=== PATIENT | female | born 1960 | race Caucasian/White ===

== ENCOUNTER 2016-04-21 18:21 | Inpatient (IN) | payer MEDICARE, MEDICAID ==
[~2016-04-21] VITALS: Ht 132.1 cm; Wt 98.1 kg
[2016-04-21 19:38] LABS: MEAN CORPUSCULAR HEMOGLOBIN 31.9 pg (27.0-33.0); MEAN CORPUSCULAR VOLUME 93.9 fl (80.0-96.0); PLATELET COUNT, AUTOMATED 144 k/mm3 (150-450); RED CELL DISTRIBUTION WIDTH 14.3 % (11.5-14.5); WHITE BLOOD COUNT 4.2 K/mm3 (4.0-10.0)
[2016-04-21 19:40] LABS: ALBUMIN 2.7 GM/DL (3.2-5.2); ALBUMIN/GLOBULIN RATIO 0.64 (1.00-1.93); BILIRUBIN,DIRECT 0.1 MG/DL (0.0-0.2); BILIRUBIN,TOTAL 0.4 MG/DL (0.2-1.0); CALCIUM LEVEL 9.3 MG/DL (8.5-10.1); CREATININE FOR GFR 1.27 MG/DL (0.55-1.02); GLOMERULAR FILTRATION RATE 46.7 (>51); POTASSIUM SERUM 3.3 MEQ/L (3.5-5.1); TOTAL PROTEIN 6.9 GM/DL (6.4-8.2)
[2016-04-21 20:09] LABS: BANDS 69 % (< 11)
--- NOTE | 2016-04-21 20:32 | REP ---
Clinical: Fever . Comparison: None . Findings: The mediastinum and cardiac silhouette are stable and within normal limits for portable technique. The lung celaya are clear without acute consolidation, effusion, or pneumothorax. Skeletal structures demonstrate dextroconvex scoliosis. Impression: No acute cardiopulmonary process or focal consolidation. Scoliosis. Signed by Hilton Denis MD 04/21/2016 08:23 P
[2016-04-21] MEDS ORDERED: CLINDAMYCIN 600 MG/50 ML PREMIX BAG As Ordered ONE (20:33)
[2016-04-21] MEDS ORDERED: ISOVUE-370 76% 100ML VIAL (Q9967) As Ordered ONE (20:41)
[2016-04-21 21:01] LABS: THYROXINE (T4) 5.5 UG/DL (4.5-12.0)
[2016-04-21] MEDS ORDERED: CIPROFLOXACIN/D5W 400 MG/200 ML BAG (J0744) As Ordered ONE (21:36)
--- NOTE | 2016-04-21 23:00 | REPUSA ---
CLINICAL HISTORY: Abdominal pain. TECHNIQUE: Multiple axial CT images were obtained through the abdomen after intravenous contrast mat erial. COMPARISON: Correlation is made with noncontrast CT abdomen and pelvis dated 04/20/2016. COMMENTS: Since the prior study there is development of intrahepatic portal venous air. This is often seen in the setting of ischemic bowel. Mild intrahepatic biliary duct dilatation is evident. There is mild extrahepatic biliary ductal dilatation. The spleen is unremarkable. The gallbladder is within normal limits. The pancreas is of normal cont our and attenuation characteristics. There is no evidence of adrenal mass. Both kidneys demonstrate prompt and equal nephrograms. The ki dneys are normal in size, shape and configuration. There is no evidence of renal mass. There is no hydroureter or hydronephrosis. There is no evidence of abdominal ascites or lymphadenopathy. There is no evidence of appendicitis. The stomach is markedly distended. There is severe wall thick ening involving loops of jejunum and ileum which are markedly dilated measuring up to 5.2 cm. The tr ansition point is not seen with certainty. The findings are suspicious for ischemic enteritis with p robable ileus and/or partial small bowel obstruction. Scattered emphysematous bullae and scattered emphysematous blebs are present. There is no evidence o f pleural or parenchymal mass. There are no pleural effusions. IMPRESSION: Evidence of portal venous air. Dilated markedly thick walled loops of small bowel. Findings are mayra picious for ischemic enteritis. Small bowel ileus or partial small bowel obstruction also suspected. Marked interval exacerbation since the prior study. Discussed with Dr. Alcantar. Thank you for your kind referral of this patient. We appreciate the opportunity to participate in thi s patient's care.
[2016-04-22] MEDS ORDERED: VITMTA PO (00:26)
[2016-04-22] MEDS ORDERED: LORA10TA2 PO (00:26)
[2016-04-22] MEDS ORDERED: TYLE500T78 PO (00:26)
[2016-04-22] MEDS ORDERED: SIMV20TA2 PO (00:26)
[2016-04-22] MEDS ORDERED: SERO200T PO (00:26)
[2016-04-22] MEDS ORDERED: FLON1SPR (00:26)
[2016-04-22] MEDS ORDERED: ESTR62CR PV (00:26)
[2016-04-22] MEDS ORDERED: SYNT88TA2 PO (00:26)
[2016-04-22] MEDS ORDERED: VITA400C2 PO (00:26)
[2016-04-22] MEDS ORDERED: VITA500T88 PO (00:26)
[2016-04-22] MEDS ORDERED: ZOFR20TA PO (00:26)
[2016-04-22] MEDS ORDERED: MIDO5TA PO (00:26)
[2016-04-22] MEDS ORDERED: CALCTAB43 PO (00:26)
[2016-04-22] MEDS ORDERED: SERO400T PO (00:31)
[2016-04-22] MEDS ORDERED: ACETAMINOPHEN 500 MG TAB PO PRN (02:00)
[2016-04-22] MEDS ORDERED: ONDANSETRON 4 MG TAB (S0181) PO PRN (02:00)
--- NOTE | 2016-04-22 02:09 | HPEPDOC ---
General Date of Admission 04/22/2016 Chief Complaint The patient is a 55-year-old female admitted with a reason for visit of General Illness. Source: Old records, [facility] Caregiver/Aid, Caregiver History of Present Illness This is 55-year-old female with history of mental retardation from [facility], dyslipidemia, hypothyroid vomiting for about 3-4 episodes since this morning. As per the caregiver, the vomit was nonbloody, bilious, and greenish color, associated with abdominal pain. No diarrhea or fever with chills. Patient did have abdominal pain yesterday and was seen by PCP and had a CAT scan outside which is performed here again in the ED. Patient DOES not provide any history but abdominal pain is resolved and distension is improved after NG tube placement. About 1L of billious material has been suctioned. She has been seen by surgery, Dr. Jo. There is no acute indication for surgery. CAT scan reveals portal venous air, dilated thick-walled loops of small bowel suspicion for ischemic enteritis along small bowel obstruction. without Certain transition point. Lactic acid is normal. Home Medications Scheduled (Flonase Allergy Relief) 50 Mcg/Act Spr 50 MCG NA BID (Reported) Ascorbic Acid (Vitamin C) 500 Mg Tab 500 MG PO DAILY (Reported) Calcium/Vitamin D (Calcium 600+D 600-400 mg-Unit) 1 Tab Tab 1 TAB PO BID ( Reported) Conjugated Estrogens (Premarin) 1 Dose/30 Gm Cr 0.625 MG PV 2XW (Reported) Sunday and Levothyroxine Sodium (Synthroid) 88 Mcg Tab 88 MCG PO DAILY (Reported) Loratadine (Loratadine) 10 Mg Tab 10 MG PO DAILY (Reported) Midodrine HCl (Midodrine HCl) 5 Mg Tab 5 MG PO TID (Reported) Multivitamins *[facility] STOCKED* (Thera M Plus *[facility] STOCKED*) 1 Tab Tab 1 TAB PO DAILY (Reported) Quetiapine Fumerate (Seroquel) 200 Mg Tab 200 MG PO DAILY (Reported) Quetiapine Fumerate (Seroquel) 400 Mg Tab 400 MG PO QHS (Reported) Simvastatin (Simvastatin) 20 Mg Tab 20 MG PO DAILY (Reported) Vitamin E (Vitamin E) 400 Unit Cap 400 UNIT PO Q2D (Reported) Scheduled PRN Acetaminophen (Tylenol Extra Strength) 500 Mg Tab 500 MG PO Q4H PRN PRN PAIN / FEVER (Reported) Ondansetron HCl (Zofran) 4 Mg Tab 4 MG PO Q6H PRN PRN NAUSEA (Reported) Allergies Coded Allergies: Penicillins (Unverified Allergy, Unknown, RASH, 07/24/12) Penicillins Cross Reactors (Unverified Allergy, Unknown, RASH, 07/24/12) Past Medical History Medical History history of mental retardation from [facility], dyslipidemia, hypothyroid Family History Significant Family History: No pertinent family hx Social History * Smoker: non-smoker Alcohol: denies Drugs: denies Recent Travel/Sick Contacts: Denies: Recent sick contacts, Recent travel Psychosocial History: No pertinent psych hx Physical Examination Eye Exam: Negative: Conjunctiva & lids normal, EOMI, Other Eye Symptoms, PERRLA , Ptosis, Sclera icteric ENT Exam: Negative: Atraumatic, Ext Auditory Canal Nml, Mucous membr. moist/ pink, Nares Patent, Other ENT, Pharyngeal Edema, Pharynx Normal, Pinna Normal, Tongue Midline, Tympanic Membranes Normal Neck Exam: Negative: +2 carotid pulse wo bruit, JVD, Lymphadenopathy, Other, Supple, thyromegaly Chest Exam: Negative: Clear to auscultation, Diminished, Normal air movement, Other, Rales, Rhonchi, Wheezing Heart Exam: Negative: Bradycardic, Gallops, Irregular Rhythm, Murmurs, Normal S1, Normal S2, Other, Rate Normal, Regular Rhythm, Rubs, Tachycardic Telemetry: Negative: AV Block, Asystole, Atrial fibrillation, Bradycardia, No significant arrhythmia, Other Telemetry:, PACs, PVCs, Pause, SV Tach, Sinus, Tachycardia Abdomen Exam: Positive: BS Hyperactive, Other (distension present and upon deep palpation pt has pain. not localized to any specific area. ), Tenderness Extremity Exam: Negative: Clubbing, Cyanosis, Edema, Normal pulses, Other, Swelling, Tenderness Vital Signs BP 110/63 P 102 R 16 T 99.2 Laboratory Data Labs 24H Laboratory Tests 2 04/21/16 18:44: Aspartate Amino Transf (AST/SGOT) 18, Alanine Aminotransferase (ALT/SGPT) 19, Alkaline Phosphatase 66, Total Bilirubin 0.4, Direct Bilirubin 0.1, Albumin 2.7# L, Albumin/Globulin Ratio 0.64L, Amylase Level 11L, Anion Gap 11, Atypical Lymphocytes 1, Band Neutrophils 69H, White Blood Count 4.2, Red Blood Count 3.99L, Hemoglobin 12.7, Hematocrit 37.4, Mean Corpuscular Volume 93.9, Mean Corpuscular Hemoglobin 31.9, Mean Corpuscular Hemoglobin Concent 34.0, Red Cell Distribution Width 14.3, Platelet Count 144L, Neutrophils (%) (Auto) , Lymphocytes (%) (Auto) , Monocytes (%) (Auto) , Eosinophils (%) (Auto) , Basophils (%) (Auto) , Neutrophils # (Auto) , Lymphocytes # (Auto) , Monocytes # (Auto) , Eosinophils # (Auto) , Basophils # (Auto) , Calcium Level 9.3, Free Thyroxine Index 2.1, Glomerular Filtration Rate 46.7L, Lactic Acid Level 1.4, Large Unclassified Cells # , Large Unclassified Cells % , Lipase 38L, Lymphocytes (Manual) 5L, Metamyelocytes 7H, Monocytes (Manual) 9H, Myelocytes 3H , Neutrophils 6L, Platelet Estimate NORMAL, Thyroid Stimulating Hormone (TSH) 3.260, Thyroxine (T4) 5.5, Total Protein 6.9, Triiodothyronine (T3) Uptake 39 04/21/16 19:41: Urine Amorphous Sediment , Urine Appearance HAZY, Urine Color YELLOW, Urine pH 5.0, Urine Specific Strandquist 1.027, Urine Protein 1+H, Urine Glucose (UA) NEGATIVE, Urine Ketones 1+H, Urine Urobilinogen 0.2, Urine Bilirubin NEGATIVE, Urine Leukocyte Esterase NEGATIVE, Urine Bacteria (Auto) NEGATIVE, Urine Blood NEGATIVE, Urine Calcium Carbonate Cryst(Auto) , Urine Calcium Oxalate Cryst ( Auto) , Urine Calcium Phosphate Tiff (Auto) , Urine Cellular Casts , Urine Cystine Crystals , Urine Granular Casts (Auto) , Urine Hyaline Casts (Auto) 1, Urine Leucine Crystals , Urine Mucus (Auto) , Urine Nitrite NEGATIVE, Urine Oval Fat Bodies (Auto) , Urine RBC (Auto) 1, Urine Renal Epithelial Cells , Urine Sperm (Auto) , Urine Squamous Epithelial Cells 0, Urine Transitional Epithelial Cells , Urine Trichomonas (Auto) , Urine Triple Phosphate Cryst (Auto ) , Urine Tyrosine Crystals , Urine Uric Acid Crystals (Auto) , Urine WBC (Auto ) 2, Urine Waxy Casts (Auto) , Urine Yeast-Like Cells (Auto) CBC/BMP Laboratory Tests 04/21/16 18:44 Red Blood Count 3.99 L, Mean Corpuscular Volume 93.9, Mean Corpuscular Hemoglobin 31.9, Mean Corpuscular Hemoglobin Concent 34.0, Red Cell Distribution Width 14.3, Neutrophils (%) (Auto) , Lymphocytes (%) (Auto) , Monocytes (%) (Auto) , Eosinophils (%) (Auto) , Basophils (%) (Auto) , Neutrophils # (Auto) , Lymphocytes # (Auto) , Monocytes # (Auto) , Eosinophils # (Auto) , Basophils # (Auto) Microbiology Microbiology 04/21/16 Blood Culture, Received Pending 04/21/16 Blood Culture, Received Pending 04/21/16 Influenza Virus Type A Antigen - Final, Complete 04/21/16 Influenza Virus Type B Antigen - Final, Complete 04/21/16 Urine Culture, Received Pending Plan / VTE VTE Prophylaxis Ordered?: Yes Plan Plan 55-year-old female with history of mental retardation from [facility], dyslipidemia, hypothyroid vomiting for about 3-4 episodes since this morning. Partial SBO: - NG tube under suction. Improvement after placement. - surgery will follow tomm. They have written note and suggest not acute surgical candidate. - unlikely ischemic colitis given normal lactic acid, will check H and H tomm and lactic acid tomm. - will obtain flat upright ABd xray and will obtain one in AM for comparison - NPO and NS at 125cc/hr HYpothyroid: - c/w levothyroxine. check TSH tomm HLD: - c/w statin. DVT: heparin subq. IVF: Initiate Diet: Make NPO Activity: DONAL Herrera MD Apr 22, 2016 02:09
[2016-04-22] MEDS ORDERED: NS 1,000 ML IV SCH (02:15)
[2016-04-22 03:15] VITALS: BP 115/70
--- NOTE | 2016-04-22 03:17 | EDDOCDS ---
Nurse's Notes [facility] Name: Theresa Leone Age: 55 yrs Sex: Female : 1960 Arrival Date: 04/21/2016 Time: 18:21 Bed 5 Private MD: Naya Gamez G. Diagnosis: Volume depletion;Noninfective gastroenteritis and colitis, unspecified Presentation: 04/21 18:23 Presenting complaint: EMS states: continues to complain of abdominal pain. Fever today kr3 of 103 and has vomited. has refused to get out of bed. has not voided at all today. Suicide/Homicide risk assessment- the patient denies having any suicidal and/or homicidal ideations and does not present with any other emotional, behavioral or mental health complaints. 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 Transition of care: patient was not received from another setting of care. 18:23 Method Of Arrival: Ambulance kr3 18:51 Adult Sepsis Screening: The patient does not have new or worsening altered mentation. kr3 Patient's respiratory rate is less than 22. Systolic blood pressure is greater than 100. Patient has a qSOFA score of 0- Negative Sepsis Screen. 18:51 Acuity: OSMAN Level 3 kr3 Triage Assessment: 18:30 General: Appears in no apparent distress, Behavior is appropriate for age. Pain: Unable kr3 to use pain scale. Does not appear to understand pain scale. HIV screening NA for this visit Offered previously. The patient is triaged at the bedside. See Assessment in Nurses Notes section of ED record. Neurological: Level of Consciousness is awake, lethargic. GI: other dry vomit around mouth. Derm: Skin is dry, Skin is normal, Skin temperature is warm. 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 Calcarb 600 With Vitamin D Oral twice a day 2. Flonase 50 mcg/actuation Nasal spsn 1 spray 2 times per day 3. levothyroxine 88 mcg Oral cap 1 cap once daily 4. Loratadine Oral once daily 5. Multivitamin Oral daily 6. Premarin Vagl twice a week 7. proamatine 5mg three times a day 8. Seroquel 200 mg Oral tab 2 times per day 9. simvastatin 20 mg Oral tab 1 tab once daily 10. Vitamin C 500 mg Oral tab daily 11. vitamin E 400 unit Oral tab every other day 12. Zofran (as hydrochloride) 4 mg Oral tab as needed (Last dose: 04/21/2016) 13. Tylenol Unknown Oral as needed (Last dose: 04/21/2016) - PMHx: Allergies, Seasonal; Hypercholesterolemia; Thyroid problem; - Social history: Smoking status: Patient states was never smoker of tobacco. No barriers to communication noted, The patient speaks fluent Togolese. - Family history: Not pertinent. - : The pt / caregiver states he / she is not on anticoagulants. Home medication list is obtained from the facility MAR. - Exposure Risk Screening:: None identified. Screenin:33 Screening information is obtained from residence staff. Fall risk: At risk due to gait kr3 disturbance. Assistance ADL's: Requires assistance with meal preparation, this assistance is provided by residence staff, bathing, assistance is provided by residence staff, dressing, assistance is provided by residence staff, toileting, assistance is provided by residence staff, ambulation, assistance is provided by residence staff, housework, assistance is provided by residence staff, medication administration, assistance is provided by residence staff. Abuse/DV Screen: The patient / caregiver reports he/she is: pt cannot be assessed for living situation at this time. Nutritional screening: On heart healthy. Advance Directives: Currently, there is no health care proxy. There is no active DNR order. There is no Power of Centerless Grinder Tender. home support is adequate. Assessment: 18:47 GI: Abdomen is non- distended Bowel sounds present X 4 quads. Abd is soft X 4 quads Abd kr3 is tender to palpation X 4 quads. 20:00 Reassessment: Patient states symptoms have not improved. General: Appears ill, jp6 uncomfortable, Behavior is appropriate for age, cooperative. Pain: Location: abdomen Pain currently is 5 out of 10 on a pain scale. Noted to be grimacing. Neurological: No deficits noted. EENT: No deficits noted. Cardiovascular: No deficits noted. Heart tones S1 S2. Respiratory: No deficits noted. Airway is patent Respiratory effort is even, unlabored, Respiratory pattern is regular, symmetrical, Breath sounds are clear bilaterally. GI: Abdomen is distended, obese, Last BM was April 20, 2016. Bowel sounds present X 4 quads. Abd is soft Abd is tender to palpation. : No deficits noted. Derm: Skin is pale, Skin temperature is warm. Musculoskeletal: No deficits noted. 21:00 Reassessment: Patient states symptoms have not improved. General: Appears ill, jp6 uncomfortable. Pain: Noted to be grimacing. Cardiovascular: No deficits noted. Respiratory: Airway is patent Respiratory effort is even, unlabored, Respiratory pattern is regular, symmetrical. GI: Abdomen is distended, Bowel sounds present X 4 quads. Derm: Skin is pale. 22:00 Reassessment: Patient states symptoms have not improved. General: Appears ill, jp6 uncomfortable, Behavior is appropriate for age, cooperative. Pain: Noted to be grimacing. Neurological: No deficits noted. EENT: No deficits noted. Cardiovascular: No deficits noted. Respiratory: Airway is patent Respiratory effort is even, unlabored, Respiratory pattern is regular, symmetrical. GI: Abdomen is distended. 23:00 Reassessment: Patient states symptoms have not improved. jp6 23:50 Reassessment: Patient states symptoms have improved. NGT inserted w/ immediate 800ml jp6 out-abdomen less distended.Pt stated was feeling a little better.. 04/22 01:00 Reassessment: Patient states symptoms have improved. General: Appears comfortable, ill, jp6 Behavior is appropriate for age, cooperative. Pain: Alleviated by ng placement. Cardiovascular: No deficits noted. Respiratory: Airway is patent Respiratory effort is even, unlabored, Respiratory pattern is regular, symmetrical. 02:20 Reassessment: Patient states symptoms have improved. General: Appears comfortable, jp6 Behavior is appropriate for age, cooperative. Neurological: No deficits noted. EENT: No deficits noted. Cardiovascular: No deficits noted. Respiratory: No deficits noted. Airway is patent Respiratory effort is even, unlabored, Respiratory pattern is regular, symmetrical. GI: Abdomen is non- distended NGT. Derm: Skin is pale, Skin temperature is warm. Vital Signs: 04/21 18:26 BP 110 / 63 (auto/); jp6 18:28 Pulse 100 MON; Pulse Ox 91% ; jp6 18:29 BP 110 / 63; Pulse 102; Resp 16; Temp 99.2(O); Pulse Ox 100% on R/A; Weight 50.35 kg kr3 (R); Height 4 ft. 4 in. (132.08 cm) (R); 21:48 BP 116 / 76 (auto/); jp6 21:50 Pulse 90 MON; Pulse Ox 93% ; jp6 22:00 BP 116 / 76; Pulse 94; Resp 17; Temp 98(T); Pulse Ox 93% ; jp6 22:00 Temp 100.6(R); jp6 22:49 BP 98 / 56 (auto/); jp6 22:50 Pulse 88 MON; Pulse Ox 87% ; jp6 23:00 Pulse 88 MON; Pulse Ox 92% ; jp6 23:49 BP 104 / 65 (auto/); jp6 23:50 Pulse 92 MON; Pulse Ox 92% ; jp6 23:52 BP 103 / 67 (auto/); jp6 23:52 Pulse 92 MON; Pulse Ox 93% ; jp6 23:52 Temp 99.2(TE); jp6 04/22 00:49 BP 109 / 61 (auto/); jp6 00:50 Pulse 90 MON; Pulse Ox 96% ; jp6 01:49 BP 102 / 61 (auto/); jp6 02:14 Pulse 90 MON; Pulse Ox 95% ; jp6 02:31 Temp 98.9(TE); jp6 04/21 18:29 Body Mass Index 28.86 (50.35 kg, 132.08 cm) kr3 Vitals: 04/21 18:29 Log In Time N/A - ambulance arrival. kr3 ED Course: 18:22 Patient visited by Radha Mcneil, Apartment Leasing Specialist. lbd 18:22 Patient moved to Waiting lbd 18:23 Naya Gamez is Private Physician. lbd 18:23 Deepa De Oliveira,RN is Primary Nurse. lbd 18:23 Patient moved to 5 lbd 18:47 Inserted saline lock: 20 gauge in left hand and blood collected. The patient tolerated kr3 the procedure well. 18:51 Triage Initiated kr3 18:56 Antonio Alcantar DO is Attending Physician. cs11 18:56 Patient visited by Antonio Alcantar DO. cs11 19:02 Primary Nurse role handed off by Deepa De Oliveira,SHABNAM kr3 19:05 Mora Harris,SHABNAM is Primary Nurse. jp6 19:43 Urinalysis: catheterize Sent. jp6 19:43 Urine Culture Sent. jp6 19:48 -Influenza A&B Rapid Antigen - Nose Sent. jp6 19:55 [facility] [place] was scanned into [employer] and attached to record. gjb 20:19 Patient visited by Mora Harris RN. jp6 20:58 Chest, 1 View Returned. EDMS 21:57 Patient visited by Mora Harris RN. jp6 22:00 The patient / caregiver is instructed regarding the plan of care and ED course. jp6 22:00 No procedures done that require assistance. Urine collected. straight cath specimen. jp6 Straight cath inserted 16 Fr. 26 Fr. returned clear yellow urine. 23:12 Patient visited by Mora Harris RN. jp6 23:34 CT ABD & PELVIS: IV Contrast Only Returned. EDMS 04/22 00:08 NGT inserted 18 Fr. via right nare. Placement verified. Returned gastric contents. jp6 Returned bile. to intermittent suction. Returned gastric contents. Patient tolerated well. 00:13 Patient visited by Mora Harris RN. jp6 01:14 Sean Ureña MD is Hospitalizing Provider. cs11 Administered Medications: 04/21 19:42 Drug: NS 0.9% 1000 ml [sodium chloride 0.9 % intravenous solution] Route: IV; Rate: jp6 bolus; Site: left wrist; 20:46 Drug: Clindamycin 600 mg [clindamycin 600 mg/50 mL in 5 % dextrose intravenous jp6 piggyback] Route: IVPB; Infused Over: 30 mins; Site: left wrist; 22:16 Drug: Ciprofloxacin 400 mg [ciprofloxacin 400 mg/200 mL in 5 % dextrose intravenous jp6 piggyback] Route: IVPB; Rate: 200 mL/hr; Infused Over: 60 mins; Site: left wrist; 23:59 Drug: NS 0.9% 1000 ml [sodium chloride 0.9 % intravenous solution] Route: IV; Rate: jp6 bolus; Site: left wrist; Intake: 04/22 00:08 IV: 1250.00ml; Total: 1250.00ml. jp6 Output: 00:08 Urine: 600.00ml; Total: 600.00ml. jp6 00:24 Gastric: 1100.00ml (NGT); Total: 1700.00ml. jp6 Order Results: Lab Order: Lactic Acid (Jaime tube on ice); SPEC'M 04/21/16 18:44 Test: LACTIC ACID LEVEL, LACTATE; Value: 1.4; Range: 0.4-2.0; Units: MMOL/L; Status: F Lab Order: CBC with Diff; SPEC'M 04/21/16 18:44 Test: WHITE BLOOD COUNT; Value: 4.2; Range: 4.0-10.0; Units: K/mm3; Status: F Test: RED BLOOD COUNT; Value: 3.99; Range: 4.00-5.40; Abnormal: Below low normal; Units: M/mm3; Status: F Test: HEMOGLOBIN; Value: 12.7; Range: 12.0-16.0; Units: g/dl; Status: F Test: HEMATOCRIT; Value: 37.4; Range: 36.0-47.0; Units: %; Status: F Test: MEAN CORPUSCULAR VOLUME; Value: 93.9; Range: 80.0-96.0; Units: fl; Status: F Test: MEAN CORPUSCULAR HEMOGLOBIN; Value: 31.9; Range: 27.0-33.0; Units: pg; Status: F Test: MEAN CORPUSCULAR HGB CONC; Value: 34.0; Range: 32.0-36.5; Units: g/dl; Status: F Test: RED CELL DISTRIBUTION WIDTH; Value: 14.3; Range: 11.5-14.5; Units: %; Status: F Test: PLATELET COUNT, AUTOMATED; Value: 144; Range: 150-450; Abnormal: Below low normal; Units: k/mm3; Status: F Test: NEUTROPHILS; Value: 6; Range: 35-75; Abnormal: Below low normal; Units: %; Status: F Test: BANDS; Value: 69; Range: < 11; Abnormal: Above high normal; Units: %; Status: F Test: LYMPHOCYTES; Value: 5; Range: 16-52; Abnormal: Below low normal; Units: %; Status: F Test: MONOCYTES; Value: 9; Range: 0-8; Abnormal: Above high normal; Units: %; Status: F Test: METAMYELOCYTES; Value: 7; Range: 0-0; Abnormal: Above high normal; Units: %; Status: F Test: MYELOCYTES; Value: 3; Range: 0-0; Abnormal: Above high normal; Units: %; Status: F Test: ATYPICAL LYMPH; Value: 1; Range: 0-5; Units: %; Status: F Lab Order: MED Profile; [facility]04/21/16 18:44 Test: GLUCOSE, FASTING; Value: 113; Range: 70-105; Abnormal: Above high normal; Units: MG/DL; Status: F Test: BLOOD UREA NITROGEN; Value: 40; Range: 7-18; Abnormal: Above high normal; Units: MG/DL; Status: F Test: CREATININE FOR GFR; Value: 1.27; Range: 0.55-1.02; Abnormal: Above high normal; Units: MG/DL; Status: F Test: GLOMERULAR FILTRATION RATE; Value: 46.7; Range: >51; Abnormal: Below low normal; Status: F Test: SODIUM LEVEL; Value: 139; Range: 136-145; Units: MEQ/L; Status: F Test: POTASSIUM SERUM; Value: 3.3; Range: 3.5-5.1; Abnormal: Below low normal; Units: MEQ/L; Status: F Test: CHLORIDE LEVEL; Value: 101; Range: 98-107; Units: MEQ/L; Status: F Test: CARBON DIOXIDE LEVEL; Value: 27; Range: 21-32; Units: MEQ/L; Status: F Test: ANION GAP; Value: 11; Range: 8-16; Units: MEQ/L; Status: F Test: CALCIUM LEVEL; Value: 9.3; Range: 8.5-10.1; Units: MG/DL; Status: F Test Note: ; Units are mL/min/1.73 m2 Chronic Kidney Disease Staging per NKF: Stage I & II GFR >=60 Normal to Mildly Decreased Stage III GFR 30-59 Moderately Decreased Stage IV GFR 15-29 Severely Decreased Stage V GFR <15 Very Little GFR Left ESRD GFR <15 on 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64; Range: 1.00-1.93; Abnormal: Below low normal; Status: F Lab Order: Amylase; [facility] 04/21/16 18:44 Test: AMYLASE; Value: 11; Range: 25-115; Abnormal: Below low normal; Units: U/L; Status: F Lab Order: Lipase; [facility] 04/21/16 18:44 Test: LIPASE; Value: 38; Range: 73-393; Abnormal: Below low normal; Units: U/L; Status: F Lab Order: Urinalysis: catheterize; [facility] 04/21/16 19:41 Test: APPEARANCE, URINE; Value: HAZY; Range: CLEAR; Status: F Test: COLOR, URINE; Value: YELLOW; Range: YELLOW; Status: F Test: PH,URINE; Value: 5.0; Range: 5.0-9.0; Units: UNITS; Status: F Test: SPECIFIC GRAVITY URINE AUTO; Value: 1.027; Range: 1.002-1.035; Status: F Test: PROTEIN, URINE AUTO; Value: 1+; Range: NEGATIVE; Abnormal: Above high normal; Units: mg/dL; Status: F Test: GLUCOSE, URINE (UA) AUTO; Value: NEGATIVE; Range: NEGATIVE; Units: mg/dL; Status: F Test: KETONE, URINE AUTO; Value: 1+; Range: NEGATIVE; Abnormal: Above high normal; Units: mg/dL; Status: F Test: UROBILINOGEN, URINE AUTO; Value: 0.2; Range: 0.0-2.0; Units: mg/dL; Status: F Test: BILIRUBIN, URINE AUTO; Value: NEGATIVE; Range: NEGATIVE; Status: F Test: NITRITE, URINE AUTO; Value: NEGATIVE; Range: NEGATIVE; Status: F Test: LEUKOCYTE ESTERASE, URINE AUTO; Value: NEGATIVE; Range: NEGATIVE; Status: F Test: BLOOD, URINE BLOOD; Value: NEGATIVE; Range: NEGATIVE; Status: F Test: WBC, URINE AUTO; Value: 2; Range: 0-3; Units: /HPF; Status: F Test: RBC, URINE AUTO; Value: 1; Range: 0-3; Units: /HPF; Status: F Test: BACTERIA, URINE AUTO; Value: NEGATIVE; Range: NEGATIVE; Status: F Test: SQUAMOUS EPITHELIAL CELL UR AU; Value: 0; Range: 0-6; Units: /HPF; Status: F Test: HYALINE CAST, URINE AUTO; Value: 1; Range: 0-1; Units: /LPF; Status: F Lab Order: -Influenza A&B Rapid Antigen - Nose; SPEC'M 04/21/16 19:46 Test: INFLUENZA A RAPID SCR by ICA; Value: INFLUENZA A RESULTS NEGATIVE; Status: F Test: INFLUENZA A RAPID SCR by ICA; Value: Comments:; Status: F Test: INFLUENZA B RAPID SCR by ICA; Value: INFLUENZA B RESULTS NEGATIVE; Status: F Test Note: ; The Influenza test is a direct rapid immunoassay for the qualitative detection of Influenza viral antigen. Cell culture (Viral Culture) testing should be considered to confirm NEGATIVE results and to assist in detecting other viruses that can provide similar clinical symptoms. Please contact the lab within 24 hours ([phone]) if confirmatory testing is desired. Lab Order: PLATELET ESTIMATE; SPEC'M 04/21/16 18:44 Test: PLATELET ESTIMATE; Value: NORMAL; Range: NORMAL; Status: F Lab Order: THYROID PROFILE; SPEC'M 04/21/16 18:44 Test: T UPTAKE; Value: 39; Range: 30-39; Units: %; Status: F Test: THYROXINE (T4); Value: 5.5; Range: 4.5-12.0; Units: UG/DL; Status: F Test: FREE THYROXINE INDEX; Value: 2.1; Range: 1.3-4.8; Units: %; Status: F Test: THYROID STIMULATING HORMONE; Value: 3.260; Range: 0.358-3.740; Units: uIU/ML; Status: F Radiology Order: Chest, 1 View Test: Chest, 1 View REASON FOR EXAMINATION: fever; Clinical: Fever .; ; Comparison: None .; ; Findings:; The mediastinum and cardiac silhouette are stable and within normal limits for; portable technique. The lung celaya are clear without acute consolidation,; effusion, or pneumothorax. Skeletal structures demonstrate dextroconvex; scoliosis.; ; Impression:; No acute cardiopulmonary process or focal consolidation.; Scoliosis.; ; ; Signed by; Hilton Denis MD 04/21/2016 08:23 P; Radiology Order: CT ABD & PELVIS: IV Contrast Only Test: CT ABD & PELVIS: IV Contrast Only REASON FOR EXAMINATION: Abdomen Pain; ; CLINICAL HISTORY: Abdominal pain.; ; TECHNIQUE: Multiple axial CT images were obtained through the abdomen after intravenous contrast mat; erial.; ; COMPARISON: Correlation is made with noncontrast CT abdomen and pelvis dated 04/20/2016.; ; COMMENTS:; Since the prior study there is development of intrahepatic portal venous air. This is often seen in; the setting of ischemic bowel. Mild intrahepatic biliary duct dilatation is evident. There is mild; extrahepatic biliary ductal dilatation.; The spleen is unremarkable. The gallbladder is within normal limits. The pancreas is of normal cont; our and attenuation characteristics.; ; There is no evidence of adrenal mass. Both kidneys demonstrate prompt and equal nephrograms. The ki; dneys are normal in size, shape and configuration. There is no evidence of renal mass. There is no; hydroureter or hydronephrosis. There is no evidence of abdominal ascites or lymphadenopathy.; ; There is no evidence of appendicitis. The stomach is markedly distended. There is severe wall thick; ening involving loops of jejunum and ileum which are markedly dilated measuring up to 5.2 cm. The tr; ansition point is not seen with certainty. The findings are suspicious for ischemic enteritis with p; robable ileus and/or partial small bowel obstruction.; ; Scattered emphysematous bullae and scattered emphysematous blebs are present. There is no evidence o; f pleural or parenchymal mass. There are no pleural effusions.; ; IMPRESSION:; Evidence of portal venous air. Dilated markedly thick walled loops of small bowel. Findings are mayra; picious for ischemic enteritis. Small bowel ileus or partial small bowel obstruction also suspected.; Marked interval exacerbation since the prior study.; Discussed with Dr. Alcantar.; ; ; Thank you for your kind referral of this patient. We appreciate the opportunity to participate in thi; s patient's care.; ; ; Outcome: 01:15 Decision to Hospitalize by Provider. cs11 02:56 Discharge Assessment: Patient awake, alert and oriented x 3. No cognitive and/or jp6 functional deficits noted. Patient verbalized understanding of disposition instructions. patient administered narcotics - no. The following High Risk Discharge criteria are identified: None. Admitted to PCU accompanied by nurse, accompanied by tech, via stretcher, on monitor, with chart. Condition: improved. CT Study completed. Admission hand-off: Report called to pcu. Property :Personal belongings accompany Pt. 03:17 Patient left the ED. jp6 Signatures: Dispatcher [employer] EDMS Radha Mcneil, Apartment Leasing Specialist Unit lbd Deepa De Oliveira,RN RN kr3 Antonio Alcantar DO DO cs11 Agata Escamilla Jessica,RN RN jp6 GERARD
--- NOTE | 2016-04-22 03:17 | EDDOCDS ---
Physician Documentation [facility] Name: Theresa Leone Age: 55 yrs Sex: Female : 1960 Arrival Date: 04/21/2016 Time: 18:21 Bed 5 Private MD: Naya Gamez G. Disposition: 04/22/16 01:15 Hospitalization ordered by Sean Ureña for Inpatient Admission. Preliminary diagnosis are Volume depletion, Noninfective gastroenteritis and colitis, unspecified. - Bed requested for PCU. - Status is Inpatient Admission. jp6 - Condition is Stable. - Problem is new. - Symptoms have improved. Historical: - Allergies: Amoxicillin; PENICILLINS; - Home Meds: 1. Calcarb 600 With Vitamin D Oral twice a day 2. Flonase 50 mcg/actuation Nasal spsn 1 spray 2 times per day 3. levothyroxine 88 mcg Oral cap 1 cap once daily 4. Loratadine Oral once daily 5. Multivitamin Oral daily 6. Premarin Vagl twice a week 7. proamatine 5mg three times a day 8. Seroquel 200 mg Oral tab 2 times per day 9. simvastatin 20 mg Oral tab 1 tab once daily 10. Vitamin C 500 mg Oral tab daily 11. vitamin E 400 unit Oral tab every other day 12. Zofran (as hydrochloride) 4 mg Oral tab as needed (Last dose: 04/21/2016) 13. Tylenol Unknown Oral as needed (Last dose: 04/21/2016) - PMHx: Allergies, Seasonal; Hypercholesterolemia; Thyroid problem; - Social history: Smoking status: Patient states was never smoker of tobacco. No barriers to communication noted, The patient speaks fluent [place]inean. - Family history: Not pertinent. - : The pt / caregiver states he / she is not on anticoagulants. Home medication list is obtained from the facility JUN. - Exposure Risk Screening:: None identified. 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 4 in. (132.08 cm) (R); 21:48 BP 116 / 76 (auto/); jp6 21:50 Pulse 90 MON; Pulse Ox 93% ; jp6 22:00 BP 116 / 76; Pulse 94; Resp 17; Temp 98(T); Pulse Ox 93% ; jp6 22:00 Temp 100.6(R); jp6 22:49 BP 98 / 56 (auto/); jp6 22:50 Pulse 88 MON; Pulse Ox 87% ; jp6 23:00 Pulse 88 MON; Pulse Ox 92% ; jp6 23:49 BP 104 / 65 (auto/); jp6 23:50 Pulse 92 MON; Pulse Ox 92% ; jp6 23:52 BP 103 / 67 (auto/); jp6 23:52 Pulse 92 MON; Pulse Ox 93% ; jp6 23:52 Temp 99.2(TE); jp6 04/22 00:49 BP 109 / 61 (auto/); jp6 00:50 Pulse 90 MON; Pulse Ox 96% ; jp6 01:49 BP 102 / 61 (auto/); jp6 02:14 Pulse 90 MON; Pulse Ox 95% ; jp6 02:31 Temp 98.9(TE); jp6 04/21 18:29 Body Mass Index 28.86 (50.35 kg, 132.08 cm) kr3 MDM: 04/21 19:15 -Blood Culture (Adults Only), peripheral from different site, or from device/port/PICC cs11 etc. if present ordered. 19:15 NS 0.9% 1000 ml IV at bolus once ordered. cs11 19:16 Lactic Acid (Jaime tube on ice) Ordered. EDMS 19:16 CBC with Diff Ordered. EDMS 19:16 MED Profile Ordered. EDMS 19:16 Liver Profile Ordered. EDMS 19:16 Amylase Ordered. EDMS 19:16 Lipase Ordered. EDMS 19:16 Urinalysis: catheterize Ordered. EDMS 19:16 -Blood Culture Ordered. EDMS 19:16 Urine Culture Ordered. EDMS 19:16 Chest, 1 View Ordered. EDMS 19:36 -Blood Culture (Adults Only), peripheral from different site, or from device/port/PICC tmm1 etc. if present complete. 19:38 BLOOD CULTURES Ordered. EDMS 19:40 DIFFERENTIAL NO CHARGE Ordered. EDMS 19:40 PLATELET ESTIMATE Ordered. EDMS 19:40 -Influenza A&B Rapid Antigen - Nose Ordered. EDMS 19:51 Financial registration complete. gjb 19:55 FORMERLY [facility], [facility]1983 Payment Agreement was scanned into [employer] and attached to record. gjb 20:17 CBC with Diff Reviewed. cs11 20:17 MED Profile Reviewed. cs11 20:17 Liver Profile Reviewed. cs11 20:17 Amylase Reviewed. cs11 20:17 Lipase Reviewed. cs11 20:17 Urinalysis: catheterize Reviewed. cs11 20:17 Lactic Acid (Jaime tube on ice) Reviewed. cs11 20:17 -Influenza A&B Rapid Antigen - Nose Reviewed. cs11 20:17 PLATELET ESTIMATE Reviewed. cs11 20:25 Clindamycin 600 mg IVPB once over 30 mins; dilute in 50mL of NS or D5W ordered. cs11 20:25 Ciprofloxacin 400 mg IVPB at 200 mL/hr once over 60 mins ordered. cs11 20:26 CT ABD & PELVIS: IV Contrast Only Ordered. EDMS 20:42 THYROID PROFILE Ordered. EDMS 22:36 NG/OG Tube 18Fr to L.I.S. with hourly monitoring for placement ordered. cs11 22:37 MED Profile Reviewed. cs11 22:37 Liver Profile Reviewed. cs11 22:37 Amylase Reviewed. cs11 22:37 Lipase Reviewed. cs11 22:37 THYROID PROFILE Reviewed. cs11 22:37 Chest, 1 View Reviewed. cs11 23:55 NS 0.9% 1000 ml IV at bolus once ordered. cs11 23:56 BED REQUEST+ADM ordered. EDMS 04/22 01:11 CT ABD & PELVIS: IV Contrast Only Reviewed. cs11 01:47 Abdomen,Flat\E\Upright,PA CHEST Ordered. EDMS 01:55 Abdomen,Flat Plate KUB Ordered. EDMS 01:56 Admission / Observation Status ordered. EDMS 01:56 NPO DIET ordered. EDMS 01:57 COMPLETE COMPHRENSIVE METABOLI Ordered. EDMS 01:57 CBC WITH DIFFERENTIAL Ordered. EDMS 01:57 LACTIC ACID LEVEL, LACTATE Ordered. EDMS Administered Medications: 04/21 19:42 Drug: NS 0.9% 1000 ml [sodium chloride 0.9 % intravenous solution] Route: IV; Rate: jp6 bolus; Site: left wrist; 20:46 Drug: Clindamycin 600 mg [clindamycin 600 mg/50 mL in 5 % dextrose intravenous jp6 piggyback] Route: IVPB; Infused Over: 30 mins; Site: left wrist; 22:16 Drug: Ciprofloxacin 400 mg [ciprofloxacin 400 mg/200 mL in 5 % dextrose intravenous jp6 piggyback] Route: IVPB; Rate: 200 mL/hr; Infused Over: 60 mins; Site: left wrist; 23:59 Drug: NS 0.9% 1000 ml [sodium chloride 0.9 % intravenous solution] Route: IV; Rate: jp6 bolus; Site: left wrist; Signatures: Dispatcher [employer] EDMS Cortney Scales, RN RN Deepa Siddiqui,RN RN kr3 Antonio Alcantar DO DO cs11 [place], [place], HEALTH INSURANCE SPECIALIST HEALTH INSURANCE SPECIALIST tmm1 Agata Escamilla Jessica,RN RN jp6 The chart was reviewed and I authenticate all verbal orders and agree with the evaluation and treatment provided.Corrections: (The following items were deleted from the chart) 20:43 20:37 THYROID PROFILE+LAB ordered. EDMS EDMS Attachments: 19:55 FORMERLY [facility], [facility] Payment Agreement sandoval MTDD
[2016-04-22] MEDS: metroNIDAZOLE 500 MG in APPROPRIATE DILUENT 1 EA IV SCH ×3 (04:55→19:40)
[2016-04-22 05:34] LABS: MEAN CORPUSCULAR HEMOGLOBIN 32.7 pg (27.0-33.0); MEAN CORPUSCULAR HGB CONC 33.8 g/dl (32.0-36.5); MEAN CORPUSCULAR VOLUME 96.7 fl (80.0-96.0); PLATELET COUNT, AUTOMATED 137 k/mm3 (150-450); RED CELL DISTRIBUTION WIDTH 13.5 % (11.5-14.5); WHITE BLOOD COUNT 3.8 K/mm3 (4.0-10.0)
[2016-04-22 05:48] LABS: ALBUMIN 2.2 GM/DL (3.2-5.2); ALBUMIN/GLOBULIN RATIO 0.59 (1.00-1.93); ALKALINE PHOSPHATASE 55 U/L (45-117); ALT/SGPT 16 U/L (12-78); ANION GAP 12 MEQ/L (8-16); AST/SGOT 12 U/L (15-37); BILIRUBIN,TOTAL 0.4 MG/DL (0.2-1.0); BLOOD UREA NITROGEN 23 MG/DL (7-18); CALCIUM LEVEL 8.1 MG/DL (8.5-10.1); CARBON DIOXIDE LEVEL 24 MEQ/L (21-32); CHLORIDE LEVEL 105 MEQ/L (98-107); CREATININE FOR GFR 0.71 MG/DL (0.55-1.02); GLOMERULAR FILTRATION RATE > 60.0 (>51); GLUCOSE, FASTING 119 MG/DL (70-105); POTASSIUM SERUM 3.4 MEQ/L (3.5-5.1); SODIUM LEVEL 141 MEQ/L (136-145); TOTAL PROTEIN 5.9 GM/DL (6.4-8.2)
[2016-04-22 06:12] LABS: BANDS 10 % (< 11)
[2016-04-22 06:14] LABS: TOXIC VACUOLATION 1+
[2016-04-22] MEDS: LEVOTHYROXINE 0.088 MG TAB (88 MCG) PO SCH (06:32)
[2016-04-22] MEDS: HEPARIN SOD (PORCINE) 5000 UNITS/ML VIAL SC SCH ×3 (06:33→21:51)
[2016-04-22 07:15] VITALS: BP 103/61
[2016-04-22] MEDS: MULTIVITAMINS/MINERALS THERAP 1 TAB PO SCH (08:13)
[2016-04-22] MEDS: QUEtiapine FUMARATE 200 MG TAB PO SCH ×2 (08:13→21:52)
[2016-04-22] MEDS: FLUTICASONE PROP 0.05% NASAL SPRAY 16 GM (FLONASE) SCH ×2 (08:13→21:51)
[2016-04-22] MEDS: MIDODRINE 5 MG TAB PO SCH ×3 (08:13→16:43)
--- NOTE | 2016-04-22 08:32 | REP ---
Clinical: Small bowel obstruction. Technique: Supine view of the abdomen and pelvis. Comparison: 04/22/2016 at 02:27 a.m. Findings: Distended small bowel is consistent with small bowel obstruction. Air and fecal material noted within relatively normal appearing:. A nasogastric tube extends towards the right upper quadrant. Contrast within the bladder consistent with recent CT. Surgical courtney over the midabdomen consistent with prior surgery. Skeletal structures appear intact. Impression: Findings to suggest small bowel obstruction. Signed by Hilton Denis MD 04/22/2016 08:23 A
[2016-04-22] MEDS ORDERED: LORATADINE 10 MG TAB PO SCH (09:00)
[2016-04-22] MEDS ORDERED: CALCIUM/VITAMIN D 500 MG TAB PO SCH (09:00)
[2016-04-22] MEDS ORDERED: SIMVASTATIN 20 MG TAB PO SCH (09:00)
--- NOTE | 2016-04-22 09:14 | REP ---
Clinical: Abdominal distension. Possible small bowel obstruction. Technique: Supine view of the chest abdomen and pelvis with cross-table view of the abdomen. Findings: Distended loops of small bowel with normal aerated large bowel suggest the possibility of small bowel obstruction. Nasogastric tube below the diaphragm. Contrast within the bladder consistent with prior CT. Frontal view of the chest demonstrates chronic changes with superimposed scattered atelectasis suggested. Skeletal structures demonstrate scoliosis. Impression: Small bowel distension consistent with small bowel obstruction. Lung celaya demonstrate chronic changes and superimposed scattered atelectasis cannot be excluded. Signed by Hilton Denis MD 04/22/2016 09:05 A
[2016-04-22] MEDS: CIPROFLOXACIN 400 MG in APPROPRIATE DILUENT 1 EA IV SCH ×2 (09:35→21:53)
[2016-04-22] MEDS: KCL 40MEQ in NS 1000ML 1,000 ML IV SCH ×2 (10:51→19:40)
[2016-04-22 16:00] VITALS: BP 107/67
[2016-04-22 20:00] VITALS: BP 119/71
[2016-04-23] MEDS: metroNIDAZOLE 500 MG in APPROPRIATE DILUENT 1 EA IV SCH ×3 (03:55→19:55)
[2016-04-23] MEDS: KCL 40MEQ in NS 1000ML 1,000 ML IV SCH ×2 (03:55→13:21)
[2016-04-23 04:00] VITALS: BP 92/53
[2016-04-23 06:24] LABS: T UPTAKE 39 % (30-39)
[2016-04-23] MEDS: LEVOTHYROXINE 0.088 MG TAB (88 MCG) PO SCH (06:32)
[2016-04-23] MEDS: HEPARIN SOD (PORCINE) 5000 UNITS/ML VIAL SC SCH ×3 (06:32→22:10)
[2016-04-23 07:15] VITALS: BP 100/62
[2016-04-23 07:22] LABS: BLOOD UREA NITROGEN 14 MG/DL (7-18); CALCIUM LEVEL 7.1 MG/DL (8.5-10.1); CHLORIDE LEVEL 113 MEQ/L (98-107); GLOMERULAR FILTRATION RATE > 60.0 (>51); GLUCOSE, FASTING 111 MG/DL (70-105); POTASSIUM SERUM 4.4 MEQ/L (3.5-5.1); SODIUM LEVEL 145 MEQ/L (136-145)
[2016-04-23 08:04] LABS: ANION GAP 7 MEQ/L (8-16); CARBON DIOXIDE LEVEL 25 MEQ/L (21-32)
[2016-04-23] MEDS: MIDODRINE 5 MG TAB PO SCH ×3 (08:57→16:54)
[2016-04-23] MEDS: MULTIVITAMINS/MINERALS THERAP 1 TAB PO SCH (08:58)
[2016-04-23] MEDS: QUEtiapine FUMARATE 200 MG TAB PO SCH ×2 (08:58→22:10)
[2016-04-23] MEDS: CIPROFLOXACIN 400 MG in APPROPRIATE DILUENT 1 EA IV SCH ×2 (09:00→22:10)
[2016-04-23] MEDS ORDERED: VITAMIN E 400 INTERNATIONAL UNITS CAP PO SCH (09:00)
[2016-04-23] MEDS: FLUTICASONE PROP 0.05% NASAL SPRAY 16 GM (FLONASE) SCH ×2 (09:00→22:52)
--- NOTE | 2016-04-23 10:23 | REP ---
Clinical: Follow up small bowel obstruction. Technique: Supine views of the chest abdomen and pelvis along with cross-table lateral view of the abdomen. Comparison: 04/22/2016. Findings: Frontal view of the chest demonstrates scattered infiltrates suggesting multifocal pneumonia. Bowel gas pattern is essentially nonspecific with air filled large bowel overlying the abdomen and pelvis. No organomegaly. Ventral hernia repair. Impression: 1. Chest suggests multifocal infiltrates. 2. Air filled large bowel similar to prior examination. No obvious small bowel obstruction pattern appreciated by radiographic evaluation. Signed by Hilton Denis MD 04/23/2016 10:15 A
--- NOTE | 2016-04-23 12:41 | REP ---
Clinical: Left-sided weakness . Findings: Age-related changes are appreciated. The ventricles and sulci are symmetric. Jaime-white differentiation is maintained. There is no evidence for acute intracranial hemorrhage, mass/mass effect, pathology or infarction. No extra-axial fluid collection. Calvarium is intact. Paranasal sinuses and mastoid air cells are clear. Impression: Age related changes. No acute intracranial hemorrhage, infarction, or mass/mass effect. Signed by Hilton Denis MD 04/23/2016 12:32 P
--- NOTE | 2016-04-23 13:50 | IPNPDOC ---
Assessment/Plan Date Seen The patient was seen on 04/23/16. Problems Problems: (1) Enteritis Status: Acute Problem Text: infective vs ischemic will continue with ciprofloxacin and flagyl. (2) SBO (small bowel obstruction) Status: Acute Problem Text: partial will continue npo , pateint pulled out NG tube last night , no vomiting , refusing to put back in had 1 bowel movement last night surgery dr Padilla (3) Chronic hypotension Status: Chronic Problem Text: on midodrine. (4) Mental retardation Status: Chronic Problem Text: leaved is JRC , Brother is the guardian, no advance directives in place. continue seroquel (5) Down syndrome Status: Chronic (6) Dyslipidemia Status: Chronic Problem Text: continue statin (7) Hypothyroid Status: Chronic Problem Text: continue synthroid Plan / VTE VTE Prophylaxis Ordered?: Yes Plan IVF: Initiate Diet: Make NPO Activity: Bedrest Subjective Review of Systems CC/HPI The patient is a 55-year-old female admitted with a reason for visit of Dyslipidemia, Hypothyroid, Small Bowel Obstruction. Events since last encounter patient denies any abdominal pain today , had a bowel movement last night , no documented fever, initially in the morning very sleepy then more awake sitting up in chair , noted increased tremor of left hand with some possible tongue deviation so ordered CT head which was negative for any acute events, showed age related atrophy. Objective Physical Examination General Exam: Positive: Alert, Cooperative Eye Exam: Positive: Conjunctiva & lids normal, PERRLA ENT Exam: Positive: Atraumatic, Mucous membr. moist/pink Neck Exam: Negative: +2 carotid pulse wo bruit, JVD, Lymphadenopathy, Other, Supple, thyromegaly Chest Exam: Positive: Clear to auscultation Heart Exam: Positive: Normal S1, Normal S2, Rate Normal Telemetry: Positive: No significant arrhythmia Abdomen Exam: Positive: BS Hyperactive, Other (distension present and upon deep palpation pt has pain. not localized to any specific area. ), Tenderness Extremity Exam: Positive: Normal pulses, Negative: Clubbing, Cyanosis, Edema Vital Signs/I&O Vital Signs Date Time Temp Pulse Resp B/P Pulse Ox O2 Delivery O2 Flow Rate FiO2 04/23/16 07:15 96.2 77 18 100/62 94 Room Air I&O- Last 24 Hours up to 6 AM 04/23/16 05:59 Intake Total 1985 ml Output Total 1100 ml Balance 885 ml Laboratory Data Labs 24H Laboratory Tests 2 04/23/16 05:29: Anion Gap 7L, Blood Urea Nitrogen 14, Creatinine 0.60, Sodium Level 145, Potassium Level 4.4#, Chloride Level 113H, Carbon Dioxide Level 25, Calcium Level 7.1L, Free Thyroxine Index 2.0, Glomerular Filtration Rate > 60.0, Thyroid Stimulating Hormone (TSH) 5.670H, Thyroxine (T4) 5.0, Triiodothyronine ( T3) Uptake 39 CBC/BMP Laboratory Tests 04/23/16 05:29 Calcium Level 7.1 L Microbiology Microbiology 04/21/16 Blood Culture - Preliminary, Resulted No growth after 24 hours . All specim... 04/21/16 Blood Culture - Preliminary, Resulted No growth after 24 hours . All specim... 04/21/16 Influenza Virus Type A Antigen - Final, Complete 04/21/16 Influenza Virus Type B Antigen - Final, Complete 04/21/16 Urine Culture - Final, Complete DERIAN ARZOLA MD Apr 23, 2016 13:50
[2016-04-23 16:00] VITALS: BP 124/71
[2016-04-23 20:14] VITALS: BP 118/67
[2016-04-23 22:00] VITALS: BP 100/67
[2016-04-24] MEDS: metroNIDAZOLE 500 MG in APPROPRIATE DILUENT 1 EA IV SCH ×3 (04:12→20:28)
--- NOTE | 2016-04-24 04:17 | EDDOCDS ---
Physician Documentation [facility] Name: Theresa Leone Age: 55 yrs Sex: Female : 1960 Arrival Date: 04/21/2016 Time: 18:21 Bed 5 Private MD: Naya Gamez G. Disposition: 04/22/16 01:15 Hospitalization ordered by Sean Ureña for Inpatient Admission. Preliminary diagnosis are Volume depletion, Noninfective gastroenteritis and colitis, unspecified. - Bed requested for PCU. - Status is Inpatient Admission. jp6 - Condition is Stable. - Problem is new. - Symptoms have improved. Historical: - Allergies: Amoxicillin; PENICILLINS; - Home Meds: 1. Calcarb 600 With Vitamin D Oral twice a day 2. Flonase 50 mcg/actuation Nasal spsn 1 spray 2 times per day 3. levothyroxine 88 mcg Oral cap 1 cap once daily 4. Loratadine Oral once daily 5. Multivitamin Oral daily 6. Premarin Vagl twice a week 7. proamatine 5mg three times a day 8. Seroquel 200 mg Oral tab 2 times per day 9. simvastatin 20 mg Oral tab 1 tab once daily 10. Vitamin C 500 mg Oral tab daily 11. vitamin E 400 unit Oral tab every other day 12. Zofran (as hydrochloride) 4 mg Oral tab as needed (Last dose: 04/21/2016) 13. Tylenol Unknown Oral as needed (Last dose: 04/21/2016) - PMHx: Allergies, Seasonal; Hypercholesterolemia; Thyroid problem; - Social history: Smoking status: Patient states was never smoker of tobacco. No barriers to communication noted, The patient speaks fluent [place]alese. - Family history: Not pertinent. - : The pt / caregiver states he / she is not on anticoagulants. Home medication list is obtained from the facility JUN. - Exposure Risk Screening:: None identified. 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 4 in. (132.08 cm) (R); 21:48 BP 116 / 76 (auto/); jp6 21:50 Pulse 90 MON; Pulse Ox 93% ; jp6 22:00 BP 116 / 76; Pulse 94; Resp 17; Temp 98(T); Pulse Ox 93% ; jp6 22:00 Temp 100.6(R); jp6 22:49 BP 98 / 56 (auto/); jp6 22:50 Pulse 88 MON; Pulse Ox 87% ; jp6 23:00 Pulse 88 MON; Pulse Ox 92% ; jp6 23:49 BP 104 / 65 (auto/); jp6 23:50 Pulse 92 MON; Pulse Ox 92% ; jp6 23:52 BP 103 / 67 (auto/); jp6 23:52 Pulse 92 MON; Pulse Ox 93% ; jp6 23:52 Temp 99.2(TE); jp6 04/22 00:49 BP 109 / 61 (auto/); jp6 00:50 Pulse 90 MON; Pulse Ox 96% ; jp6 01:49 BP 102 / 61 (auto/); jp6 02:14 Pulse 90 MON; Pulse Ox 95% ; jp6 02:31 Temp 98.9(TE); jp6 04/21 18:29 Body Mass Index 28.86 (50.35 kg, 132.08 cm) kr3 MDM: 04/21 19:15 -Blood Culture (Adults Only), peripheral from different site, or from device/port/PICC cs11 etc. if present ordered. 19:15 NS 0.9% 1000 ml IV at bolus once ordered. cs11 19:16 Lactic Acid (Jaime tube on ice) Ordered. EDMS 19:16 CBC with Diff Ordered. EDMS 19:16 MED Profile Ordered. EDMS 19:16 Liver Profile Ordered. EDMS 19:16 Amylase Ordered. EDMS 19:16 Lipase Ordered. EDMS 19:16 Urinalysis: catheterize Ordered. EDMS 19:16 -Blood Culture Ordered. EDMS 19:16 Urine Culture Ordered. EDMS 19:16 Chest, 1 View Ordered. EDMS 19:36 -Blood Culture (Adults Only), peripheral from different site, or from device/port/PICC tmm1 etc. if present complete. 19:38 BLOOD CULTURES Ordered. EDMS 19:40 DIFFERENTIAL NO CHARGE Ordered. EDMS 19:40 PLATELET ESTIMATE Ordered. EDMS 19:40 -Influenza A&B Rapid Antigen - Nose Ordered. EDMS 19:51 Financial registration complete. gjb 19:55 FORMERLY [facility] Payment Agreement was scanned into [employer] and attached to record. gjb 20:17 CBC with Diff Reviewed. cs11 20:17 MED Profile Reviewed. cs11 20:17 Liver Profile Reviewed. cs11 20:17 Amylase Reviewed. cs11 20:17 Lipase Reviewed. cs11 20:17 Urinalysis: catheterize Reviewed. cs11 20:17 Lactic Acid (Jaime tube on ice) Reviewed. cs11 20:17 -Influenza A&B Rapid Antigen - Nose Reviewed. cs11 20:17 PLATELET ESTIMATE Reviewed. cs11 20:25 Clindamycin 600 mg IVPB once over 30 mins; dilute in 50mL of NS or D5W ordered. cs11 20:25 Ciprofloxacin 400 mg IVPB at 200 mL/hr once over 60 mins ordered. cs11 20:26 CT ABD & PELVIS: IV Contrast Only Ordered. EDMS 20:42 THYROID PROFILE Ordered. EDMS 22:36 NG/OG Tube 18Fr to L.I.S. with hourly monitoring for placement ordered. cs11 22:37 MED Profile Reviewed. cs11 22:37 Liver Profile Reviewed. cs11 22:37 Amylase Reviewed. cs11 22:37 Lipase Reviewed. cs11 22:37 THYROID PROFILE Reviewed. cs11 22:37 Chest, 1 View Reviewed. cs11 23:55 NS 0.9% 1000 ml IV at bolus once ordered. cs11 23:56 BED REQUEST+ADM ordered. EDMS 04/22 01:11 CT ABD & PELVIS: IV Contrast Only Reviewed. cs11 01:47 Abdomen,Flat\E\Upright,PA CHEST Ordered. EDMS 01:55 Abdomen,Flat Plate KUB Ordered. EDMS 01:56 Admission / Observation Status ordered. EDMS 01:56 NPO DIET ordered. EDMS 01:57 COMPLETE COMPHRENSIVE METABOLI Ordered. EDMS 01:57 CBC WITH DIFFERENTIAL Ordered. EDMS 01:57 LACTIC ACID LEVEL, LACTATE Ordered. EDMS 11:40 T-Sheet-- Draft Copy was scanned into [employer] and attached to record. gb 11:41 Radiology Report was scanned into [employer] and attached to record. gb Administered Medications: 04/21 19:42 Drug: NS 0.9% 1000 ml [sodium chloride 0.9 % intravenous solution] Route: IV; Rate: jp6 bolus; Site: left wrist; 20:46 Drug: Clindamycin 600 mg [clindamycin 600 mg/50 mL in 5 % dextrose intravenous jp6 piggyback] Route: IVPB; Infused Over: 30 mins; Site: left wrist; 22:16 Drug: Ciprofloxacin 400 mg [ciprofloxacin 400 mg/200 mL in 5 % dextrose intravenous jp6 piggyback] Route: IVPB; Rate: 200 mL/hr; Infused Over: 60 mins; Site: left wrist; 23:59 Drug: NS 0.9% 1000 ml [sodium chloride 0.9 % intravenous solution] Route: IV; Rate: jp6 bolus; Site: left wrist; Signatures: Dispatcher [employer] EDMS Cortney Scales, RN RN Cynthia Rendon, Deepa Solo RN RN [email or web address] Antonio Alcantar, DO DO cs11 [place], [place], NATIONAL SALES CONSULTANT NATIONAL SALES CONSULTANT tmm1 Agata Escamilla Jessica,RN RN jp6 The chart was reviewed and I authenticate all verbal orders and agree with the evaluation and treatment provided.Corrections: (The following items were deleted from the chart) 20:43 20:37 THYROID PROFILE+LAB ordered. EDMS EDMS Attachments: 19:55 [facility]LY [facility] Payment Agreement gjb 04/22 11:40 T-Sheet-- Draft Copy gb Chart Complete MTDD
--- NOTE | 2016-04-24 04:17 | EDDOCDS ---
Physician Documentation [facility] Name: Theresa Leone Age: 55 yrs Sex: Female : 1960 Arrival Date: 04/21/2016 Time: 18:21 Bed 5 Private MD: Naya Gamez G. Disposition: 04/22/16 01:15 Hospitalization ordered by Sean Ureña for Inpatient Admission. Preliminary diagnosis are Volume depletion, Noninfective gastroenteritis and colitis, unspecified. - Bed requested for PCU. - Status is Inpatient Admission. jp6 - Condition is Stable. - Problem is new. - Symptoms have improved. Historical: - Allergies: Amoxicillin; PENICILLINS; - Home Meds: 1. Calcarb 600 With Vitamin D Oral twice a day 2. Flonase 50 mcg/actuation Nasal spsn 1 spray 2 times per day 3. levothyroxine 88 mcg Oral cap 1 cap once daily 4. Loratadine Oral once daily 5. Multivitamin Oral daily 6. Premarin Vagl twice a week 7. proamatine 5mg three times a day 8. Seroquel 200 mg Oral tab 2 times per day 9. simvastatin 20 mg Oral tab 1 tab once daily 10. Vitamin C 500 mg Oral tab daily 11. vitamin E 400 unit Oral tab every other day 12. Zofran (as hydrochloride) 4 mg Oral tab as needed (Last dose: 04/21/2016) 13. Tylenol Unknown Oral as needed (Last dose: 04/21/2016) - PMHx: Allergies, Seasonal; Hypercholesterolemia; Thyroid problem; - Social history: Smoking status: Patient states was never smoker of tobacco. No barriers to communication noted, The patient speaks fluent German. - Family history: Not pertinent. - : The pt / caregiver states he / she is not on anticoagulants. Home medication list is obtained from the facility JUN. - Exposure Risk Screening:: None identified. 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 4 in. (132.08 cm) (R); 21:48 BP 116 / 76 (auto/); jp6 21:50 Pulse 90 MON; Pulse Ox 93% ; jp6 22:00 BP 116 / 76; Pulse 94; Resp 17; Temp 98(T); Pulse Ox 93% ; jp6 22:00 Temp 100.6(R); jp6 22:49 BP 98 / 56 (auto/); jp6 22:50 Pulse 88 MON; Pulse Ox 87% ; jp6 23:00 Pulse 88 MON; Pulse Ox 92% ; jp6 23:49 BP 104 / 65 (auto/); jp6 23:50 Pulse 92 MON; Pulse Ox 92% ; jp6 23:52 BP 103 / 67 (auto/); jp6 23:52 Pulse 92 MON; Pulse Ox 93% ; jp6 23:52 Temp 99.2(TE); jp6 04/22 00:49 BP 109 / 61 (auto/); jp6 00:50 Pulse 90 MON; Pulse Ox 96% ; jp6 01:49 BP 102 / 61 (auto/); jp6 02:14 Pulse 90 MON; Pulse Ox 95% ; jp6 02:31 Temp 98.9(TE); jp6 04/21 18:29 Body Mass Index 28.86 (50.35 kg, 132.08 cm) kr3 MDM: 04/21 19:15 -Blood Culture (Adults Only), peripheral from different site, or from device/port/PICC cs11 etc. if present ordered. 19:15 NS 0.9% 1000 ml IV at bolus once ordered. cs11 19:16 Lactic Acid (Jaime tube on ice) Ordered. EDMS 19:16 CBC with Diff Ordered. EDMS 19:16 MED Profile Ordered. EDMS 19:16 Liver Profile Ordered. EDMS 19:16 Amylase Ordered. EDMS 19:16 Lipase Ordered. EDMS 19:16 Urinalysis: catheterize Ordered. EDMS 19:16 -Blood Culture Ordered. EDMS 19:16 Urine Culture Ordered. EDMS 19:16 Chest, 1 View Ordered. EDMS 19:36 -Blood Culture (Adults Only), peripheral from different site, or from device/port/PICC tmm1 etc. if present complete. 19:38 BLOOD CULTURES Ordered. EDMS 19:40 DIFFERENTIAL NO CHARGE Ordered. EDMS 19:40 PLATELET ESTIMATE Ordered. EDMS 19:40 -Influenza A&B Rapid Antigen - Nose Ordered. EDMS 19:51 Financial registration complete. gjb 19:55 [facility] Payment Agreement was scanned into [employer] and attached to record. gjb 20:17 CBC with Diff Reviewed. cs11 20:17 MED Profile Reviewed. cs11 20:17 Liver Profile Reviewed. cs11 20:17 Amylase Reviewed. cs11 20:17 Lipase Reviewed. cs11 20:17 Urinalysis: catheterize Reviewed. cs11 20:17 Lactic Acid (Jaime tube on ice) Reviewed. cs11 20:17 -Influenza A&B Rapid Antigen - Nose Reviewed. cs11 20:17 PLATELET ESTIMATE Reviewed. cs11 20:25 Clindamycin 600 mg IVPB once over 30 mins; dilute in 50mL of NS or D5W ordered. cs11 20:25 Ciprofloxacin 400 mg IVPB at 200 mL/hr once over 60 mins ordered. cs11 20:26 CT ABD & PELVIS: IV Contrast Only Ordered. EDMS 20:42 THYROID PROFILE Ordered. EDMS 22:36 NG/OG Tube 18Fr to L.I.S. with hourly monitoring for placement ordered. cs11 22:37 MED Profile Reviewed. cs11 22:37 Liver Profile Reviewed. cs11 22:37 Amylase Reviewed. cs11 22:37 Lipase Reviewed. cs11 22:37 THYROID PROFILE Reviewed. cs11 22:37 Chest, 1 View Reviewed. cs11 23:55 NS 0.9% 1000 ml IV at bolus once ordered. cs11 23:56 BED REQUEST+ADM ordered. EDMS 04/22 01:11 CT ABD & PELVIS: IV Contrast Only Reviewed. cs11 01:47 Abdomen,Flat\E\Upright,PA CHEST Ordered. EDMS 01:55 Abdomen,Flat Plate KUB Ordered. EDMS 01:56 Admission / Observation Status ordered. EDMS 01:56 NPO DIET ordered. EDMS 01:57 COMPLETE COMPHRENSIVE METABOLI Ordered. EDMS 01:57 CBC WITH DIFFERENTIAL Ordered. EDMS 01:57 LACTIC ACID LEVEL, LACTATE Ordered. EDMS 11:40 T-Sheet-- Draft Copy was scanned into [employer] and attached to record. gb 11:41 Radiology Report was scanned into [employer] and attached to record. gb Administered Medications: 04/21 19:42 Drug: NS 0.9% 1000 ml [sodium chloride 0.9 % intravenous solution] Route: IV; Rate: jp6 bolus; Site: left wrist; 20:46 Drug: Clindamycin 600 mg [clindamycin 600 mg/50 mL in 5 % dextrose intravenous jp6 piggyback] Route: IVPB; Infused Over: 30 mins; Site: left wrist; 22:16 Drug: Ciprofloxacin 400 mg [ciprofloxacin 400 mg/200 mL in 5 % dextrose intravenous jp6 piggyback] Route: IVPB; Rate: 200 mL/hr; Infused Over: 60 mins; Site: left wrist; 23:59 Drug: NS 0.9% 1000 ml [sodium chloride 0.9 % intravenous solution] Route: IV; Rate: jp6 bolus; Site: left wrist; Signatures: Dispatcher [employer] EDMS Cortney Scales, RN RN Cynthia Rendon, Deepa Solo RN RN [email or web address] Antonio Alcantar, DO DO cs11 McLear, Bethany, [employer] [email or web address] Agata Escamilla Jessica,RN RN jp6 The chart was reviewed and I authenticate all verbal orders and agree with the evaluation and treatment provided.Corrections: (The following items were deleted from the chart) 20:43 20:37 THYROID PROFILE+LAB ordered. EDMS EDMS Attachments: 19:55 [facility] Payment Agreement gjb 04/22 11:40 T-Sheet-- Draft Copy gb Chart Complete MTDD
--- NOTE | 2016-04-24 04:17 | EDDOCDS ---
Nurse's Notes [facility] Name: Theresa Leone Age: 55 yrs Sex: Female : 1960 Arrival Date: 04/21/2016 Time: 18:21 Bed 5 Private MD: Naya Gamez G. Diagnosis: Volume depletion;Noninfective gastroenteritis and colitis, unspecified Presentation: 04/21 18:23 Presenting complaint: EMS states: continues to complain of abdominal pain. Fever today kr3 of 103 and has vomited. has refused to get out of bed. has not voided at all today. Suicide/Homicide risk assessment- the patient denies having any suicidal and/or homicidal ideations and does not present with any other emotional, behavioral or mental health complaints. 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 Transition of care: patient was not received from another setting of care. 18:23 Method Of Arrival: Ambulance kr3 18:51 Adult Sepsis Screening: The patient does not have new or worsening altered mentation. kr3 Patient's respiratory rate is less than 22. Systolic blood pressure is greater than 100. Patient has a qSOFA score of 0- Negative Sepsis Screen. 18:51 Acuity: OSMAN Level 3 kr3 Triage Assessment: 18:30 General: Appears in no apparent distress, Behavior is appropriate for age. Pain: Unable kr3 to use pain scale. Does not appear to understand pain scale. HIV screening NA for this visit Offered previously. The patient is triaged at the bedside. See Assessment in Nurses Notes section of ED record. Neurological: Level of Consciousness is awake, lethargic. GI: other dry vomit around mouth. Derm: Skin is dry, Skin is normal, Skin temperature is warm. CORN POPPER: 18:29 LMP N/A - Post-menopause kr3 Historical: - Allergies: Amoxicillin; PENICILLINS; - Home Meds: 1. Calcarb 600 With Vitamin D Oral twice a day 2. Flonase 50 mcg/actuation Nasal spsn 1 spray 2 times per day 3. levothyroxine 88 mcg Oral cap 1 cap once daily 4. Loratadine Oral once daily 5. Multivitamin Oral daily 6. Premarin Vagl twice a week 7. proamatine 5mg three times a day 8. Seroquel 200 mg Oral tab 2 times per day 9. simvastatin 20 mg Oral tab 1 tab once daily 10. Vitamin C 500 mg Oral tab daily 11. vitamin E 400 unit Oral tab every other day 12. Zofran (as hydrochloride) 4 mg Oral tab as needed (Last dose: 04/21/2016) 13. Tylenol Unknown Oral as needed (Last dose: 04/21/2016) - PMHx: Allergies, Seasonal; Hypercholesterolemia; Thyroid problem; - Social history: Smoking status: Patient states was never smoker of tobacco. No barriers to communication noted, The patient speaks fluent Chilean. - Family history: Not pertinent. - : The pt / caregiver states he / she is not on anticoagulants. Home medication list is obtained from the facility MAR. - Exposure Risk Screening:: None identified. Screenin:33 Screening information is obtained from residence staff. Fall risk: At risk due to gait kr3 disturbance. Assistance ADL's: Requires assistance with meal preparation, this assistance is provided by residence staff, bathing, assistance is provided by residence staff, dressing, assistance is provided by residence staff, toileting, assistance is provided by residence staff, ambulation, assistance is provided by residence staff, housework, assistance is provided by residence staff, medication administration, assistance is provided by residence staff. Abuse/DV Screen: The patient / caregiver reports he/she is: pt cannot be assessed for living situation at this time. Nutritional screening: On heart healthy. Advance Directives: Currently, there is no health care proxy. There is no active DNR order. There is no Power of Senior Linux Administrator. home support is adequate. Assessment: 18:47 GI: Abdomen is non- distended Bowel sounds present X 4 quads. Abd is soft X 4 quads Abd kr3 is tender to palpation X 4 quads. 20:00 Reassessment: Patient states symptoms have not improved. General: Appears ill, jp6 uncomfortable, Behavior is appropriate for age, cooperative. Pain: Location: abdomen Pain currently is 5 out of 10 on a pain scale. Noted to be grimacing. Neurological: No deficits noted. EENT: No deficits noted. Cardiovascular: No deficits noted. Heart tones S1 S2. Respiratory: No deficits noted. Airway is patent Respiratory effort is even, unlabored, Respiratory pattern is regular, symmetrical, Breath sounds are clear bilaterally. GI: Abdomen is distended, obese, Last BM was April 20, 2016. Bowel sounds present X 4 quads. Abd is soft Abd is tender to palpation. : No deficits noted. Derm: Skin is pale, Skin temperature is warm. Musculoskeletal: No deficits noted. 21:00 Reassessment: Patient states symptoms have not improved. General: Appears ill, jp6 uncomfortable. Pain: Noted to be grimacing. Cardiovascular: No deficits noted. Respiratory: Airway is patent Respiratory effort is even, unlabored, Respiratory pattern is regular, symmetrical. GI: Abdomen is distended, Bowel sounds present X 4 quads. Derm: Skin is pale. 22:00 Reassessment: Patient states symptoms have not improved. General: Appears ill, jp6 uncomfortable, Behavior is appropriate for age, cooperative. Pain: Noted to be grimacing. Neurological: No deficits noted. EENT: No deficits noted. Cardiovascular: No deficits noted. Respiratory: Airway is patent Respiratory effort is even, unlabored, Respiratory pattern is regular, symmetrical. GI: Abdomen is distended. 23:00 Reassessment: Patient states symptoms have not improved. jp6 23:50 Reassessment: Patient states symptoms have improved. NGT inserted w/ immediate 800ml jp6 out-abdomen less distended.Pt stated was feeling a little better.. 04/22 01:00 Reassessment: Patient states symptoms have improved. General: Appears comfortable, ill, jp6 Behavior is appropriate for age, cooperative. Pain: Alleviated by ng placement. Cardiovascular: No deficits noted. Respiratory: Airway is patent Respiratory effort is even, unlabored, Respiratory pattern is regular, symmetrical. 02:20 Reassessment: Patient states symptoms have improved. General: Appears comfortable, jp6 Behavior is appropriate for age, cooperative. Neurological: No deficits noted. EENT: No deficits noted. Cardiovascular: No deficits noted. Respiratory: No deficits noted. Airway is patent Respiratory effort is even, unlabored, Respiratory pattern is regular, symmetrical. GI: Abdomen is non- distended NGT. Derm: Skin is pale, Skin temperature is warm. Vital Signs: 04/21 18:26 BP 110 / 63 (auto/); jp6 18:28 Pulse 100 MON; Pulse Ox 91% ; jp6 18:29 BP 110 / 63; Pulse 102; Resp 16; Temp 99.2(O); Pulse Ox 100% on R/A; Weight 50.35 kg kr3 (R); Height 4 ft. 4 in. (132.08 cm) (R); 21:48 BP 116 / 76 (auto/); jp6 21:50 Pulse 90 MON; Pulse Ox 93% ; jp6 22:00 BP 116 / 76; Pulse 94; Resp 17; Temp 98(T); Pulse Ox 93% ; jp6 22:00 Temp 100.6(R); jp6 22:49 BP 98 / 56 (auto/); jp6 22:50 Pulse 88 MON; Pulse Ox 87% ; jp6 23:00 Pulse 88 MON; Pulse Ox 92% ; jp6 23:49 BP 104 / 65 (auto/); jp6 23:50 Pulse 92 MON; Pulse Ox 92% ; jp6 23:52 BP 103 / 67 (auto/); jp6 23:52 Pulse 92 MON; Pulse Ox 93% ; jp6 23:52 Temp 99.2(TE); jp6 04/22 00:49 BP 109 / 61 (auto/); jp6 00:50 Pulse 90 MON; Pulse Ox 96% ; jp6 01:49 BP 102 / 61 (auto/); jp6 02:14 Pulse 90 MON; Pulse Ox 95% ; jp6 02:31 Temp 98.9(TE); jp6 04/21 18:29 Body Mass Index 28.86 (50.35 kg, 132.08 cm) kr3 Vitals: 04/21 18:29 Log In Time N/A - ambulance arrival. kr3 ED Course: 18:22 Patient visited by Radha Mcneil, Hole Digger. lbd 18:22 Patient moved to Waiting lbd 18:23 Naya Gamez is Private Physician. lbd 18:23 Deepa De Oliveira,RN is Primary Nurse. lbd 18:23 Patient moved to 5 lbd 18:47 Inserted saline lock: 20 gauge in left hand and blood collected. The patient tolerated kr3 the procedure well. 18:51 Triage Initiated kr3 18:56 Antonio Alcantar DO is Attending Physician. cs11 18:56 Patient visited by Antonio Alcantar DO. cs11 19:02 Primary Nurse role handed off by Deepa De Oliveira,SHABNAM kr3 19:05 Mora Harris,SHABNAM is Primary Nurse. jp6 19:43 Urinalysis: catheterize Sent. jp6 19:43 Urine Culture Sent. jp6 19:48 -Influenza A&B Rapid Antigen - Nose Sent. jp6 19:55 [facility] [place] Payment Agreement was scanned into [employer] and attached to record. gjb 20:19 Patient visited by Mora Harris RN. jp6 20:58 Chest, 1 View Returned. EDMS 21:57 Patient visited by Mora Harris RN. jp6 22:00 The patient / caregiver is instructed regarding the plan of care and ED course. jp6 22:00 No procedures done that require assistance. Urine collected. straight cath specimen. jp6 Straight cath inserted 16 Fr. 26 Fr. returned clear yellow urine. 23:12 Patient visited by Mora Harris RN. jp6 23:34 CT ABD & PELVIS: IV Contrast Only Returned. EDMS 04/22 00:08 NGT inserted 18 Fr. via right nare. Placement verified. Returned gastric contents. jp6 Returned bile. to intermittent suction. Returned gastric contents. Patient tolerated well. 00:13 Patient visited by Mora Harris RN. jp6 01:14 Sean Ureña MD is Hospitalizing Provider. cs11 11:40 T-Sheet-- Draft Copy was scanned into Thinkgl[employer] and attached to record. gb 11:41 Radiology Report was scanned into [employer] and attached to record. gb Administered Medications: 04/21 19:42 Drug: NS 0.9% 1000 ml [sodium chloride 0.9 % intravenous solution] Route: IV; Rate: jp6 bolus; Site: left wrist; 20:46 Drug: Clindamycin 600 mg [clindamycin 600 mg/50 mL in 5 % dextrose intravenous jp6 piggyback] Route: IVPB; Infused Over: 30 mins; Site: left wrist; 22:16 Drug: Ciprofloxacin 400 mg [ciprofloxacin 400 mg/200 mL in 5 % dextrose intravenous jp6 piggyback] Route: IVPB; Rate: 200 mL/hr; Infused Over: 60 mins; Site: left wrist; 23:59 Drug: NS 0.9% 1000 ml [sodium chloride 0.9 % intravenous solution] Route: IV; Rate: jp6 bolus; Site: left wrist; Intake: 04/22 00:08 IV: 1250.00ml; Total: 1250.00ml. jp6 Output: 00:08 Urine: 600.00ml; Total: 600.00ml. jp6 00:24 Gastric: 1100.00ml (NGT); Total: 1700.00ml. jp6 Order Results: Lab Order: Lactic Acid (Jaime tube on ice); SPEC'M 04/21/16 18:44 Test: LACTIC ACID LEVEL, LACTATE; Value: 1.4; Range: 0.4-2.0; Units: MMOL/L; Status: F Lab Order: CBC with Diff; SPEC'M 04/21/16 18:44 Test: WHITE BLOOD COUNT; Value: 4.2; Range: 4.0-10.0; Units: K/mm3; Status: F Test: RED BLOOD COUNT; Value: 3.99; Range: 4.00-5.40; Abnormal: Below low normal; Units: M/mm3; Status: F Test: HEMOGLOBIN; Value: 12.7; Range: 12.0-16.0; Units: g/dl; Status: F Test: HEMATOCRIT; Value: 37.4; Range: 36.0-47.0; Units: %; Status: F Test: MEAN CORPUSCULAR VOLUME; Value: 93.9; Range: 80.0-96.0; Units: fl; Status: F Test: MEAN CORPUSCULAR HEMOGLOBIN; Value: 31.9; Range: 27.0-33.0; Units: pg; Status: F Test: MEAN CORPUSCULAR HGB CONC; Value: 34.0; Range: 32.0-36.5; Units: g/dl; Status: F Test: RED CELL DISTRIBUTION WIDTH; Value: 14.3; Range: 11.5-14.5; Units: %; Status: F Test: PLATELET COUNT, AUTOMATED; Value: 144; Range: 150-450; Abnormal: Below low normal; Units: k/mm3; Status: F Test: NEUTROPHILS; Value: 6; Range: 35-75; Abnormal: Below low normal; Units: %; Status: F Test: BANDS; Value: 69; Range: < 11; Abnormal: Above high normal; Units: %; Status: F Test: LYMPHOCYTES; Value: 5; Range: 16-52; Abnormal: Below low normal; Units: %; Status: F Test: MONOCYTES; Value: 9; Range: 0-8; Abnormal: Above high normal; Units: %; Status: F Test: METAMYELOCYTES; Value: 7; Range: 0-0; Abnormal: Above high normal; Units: %; Status: F Test: MYELOCYTES; Value: 3; Range: 0-0; Abnormal: Above high normal; Units: %; Status: F Test: ATYPICAL LYMPH; Value: 1; Range: 0-5; Units: %; Status: F Lab Order: MED Profile; [facility] 04/21/16 18:44 Test: GLUCOSE, FASTING; Value: 113; Range: 70-105; Abnormal: Above high normal; Units: MG/DL; Status: F Test: BLOOD UREA NITROGEN; Value: 40; Range: 7-18; Abnormal: Above high normal; Units: MG/DL; Status: F Test: CREATININE FOR GFR; Value: 1.27; Range: 0.55-1.02; Abnormal: Above high normal; Units: MG/DL; Status: F Test: GLOMERULAR FILTRATION RATE; Value: 46.7; Range: >51; Abnormal: Below low normal; Status: F Test: SODIUM LEVEL; Value: 139; Range: 136-145; Units: MEQ/L; Status: F Test: POTASSIUM SERUM; Value: 3.3; Range: 3.5-5.1; Abnormal: Below low normal; Units: MEQ/L; Status: F Test: CHLORIDE LEVEL; Value: 101; Range: 98-107; Units: MEQ/L; Status: F Test: CARBON DIOXIDE LEVEL; Value: 27; Range: 21-32; Units: MEQ/L; Status: F Test: ANION GAP; Value: 11; Range: 8-16; Units: MEQ/L; Status: F Test: CALCIUM LEVEL; Value: 9.3; Range: 8.5-10.1; Units: MG/DL; Status: F Test Note: ; Units are mL/min/1.73 m2 Chronic Kidney Disease Staging per NKF: Stage I & II GFR >=60 Normal to Mildly Decreased Stage III GFR 30-59 Moderately Decreased Stage IV GFR 15-29 Severely Decreased Stage V GFR <15 Very Little GFR Left ESRD GFR <15 on CERTIFIED OPHTHALMIC SURGICAL ASSISTANT Lab Order: Liver Profile; [facility] 04/21/16 18:44 Test: AST/SGOT; Value: 18; Range: 15-37; Units: U/L; Status: F Test: ALT/SGPT; Value: 19; Range: 12-78; Units: U/L; Status: F Test: ALKALINE PHOSPHATASE; Value: 66; Range: 45-117; Units: U/L; Status: F Test: BILIRUBIN,TOTAL; Value: 0.4; Range: 0.2-1.0; Units: MG/DL; Status: F Test: BILIRUBIN,DIRECT; Value: 0.1; Range: 0.0-0.2; Units: MG/DL; Status: F Test: TOTAL PROTEIN; Value: 6.9; Range: 6.4-8.2; Units: GM/DL; Status: F Test: ALBUMIN; Value: 2.7; Range: 3.2-5.2; Units: GM/DL; Status: F Test: ALBUMIN/GLOBULIN RATIO; Value: 0.64; Range: 1.00-1.93; Abnormal: Below low normal; Status: F Lab Order: Amylase; [facility] 04/21/16 18:44 Test: AMYLASE; Value: 11; Range: 25-115; Abnormal: Below low normal; Units: U/L; Status: F Lab Order: Lipase; [facility] 04/21/16 18:44 Test: LIPASE; Value: 38; Range: 73-393; Abnormal: Below low normal; Units: U/L; Status: F Lab Order: Urinalysis: catheterize; [facility] 04/21/16 19:41 Test: APPEARANCE, URINE; Value: HAZY; Range: CLEAR; Status: F Test: COLOR, URINE; Value: YELLOW; Range: YELLOW; Status: F Test: PH,URINE; Value: 5.0; Range: 5.0-9.0; Units: UNITS; Status: F Test: SPECIFIC GRAVITY URINE AUTO; Value: 1.027; Range: 1.002-1.035; Status: F Test: PROTEIN, URINE AUTO; Value: 1+; Range: NEGATIVE; Abnormal: Above high normal; Units: mg/dL; Status: F Test: GLUCOSE, URINE (UA) AUTO; Value: NEGATIVE; Range: NEGATIVE; Units: mg/dL; Status: F Test: KETONE, URINE AUTO; Value: 1+; Range: NEGATIVE; Abnormal: Above high normal; Units: mg/dL; Status: F Test: UROBILINOGEN, URINE AUTO; Value: 0.2; Range: 0.0-2.0; Units: mg/dL; Status: F Test: BILIRUBIN, URINE AUTO; Value: NEGATIVE; Range: NEGATIVE; Status: F Test: NITRITE, URINE AUTO; Value: NEGATIVE; Range: NEGATIVE; Status: F Test: LEUKOCYTE ESTERASE, URINE AUTO; Value: NEGATIVE; Range: NEGATIVE; Status: F Test: BLOOD, URINE BLOOD; Value: NEGATIVE; Range: NEGATIVE; Status: F Test: WBC, URINE AUTO; Value: 2; Range: 0-3; Units: /HPF; Status: F Test: RBC, URINE AUTO; Value: 1; Range: 0-3; Units: /HPF; Status: F Test: BACTERIA, URINE AUTO; Value: NEGATIVE; Range: NEGATIVE; Status: F Test: SQUAMOUS EPITHELIAL CELL UR AU; Value: 0; Range: 0-6; Units: /HPF; Status: F Test: HYALINE CAST, URINE AUTO; Value: 1; Range: 0-1; Units: /LPF; Status: F Lab Order: -Influenza A&B Rapid Antigen - Nose; [facility] 04/21/16 19:46 Test: INFLUENZA A RAPID SCR by ICA; Value: INFLUENZA A RESULTS NEGATIVE; Status: F Test: INFLUENZA A RAPID SCR by ICA; Value: Comments:; Status: F Test: INFLUENZA B RAPID SCR by ICA; Value: INFLUENZA B RESULTS NEGATIVE; Status: F Test Note: ; The Influenza test is a direct rapid immunoassay for the qualitative detection of Influenza viral antigen. Cell culture (Viral Culture) testing should be considered to confirm NEGATIVE results and to assist in detecting other viruses that can provide similar clinical symptoms. Please contact the lab within 24 hours ([phone]) if confirmatory testing is desired. Lab Order: PLATELET ESTIMATE; [facility] 04/21/16 18:44 Test: PLATELET ESTIMATE; Value: NORMAL; Range: NORMAL; Status: F Lab Order: THYROID PROFILE; [facility] 04/21/16 18:44 Test: T UPTAKE; Value: 39; Range: 30-39; Units: %; Status: F Test: THYROXINE (T4); Value: 5.5; Range: 4.5-12.0; Units: UG/DL; Status: F Test: FREE THYROXINE INDEX; Value: 2.1; Range: 1.3-4.8; Units: %; Status: F Test: THYROID STIMULATING HORMONE; Value: 3.260; Range: 0.358-3.740; Units: uIU/ML; Status: F Radiology Order: Chest, 1 View Test: Chest, 1 View REASON FOR EXAMINATION: fever; Clinical: Fever .; ; Comparison: None .; ; Findings:; The mediastinum and cardiac silhouette are stable and within normal limits for; portable technique. The lung celaya are clear without acute consolidation,; effusion, or pneumothorax. Skeletal structures demonstrate dextroconvex; scoliosis.; ; Impression:; No acute cardiopulmonary process or focal consolidation.; Scoliosis.; ; ; Signed by; Hilton Denis MD 04/21/2016 08:23 P; Radiology Order: CT ABD & PELVIS: IV Contrast Only Test: CT ABD & PELVIS: IV Contrast Only REASON FOR EXAMINATION: Abdomen Pain; ; CLINICAL HISTORY: Abdominal pain.; ; TECHNIQUE: Multiple axial CT images were obtained through the abdomen after intravenous contrast mat; erial.; ; COMPARISON: Correlation is made with noncontrast CT abdomen and pelvis dated 04/20/2016.; ; COMMENTS:; Since the prior study there is development of intrahepatic portal venous air. This is often seen in; the setting of ischemic bowel. Mild intrahepatic biliary duct dilatation is evident. There is mild; extrahepatic biliary ductal dilatation.; The spleen is unremarkable. The gallbladder is within normal limits. The pancreas is of normal cont; our and attenuation characteristics.; ; There is no evidence of adrenal mass. Both kidneys demonstrate prompt and equal nephrograms. The ki; dneys are normal in size, shape and configuration. There is no evidence of renal mass. There is no; hydroureter or hydronephrosis. There is no evidence of abdominal ascites or lymphadenopathy.; ; There is no evidence of appendicitis. The stomach is markedly distended. There is severe wall thick; ening involving loops of jejunum and ileum which are markedly dilated measuring up to 5.2 cm. The tr; ansition point is not seen with certainty. The findings are suspicious for ischemic enteritis with p; robable ileus and/or partial small bowel obstruction.; ; Scattered emphysematous bullae and scattered emphysematous blebs are present. There is no evidence o; f pleural or parenchymal mass. There are no pleural effusions.; ; IMPRESSION:; Evidence of portal venous air. Dilated markedly thick walled loops of small bowel. Findings are mayra; picious for ischemic enteritis. Small bowel ileus or partial small bowel obstruction also suspected.; Marked interval exacerbation since the prior study.; Discussed with Dr. Alcantar.; ; ; Thank you for your kind referral of this patient. We appreciate the opportunity to participate in thi; s patient's care.; ; ; Outcome: 01:15 Decision to Hospitalize by Provider. cs11 02:56 Discharge Assessment: Patient awake, alert and oriented x 3. No cognitive and/or jp6 functional deficits noted. Patient verbalized understanding of disposition instructions. patient administered narcotics - no. The following High Risk Discharge criteria are identified: None. Admitted to PCU accompanied by nurse, accompanied by tech, via stretcher, on monitor, with chart. Condition: improved. CT Study completed. Admission hand-off: Report called to pcu. Property :Personal belongings accompany Pt. 03:17 Patient left the ED. jp6 Signatures: Dispatcher [employer] EDMS Radha Mcneil, Hole Digger Unit lbd Cynthia Steward, Warren Reg Deepa Manzo,RN RN kr3 Antonio Alcantar, DO cs11 Agata Escamilla Jessica,RN RN jp6 Chart Complete MTDD
[2016-04-24] MEDS: HEPARIN SOD (PORCINE) 5000 UNITS/ML VIAL SC SCH ×3 (05:54→22:22)
[2016-04-24] MEDS: LEVOTHYROXINE 0.088 MG TAB (88 MCG) PO SCH (05:54)
[2016-04-24 06:00] VITALS: BP 105/62
[2016-04-24 06:04] LABS: MEAN CORPUSCULAR HEMOGLOBIN 31.8 pg (27.0-33.0); MEAN CORPUSCULAR HGB CONC 33.1 g/dl (32.0-36.5); MEAN CORPUSCULAR VOLUME 96.1 fl (80.0-96.0); PLATELET COUNT, AUTOMATED 149 k/mm3 (150-450); WHITE BLOOD COUNT 4.3 K/mm3 (4.0-10.0)
[2016-04-24 06:20] LABS: ANION GAP 7 MEQ/L (8-16); BLOOD UREA NITROGEN 6 MG/DL (7-18); CALCIUM LEVEL 7.3 MG/DL (8.5-10.1); CARBON DIOXIDE LEVEL 26 MEQ/L (21-32); CHLORIDE LEVEL 106 MEQ/L (98-107); CREATININE FOR GFR 0.47 MG/DL (0.55-1.02); GLOMERULAR FILTRATION RATE > 60.0 (>51); GLUCOSE, FASTING 100 MG/DL (70-105); POTASSIUM SERUM 3.7 MEQ/L (3.5-5.1); SODIUM LEVEL 139 MEQ/L (136-145)
[2016-04-24 06:36] LABS: BANDS 3 % (< 11); EOSINOPHILS 1 % (0-5); NUCLEATED RED BLOOD CELL 1 % (0-0)
--- NOTE | 2016-04-24 08:24 | CR ---
DATE OF CONSULTATION: 04/22/2016 Reason for consultation is abdominal pain and distension with CT scan abnormalities. HISTORY OF THE PRESENT ILLNESS: Patient is a 55-year-old woman who lives in a [facility] facility due to developmental disability apparently associated with Down syndrome. She was noted to be feeling ill on , 04/20/2016. She had apparently had an episode of vomiting overnight. Apparently earlier in the week, she had, had some diarrhea noted but this seems to have resolved. She complained of some abdominal discomfort. She was seen in the emergency department on 04/20/2016. At which time, she had some laboratory studies as well as a CT scan of the abdomen and pelvis. Her laboratory studies showed that she had some immature forms on her differential. She has a history of a low white blood cell count and apparently this is normally around 2. On 04/20/2016, it was 5 and she was noted to have 23% bands with 52% neutrophils. CT scan showed a distended stomach full of fluid and food, and she also had a pattern that the radiologist felt was consistent with an ileus. There was no free fluid noted and no free air. She was felt to be stable for discharge and was sent home. The patient had a poor oral intake over the ensuing night. She had some vomiting on the morning of 04/21/2016. The aide indicates that she had not voided during the morning and afternoon of 04/21/2016. The patient was brought back to the emergency department for further evaluation. She had repeat laboratory studies and a repeat CT scan. The CT scan was interpreted by the teleradiologist as showing a small amount of portal venous air with what he described as some thickened loops of small bowel. The stomach was quite distended but there was no definite point of obstruction seen. There was no free fluid and no free air. Her white blood cell count was improved from 04/20/2016 at 4.2, though again her differential was abnormal with 69% bands and 6% neutrophils, and some more immature forms. An nasogastric (NG) tube was placed and she drained approximately 1500 mL. I was asked to evaluate the patient regarding the possibility of a surgical problem. Allergies are reported to AMOXICILLIN and PENICILLINS more generally. Home medications are listed and include calcium carbonate with vitamin D, Flonase, levothyroxine, loratadine, multivitamin, Premarin vaginally, ProAmatine , Seroquel, simvastatin, vitamin C, vitamin E, Zofran, and Tylenol. Medical history is significant for some hypercholesterolemia, some allergies and hypothyroidism. Past surgical history is significant for a ventral hernia repair, presumably with mesh, a tubal ligation many years ago, and she has a scar that suggest previous left inguinal hernia repair. SOCIAL HISTORY: She is a nonsmoker. Apparently, normally she is conversant, though generally in short phrases. Her family who accompanied her indicate that she normally eats well. Family history is not helpful. Review of systems reveals that she has not currently complained of any chest pains or had shortness of breath or wheezing. She has not complained of dysuria or hematuria. She has had no melena or hematochezia. She has not had a history of deep venous thrombosis (DVT) or pulmonary embolus. Her most recent vital signs show blood pressure of 116/76, with pulse 94, respirations of 17 and her temperature is 98. Her weight is recorded as 50 kg with a height of 52 inches. Patient appears somewhat pale. Her oral mucosa appears dry and she appears to be breathing through her mouth. She has a nasogastric tube in place, which is draining some light and yellow-brown fluid. The family report that one canister was filled completely when the tube was inserted and she has about 150 mL in the current canister. Skin is warm and dry. She is responsive to voice and light touch. She will open her eyes and make eye contact. She does nod and try to vocalize short answers appropriately. Neck is supple without mass or bruit. Heart exam shows a regular rhythm. The lungs are clear bilaterally. The abdomen is somewhat rounded and protuberant. She has a scar in the supraumbilical area, which is perhaps 6-7 cm in length. There is a low midline scar. which is about 5-6 cm, and there is a scar obliquely in the left lower quadrant, which is about 8 cm. She has bowel sounds present. There is no definite tympany to percussion. The abdomen is soft to gentle palpation without apparent focal tenderness. No masses appreciated. No hernia is evident. Extremities show no peripheral edema and she has intact radial pulses. Her laboratory studies today show a white count of 4.2 with a hemoglobin of 13, hematocrit of 37 and a platelet count 144. Her differential count is abnormal with 6 neutrophils, 69 bands, 5 lymphocytes, 9 monocytes, 7 metamyelocytes, and 3 myelocytes. A chemistry profile showed a sodium of 139, potassium 3.3, chloride 101, CO2 of 27, BUN of 40, creatinine of 1.27, which is improved from 1.63 on 04/20/2016, and a glucose of 113. Her total protein is 6.9 with an albumin of 2.7. Amylase and lipase were normal. Liver function tests are normal. Lactic acid was only 1.4. Her urinalysis shows pH of 5.0, specific gravity 1.027, 1+ protein, 1+ ketones, negative leukocyte esterase and negative nitrite with only 2 white cells and 1 red cells per high per high-power field. Her CT scan today showed a dilated stomach full of fluid and some food debris. There is a very small amount of air that appears to be within the portal system of the liver in the left lobe. The spleen and gallbladder were unremarkable. There was some proximal small bowel dilation, but there is fluid and air scattered throughout the entire small bowel with stool and air through the colon as well. There is no definite point of obstruction identified. She has some surgical clips in the abdominal wall above the umbilicus. Her kidneys function and appear normal. IMPRESSION: 1. History of vomiting with gastric distension and abdominal discomfort. 2. Small amount of portal venous air of unclear etiology. 3. No strong evidence for intestinal obstruction. RECOMMENDATIONS: The patient I believe is sick enough to warrant hospitalization, but I believe her underlying abdominal process is a medical issue more likely to represent a transient infectious process and management by the medicine service would be most appropriate. She appears quite comfortable now that her stomach has been decompressed. It is difficult to interpret her complete blood count (CBC) given her baseline abnormal white blood cell count. She may well require antibiotics, but I will defer this issue to the medical physicians. I discussed with Dr. Alcantar that I thought evaluation by the hospitalist will be appropriate with admission at their discretion. GERARD
[2016-04-24] MEDS: MIDODRINE 5 MG TAB PO SCH ×3 (08:33→15:33)
[2016-04-24] MEDS: MULTIVITAMINS/MINERALS THERAP 1 TAB PO SCH (08:33)
[2016-04-24] MEDS: QUEtiapine FUMARATE 200 MG TAB PO SCH ×2 (08:33→20:28)
[2016-04-24] MEDS: KCL 40MEQ in NS 1000ML 1,000 ML IV SCH (08:34)
[2016-04-24] MEDS ORDERED: ESTROGENS VAGINAL CREAM 30GM PV SCH (09:00)
--- NOTE | 2016-04-24 11:07 | REP ---
Clinical: Small bowel obstruction for follow-up Comparison: 04/23/2016. Findings: Frontal view of the chest demonstrates scattered opacities primarily noted in the right upper lobe and bilateral lower lobes suggesting element of atelectasis/consolidation and correlation is required. Scoliosis noted. Supine and upright views of the abdomen and pelvis demonstrate a ileus-type pattern without definite findings to suggest small bowel obstruction. Midline courtney consistent with prior ventral hernia repair. No free air to suggest perforation. No organomegaly. No abnormal calcifications. Impression: 1. Multifocal infiltrates suggesting element of atelectasis and/or pneumonia. II. Ileus-type pattern without definite small bowel obstruction. No obvious perforation. Signed by Hilton Denis MD 04/24/2016 10:58 A
[2016-04-24] MEDS: CIPROFLOXACIN 400 MG in APPROPRIATE DILUENT 1 EA IV SCH ×2 (11:40→22:22)
[2016-04-24 11:43] VITALS: BP 90/50
[2016-04-24] MEDS: FLUTICASONE PROP 0.05% NASAL SPRAY 16 GM (FLONASE) SCH ×2 (13:31→20:28)
[2016-04-24 14:00] VITALS: BP 92/58
[2016-04-24 16:00] VITALS: BP 102/60
[2016-04-24] MEDS: ESTROGENS VAGINAL CREAM 30GM PV SCH (20:28)
[2016-04-24 22:00] VITALS: BP 110/71
[2016-04-25] MEDS: metroNIDAZOLE 500 MG in APPROPRIATE DILUENT 1 EA IV SCH ×3 (03:54→20:37)
[2016-04-25] MEDS: LEVOTHYROXINE 0.088 MG TAB (88 MCG) PO SCH (05:41)
[2016-04-25] MEDS: HEPARIN SOD (PORCINE) 5000 UNITS/ML VIAL SC SCH ×3 (05:41→23:00)
[2016-04-25] MEDS: KCL 40MEQ in NS 1000ML 1,000 ML IV SCH ×2 (05:42→20:57)
[2016-04-25 06:00] VITALS: BP 97/61
[2016-04-25 06:19] LABS: MEAN CORPUSCULAR HEMOGLOBIN 31.8 pg (27.0-33.0); MEAN CORPUSCULAR HGB CONC 32.9 g/dl (32.0-36.5); MEAN CORPUSCULAR VOLUME 96.7 fl (80.0-96.0); PLATELET COUNT, AUTOMATED 163 k/mm3 (150-450); RED CELL DISTRIBUTION WIDTH 14.1 % (11.5-14.5); WHITE BLOOD COUNT 4.7 K/mm3 (4.0-10.0)
[2016-04-25 06:36] LABS: ANION GAP 7 MEQ/L (8-16); BLOOD UREA NITROGEN 5 MG/DL (7-18); CALCIUM LEVEL 7.1 MG/DL (8.5-10.1); CARBON DIOXIDE LEVEL 26 MEQ/L (21-32); CHLORIDE LEVEL 108 MEQ/L (98-107); CREATININE FOR GFR 0.51 MG/DL (0.55-1.02); GLOMERULAR FILTRATION RATE > 60.0 (>51); GLUCOSE, FASTING 120 MG/DL (70-105); POTASSIUM SERUM 3.7 MEQ/L (3.5-5.1); SODIUM LEVEL 141 MEQ/L (136-145)
[2016-04-25 07:19] LABS: ANISOCYTOSIS 1+; BANDS 3 % (< 11); BASOPHILS 1 % (0-4); NUCLEATED RED BLOOD CELL 1 % (0-0)
[2016-04-25 07:20] LABS: TOXIC GRANULATION 1+
[2016-04-25] MEDS: MIDODRINE 5 MG TAB PO SCH ×3 (07:58→15:55)
[2016-04-25 09:00] VITALS: BP 98/56
[2016-04-25] MEDS: MULTIVITAMINS/MINERALS THERAP 1 TAB PO SCH (10:24)
[2016-04-25] MEDS: QUEtiapine FUMARATE 200 MG TAB PO SCH ×2 (10:24→20:37)
[2016-04-25] MEDS: ONDANSETRON 4MG/2ML VIAL (J2405) IV PRN (10:24)
[2016-04-25] MEDS: FLUTICASONE PROP 0.05% NASAL SPRAY 16 GM (FLONASE) SCH ×2 (10:24→20:38)
[2016-04-25] MEDS: CIPROFLOXACIN 400 MG in APPROPRIATE DILUENT 1 EA IV SCH ×2 (10:25→23:00)
[2016-04-25 12:16] VITALS: BP 100/54
--- NOTE | 2016-04-25 12:42 | IPNPDOC ---
Assessment/Plan Date Seen The patient was seen on 04/25/16. Problems Problems: (1) SBO (small bowel obstruction) Status: Acute Response to Treatment: Improving Problem Text: partial SBO tolerated liquid diet surgery dr Padilla (2) Enteritis Status: Acute (3) Chronic hypotension Status: Chronic Problem Text: on midodrine. (4) Mental retardation Status: Chronic Problem Text: leaved is JRC , Brother is the guardian, no advance directives in place. continue seroquel (5) Down syndrome Status: Chronic (6) Dyslipidemia Status: Chronic Problem Text: continue statin (7) Hypothyroid Status: Chronic Problem Text: continue synthroid Plan / VTE VTE Prophylaxis Ordered?: Yes Plan IVF: Initiate Diet: Make NPO Activity: Bedrest Subjective Review of Systems CC/HPI The patient is a 55-year-old female admitted with a reason for visit of Dyslipidemia, Hypothyroid, Small Bowel Obstruction. Events since last encounter pt seen and examined, feels better, tolerating diet, will be advanced, positive BM Objective Physical Examination General Exam: Positive: Alert, Cooperative Eye Exam: Positive: Conjunctiva & lids normal, PERRLA ENT Exam: Positive: Atraumatic, Mucous membr. moist/pink Neck Exam: Negative: +2 carotid pulse wo bruit, JVD, Lymphadenopathy, Other, Supple, thyromegaly Chest Exam: Positive: Clear to auscultation Heart Exam: Positive: Normal S1, Normal S2, Rate Normal Telemetry: Positive: No significant arrhythmia Abdomen Exam: Positive: BS Hyperactive, Other (distension present and upon deep palpation pt has pain. not localized to any specific area. ), Tenderness Extremity Exam: Positive: Normal pulses, Negative: Clubbing, Cyanosis, Edema Vital Signs/I&O Vital Signs Date Time Temp Pulse Resp B/P Pulse Ox O2 Delivery O2 Flow Rate FiO2 04/25/16 12:16 100/54 04/25/16 09:00 97.0 84 14 95 Room Air I&O- Last 24 Hours up to 6 AM 04/25/16 06:00 Intake Total 3240 ml Output Total 1750 ml Balance 1490 ml Laboratory Data Labs 24H Laboratory Tests 2 04/25/16 05:41: Anion Gap 7L, Blood Urea Nitrogen 5L, Creatinine 0.51L, Sodium Level 141, Potassium Level 3.7, Chloride Level 108H, Carbon Dioxide Level 26, Calcium Level 7.1L, Glomerular Filtration Rate > 60.0 04/25/16 05:42: Anisocytosis 1+, Band Neutrophils 3, White Blood Count 4.7, Red Blood Count 3.34L, Hemoglobin 10.6L, Hematocrit 32.3L, Mean Corpuscular Volume 96.7H, Mean Corpuscular Hemoglobin 31.8, Mean Corpuscular Hemoglobin Concent 32.9, Red Cell Distribution Width 14.1, Platelet Count 163, Neutrophils (%) (Auto) , Lymphocytes (%) (Auto) , Monocytes (%) (Auto) , Eosinophils (%) (Auto) , Basophils (%) (Auto) , Neutrophils # (Auto) , Lymphocytes # (Auto) , Monocytes # (Auto) , Eosinophils # (Auto) , Basophils # (Auto) , Basophils (Manual) 1, Large Unclassified Cells # , Large Unclassified Cells % , Lymphocytes (Manual) 18, Monocytes (Manual) 6, Myelocytes 1H, Neutrophils 71, Nucleated Red Blood Cells 1H, Platelet Estimate NORMAL, Toxic Granulation 1+ CBC/BMP Laboratory Tests 04/25/16 05:41 Calcium Level 7.1 L 04/25/16 05:42 Red Blood Count 3.34 L, Mean Corpuscular Volume 96.7 H, Mean Corpuscular Hemoglobin 31.8, Mean Corpuscular Hemoglobin Concent 32.9, Red Cell Distribution Width 14.1, Neutrophils (%) (Auto) , Lymphocytes (%) (Auto) , Monocytes (%) (Auto) , Eosinophils (%) (Auto) , Basophils (%) (Auto) , Neutrophils # (Auto) , Lymphocytes # (Auto) , Monocytes # (Auto) , Eosinophils # (Auto) , Basophils # (Auto) Microbiology Microbiology 04/21/16 Blood Culture - Preliminary, Resulted No Growth after 72 hours. All specime... 04/21/16 Blood Culture - Preliminary, Resulted No Growth after 72 hours. All specime... 04/21/16 Influenza Virus Type A Antigen - Final, Complete 04/21/16 Influenza Virus Type B Antigen - Final, Complete 04/21/16 Urine Culture - Final, Complete LINDA BANKS DO Apr 25, 2016 12:42
[2016-04-25 14:00] VITALS: BP 109/59
[2016-04-25 15:30] VITALS: BP 98/54
[2016-04-25 22:00] VITALS: BP 94/54
[2016-04-26 00:44] VITALS: BP 100/62
[2016-04-26] MEDS: metroNIDAZOLE 500 MG in APPROPRIATE DILUENT 1 EA IV SCH ×2 (04:05→12:39)
[2016-04-26] MEDS: LEVOTHYROXINE 0.088 MG TAB (88 MCG) PO SCH (05:46)
[2016-04-26] MEDS: HEPARIN SOD (PORCINE) 5000 UNITS/ML VIAL SC SCH ×3 (05:47→21:21)
[2016-04-26 06:00] VITALS: BP 96/53
[2016-04-26 06:24] LABS: BASO # 0.1 K/mm3 (0.0-0.2); BASO % 1.1 % (0.0-1.0); EOS # 0.1 K/mm3 (0.0-0.50); EOS % 1.7 % (0.0-3.0); LARGE UNSTAINED CELL # 0.1 K/mm3 (0.0-0.4); LARGE UNSTAINED CELL % 2.1 % (0.0-4.0); LYMPH # 0.9 K/mm3 (1.5-4.5); LYMPH % 14.4 % (24.0-44.0); MEAN CORPUSCULAR HEMOGLOBIN 32.1 pg (27.0-33.0); MEAN CORPUSCULAR HGB CONC 32.5 g/dl (32.0-36.5); MEAN CORPUSCULAR VOLUME 98.9 fl (80.0-96.0); MONO # 0.3 K/mm3 (0.0-0.8); MONO % 5.2 % (0.0-5.0); NEUTROPHILS # 4.4 K/mm3 (1.8-7.7); NEUTROPHILS % 75.5 % (36.0-66.0); PLATELET COUNT, AUTOMATED 168 k/mm3 (150-450); RED CELL DISTRIBUTION WIDTH 15.2 % (11.5-14.5); WHITE BLOOD COUNT 5.8 K/mm3 (4.0-10.0)
[2016-04-26 06:42] LABS: ANION GAP 7 MEQ/L (8-16); BLOOD UREA NITROGEN 4 MG/DL (7-18); CALCIUM LEVEL 7.1 MG/DL (8.5-10.1); CARBON DIOXIDE LEVEL 27 MEQ/L (21-32); CHLORIDE LEVEL 108 MEQ/L (98-107); CREATININE FOR GFR 0.55 MG/DL (0.55-1.02); GLOMERULAR FILTRATION RATE > 60.0 (>51); GLUCOSE, FASTING 103 MG/DL (70-105); POTASSIUM SERUM 3.7 MEQ/L (3.5-5.1); SODIUM LEVEL 142 MEQ/L (136-145)
[2016-04-26] MEDS: MULTIVITAMINS/MINERALS THERAP 1 TAB PO SCH (09:07)
[2016-04-26] MEDS: MIDODRINE 5 MG TAB PO SCH ×3 (09:07→17:10)
[2016-04-26] MEDS: QUEtiapine FUMARATE 200 MG TAB PO SCH ×2 (09:07→21:21)
[2016-04-26] MEDS: FLUTICASONE PROP 0.05% NASAL SPRAY 16 GM (FLONASE) SCH ×2 (09:08→21:22)
[2016-04-26] MEDS: CIPROFLOXACIN 400 MG in APPROPRIATE DILUENT 1 EA IV SCH (09:08)
[2016-04-26] MEDS: KCL 40MEQ in NS 1000ML 1,000 ML IV SCH (11:23)
[2016-04-26 14:00] VITALS: BP 92/57
[2016-04-26] MEDS: CIPROFLOXACIN 500 MG TAB PO SCH (17:10)
[2016-04-26] MEDS: metroNIDAZOLE (FLAGYL) 500 MG TAB PO SCH (21:22)
[2016-04-26 22:00] VITALS: BP 93/51
--- NOTE | 2016-04-26 23:03 | IPNPDOC ---
Assessment/Plan Date Seen The patient was seen on 04/26/16. Problems Problems: (1) SBO (small bowel obstruction) Status: Acute Response to Treatment: Improving Problem Text: partial SBO tolerated liquid diet surgery dr Padilla (2) Enteritis Status: Acute (3) Chronic hypotension Status: Chronic Problem Text: on midodrine. (4) Mental retardation Status: Chronic Problem Text: leaved is JRC , Brother is the guardian, no advance directives in place. continue seroquel (5) Down syndrome Status: Chronic (6) Dyslipidemia Status: Chronic Problem Text: continue statin (7) Hypothyroid Status: Chronic Problem Text: continue synthroid Plan / VTE VTE Prophylaxis Ordered?: Yes Plan IVF: Initiate Diet: Make NPO Activity: Bedrest Subjective Review of Systems CC/HPI The patient is a 55-year-old female admitted with a reason for visit of Dyslipidemia, Hypothyroid, Small Bowel Obstruction. Objective Physical Examination General Exam: Positive: Alert, Cooperative Eye Exam: Positive: Conjunctiva & lids normal, PERRLA ENT Exam: Positive: Atraumatic, Mucous membr. moist/pink Neck Exam: Negative: +2 carotid pulse wo bruit, JVD, Lymphadenopathy, Other, Supple, thyromegaly Chest Exam: Positive: Clear to auscultation Heart Exam: Positive: Normal S1, Normal S2, Rate Normal Telemetry: Positive: No significant arrhythmia Abdomen Exam: Positive: BS Hyperactive, Other (distension present and upon deep palpation pt has pain. not localized to any specific area. ), Tenderness Extremity Exam: Positive: Normal pulses, Negative: Clubbing, Cyanosis, Edema Vital Signs/I&O Vital Signs Date Time Temp Pulse Resp B/P Pulse Ox O2 Delivery O2 Flow Rate FiO2 04/26/16 22:00 98.6 72 18 93/51 96 Room Air I&O- Last 24 Hours up to 6 AM 04/26/16 06:00 Intake Total 2870 ml Output Total 3300 ml Balance -430 ml Laboratory Data Labs 24H Laboratory Tests 2 04/26/16 05:56: Anion Gap 7L, White Blood Count 5.8, Red Blood Count 3.22L, Hemoglobin 10.4L, Hematocrit 31.9L, Mean Corpuscular Volume 98.9H, Mean Corpuscular Hemoglobin 32.1, Mean Corpuscular Hemoglobin Concent 32.5, Red Cell Distribution Width 15.2H, Platelet Count 168, Neutrophils (%) (Auto) 75.5H, Lymphocytes (%) (Auto) 14.4L, Monocytes (%) (Auto) 5.2H, Eosinophils (%) (Auto) 1.7, Basophils (%) ( Auto) 1.1H, Neutrophils # (Auto) 4.4, Lymphocytes # (Auto) 0.9L, Monocytes # ( Auto) 0.3, Eosinophils # (Auto) 0.1, Basophils # (Auto) 0.1, Blood Urea Nitrogen 4L, Creatinine 0.55, Sodium Level 142, Potassium Level 3.7, Chloride Level 108H, Carbon Dioxide Level 27, Calcium Level 7.1L, Glomerular Filtration Rate > 60.0, Large Unclassified Cells # 0.1, Large Unclassified Cells % 2.1 CBC/BMP Laboratory Tests 04/26/16 05:56 Calcium Level 7.1 L, Red Blood Count 3.22 L, Mean Corpuscular Volume 98.9 H, Mean Corpuscular Hemoglobin 32.1, Mean Corpuscular Hemoglobin Concent 32.5, Red Cell Distribution Width 15.2 H, Neutrophils (%) (Auto) 75.5 H, Lymphocytes (%) ( Auto) 14.4 L, Monocytes (%) (Auto) 5.2 H, Eosinophils (%) (Auto) 1.7, Basophils (%) (Auto) 1.1 H, Neutrophils # (Auto) 4.4, Lymphocytes # (Auto) 0.9 L, Monocytes # (Auto) 0.3, Eosinophils # (Auto) 0.1, Basophils # (Auto) 0.1 Microbiology Microbiology 04/21/16 Blood Culture - Final, Complete NO GROWTH AFTER 5 DAYS 04/21/16 Blood Culture - Final, Complete NO GROWTH AFTER 5 DAYS 04/21/16 Influenza Virus Type A Antigen - Final, Complete 04/21/16 Influenza Virus Type B Antigen - Final, Complete 04/21/16 Urine Culture - Final, Complete LINDA BANKS DO Apr 26, 2016 23:03
[2016-04-27 06:00] VITALS: BP 96/59
[2016-04-27] MEDS: metroNIDAZOLE (FLAGYL) 500 MG TAB PO SCH ×3 (06:19→21:00)
[2016-04-27] MEDS: HEPARIN SOD (PORCINE) 5000 UNITS/ML VIAL SC SCH ×3 (06:19→21:00)
[2016-04-27] MEDS: CIPROFLOXACIN 500 MG TAB PO SCH ×2 (06:19→17:09)
[2016-04-27] MEDS: LEVOTHYROXINE 0.088 MG TAB (88 MCG) PO SCH (06:19)
[2016-04-27 07:22] LABS: ANION GAP 8 MEQ/L (8-16); BLOOD UREA NITROGEN 5 MG/DL (7-18); CALCIUM LEVEL 7.4 MG/DL (8.5-10.1); CARBON DIOXIDE LEVEL 26 MEQ/L (21-32); CHLORIDE LEVEL 109 MEQ/L (98-107); CREATININE FOR GFR 0.67 MG/DL (0.55-1.02); GLOMERULAR FILTRATION RATE > 60.0 (>51); GLUCOSE, FASTING 100 MG/DL (70-105); POTASSIUM SERUM 3.4 MEQ/L (3.5-5.1); SODIUM LEVEL 143 MEQ/L (136-145)
[2016-04-27 07:24] LABS: BASO % 0.5 % (0.0-1.0); EOS # 0.1 K/mm3 (0.0-0.50); EOS % 1.6 % (0.0-3.0); LARGE UNSTAINED CELL # 0.1 K/mm3 (0.0-0.4); LARGE UNSTAINED CELL % 2.5 % (0.0-4.0); LYMPH # 0.9 K/mm3 (1.5-4.5); LYMPH % 17.4 % (24.0-44.0); MEAN CORPUSCULAR HEMOGLOBIN 31.2 pg (27.0-33.0); MEAN CORPUSCULAR HGB CONC 32.1 g/dl (32.0-36.5); MEAN CORPUSCULAR VOLUME 97.1 fl (80.0-96.0); MONO # 0.3 K/mm3 (0.0-0.8); MONO % 4.9 % (0.0-5.0); NEUTROPHILS % 73.2 % (36.0-66.0); PLATELET COUNT, AUTOMATED 205 k/mm3 (150-450); RED CELL DISTRIBUTION WIDTH 14.5 % (11.5-14.5); WHITE BLOOD COUNT 5.4 K/mm3 (4.0-10.0)
[2016-04-27] MEDS: MIDODRINE 5 MG TAB PO SCH ×3 (08:56→17:09)
[2016-04-27] MEDS: FLUTICASONE PROP 0.05% NASAL SPRAY 16 GM (FLONASE) SCH ×2 (08:57→21:01)
[2016-04-27] MEDS: MULTIVITAMINS/MINERALS THERAP 1 TAB PO SCH (08:57)
[2016-04-27] MEDS: QUEtiapine FUMARATE 200 MG TAB PO SCH ×2 (08:57→21:01)
[2016-04-27] MEDS: ONDANSETRON 4MG/2ML VIAL (J2405) IV PRN (09:01)
[2016-04-27] MEDS: DOCUSATE SODIUM 100 MG CAP PO SCH ×2 (12:19→21:00)
[2016-04-27] MEDS: MOM 30ML SUSPENSION UDC PO PRN (12:19)
[2016-04-27] MEDS: SENNA 8.6 MG TAB (SENOKOT) PO SCH ×2 (12:19→21:00)
[2016-04-27 14:00] VITALS: BP 90/53
--- NOTE | 2016-04-27 14:18 | IPNPDOC ---
Assessment/Plan Date Seen The patient was seen on 04/27/16. Problems Problems: (1) SBO (small bowel obstruction) Status: Acute Response to Treatment: Improving Problem Text: partial SBO tolerated liquid diet surgery dr Padilla (2) Enteritis Status: Acute (3) Chronic hypotension Status: Chronic Problem Text: on midodrine. (4) Mental retardation Status: Chronic Problem Text: leaved is JRC , Brother is the guardian, no advance directives in place. continue seroquel (5) Down syndrome Status: Chronic (6) Dyslipidemia Status: Chronic Problem Text: continue statin (7) Hypothyroid Status: Chronic Problem Text: continue synthroid Plan / VTE VTE Prophylaxis Ordered?: Yes Plan IVF: Initiate Diet: Make NPO Activity: Bedrest Subjective Review of Systems CC/HPI The patient is a 55-year-old female admitted with a reason for visit of Dyslipidemia, Hypothyroid, Small Bowel Obstruction. Objective Physical Examination General Exam: Positive: Alert, Cooperative Eye Exam: Positive: Conjunctiva & lids normal, PERRLA ENT Exam: Positive: Atraumatic, Mucous membr. moist/pink Neck Exam: Negative: +2 carotid pulse wo bruit, JVD, Lymphadenopathy, Other, Supple, thyromegaly Chest Exam: Positive: Clear to auscultation Heart Exam: Positive: Normal S1, Normal S2, Rate Normal Telemetry: Positive: No significant arrhythmia Abdomen Exam: Positive: BS Hyperactive, Other (distension present and upon deep palpation pt has pain. not localized to any specific area. ), Tenderness Extremity Exam: Positive: Normal pulses, Negative: Clubbing, Cyanosis, Edema Vital Signs/I&O Vital Signs Date Time Temp Pulse Resp B/P Pulse Ox O2 Delivery O2 Flow Rate FiO2 04/27/16 06:00 98.4 86 17 96/59 95 Room Air I&O- Last 24 Hours up to 6 AM 04/27/16 05:59 Intake Total 3350 ml Output Total 3075 ml Balance 275 ml Laboratory Data Labs 24H Laboratory Tests 2 04/27/16 06:52: Anion Gap 8, White Blood Count 5.4, Red Blood Count 3.47L, Hemoglobin 10.8L, Hematocrit 33.7L, Mean Corpuscular Volume 97.1H, Mean Corpuscular Hemoglobin 31.2, Mean Corpuscular Hemoglobin Concent 32.1, Red Cell Distribution Width 14.5 , Platelet Count 205, Neutrophils (%) (Auto) 73.2H, Lymphocytes (%) (Auto) 17.4L , Monocytes (%) (Auto) 4.9, Eosinophils (%) (Auto) 1.6, Basophils (%) (Auto) 0.5 , Neutrophils # (Auto) 4.0, Lymphocytes # (Auto) 0.9L, Monocytes # (Auto) 0.3, Eosinophils # (Auto) 0.1, Basophils # (Auto) 0.0, Blood Urea Nitrogen 5L, Creatinine 0.67, Sodium Level 143, Potassium Level 3.4L, Chloride Level 109H, Carbon Dioxide Level 26, Calcium Level 7.4L, Glomerular Filtration Rate > 60.0, Large Unclassified Cells # 0.1, Large Unclassified Cells % 2.5 CBC/BMP Laboratory Tests 04/27/16 06:52 Calcium Level 7.4 L, Red Blood Count 3.47 L, Mean Corpuscular Volume 97.1 H, Mean Corpuscular Hemoglobin 31.2, Mean Corpuscular Hemoglobin Concent 32.1, Red Cell Distribution Width 14.5, Neutrophils (%) (Auto) 73.2 H, Lymphocytes (%) ( Auto) 17.4 L, Monocytes (%) (Auto) 4.9, Eosinophils (%) (Auto) 1.6, Basophils (% ) (Auto) 0.5, Neutrophils # (Auto) 4.0, Lymphocytes # (Auto) 0.9 L, Monocytes # (Auto) 0.3, Eosinophils # (Auto) 0.1, Basophils # (Auto) 0.0 Microbiology Microbiology 04/21/16 Blood Culture - Final, Complete NO GROWTH AFTER 5 DAYS 04/21/16 Blood Culture - Final, Complete NO GROWTH AFTER 5 DAYS 04/21/16 Influenza Virus Type A Antigen - Final, Complete 04/21/16 Influenza Virus Type B Antigen - Final, Complete 04/21/16 Urine Culture - Final, Complete LINDA BANKS DO Apr 27, 2016 14:18
[2016-04-27 20:00] VITALS: BP 98/52
[2016-04-27] MEDS: ESTROGENS VAGINAL CREAM 30GM PV SCH (21:00)
[2016-04-27 22:00] VITALS: BP 95/61
[2016-04-28 05:59] LABS: DIFF SLIDE NUMBER 12; MEAN CORPUSCULAR HEMOGLOBIN 32.2 pg (27.0-33.0); MEAN CORPUSCULAR HGB CONC 33.6 g/dl (32.0-36.5); MEAN CORPUSCULAR VOLUME 96.1 fl (80.0-96.0); PLATELET COUNT, AUTOMATED 215 k/mm3 (150-450); RED CELL DISTRIBUTION WIDTH 14.7 % (11.5-14.5); WHITE BLOOD COUNT 5.1 K/mm3 (4.0-10.0)
[2016-04-28 06:00] VITALS: BP 99/58
[2016-04-28] MEDS: LEVOTHYROXINE 0.088 MG TAB (88 MCG) PO SCH (06:08)
[2016-04-28] MEDS: HEPARIN SOD (PORCINE) 5000 UNITS/ML VIAL SC SCH ×3 (06:09→21:30)
[2016-04-28] MEDS: metroNIDAZOLE (FLAGYL) 500 MG TAB PO SCH ×3 (06:09→21:30)
[2016-04-28] MEDS: CIPROFLOXACIN 500 MG TAB PO SCH ×2 (06:09→17:09)
[2016-04-28 06:10] LABS: ANION GAP 6 MEQ/L (8-16); BLOOD UREA NITROGEN 8 MG/DL (7-18); CALCIUM LEVEL 7.5 MG/DL (8.5-10.1); CARBON DIOXIDE LEVEL 29 MEQ/L (21-32); CHLORIDE LEVEL 108 MEQ/L (98-107); CREATININE FOR GFR 0.75 MG/DL (0.55-1.02); GLOMERULAR FILTRATION RATE > 60.0 (>51); GLUCOSE, FASTING 84 MG/DL (70-105); POTASSIUM SERUM 3.6 MEQ/L (3.5-5.1); SODIUM LEVEL 143 MEQ/L (136-145)
[2016-04-28 06:12] LABS: EOSINOPHILS 1 % (0-5)
[2016-04-28] MEDS: MIDODRINE 5 MG TAB PO SCH ×3 (08:00→17:09)
[2016-04-28] MEDS: MULTIVITAMINS/MINERALS THERAP 1 TAB PO SCH (08:16)
[2016-04-28] MEDS: SENNA 8.6 MG TAB (SENOKOT) PO SCH ×2 (08:16→21:30)
[2016-04-28] MEDS: QUEtiapine FUMARATE 200 MG TAB PO SCH ×2 (08:16→21:30)
[2016-04-28] MEDS: DOCUSATE SODIUM 100 MG CAP PO SCH ×2 (08:16→21:30)
[2016-04-28] MEDS: MOM 30ML SUSPENSION UDC PO PRN (08:16)
[2016-04-28] MEDS: FLUTICASONE PROP 0.05% NASAL SPRAY 16 GM (FLONASE) SCH ×2 (08:18→21:30)
[2016-04-28 14:00] VITALS: BP 131/63
--- NOTE | 2016-04-28 14:24 | IPNPDOC ---
Assessment/Plan Date Seen The patient was seen on 04/28/16. Problems Problems: (1) SBO (small bowel obstruction) Status: Resolved Response to Treatment: Improving Problem Text: partial SBO tolerated diet (2) Enteritis Status: Resolved (3) Chronic hypotension Status: Chronic Problem Text: on midodrine. (4) Mental retardation Status: Chronic Problem Text: leaved is JRC , Brother is the guardian, no advance directives in place. continue seroquel (5) Down syndrome Status: Chronic (6) Dyslipidemia Status: Chronic Problem Text: continue statin (7) Hypothyroid Status: Chronic Problem Text: continue synthroid Plan / VTE VTE Prophylaxis Ordered?: Yes Plan IVF: Initiate Diet: Make NPO Activity: Bedrest Subjective Review of Systems CC/HPI The patient is a 55-year-old female admitted with a reason for visit of Dyslipidemia, Hypothyroid, Small Bowel Obstruction. Events since last encounter pt seen and examined doing well, tolerating diet, no vomiting, still constipated Objective Physical Examination General Exam: Positive: Alert, Cooperative Eye Exam: Positive: Conjunctiva & lids normal, PERRLA ENT Exam: Positive: Atraumatic, Mucous membr. moist/pink Neck Exam: Negative: +2 carotid pulse wo bruit, JVD, Lymphadenopathy, Other, Supple, thyromegaly Chest Exam: Positive: Clear to auscultation Heart Exam: Positive: Normal S1, Normal S2, Rate Normal Telemetry: Positive: No significant arrhythmia Abdomen Exam: Positive: BS Hyperactive, Other (distension present and upon deep palpation pt has pain. not localized to any specific area. ), Tenderness Extremity Exam: Positive: Normal pulses, Negative: Clubbing, Cyanosis, Edema Vital Signs/I&O Vital Signs Date Time Temp Pulse Resp B/P Pulse Ox O2 Delivery O2 Flow Rate FiO2 04/28/16 06:00 98.2 83 18 99/58 95 Room Air I&O- Last 24 Hours up to 6 AM 04/28/16 05:59 Intake Total 1320 ml Output Total 2325 ml Balance -1005 ml Laboratory Data Labs 24H Laboratory Tests 2 04/28/16 05:40: Anion Gap 6L, Blood Urea Nitrogen 8#, Creatinine 0.75, Sodium Level 143, Potassium Level 3.6, Chloride Level 108H, Carbon Dioxide Level 29, Calcium Level 7.5L, Eosinophils (Manual) 1, Glomerular Filtration Rate > 60.0, Lymphocytes (Manual) 24, Monocytes (Manual) 1, Neutrophils 74, Platelet Estimate NORMAL, Red Blood Cell Morphology NORMAL CBC/BMP Laboratory Tests 04/28/16 05:40 Calcium Level 7.5 L, Red Blood Count 3.29 L, Mean Corpuscular Volume 96.1 H, Mean Corpuscular Hemoglobin 32.2, Mean Corpuscular Hemoglobin Concent 33.6, Red Cell Distribution Width 14.7 H Microbiology Microbiology 04/21/16 Blood Culture - Final, Complete NO GROWTH AFTER 5 DAYS 04/21/16 Blood Culture - Final, Complete NO GROWTH AFTER 5 DAYS 04/21/16 Influenza Virus Type A Antigen - Final, Complete 04/21/16 Influenza Virus Type B Antigen - Final, Complete 04/21/16 Urine Culture - Final, Complete LINDA BANKS DO Apr 28, 2016 14:24
[2016-04-28 22:00] VITALS: BP 100/57
[2016-04-29] MEDS: LEVOTHYROXINE 0.088 MG TAB (88 MCG) PO SCH (05:52)
[2016-04-29] MEDS: HEPARIN SOD (PORCINE) 5000 UNITS/ML VIAL SC SCH (05:52)
[2016-04-29] MEDS: metroNIDAZOLE (FLAGYL) 500 MG TAB PO SCH (05:52)
[2016-04-29] MEDS: CIPROFLOXACIN 500 MG TAB PO SCH (05:52)
[2016-04-29 06:00] VITALS: BP 105/58
[2016-04-29 06:32] LABS: BASO % 0.7 % (0.0-1.0); EOS # 0.1 K/mm3 (0.0-0.50); LARGE UNSTAINED CELL # 0.1 K/mm3 (0.0-0.4); LARGE UNSTAINED CELL % 2.8 % (0.0-4.0); LYMPH # 1.1 K/mm3 (1.5-4.5); LYMPH % 22.8 % (24.0-44.0); MEAN CORPUSCULAR HEMOGLOBIN 31.3 pg (27.0-33.0); MEAN CORPUSCULAR HGB CONC 32.3 g/dl (32.0-36.5); MEAN CORPUSCULAR VOLUME 97.1 fl (80.0-96.0); MONO # 0.2 K/mm3 (0.0-0.8); MONO % 4.4 % (0.0-5.0); NEUTROPHILS # 3.2 K/mm3 (1.8-7.7); NEUTROPHILS % 67.3 % (36.0-66.0); PLATELET COUNT, AUTOMATED 245 k/mm3 (150-450); RED CELL DISTRIBUTION WIDTH 15.2 % (11.5-14.5); WHITE BLOOD COUNT 4.7 K/mm3 (4.0-10.0)
[2016-04-29 07:04] LABS: ANION GAP 9 MEQ/L (8-16); BLOOD UREA NITROGEN 8 MG/DL (7-18); CALCIUM LEVEL 7.8 MG/DL (8.5-10.1); CARBON DIOXIDE LEVEL 27 MEQ/L (21-32); CHLORIDE LEVEL 107 MEQ/L (98-107); CREATININE FOR GFR 0.66 MG/DL (0.55-1.02); GLOMERULAR FILTRATION RATE > 60.0 (>51); GLUCOSE, FASTING 92 MG/DL (70-105); POTASSIUM SERUM 3.9 MEQ/L (3.5-5.1); SODIUM LEVEL 143 MEQ/L (136-145)
[2016-04-29] MEDS: DOCUSATE SODIUM 100 MG CAP PO SCH (08:15)
[2016-04-29] MEDS: FLUTICASONE PROP 0.05% NASAL SPRAY 16 GM (FLONASE) SCH (08:15)
[2016-04-29] MEDS: MOM 30ML SUSPENSION UDC PO PRN (08:15)
[2016-04-29] MEDS: MULTIVITAMINS/MINERALS THERAP 1 TAB PO SCH (08:16)
[2016-04-29] MEDS: QUEtiapine FUMARATE 200 MG TAB PO SCH (08:16)
[2016-04-29] MEDS: MIDODRINE 5 MG TAB PO SCH ×2 (08:16→12:14)
[2016-04-29] MEDS: SENNA 8.6 MG TAB (SENOKOT) PO SCH (08:16)
--- NOTE | 2016-05-22 08:33 | DSES ---
DATE OF ADMISSION: 04/22/2016 DATE OF DISCHARGE: 04/29/2016 REASON FOR ADMISSION: Generalized illness. FINAL DIAGNOSES: 1. Small bowel obstruction, which resolved. 2. Enteritis. 3. Chronic hypotension. 4. Downs syndrome. 5. Dyslipidemia. 6. Hypothyroidism. HISTORY OF PRESENT ILLNESS: The patient is a 55-year-old female from [facility] who presented to the emergency room complaining of generalized fatigue and had vomiting three to four times since the morning. She was brought in by her caregiver who stated the vomiting was nonbloody, bilious and green in color. She was also complaining of some abdominal pain. No diarrhea, fevers or chills. CAT scan was done in the emergency room abd showed a to dilated thick walled loops of small bowel suspicious for ischemic enteritis or small bowel obstruction. Lactic acid was normal. The patient was admitted under the hospitalist service. HOSPITAL COURSE: The patient was made nothing by mouth (n.p.o.). Dr. Padilla from surgery was consulted. The patient was kept n.p.o. for a couple of days until she started to tolerate a clear liquid diet. The patient was then advanced as tolerated. She was in the hospital for a total of 1 week until her symptoms resolved. Repeat imagings were done which showed the partial small bowel obstruction resolving. Physical therapy was consulted while the patient was in the hospital for a home safety evaluation prior to discharge. Last abdominal x-ray was done on 04/24/2016 which showed ileus type pattern without definitive small bowel obstruction and no obvious perforation. It showed multifocal infiltrates suggestive of atelectasis and/or pneumonia. The patient has completed a course of Cipro while in the hospital as well as 3 days of Flagyl. Once the patient's symptoms had resolved, she was discharged home. DISCHARGE INSTRUCTIONS: Followup with primary care provider in 1 week. Diet as tolerated. Activities as tolerated. Discharge medications include Tylenol 500 mg by mouth every 4 hours as needed for pain or fevers, vitamin C 500 mg by mouth daily, vitamin D and calcium 1 tablet by mouth twice a day, Flonase 50 mcg twice a day twice a day, levothyroxine 88 mcg by mouth daily, loratadine 10 mg by mouth daily, midodrine 5 mg by mouth three times a day, multivitamin 1 tablet by mouth daily, Zofran 4 mg by mouth every 6 hours as needed for nausea, Seroquel 200 mg by mouth daily and 400 mg at night, simvastatin 20 mg by mouth daily, and vitamin E 400 every 2 days. DISCHARGE CONDITION: Stable.
== END 2016-04-29 12:39 | disposition home or self-care (01) | DRG 392 ==
LOC: M ED 18:21 → M ED INP 04-22 01:48 → M PCU 04-22 03:15 → M MSPAV 04-23 20:55
PROVIDERS: ADMIT Internal Medicine; ATTEND Internal Medicine
DX: K52.9 Noninfective gastroenteritis and colitis, unspecified (principal); K56.60 Unspecified intestinal obstruction; F89 Unspecified disorder of psychological development; Q90.9 Down syndrome, unspecified; Z79.899 Other long term (current) drug therapy; Z88.0 Allergy status to penicillin; E03.9 Hypothyroidism, unspecified; E78.5 Hyperlipidemia, unspecified

== ENCOUNTER → 2016-05-31 | Outpatient (CLI) | payer MEDICARE, MEDICAID ==
[~2016-05-31] MED LIST: CALCTAB43 PO; ESTR62CR PV; FLON1SPR; LORA10TA2 PO; MIDO5TA PO; SERO200T PO; SERO400T PO; SIMV20TA2 PO; SYNT88TA2 PO; TYLE500T78 PO; VITA400C2 PO; VITA500T88 PO; VITMTA PO; ZOFR20TA PO
--- NOTE | 2016-05-31 14:35 | REPMRS ---
Patient History The patient states she had a clinical breast exam in Patient is postmenopausal. No known family history of cancer. Taking unspecified hormones. Digital Woman Screen Mammo: May 31, 2016 - Exam #: [id number] Bilateral CC and MLO view(s) were taken. Technologist: Maryam Tirado, Technologist Prior study comparison: May 31, 2015, digital woman screen mammo performed at [facility]. May 29, 2014, digital woman screen mammo performed at [facility]. May 26, 2013, digital woman screen mammo performed at [facility]. FINDINGS: There are scattered fibroglandular densities. There has been no change in the appearance of the mammogram from the prior studies. There is a mild amount of scattered fibroglandular density which is fairly symmetric. There is no interval development of dominant mass, architectural distortion, or clustered microcalcification suggestive of malignancy. ASSESSMENT: BI-RADS/ACR category 1 mammogram. Negative. Recommendation Routine screening mammogram in 1 year (for women over age 40). This mammogram was interpreted with the aid of an FDA-approved computer-aided dectection system. Electronically Signed By: Kain Hoang MD 05/31/16 [id number]
== END ==
LOC: M WHC 13:14
PROVIDERS: ATTEND Nurse Practitioner Family
DX: Z01.419 Encounter for gynecological examination (general) (routine) without abnormal findings (principal); Z12.31 Encounter for screening mammogram for malignant neoplasm of breast; Z78.0 Asymptomatic menopausal state; Z79.899 Other long term (current) drug therapy; Z12.12 Encounter for screening for malignant neoplasm of rectum
CPT/HCPCS: 82270; G0101; G0202

== ENCOUNTER → 2016-10-02 | Outpatient (CLI) | payer MEDICARE, MEDICAID ==
[2016-10-02 08:41] LABS: MEAN CORPUSCULAR HEMOGLOBIN 33.3 pg (27.0-33.0); MEAN CORPUSCULAR HGB CONC 33.6 g/dl (32.0-36.5); MEAN CORPUSCULAR VOLUME 99.1 fl (80.0-96.0); RED CELL DISTRIBUTION WIDTH 13.7 % (11.5-14.5); WHITE BLOOD COUNT 2.2 K/mm3 (4.0-10.0)
[2016-10-02 09:16] LABS: ALBUMIN 3.1 GM/DL (3.2-5.2); ALBUMIN/GLOBULIN RATIO 0.89 (1.00-1.93); ALKALINE PHOSPHATASE 71 U/L (45-117); ALT/SGPT 20 U/L (12-78); ANION GAP 7 MEQ/L (8-16); AST/SGOT 23 U/L (15-37); BILIRUBIN,TOTAL 0.3 MG/DL (0.2-1.0); BLOOD UREA NITROGEN 16 MG/DL (7-18); CALCIUM LEVEL 8.4 MG/DL (8.5-10.1); CARBON DIOXIDE LEVEL 27 MEQ/L (21-32); CHLORIDE LEVEL 108 MEQ/L (98-107); CHOLESTEROL LEVEL 153 MG/DL (<200); CREATININE FOR GFR 0.87 MG/DL (0.55-1.02); FREE T4 0.81 NG/DL (0.76-1.46); GLOMERULAR FILTRATION RATE > 60.0 (>51); GLUCOSE, FASTING 88 MG/DL (70-105); SODIUM LEVEL 142 MEQ/L (136-145); TOTAL PROTEIN 6.6 GM/DL (6.4-8.2); TRIGLYCERIDES LEVEL 66 MG/DL (<150)
== END ==
LOC: M LAB 08:08
PROVIDERS: ATTEND Nurse Practitioner Family
DX: I10 Essential (primary) hypertension (principal)

== ENCOUNTER → 2016-10-18 | Outpatient (CLI) | payer MEDICARE, MEDICAID | LOC: M LAB 07:13 | PROVIDERS: ATTEND Psychiatry & Neurology Psychiatry | DX: Z79.899 Other long term (current) drug therapy (principal) ==

== ENCOUNTER → 2016-11-28 | Outpatient (CLI) | payer MEDICARE, MEDICAID ==
[~2016-11-28] MED LIST changes: -CALCTAB43 PO; +CALCTAB74 PO; -VITA400C2 PO; +VITA400C7 PO
[2016-11-28 21:13] LABS: FREE T4 0.8 NG/DL (0.76-1.46)
== END ==
LOC: M WUC 14:32
PROVIDERS: ATTEND Nurse Practitioner Family
DX: E03.9 Hypothyroidism, unspecified (principal)

== ENCOUNTER → 2016-12-22 | Outpatient (CLI) | payer MEDICARE, MEDICAID ==
[2016-12-22 09:22] LABS: MEAN CORPUSCULAR HEMOGLOBIN 33.5 pg (27.0-33.0); MEAN CORPUSCULAR HGB CONC 34.2 g/dl (32.0-36.5); RED CELL DISTRIBUTION WIDTH 13.1 % (11.5-14.5); WHITE BLOOD COUNT 1.7 K/mm3 (4.0-10.0)
[2016-12-22 09:40] LABS: ALBUMIN 3.3 GM/DL (3.2-5.2); ALBUMIN/GLOBULIN RATIO 0.89 (1.00-1.93); ALKALINE PHOSPHATASE 67 U/L (45-117); ALT/SGPT 19 U/L (12-78); ANION GAP 5 MEQ/L (8-16); AST/SGOT 27 U/L (15-37); BILIRUBIN,TOTAL 0.2 MG/DL (0.2-1.0); BLOOD UREA NITROGEN 16 MG/DL (7-18); CALCIUM LEVEL 8.5 MG/DL (8.5-10.1); CARBON DIOXIDE LEVEL 31 MEQ/L (21-32); CHLORIDE LEVEL 106 MEQ/L (98-107); CREATININE FOR GFR 0.97 MG/DL (0.55-1.02); GLOMERULAR FILTRATION RATE > 60.0 (>51); GLUCOSE, FASTING 66 MG/DL (70-105); POTASSIUM SERUM 4.1 MEQ/L (3.5-5.1); SODIUM LEVEL 142 MEQ/L (136-145)
--- NOTE | 2016-12-22 14:36 | REP ---
Chest two views HISTORY: Preop Comparison: 04/24/2016 The lungs are clear. The heart is normal in size. The pulmonary vasculature is normal in appearance. The bony structure is intact. There is scoliosis of the upper thoracic spine convex to the left and mid and lower thoracic spine convex to the right. IMPRESSION: No acute disease. Signed by Javier Palmer MD 12/22/2016 09:07 A
== END ==
LOC: M WUC 08:12
PROVIDERS: ATTEND Nurse Practitioner Family
DX: Z01.818 Encounter for other preprocedural examination (principal)

== ENCOUNTER → 2017-01-04 | Outpatient (CLI) | payer MEDICARE, MEDICAID ==
[2017-01-04 13:58] LABS: MEAN CORPUSCULAR HEMOGLOBIN 33.8 pg (27.0-33.0); MEAN CORPUSCULAR HGB CONC 34.1 g/dl (32.0-36.5); MEAN CORPUSCULAR VOLUME 98.9 fl (80.0-96.0); WHITE BLOOD COUNT 3.2 K/mm3 (4.0-10.0)
== END ==
LOC: M WUC 11:53
PROVIDERS: ATTEND Nurse Practitioner Family
DX: D72.819 Decreased white blood cell count, unspecified (principal)

== ENCOUNTER → 2017-02-16 | Outpatient (CLI) | payer MEDICARE, MEDICAID ==
--- NOTE | 2017-02-16 16:41 | REP ---
Left knee four views: There are no comparisons. There is tricompartment osteoarthritis. Mineralization is normal. There is no joint effusion. There are no calcifications. No fracture or dislocation. Impression: Tricompartment osteoarthritis. Signed by Tello Lehman MD 02/16/2017 04:33 P
== END ==
LOC: M WUC 14:47
PROVIDERS: ATTEND Nurse Practitioner Adult Health
DX: S83.92XD Sprain of unspecified site of left knee, subsequent encounter (principal); W18.30XA Fall on same level, unspecified, initial encounter; Y92.009 Unspecified place in unspecified non-institutional (private) residence as the place of occurrence of the external cause

== ENCOUNTER → 2017-02-20 | Outpatient (RCR) | payer MEDICARE, MEDICAID | END | disposition home or self-care (01) | LOC: M PT 08:47 | PROVIDERS: ATTEND Nurse Practitioner Adult Health | DX: Z51.89 Encounter for other specified aftercare (principal); M25.562 Pain in left knee | CPT/HCPCS: 97161; G8978; G8979 ==

== ENCOUNTER 2017-03-20 07:45 | Outpatient (RCR) | payer MEDICARE, MEDICAID | END 2017-03-22 | LOC: M PT 07:45 | PROVIDERS: ATTEND Nurse Practitioner Adult Health | DX: S83.92XD Sprain of unspecified site of left knee, subsequent encounter (principal); X58.XXXD Exposure to other specified factors, subsequent encounter; Y92.9 Unspecified place or not applicable | CPT/HCPCS: 97110; G8979; G8980 ==

== ENCOUNTER → 2017-06-01 | Outpatient (CLI) | payer MEDICARE, MEDICAID | LOC: M WHC 10:17 | DX: Z01.419 Encounter for gynecological examination (general) (routine) without abnormal findings (principal); Z12.31 Encounter for screening mammogram for malignant neoplasm of breast (principal); Z78.0 Asymptomatic menopausal state; Z92.29 Personal history of other drug therapy; Z12.12 Encounter for screening for malignant neoplasm of rectum | CPT/HCPCS: 77067 ==

== ENCOUNTER → 2017-11-04 | Outpatient (CLI) | payer MEDICARE, MEDICAID ==
[2017-11-04 09:38] LABS: HEMATOCRIT 39.5 % (36.0-47.0); HEMOGLOBIN 13.2 g/dl (12.0-15.5); MEAN CORPUSCULAR HEMOGLOBIN 32.6 pg (27.0-33.0); MEAN CORPUSCULAR HGB CONC 33.4 g/dl (32.0-36.5); MEAN CORPUSCULAR VOLUME 97.5 fl (80.0-96.0); PLATELET COUNT, AUTOMATED 210 10^3/uL (150-450); RED BLOOD COUNT 4.05 10^6/uL (4.00-5.40); RED CELL DISTRIBUTION WIDTH 14.1 % (11.5-14.5); WHITE BLOOD COUNT 2.2 10^3/uL (4.0-10.0)
[2017-11-04 10:14] LABS: ALBUMIN 3.3 GM/DL (3.2-5.2); ALBUMIN/GLOBULIN RATIO 0.92 (1.00-1.93); ALKALINE PHOSPHATASE 73 U/L (45-117); ALT/SGPT 15 U/L (12-78); ANION GAP 7 MEQ/L (8-16); AST/SGOT 23 U/L (7-37); BILIRUBIN,TOTAL 0.2 MG/DL (0.2-1.0); BLOOD UREA NITROGEN 20 MG/DL (7-18); CALCIUM LEVEL 8.3 MG/DL (8.5-10.1); CARBON DIOXIDE LEVEL 27 MEQ/L (21-32); CHLORIDE LEVEL 109 MEQ/L (98-107); CHOLESTEROL LEVEL 152 MG/DL (<200); CPK CREATINE PHOSPHOKINASE 93 U/L (26-192); CREATININE FOR GFR 0.93 MG/DL (0.55-1.30); FREE T4 0.81 NG/DL (0.76-1.46); GLOMERULAR FILTRATION RATE > 60.0 (>51); GLUCOSE, FASTING 90 MG/DL (70-100); HDL CHOLESTEROL 51 MG/DL (>40); LDL CHOLESTEROL 88.6 MG/DL (<100); NON-HDL-C 101 MG/DL; POTASSIUM SERUM 4.4 MEQ/L (3.5-5.1); SODIUM LEVEL 143 MEQ/L (136-145); TOTAL PROTEIN 6.9 GM/DL (6.4-8.2); TRIGLYCERIDES LEVEL 62 MG/DL (<150)
== END ==
LOC: M LAB 08:59
DX: E03.9 Hypothyroidism, unspecified (principal); E78.00 Pure hypercholesterolemia, unspecified
CPT/HCPCS: 82550

== ENCOUNTER 2018-02-11 12:39 | Emergency (ER) | payer MEDICARE, MEDICAID ==
[2018-02-11] MEDS: NS 1,000 ML IV (13:15)
[2018-02-11 13:25] LABS: BASO % 1.2 % (0.0-1.0); EOS % 0.4 % (0.0-3.0); HEMATOCRIT 42.2 % (36.0-47.0); HEMOGLOBIN 14.1 g/dl (12.0-15.5); IMMATURE GRANULOCYTE % 0.4 % (0-3.0); LYMPH # 0.8 10^3/uL (1.5-4.5); LYMPH % 32.4 % (24.0-44.0); MEAN CORPUSCULAR HEMOGLOBIN 32.9 pg (27.0-33.0); MEAN CORPUSCULAR HGB CONC 33.4 g/dl (32.0-36.5); MEAN CORPUSCULAR VOLUME 98.6 fl (80.0-96.0); MONO # 0.4 10^3/uL (0.0-0.8); MONO % 15.2 % (0.0-5.0); NEUTROPHILS # 1.3 10^3/uL (1.8-7.7); NEUTROPHILS % 50.4 % (36.0-66.0); PLATELET COUNT, AUTOMATED 205 10^3/uL (150-450); RED BLOOD COUNT 4.28 10^6/uL (4.00-5.40); RED CELL DISTRIBUTION WIDTH 14.1 % (11.5-14.5); WHITE BLOOD COUNT 2.6 10^3/uL (4.0-10.0)
[2018-02-11 13:55] LABS: AMYLASE 36 U/L (25-115); CPK CREATINE PHOSPHOKINASE 118 U/L (26-192); LIPASE 74 U/L (73-393); MB/CK RELATIVE INDEX 2.97 (< OR =4); TROPONIN I < 0.02 NG/ML (< 0.10)
[2018-02-11 14:36] LABS: INFLUENZA A AMPLIFICATION NEGATIVE (NEGATIVE); INFLUENZA B AMPLIFICATION NEGATIVE (NEGATIVE)
[2018-02-11 15:45] LABS: ALBUMIN 3.4 GM/DL (3.2-5.2); ALBUMIN/GLOBULIN RATIO 0.83 (1.00-1.93); ALKALINE PHOSPHATASE 81 U/L (45-117); ALT/SGPT 18 U/L (12-78); ANION GAP 5 MEQ/L (8-16); AST/SGOT 28 U/L (7-37); BILIRUBIN,DIRECT < 0.1 MG/DL (0.0-0.2); BILIRUBIN,TOTAL 0.3 MG/DL (0.2-1.0); BLOOD UREA NITROGEN 16 MG/DL (7-18); CALCIUM LEVEL 8.9 MG/DL (8.5-10.1); CARBON DIOXIDE LEVEL 30 MEQ/L (21-32); CHLORIDE LEVEL 107 MEQ/L (98-107); CREATININE FOR GFR 0.82 MG/DL (0.55-1.30); GLOMERULAR FILTRATION RATE > 60.0 (>51); GLUCOSE, FASTING 94 MG/DL (70-100); POTASSIUM SERUM 4.2 MEQ/L (3.5-5.1); SODIUM LEVEL 142 MEQ/L (136-145); TOTAL PROTEIN 7.5 GM/DL (6.4-8.2)
[2018-02-11 15:46] LABS: LACTIC ACID SEPSIS PROTOCOL 1.4 MMOL/L (0.4-2.0)
[2018-02-11 15:52] LABS: FREE T4 0.86 NG/DL (0.76-1.46)
[2018-02-11 16:13] LABS: KETONE, URINE AUTO RFX NEGATIVE (NEGATIVE); LEUKOCYTE ESTERASE UR AUTO RFX NEGATIVE (NEGATIVE); NITRITE, URINE AUTO RFX NEGATIVE (NEGATIVE); RBC, URINE AUTO RFX 0 /HPF (0-3); SPECIFIC GRAVITY UR AUTO RFX 1.005 (1.002-1.035); SQUAM EPITHELIAL CELL UR AURFX 1 /HPF (0-6); WBC, URINE AUTO RFX 1 /HPF (0-3)
[2018-02-11] MEDS ORDERED: ISOVUE-370 76% 100ML VIAL (Q9967) As Ordered (16:47)
== END 2018-02-11 18:42 | disposition home or self-care (01) ==
LOC: M ED 12:39
DX: N32.0 Bladder-neck obstruction (principal); N13.30 Unspecified hydronephrosis; K59.00 Constipation, unspecified; Q90.9 Down syndrome, unspecified; F79 Unspecified intellectual disabilities; F03.90 Unspecified dementia, unspecified severity, without behavioral disturbance, psychotic disturbance, mood disturbance, and anxiety; E78.00 Pure hypercholesterolemia, unspecified; E03.9 Hypothyroidism, unspecified; Z87.19 Personal history of other diseases of the digestive system; Z88.0 Allergy status to penicillin; Z79.899 Other long term (current) drug therapy; Z79.890 Hormone replacement therapy
CPT/HCPCS: Q9967

== ENCOUNTER → 2018-02-25 | Outpatient (CLI) | payer MEDICARE, MEDICAID | LOC: M RAD 10:13 | DX: N13.30 Unspecified hydronephrosis (principal); R39.198 Other difficulties with micturition | CPT/HCPCS: 76775 ==

== ENCOUNTER → 2018-03-22 | Outpatient (CLI) | payer MEDICARE, MEDICAID ==
[~2018-03-22] MED LIST changes: -CALCTAB74 PO; -ESTR62CR PV; -FLON1SPR; +ISOVUE-370 76% 100ML VIAL (Q9967) As Ordered; -LORA10TA2 PO; -MIDO5TA PO; -SERO200T PO; -SERO400T PO; -SIMV20TA2 PO; -SYNT88TA2 PO; -TYLE500T78 PO; -VITA400C7 PO; -VITA500T88 PO; -VITMTA PO; -ZOFR20TA PO
== END ==
LOC: M RAD 09:40
DX: N32.89 Other specified disorders of bladder (principal); K59.09 Other constipation; K63.89 Other specified diseases of intestine; N13.30 Unspecified hydronephrosis
CPT/HCPCS: Q9967

== ENCOUNTER → 2018-06-07 | Outpatient (CLI) | payer MEDICARE, MEDICAID ==
[~2018-06-07] MED LIST changes: +CALCTAB74 PO; +ESTR62CR PV; +FLON1SPR; -ISOVUE-370 76% 100ML VIAL (Q9967) As Ordered; +LORA-243 PO; +MIDO5TA PO; +SERO200T PO; +SERO400T PO; +SIMV20TA2 PO; +SYNT88TA2 PO; +TYLE500T78 PO; +VITA400C7 PO; +VITA500T88 PO; +VITMTA PO; +ZOFR4TAB16 PO
[2018-06-07 13:42] LABS: HEMATOCRIT 43.1 % (36.0-47.0); HEMOGLOBIN 14.1 g/dl (12.0-15.5); MEAN CORPUSCULAR HEMOGLOBIN 32.1 pg (27.0-33.0); MEAN CORPUSCULAR HGB CONC 32.7 g/dl (32.0-36.5); MEAN CORPUSCULAR VOLUME 98.2 fl (80.0-96.0); PLATELET COUNT, AUTOMATED 266 10^3/uL (150-450); RED BLOOD COUNT 4.39 10^6/uL (4.00-5.40); WHITE BLOOD COUNT 3.5 10^3/uL (4.0-10.0)
[2018-06-07 14:00] LABS: ALBUMIN 3.5 GM/DL (3.2-5.2); ALT/SGPT 13 U/L (12-78); BILIRUBIN,TOTAL 0.3 MG/DL (0.2-1.0); BLOOD UREA NITROGEN 12 MG/DL (7-18); CALCIUM LEVEL 8.6 MG/DL (8.5-10.1); CARBON DIOXIDE LEVEL 30 MEQ/L (21-32); CHLORIDE LEVEL 104 MEQ/L (98-107); CPK CREATINE PHOSPHOKINASE 117 U/L (26-192); CREATININE FOR GFR 0.86 MG/DL (0.55-1.30); FREE T4 0.88 NG/DL (0.76-1.46); GLOMERULAR FILTRATION RATE > 60.0 (>51); GLUCOSE, FASTING 89 MG/DL (70-100); POTASSIUM SERUM 4.2 MEQ/L (3.5-5.1); SODIUM LEVEL 141 MEQ/L (136-145); TOTAL PROTEIN 7.5 GM/DL (6.4-8.2)
== END ==
LOC: M WUC 08:43
PROVIDERS: ATTEND Nurse Practitioner Family
DX: E78.00 Pure hypercholesterolemia, unspecified (principal); E03.9 Hypothyroidism, unspecified

== ENCOUNTER → 2018-06-28 | Outpatient (CLI) | payer MEDICARE, MEDICAID ==
--- NOTE | 2018-06-28 10:26 | REP ---
ABDOMEN SERIES: Four views. HISTORY: Constipation. COMPARISON STUDY: April 22, 2018. FINDINGS: Upright chest radiograph demonstrates a moderate dextroconvex thoracic scoliosis which appears unchanged. No infiltrate or free subdiaphragmatic air is seen. Heart is borderline. Supine and erect views of the abdomen show multiple surgical clips in the central abdomen consistent with ventral hernia repair. There is a large quantity of formed stool throughout the proximal colon. Hazy opacity is seen in the pelvis consistent with a distended urinary bladder . This is unchanged from the previous radiograph. The urinary bladder was seen to be somewhat distended at the time of the CT study from March 22, 2018 as well. No urinary tract or other abdominal calculi are seen. No significant air fluid level is noted. There are degenerative changes in the lower lumbar spine. IMPRESSION: Large amount of formed stool in the proximal colon consistent with constipation. Urine distended bladder fills the pelvis. Status post ventral hernia repair. Scoliosis. Electronically Signed by Herbert Hoang MD 06/28/2018 10:40 A
== END ==
LOC: M WUC 09:57
PROVIDERS: ATTEND Nurse Practitioner Family
DX: K59.00 Constipation, unspecified (principal); M41.9 Scoliosis, unspecified; N32.89 Other specified disorders of bladder

== ENCOUNTER → 2018-07-19 | Outpatient (CLI) | payer MEDICARE, MEDICAID ==
--- NOTE | 2018-07-19 09:47 | REP ---
ABDOMINAL SERIES: Four views. HISTORY: Constipation. COMPARISON STUDY: June 28, 2018. FINDINGS: Upright chest radiograph shows a dextroconvex moderate rotoscoliosis. The lungs are well inflated and clear. There is no evidence of infiltrate or free subdiaphragmatic air. Cardiomediastinal silhouette is unchanged. Supine and erect views of the abdomen show a large amount of formed stool throughout the colon proximal to the level of the distal descending colon. There is soft tissue fullness in the pelvis consistent with urine filled bladder. There does not appear to be rectal stool. There are surgical clips in the central abdomen consistent with a ventral hernia repair. Bowel gas pattern is quite similar to the June 28, 2018 study. IMPRESSION: There is a large amount of colonic stool extending to the level of the distal descending colon. Urine distended bladder fills the pelvis as before. Findings consistent with constipation. Electronically Signed by Herbert Hoang MD 07/19/2018 02:30 P
== END ==
LOC: M WUC 09:05
PROVIDERS: ATTEND Nurse Practitioner Family
DX: K59.00 Constipation, unspecified (principal); N32.89 Other specified disorders of bladder

== ENCOUNTER 2018-09-27 08:31 | Day surgery (SDC) | payer MEDICARE, MEDICAID ==
[~2018-09-27] VITALS: Ht 132.1 cm; Wt 63.9 kg
[~2018-09-27 08:31] MED LIST changes: +ACET-683 PO; +CALC600T66 PO; +COLA100C5 PO; +DULC10SU2 PR; +LEVO100T5 PO; +LIDOCAINE 2% INJ 100 MG/5 ML SDV (FOR ANES.) As Ordered ONE; +LINZ290C PO; +MIRA3350 PO; +NS 1,000 ML IV ONE; +PROPOFOL 200 MG/20 ML VIAL As Ordered ONE; +SERO1TAB PO; +VITA-157 PO; +VITS42.53 EX; +[UNRECOGNIZED DRUG - OTHER] NARES
[2018-09-27] MEDS ORDERED: ONDANSETRON 4MG/2ML VIAL (J2405) As Ordered ONE (09:35)
--- NOTE | 2018-09-27 10:06 | ROOR ---
Patient Name: Theresa Leone Procedure Date: 09/27/2018 9:26 AM Date of : 1960 Age: 58 Room: [facility] Gender: Female Note Status: Finalized Procedure: Colonoscopy Indications: Generalized abdominal pain, Constipation Providers: Gaurav TEJADA MD Referring MD: Jackson Zepeda MD Requesting Provider: Medicines: Monitored Anesthesia Care Complications: No immediate complications. Procedure: Pre-Anesthesia Assessment: - The heart rate, respiratory rate, oxygen saturations, blood pressure, adequacy of pulmonary ventilation, and response to care were monitored throughout the procedure. The Colonoscope was introduced through the anus and advanced to 10 cm into the ileum. The colonoscopy was performed without difficulty. The patient tolerated the procedure well. The quality of the bowel preparation was good. Findings: The perianal and digital rectal examinations were normal. The colon (entire examined portion) was moderately redundant. Advancing the scope required straightening and shortening the scope to obtain bowel loop reduction. A localized area of mildly erythematous mucosa was found in the distal rectum. The exam was otherwise without abnormality on direct and retroflexion views. Impression: - Redundant colon. - Erythematous mucosa in the distal rectum. - The colon and terminal ileum are otherwise normal on direct and retroflexion views. - No specimens collected. Recommendation: - Resume regular diet. - Hold Miralax, Linzess and Colace for 2 days. Resume these on 09/29/18. - Resume all other meds today. - Return to referring physician. - Telephone endoscopist for pathology results in 2 weeks. Gaurav Tejada MD Gaurav TEJADA MD 09/27/2018 10:06:11 AM Electronically signed by Gaurav TEJADA MD Number of Addenda: 0 Note Initiated On: 09/27/2018 9:26 AM Estimated Blood Loss: Estimated blood loss: none.
[2018-09-27 10:41] VITALS: BP 130/77
== END 2018-09-27 10:40 | disposition home or self-care (01) ==
LOC: M OPP 08:31
PROVIDERS: ATTEND Internal Medicine Gastroenterology
DX: K59.00 Constipation, unspecified (principal); K62.89 Other specified diseases of anus and rectum; R10.84 Generalized abdominal pain; Z88.0 Allergy status to penicillin; Z79.899 Other long term (current) drug therapy
CPT/HCPCS: 45378; 88305; J2405

== ENCOUNTER → 2018-11-19 | Outpatient (CLI) | payer MEDICARE, MEDICAID ==
[~2018-11-19] MED LIST changes: -LIDOCAINE 2% INJ 100 MG/5 ML SDV (FOR ANES.) As Ordered ONE; -NS 1,000 ML IV ONE; -PROPOFOL 200 MG/20 ML VIAL As Ordered ONE
[2018-11-19 08:30] LABS: FREE T4 0.88 NG/DL (0.76-1.46); THYROID STIMULATING HORMONE 2.87 uIU/ML (0.358-3.740)
== END ==
LOC: M LAB 07:18
PROVIDERS: ATTEND Nurse Practitioner Family
DX: E03.9 Hypothyroidism, unspecified (principal)

== ENCOUNTER → 2018-11-26 | Outpatient (CLI) | payer MEDICARE, MEDICAID ==
[~2018-11-26] MED LIST changes: -SIMV20TA2 PO; +SIMV20TA22 PO
--- NOTE | 2018-11-26 10:56 | REPMRS ---
Patient History The patient states she has not had a clinical breast exam in over a year. Patient is postmenopausal. 3D TOMOSYNTHESIS WAS PERFORMED. The [facility] lifetime risk for breast cancer is 7.9%. Digital Woman Screen Mammo: November 26, 2018 - Exam #: [id number] Bilateral CC and MLO view(s) were taken. Technologist: Maryann Sequeira, Technologist Prior study comparison: June 01, 2017, digital woman screen mammo performed at [facility]. May 31, 2016, digital woman screen mammo performed at [facility]. FINDINGS: There are scattered fibroglandular densities. There has been no change in the appearance of the mammogram from the prior studies. There is a mild amount of residual fibroglandular tissue which is fairly symmetric. There is no interval development of dominant mass, architectural distortion, or clustered microcalcification suggestive of malignancy. Assessment: BI-RADS/ACR category 1 mammogram. Negative Mammogram. Recommendation Routine screening mammogram in 1 year (for women over age 40). This mammogram was interpreted with the aid of an FDA-approved computer-aided dectection system. Electronically Signed By: Tello Jaime MD 11/26/18 [id number]
== END ==
LOC: M WHC 09:17
PROVIDERS: ATTEND Nurse Practitioner Family
DX: Z12.31 Encounter for screening mammogram for malignant neoplasm of breast (principal); Z78.0 Asymptomatic menopausal state

== ENCOUNTER → 2019-01-23 | Outpatient (CLI) | payer MEDICARE, MEDICAID ==
[~2019-01-23] MED LIST changes: +SIMV20TA2 PO; -SIMV20TA22 PO
[2019-01-23 08:08] LABS: HEMATOCRIT 40.7 % (36.0-47.0); HEMOGLOBIN 13.8 g/dl (12.0-15.5); MEAN CORPUSCULAR HEMOGLOBIN 33.3 pg (27.0-33.0); MEAN CORPUSCULAR HGB CONC 33.9 g/dl (32.0-36.5); MEAN CORPUSCULAR VOLUME 98.1 fl (80.0-96.0); PLATELET COUNT, AUTOMATED 192 10^3/uL (150-450); RED BLOOD COUNT 4.15 10^6/uL (4.00-5.40)
[2019-01-23 08:38] LABS: ALBUMIN 3.3 GM/DL (3.2-5.2); ALT/SGPT 15 U/L (12-78); BILIRUBIN,TOTAL 0.3 MG/DL (0.2-1.0); BLOOD UREA NITROGEN 15 MG/DL (7-18); CALCIUM LEVEL 8.6 MG/DL (8.5-10.1); CARBON DIOXIDE LEVEL 29 MEQ/L (21-32); CHLORIDE LEVEL 108 MEQ/L (98-107); CHOLESTEROL LEVEL 166 MG/DL (<200); CHOLESTEROL RISK RATIO 2.593 (<5); CPK CREATINE PHOSPHOKINASE 135 U/L (26-192); CREATININE FOR GFR 0.84 MG/DL (0.55-1.30); FREE T4 0.86 NG/DL (0.76-1.46); GLOMERULAR FILTRATION RATE > 60.0 (>51); GLUCOSE, FASTING 92 MG/DL (70-100); HDL CHOLESTEROL 64 MG/DL (>40); LDL CHOLESTEROL 90 MG/DL (<100); NON-HDL-C 102 MG/DL; POTASSIUM SERUM 4.1 MEQ/L (3.5-5.1); SODIUM LEVEL 142 MEQ/L (136-145); TRIGLYCERIDES LEVEL 60 MG/DL (<150)
[2019-01-23 09:01] LABS: TOTAL 25(OH) VITAMIN D 33.9 NG/ML (30.0-100.0)
== END ==
LOC: M LAB 07:17
PROVIDERS: ATTEND Nurse Practitioner Family
DX: I10 Essential (primary) hypertension (principal); E78.5 Hyperlipidemia, unspecified; E03.9 Hypothyroidism, unspecified; E55.9 Vitamin D deficiency, unspecified

== ENCOUNTER → 2019-03-18 | Outpatient (CLI) | payer MEDICARE, MEDICAID ==
--- NOTE | 2019-03-18 14:09 | REP ---
Clinical: Complex seizures/epilepsy. Comparison: 04/23/2016 Findings: Mild symmetric atrophic changes are appreciated. The ventricles and sulci are symmetric. Jaime-white differentiation is maintained. There is no evidence for acute intracranial hemorrhage, mass/mass effect, pathology or infarction. No extra-axial fluid collection. Calvarium is intact. Paranasal sinuses and mastoid air cells are clear. Impression: Atrophy. No acute intracranial hemorrhage, infarction, or mass/mass effect. Electronically Signed by Hilton Denis MD 03/18/2019 02:00 P
== END ==
LOC: M RAD 13:23
PROVIDERS: ATTEND Psychiatry & Neurology Neurology
DX: G40.209 Localization-related (focal) (partial) symptomatic epilepsy and epileptic syndromes with complex partial seizures, not intractable, without status epilepticus (principal)

== ENCOUNTER → 2019-04-22 | Outpatient (CLI) | payer MEDICARE, MEDICAID ==
[~2019-04-22] MED LIST changes: -SIMV20TA2 PO; +SIMV20TA22 PO
[2019-04-22 08:18] LABS: MEAN CORPUSCULAR HEMOGLOBIN 31.4 pg (27.0-33.0); MEAN CORPUSCULAR HGB CONC 31.8 g/dl (32.0-36.5); MEAN CORPUSCULAR VOLUME 98.7 fl (80.0-96.0); PLATELET COUNT, AUTOMATED 271 10^3/uL (150-450); RED BLOOD COUNT 4.46 10^6/uL (4.00-5.40); WHITE BLOOD COUNT 3.2 10^3/uL (4.0-10.0)
[2019-04-22 08:49] LABS: ALBUMIN 3.3 GM/DL (3.2-5.2); ALT/SGPT 18 U/L (12-78); BILIRUBIN,TOTAL 0.3 MG/DL (0.2-1.0); BLOOD UREA NITROGEN 14 MG/DL (7-18); CARBON DIOXIDE LEVEL 29 MEQ/L (21-32); CHLORIDE LEVEL 106 MEQ/L (98-107); CHOLESTEROL LEVEL 179 MG/DL (<200); CHOLESTEROL RISK RATIO 3.086 (<5); CPK CREATINE PHOSPHOKINASE 117 U/L (26-192); CREATININE FOR GFR 0.83 MG/DL (0.55-1.30); FREE T4 0.87 NG/DL (0.76-1.46); GLOMERULAR FILTRATION RATE > 60.0 (>51); GLUCOSE, FASTING 85 MG/DL (70-100); HDL CHOLESTEROL 58 MG/DL (>40); LDL CHOLESTEROL 106 MG/DL (<100); NON-HDL-C 121 MG/DL; POTASSIUM SERUM 4.3 MEQ/L (3.5-5.1); SODIUM LEVEL 141 MEQ/L (136-145); TOTAL PROTEIN 7.6 GM/DL (6.4-8.2); TRIGLYCERIDES LEVEL 75 MG/DL (<150)
== END ==
LOC: M LAB 07:36
PROVIDERS: ATTEND Nurse Practitioner Family
DX: I10 Essential (primary) hypertension (principal); E78.5 Hyperlipidemia, unspecified

== ENCOUNTER → 2019-06-10 | Outpatient (CLI) | payer MEDICARE, MEDICAID ==
[2019-06-10 08:23] LABS: FREE T4 0.99 NG/DL (0.76-1.46); THYROID STIMULATING HORMONE 2.98 uIU/ML (0.358-3.740)
== END ==
LOC: M LAB 07:25
PROVIDERS: ATTEND Nurse Practitioner Family
DX: E03.9 Hypothyroidism, unspecified (principal)

== ENCOUNTER → 2019-07-28 | Outpatient (CLI) | payer MEDICARE, MEDICAID ==
[~2019-07-28] MED LIST changes: +GASTROGRAFIN SOLUTION 30ML (Q9963) As Ordered ONE; +ISOVUE-370 76% 100ML VIAL (Q9967) As Ordered ONE
--- NOTE | 2019-07-28 12:25 | REP ---
REASON: Abdominal pain. COMPARISON: Latest prior 03/22/2018. There are chronic lung base changes status quo. The liver, gallbladder, spleen, pancreas, adrenal glands, and kidneys are unchanged. The abdominal aorta and paraaortic regions are unchanged. There is no free fluid or free air. There is a moderate to large amount of content seen throughout the distal transverse colon and the descending colon. The appearance of this is not significantly changed from the prior exam. There is no evidence of intestinal obstruction. Postoperative change is again seen along the anterior abdominal wall status quo. CT PELVIS: Once again, there is distention of the urinary bladder status quo. There is no free fluid or free air. There is a moderate amount of content seen throughout the sigmoid colon. There is no evidence of a pelvic mass or adenopathy. Bone window technique throughout the examination shows no significant changes. IMPRESSION: No significant changes from the prior exam. No evidence of acute disease. Findings as described above. Electronically Signed by Clayton Ny DO 07/28/2019 02:49 P
== END ==
LOC: M RAD 08:56
PROVIDERS: ATTEND Internal Medicine Gastroenterology
DX: K56.690 Other partial intestinal obstruction (principal); R10.84 Generalized abdominal pain; Q43.8 Other specified congenital malformations of intestine
CPT/HCPCS: 74177; Q9963; Q9967

== ENCOUNTER 2019-08-07 13:45 | Emergency (ER) | payer MEDICARE, MEDICAID ==
[~2019-08-07] VITALS: Ht 132.1 cm; Wt 61.4 kg
[2019-08-07 13:45] VITALS: BP 158/88
[~2019-08-07 13:45] MED LIST changes: -GASTROGRAFIN SOLUTION 30ML (Q9963) As Ordered ONE; -ISOVUE-370 76% 100ML VIAL (Q9967) As Ordered ONE
[2019-08-07] MEDS ORDERED: VITA400C53 PO (15:05)
[2019-08-07] MEDS ORDERED: PURE500C5 PO (15:05)
[2019-08-07] MEDS ORDERED: SERO50TA PO (15:05)
[2019-08-07] MEDS ORDERED: SERO200T PO (15:05)
[2019-08-07] MEDS ORDERED: LEVO112T2 PO (15:05)
[2019-08-07] MEDS ORDERED: erythromycin TOP (15:05)
[2019-08-07] MEDS ORDERED: KEPP1TAB PO (15:11)
[2019-08-07] MEDS ORDERED: DEBR6.5S4 AU (15:11)
[2019-08-07] MEDS ORDERED: FLEEENE12 PR (15:11)
[2019-08-07] MEDS ORDERED: LACT10SO29 PO (15:11)
== END 2019-08-07 15:07 | disposition home or self-care (01) ==
LOC: M ED 13:45
DX: K62.3 Rectal prolapse (principal); R19.7 Diarrhea, unspecified; F63.81 Intermittent explosive disorder; F70 Mild intellectual disabilities; I95.9 Hypotension, unspecified; Z88.0 Allergy status to penicillin; Z88.6 Allergy status to analgesic agent; Z79.899 Other long term (current) drug therapy

== ENCOUNTER → 2019-08-09 | Outpatient (REF) | payer MEDICARE, MEDICAID ==
[~2019-08-09] MED LIST changes: +DEBR6.5S4 AU; +FLEEENE12 PR; +KEPP1TAB PO; +LACT10SO29 PO; +LEVO112T2 PO; +PURE500C5 PO; +SERO50TA PO; +VITA400C53 PO; +erythromycin TOP
== END ==
LOC: M LAB REF 10:29
PROVIDERS: ATTEND Emergency Medicine
DX: R19.7 Diarrhea, unspecified (principal)

== ENCOUNTER → 2019-12-16 | Outpatient (CLI) | payer MEDICARE, MEDICAID ==
[~2019-12-16] MED LIST changes: -LACT10SO29 PO; +LACT20EL PO
[2019-12-16 13:50] LABS: ALBUMIN 3.6 GM/DL (3.2-5.2); ALT/SGPT 18 U/L (12-78); BILIRUBIN,TOTAL 0.3 MG/DL (0.2-1.0); BLOOD UREA NITROGEN 12 MG/DL (7-18); CALCIUM LEVEL 9.1 MG/DL (8.5-10.1); CARBON DIOXIDE LEVEL 27 MEQ/L (21-32); CHLORIDE LEVEL 107 MEQ/L (98-107); CHOLESTEROL LEVEL 191 MG/DL (<200); CHOLESTEROL RISK RATIO 3.237 (<5); CREATININE FOR GFR 0.94 MG/DL (0.55-1.30); GLOMERULAR FILTRATION RATE > 60.0 (>51); GLUCOSE, FASTING 106 MG/DL (70-100); HDL CHOLESTEROL 59 MG/DL (>40); LDL CHOLESTEROL 121 MG/DL (<100); NON-HDL-C 132 MG/DL; POTASSIUM SERUM 4.4 MEQ/L (3.5-5.1); SODIUM LEVEL 141 MEQ/L (136-145); TOTAL PROTEIN 7.6 GM/DL (6.4-8.2); TRIGLYCERIDES LEVEL 53 MG/DL (<150)
== END ==
LOC: M PLALAB 09:39
PROVIDERS: ATTEND Family Medicine
DX: E78.2 Mixed hyperlipidemia (principal); E03.9 Hypothyroidism, unspecified
CPT/HCPCS: 36415; 80053; 80061; 84443; G0463

== ENCOUNTER → 2020-01-29 | Outpatient (CLI) | payer MEDICARE, MEDICAID | LOC: M WHC 10:35 | PROVIDERS: ATTEND Nurse Practitioner Family | DX: Z12.31 Encounter for screening mammogram for malignant neoplasm of breast (principal) ==

== ENCOUNTER 2020-04-22 13:05 | Inpatient (IN) | payer MEDICARE, MEDICAID ==
[~2020-04-22] VITALS: Ht 132.1 cm; Wt 61.4 kg
[~2020-04-22 13:05] MED LIST changes: -VITS42.53 EX; +VITS42.53 TOP
--- NOTE | 2020-04-22 14:20 | REP ---
INDICATION: Altered Mental Status COMPARISON: 03/18/2019 TECHNIQUE: Axial noncontrast images from the skull base to the thoracic inlet with coronal reformations. This CT examination was performed using the following dose reduction techniques: Automated exposure control, adjustment of mA and/or kv according to the patient's size, and use of iterative reconstruction technique. FINDINGS: Atrophy and microvascular ischemic changes are appreciated. The ventricles and sulci are symmetric. Jaime-white differentiation is maintained. There is no evidence for acute intracranial hemorrhage, mass/mass effect, pathology or infarction. No extra-axial fluid collection. Calvarium is intact. Paranasal sinuses and mastoid air cells are clear. IMPRESSION: Atrophy and microvascular ischemic changes. No acute intracranial hemorrhage, infarction, or mass/mass effect. <Electronically signed by Hilton Denis > 04/22/20 [id number]
--- NOTE | 2020-04-22 14:22 | REP ---
INDICATION: Altered Mental Status COMPARISON: 07/19/2018 TECHNIQUE: Portable AP view of the chest FINDINGS: The mediastinum and cardiac silhouette are stable and within normal limits for portable technique. The lung celaya demonstrate chronic interstitial changes and superimposed lower lobe airspace disease cannot be excluded. No effusion. No pneumothorax. Skeletal structures demonstrate chronic scoliosis. IMPRESSION: Chronic stable changes. Superimposed lower lobe airspace disease cannot be excluded. <Electronically signed by Hilton Denis > 04/22/20 1721
[2020-04-22 14:38] LABS: BASO % 1.2 % (0.0-1.0); EOS % 1.2 % (0.0-3.0); HEMATOCRIT 39.6 % (36.0-47.0); HEMOGLOBIN 12.4 g/dl (12.0-15.5); LYMPH # 0.6 10^3/uL (1.5-5.0); LYMPH % 16.9 % (24.0-44.0); MEAN CORPUSCULAR HEMOGLOBIN 31.1 pg (27.0-33.0); MEAN CORPUSCULAR HGB CONC 31.3 g/dl (32.0-36.5); MEAN CORPUSCULAR VOLUME 99.2 fl (80.0-96.0); MONO # 0.5 10^3/uL (0.0-0.8); MONO % 13.6 % (0.0-5.0); NEUTROPHILS # 2.2 10^3/uL (1.5-8.5); NEUTROPHILS % 66.8 % (36.0-66.0); PLATELET COUNT, AUTOMATED 265 10^3/uL (150-450); RED BLOOD COUNT 3.99 10^6/uL (4.00-5.40); WHITE BLOOD COUNT 3.3 10^3/uL (4.0-10.0)
[2020-04-22 15:19] LABS: ACETAMINOPHEN LEVEL < 2.0 UG/ML (10.0-30.0); ALBUMIN 3.2 GM/DL (3.2-5.2); ALT/SGPT 14 U/L (12-78); BILIRUBIN,DIRECT < 0.1 MG/DL (0.0-0.2); BILIRUBIN,TOTAL 0.2 MG/DL (0.2-1.0); BLOOD UREA NITROGEN 12 MG/DL (7-18); CARBON DIOXIDE LEVEL 27 MEQ/L (21-32); CHLORIDE LEVEL 105 MEQ/L (98-107); CK-MB VALUE MASS 7.6 NG/ML (<3.6); CPK CREATINE PHOSPHOKINASE 374 U/L (26-192); CREATININE FOR GFR 0.81 MG/DL (0.55-1.30); GLOMERULAR FILTRATION RATE > 60.0 (>51); GLUCOSE, FASTING 99 MG/DL (70-100); MB/CK RELATIVE INDEX 2.03 (< OR =4); POTASSIUM SERUM 4.5 MEQ/L (3.5-5.1); SALICYLATE LEVEL < 1.7 MG/DL (5.0-30.0); SODIUM LEVEL 137 MEQ/L (136-145); TOTAL PROTEIN 7.5 GM/DL (6.4-8.2); TROPONIN I < 0.02 NG/ML (< 0.10)
[2020-04-22] MEDS ORDERED: ERYTOIN8 TOP (17:30)
[2020-04-22] MEDS ORDERED: CITA10TA5 PO (17:30)
[2020-04-22] MEDS ORDERED: CALC600T18 PO (17:30)
[2020-04-22] MEDS ORDERED: ACET1TAB55 PO (17:30)
[2020-04-22 17:46] LABS: RSV AMPLIFICATION NEGATIVE (NEGATIVE)
--- NOTE | 2020-04-22 18:54 | HPEPDOC ---
General Date of Admission 04/22/20 Date of Service: Apr 22, 2020 Chief Complaint The patient is a 59-year-old female admitted with a reason for visit of General Weakness. Source: RN/, [facility] Caregiver/Aid History of Present Illness 59 year old female a [facility] resident with Downs syndrome, severe intellectual disability, Alzheimer's dementia, anxiety , depression, intermittent explosive behavior, HLD, Obesity, Chronic del toro, hypothyroid, was brought in by [facility] staff as this morning between 8 am to Noon it was noted that she was falling asleep sitting at the table leaning to her left, having garbled speech which is abnormal for her. As per staff once she is up from sleep in the morning she is active and always on the move. As per staff it is possible that she had not got a good sleep last night as she slept in a position that is not usual for her and she was just tired. Staff called her PMD and was advised to come to ED. By the time she was brought to the ED at 2 pm her symptoms had resolved. She was alert and awake and normally interactive. She speech was usual. Patient follows commands and answers simple questions though the answers are not dependable. All history is taken from [facility] staff. Her CT head was negative for any acute events. She is being admitted for TIA. Unfortunately her COVID -19 test came back positive Home Medications Scheduled Ascorbic Acid (Vitamin C) 500 Mg Capsule.er, 500 MG PO DAILY, (Reported) Calcium Carbonate/Vitamin D3 (Calcium 600-Vit D3 400 Tablet) 1 Each Tablet, 1 TAB PO BID, (Reported) Carbamide Peroxide (Debrox) 15 Ml Drops, 4 AU ASDIRECTED, (Reported) FRI/SAT/SUN OF EACH MONTH Citalopram Hydrobromide (Citalopram HBr) 10 Mg Tablet, 10 MG PO DAILY, (Reported) Erythromycin Base (Erythromycin) 3.5 Gm Oint...g., 1 APLCT TOP QAM, (Reported) APPLY TO FACE Lactulose (Lactulose) 10 Gm/15 Ml Solution, 30 ML PO BID for constipation, (Reported) Levetiracetam (Keppra) 500 Mg Tablet, 500 MG PO BID, (Reported) Levothyroxine Sodium (Levothyroxine Sodium) 112 Mcg Tablet, 112 MCG PO QHS, (Reported) Linaclotide (Linzess) 290 Mcg Capsule, 290 MCG PO DAILY, (Reported) 30 min before meal Loratadine (Loratadine) 10 Mg Tab, 10 MG PO QHS, (Reported) Midodrine HCl (Midodrine HCl) 5 Mg Tab, 5 MG PO TID, (Reported) Multivitamins (Thera M Plus Tablet) 1 Tab Tab, 1 TAB PO DAILY, (Reported) Polyethylene Glycol 3350 (Miralax) 119 Gm Powder, 17 GRAM PO BID, (Reported) dissolve in water Quetiapine Fumarate (Seroquel) 200 Mg Tab, 400 MG PO QHS, (Reported) WITH 50MG FOR TOTAL DOSE 450MG QHS Quetiapine Fumarate (Seroquel) 200 Mg Tablet, 200 MG PO QAM, (Reported) Quetiapine Fumarate (Seroquel) 50 Mg Tablet, 50 MG PO QHS, (Reported) WITH 400MG FOR TOTAL DOSE 450MG Simvastatin (Simvastatin) 20 Mg Tab, 20 MG PO QHS, (Reported) Vits A and D/White Pet/Lanolin (A and D Ointment) 42.5 Gm Oint...g., 1 APLCT TOP BID, (Reported) APPLY TO FEET Scheduled PRN Acetaminophen (Acetaminophen) 325 Mg Tablet, 650 MG PO Q4H PRN for PAIN, (Reported) Allergies Coded Allergies: Penicillins (Verified Allergy, Unknown, RASH, 09/27/18) amoxicillin (Verified Allergy, Unknown, rash, 09/23/18) Past Medical History Medical History DOWN'S SYNDROME with Severe intellectual disability. 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 DEPRESSION ANXIETY HYPOTHYROIDISM SEASONAL ALLERGIES OSTEOPOROSIS INTERMITTENT EXPLOSIVE DISORDER OBESITY HYPERCHOLESTEROLEMIA CHRONIC HYPOTENSION MRSA RIGHT INDEX FINGER 01/24/2006 HYDRONEPHROSIS, RIGHT URINARY OUTFLOW OBSTRUCTION = CHRONIC DEL TORO CATHETER MELANOCYTIC NAEVI OF DIFFERENT PARTS Surgical History LAPAROSCOPY/HERNIA REPAIR 1963 HERNIA [id number] BOWEL OBSTRUCTION SURGERY in 2016 Family History FAMILY HISTORY IS UNKNOWN. As per [facility] staff has 1 brother Social History * Smoker: Denies Alcohol: Denies Drugs: denies A-FIB/CHADSVASC A-FIB History Current/History of A-Fib/PAF?: No Review of Systems Constitutional: Denies: Chills, Fever, Night Sweats Eyes: Denies: Pain, Vision change ENT: Denies: Head Aches, Ear Pain, Dysphagia Skin: Denies: Rash, Lesions, Breakdown Pulmonary: Denies: Dyspnea, Cough Cardiovascular: Denies: Chest Pain, Palpitations, Orthopnea, Paroxysmal Noc. Dyspnea, Lt Headedness Gastrointestinal: Denies: Nausea, Vomiting, Abdominal Pain, Diarrhea Musculoskeletal: Denies: Neck Pain, Back Pain, Joint Pain, Muscle Pain, Spasms Neurological: Reports: Weakness, Change in speech, Confusion Physical Examination General Exam: Positive: Alert, Cooperative, No Acute Distress Eye Exam: Positive: PERRLA, Conjunctiva & lids normal, EOMI; Negative: Sclera icteric ENT Exam: Positive: Atraumatic, Mucous membr. moist/pink, Pharynx Normal Neck Exam: Positive: Supple; Negative: JVD, thyromegaly Chest Exam: Positive: Clear to auscultation, Normal air movement Heart Exam: Positive: Rate Normal, Regular Rhythm, Normal S1, Normal S2 Abdomen Exam: Positive: Normal bowel sounds, Soft; Negative: Tenderness, Hepatospenomegaly Extremity Exam: Negative: Clubbing, Cyanosis, Edema Skin Exam: Positive: Nl turgor and temperature; Negative: Breakdown, Lesion Vital Signs Vital Signs Date Time Temp Pulse Resp B/P (MAP) Pulse Ox O2 Delivery O2 Flow Rate FiO2 04/22/20 16:00 59 18 106/69 (81) 95 Room Air 04/22/20 13:06 97.5 Laboratory Data Labs 24H Laboratory Tests 2 04/22/20 13:50: Anion Gap 5L, Glomerular Filtration Rate > 60.0, Lactic Acid Level 0.8, Calcium Level 9.0, Total Bilirubin 0.2, Direct Bilirubin < 0.1, Aspartate Amino Transf (AST/SGOT) 33, Alanine Aminotransferase (ALT/SGPT) 14, Alkaline Phosphatase 84, Ammonia < 10, Total Creatine Kinase 374H, Creatine Kinase MB 7.6H, Creatine Kinase MB Relative Index 2.03, Troponin I < 0.02, Total Protein 7.5, Albumin 3.2, Albumin/Globulin Ratio 0.7L, Salicylates Level < 1.7L, Acetaminophen Level < 2.0L 04/22/20 14:05: Immature Granulocyte % (Auto) 0.3, Neutrophils (%) (Auto) 66.8H, Lymphocytes (%) (Auto) 16.9L, Monocytes (%) (Auto) 13.6H, Eosinophils (%) (Auto) 1.2, Basophils (%) (Auto) 1.2H, Neutrophils # (Auto) 2.2, Lymphocytes # (Auto) 0.6L, Monocytes # (Auto) 0.5, Eosinophils # (Auto) 0.0, Basophils # (Auto) 0.0, Nucleated Red Blood Cells % (auto) 0.0 CBC/BMP Laboratory Tests 04/22/20 13:50 04/22/20 14:05 Assessment/Plan 59 year old female a [facility] resident with Downs syndrome, severe intellectual disability, Alzheimer's dementia, anxiety , depression, intermittent explosive behavior, HLD, Obesity, Chronic del toro, hypothyroid, was brought in by [facility] staff as this morning between 8 am to Noon it was noted that she was falling asleep sitting at the table leaning to her left, having garbled speech which is abnormal for her. She was also leaning to her left when she was trying to walk. By the time she was brought to the ED at 2 pm her symptoms had resolved. All history is taken from [facility] staff. Her CT head was negative for any acute events. She is admitted for TIA. Unfortunately her COVID -19 test came back positive TIA CT head negative. Telemetry in ED NSR will admit under Med Surg Telemetry. MRI and MRA and carotid doppler. Echo. ASA and statin. COVID-19 Positive Asymptomatic, no hypoxia will continue ASA 81 Will order baseline COVID labs. DOWN'S SYNDROME with Severe intellectual disability. 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 Seroquel, celexa, keppra DEPRESSION and ANXIETY Seroquel, celexa CHRONIC HYPOTENSION continue midodrine HYPOTHYROIDISM Synthroid SEASONAL ALLERGIES Loratadine HLD statin CHRONIC CONSTIPATION continue miralax, lactulose Plan / VTE VTE Prophylaxis Ordered?: Yes DERIAN ARZOLA MD Apr 22, 2020 17:14
[2020-04-22] MEDS ORDERED: ASPIRIN 325 MG TAB PO ONE (19:00)
[2020-04-22 19:23] LABS: C REACTIVE PROTEIN QUANTITATIV 5.19 MG/DL (0.00-0.30); FERRITIN 145 NG/ML (8-252); LDH LACTATE DEHYDROGENASE 232 U/L (84-246); TRIGLYCERIDES LEVEL 73 MG/DL (<150)
[2020-04-22 19:31] LABS: PARTIAL THROMBOPLASTIN TIME 30.2 SECONDS (24.2-38.5); PROTHROMBIN TIME 13.4 SECONDS (12.5-14.3)
[2020-04-22 19:34] LABS: D-DIMER QUANT 1226.62 ng/ml (<500)
[2020-04-22] MEDS ORDERED: QUEtiapine FUMARATE 50 MG TAB PO SCH (21:00)
[2020-04-22] MEDS ORDERED: SIMVASTATIN 20 MG TAB PO SCH (21:00)
[2020-04-22] MEDS ORDERED: LEVOTHYROXINE 112MCG TABLET (0.112MG) PO SCH (21:00)
[2020-04-22] MEDS ORDERED: QUEtiapine FUMARATE 200 MG TAB PO SCH (21:00)
[2020-04-22] MEDS ORDERED: LORATADINE 10 MG TAB PO SCH (21:00)
[2020-04-22 21:45] VITALS: BP 125/56
--- NOTE | 2020-04-22 21:47 | REPVR ---
PROCEDURE INFORMATION: Exam: US Duplex Bilateral Extracranial Arteries Exam date and time: 04/22/2020 9:01 PM Age: 59 years old Clinical indication: Condition or disease; Other: Tia/cva; Additional info: Tia/stroke TECHNIQUE: Imaging protocol: Real-time Duplex ultrasound scan of the bilateral carotid and vertebral arteries combining lang scale, color Doppler and spectral waveform analysis. Bilateral exam. COMPARISON: No relevant prior studies available. FINDINGS: Right ICA/CCA ratio: Right side: The right ICA/ CCA ratio is 0.7 with a peak velocity of 78.5 cm/s. The right vertebral artery is antegrade. Left ICA/CCA ratio: Left side: The left ICA/ CCA ratio is 1.1 with peak velocity of the left internal carotid artery of 111 cm/s. The left vertebral artery is antegrade. IMPRESSION: No significant stenosis right or left internal carotid artery. REFERENCES: SRU CRITERIA. The degree of internal carotid artery stenosis is based on criteria defined by the Society of Radiologists in Ultrasound (SRU). Normal is no stenosis. Mild is less than 50% stenosis. Moderate is 50-69% stenosis. Severe is greater than 69% stenosis to near occlusion. Near occlusion is a markedly narrowed lumen. Total occlusion is no detectable patent lumen. Electronically signed by: Hal Houser On 04/22/2020 21:47:14 PM
[2020-04-23] MEDS: MIRALAX *UNIT DOSE* 17GM PACKET PO SCH ×2 (00:16→09:01)
[2020-04-23] MEDS: LACTULOSE 20 GM/30 ML SYRUP UD PO SCH ×2 (00:16→08:59)
[2020-04-23] MEDS: CALCIUM/VITAMIN D 500 MG TAB PO SCH ×2 (00:17→09:00)
[2020-04-23] MEDS: levETIRAcetam 250MG TABLET (KEPPRA) PO SCH ×2 (00:17→08:59)
[2020-04-23] MEDS: MIDODRINE 5 MG TAB PO SCH ×2 (06:38→12:34)
[2020-04-23 08:07] LABS: HEMATOCRIT 37.4 % (36.0-47.0); HEMOGLOBIN 11.7 g/dl (12.0-15.5); MEAN CORPUSCULAR HEMOGLOBIN 31.5 pg (27.0-33.0); MEAN CORPUSCULAR HGB CONC 31.3 g/dl (32.0-36.5); MEAN CORPUSCULAR VOLUME 100.5 fl (80.0-96.0); PLATELET COUNT, AUTOMATED 242 10^3/uL (150-450); RED BLOOD COUNT 3.72 10^6/uL (4.00-5.40); WHITE BLOOD COUNT 2.5 10^3/uL (4.0-10.0)
[2020-04-23 08:38] LABS: ALBUMIN 2.8 GM/DL (3.2-5.2); ALT/SGPT 13 U/L (12-78); BILIRUBIN,TOTAL 0.2 MG/DL (0.2-1.0); BLOOD UREA NITROGEN 12 MG/DL (7-18); C REACTIVE PROTEIN QUANTITATIV 4.48 MG/DL (0.00-0.30); CALCIUM LEVEL 8.5 MG/DL (8.5-10.1); CARBON DIOXIDE LEVEL 30 MEQ/L (21-32); CHLORIDE LEVEL 107 MEQ/L (98-107); CREATININE FOR GFR 0.82 MG/DL (0.55-1.30); FERRITIN 132 NG/ML (8-252); GLOMERULAR FILTRATION RATE > 60.0 (>51); GLUCOSE, FASTING 87 MG/DL (70-100); LDH LACTATE DEHYDROGENASE 177 U/L (84-246); POTASSIUM SERUM 4.2 MEQ/L (3.5-5.1); SODIUM LEVEL 141 MEQ/L (136-145); TOTAL PROTEIN 6.7 GM/DL (6.4-8.2)
[2020-04-23 08:51] LABS: D-DIMER QUANT 811.64 ng/ml (<500)
[2020-04-23] MEDS ORDERED: ASPIRIN 81 MG ENTERIC TAB PO SCH (09:00)
[2020-04-23] MEDS ORDERED: QUEtiapine FUMARATE 200 MG TAB PO SCH (09:00)
[2020-04-23] MEDS ORDERED: MULTIVITAMINS/MINERALS THERAP 1 TAB PO SCH (09:00)
[2020-04-23] MEDS ORDERED: ERYTHROMYCIN OPHTH OINT TOP SCH (09:00)
[2020-04-23] MEDS ORDERED: CitaloPRAM (CeleXA) 10 MG TABLET PO SCH (09:00)
[2020-04-23] MEDS ORDERED: ENOXAPARIN 40MG/0.4ML SYRINGE (J1650 PER 10MG) SC SCH (09:00)
[2020-04-23 12:00] VITALS: BP 103/57
--- NOTE | 2020-04-23 12:28 | DS.PDOC ---
Discharge Summary General Date of Admission Apr 22, 2020 at 18:09 Date of Discharge 04/23/2020 Discharge Summary Chief Complaint The patient is a 59-year-old female admitted with a reason for visit of General Weakness. Final diagnosis 1. Generalized weakness likely secondary to code 19, infection History of Present Illness and Hospital course 59 year old female a [facility] resident with Downs syndrome, severe intellectual disability, Alzheimer's dementia, anxiety , depression, intermittent explosive behavior, HLD, Obesity, Chronic del toro, hypothyroid, was brought in by [facility] staff as this morning between 8 am to Noon it was noted that she was falling asleep sitting at the table leaning to her left, having garbled speech while being sleepy. I had a detailed discussion with the [facility] caregiver today and appendectomy with the clinical presentation. The patient was just waiting to words to one side. She was very sleepy. There were no extremity weakness noted any facial droop or any apparent dysarthria noted. Apparently the patient was not feeling well and was having generalized weakness which has completely resolved today. She had a CT scan of the head which came out to be negative and had a carotid Dopplers which also came out to be negative. She has intellectual disability and this morning is exactly at her baseline as per the caregiver who is at the bedside. In my opinion, given the history as well as the physical examination, it does not appear to be neurological event. MRI, MRA was ordered, which has been canceled and the patient was put on telemetry, which showed no tachybradycardia episodes, but the patient has not been keeping it because of the intellectual disability. She does not follow commands. For that reason also. MRI/MRA is very hard to be done without giving her any sedatives as she does not remain at one place. In my opinion. MRI/MRA is also not indicated at this time because the primary event is not neurological and it was only generalized weakness. Because of this, 19 infection. She has been saturating well. Her x-ray has been stable. Apparently she has very mild Covid infection and does not need any antibiotics or any further inpatient care. She'll be discharged back to [facility] today. The caregiver has been advised to maintain good oral intake for her and encouraged her to eat and drink appropriately. PHYSICAL EXAMINATION: General: The patient is awake, sitting up in the bed in no apparent distress. She smiling and started dancing once. I told her that she can go home. Head and Neck Exam: Extraocular muscles intact. Pupils equally round and reactive to light. Mucous membranes are moist. Neck is supple. There is no jugular venous distention (JVD). Cardiovascular: S1 and S2, regular rate. Trace edema of the bilateral lower extremities. Respiratory: Clear auscultation bilaterally in all the lung bases Abdomen: Soft. Positive bowel sounds. Nontender. No organomegaly. Genitourinary: Deferred Musculoskeletal: Clubbing of the fingernails, no cyanosis was noted. 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 Power is 5/5 in all extremities and moving all the extremities and walking around in the room.. Mediictations. As per discharge reconciliation medication list. No admissions to the medications has been done in case the patient has any fevers. Because of c ode 19. Motrin/Tylenol can be given Activity as tolerated Diet. 2 g sodium diet Follow-up appointments. PCP in 1 week. Condition on discharge. Patient is medically optimized for discharge Discharge disposition: Assisted living Total time spent on this discharge including coordination of care, review of chart documentation and actual patient contact is around 35 minutes Vital Signs/I&Os Vital Signs Date Time Temp Pulse Resp B/P (MAP) Pulse Ox O2 Delivery O2 Flow Rate FiO2 04/22/20 22:55 98.1 04/22/20 22:00 62 91 04/22/20 21:45 20 125/56 (79) Room Air I&O- Last 24 Hours up to 6 AM 04/23/20 06:00 Intake Total 0 ml Output Total 0 ml Balance 0 ml Laboratory Data Labs 24H Laboratory Tests 2 04/22/20 13:50: Anion Gap 5L, Glomerular Filtration Rate > 60.0, Lactic Acid Level 0.8, Calcium Level 9.0, Ferritin 145, Total Bilirubin 0.2, Direct Bilirubin < 0.1, Aspartate Amino Transf (AST/SGOT) 33, Alanine Aminotransferase (ALT/SGPT) 14, Alkaline Phosphatase 84, Ammonia < 10, Lactate Dehydrogenase 232, Total Creatine Kinase 374H, Creatine Kinase MB 7.6H, Creatine Kinase MB Relative Index 2.03, Troponin I < 0.02, C-Reactive Protein, Quantitative 5.19H, Total Protein 7.5, Albumin 3.2, Albumin/Globulin Ratio 0.7L, Triglycerides Level 73, Salicylates Level < 1.7L, Acetaminophen Level < 2.0L 04/22/20 14:05: Immature Granulocyte % (Auto) 0.3, Neutrophils (%) (Auto) 66.8H, Lymphocytes (%) (Auto) 16.9L, Monocytes (%) (Auto) 13.6H, Eosinophils (%) (Auto) 1.2, Basophils (%) (Auto) 1.2H, Neutrophils # (Auto) 2.2, Lymphocytes # (Auto) 0.6L, Monocytes # (Auto) 0.5, Eosinophils # (Auto) 0.0, Basophils # (Auto) 0.0, Nucleated Red Blood Cells % (auto) 0.0, Prothrombin Time 13.4, Prothromb Time International Ratio 1.00, Activated Partial Thromboplast Time 30.2, Fibrinogen 475H, D-Dimer, Quantitative 1226.62H 04/22/20 17:02: Coronavirus (COVID-19)(PCR) POSITIVEA, Influenza Type A (RT-PCR) NEGATIVE, Influenza Type B (RT-PCR) NEGATIVE, Respiratory Syncytial Virus (PCR) NEGATIVE 04/22/20 17:14: Urine Color YELLOW, Urine Appearance CLEAR, Urine pH 7.0, Urine Specific [place] 1.004, Urine Protein NEGATIVE, Urine Glucose (UA) NEGATIVE, Urine Ketones NEGATIVE, Urine Blood NEGATIVE, Urine Nitrite NEGATIVE, Urine Bilirubin NEGATIVE, Urine Urobilinogen 0.2, Urine Leukocyte Esterase NEGATIVE, Urine WBC (Auto) 0, Urine RBC (Auto) 0, Urine Hyaline Casts (Auto) 0, Urine Bacteria (Auto) NEGATIVE, Urine Squamous Epithelial Cells 0, Urine Sperm (Auto) 04/23/20 07:48: Nucleated Red Blood Cells % (auto) 0.0, Fibrinogen 361, D-Dimer, Quantitative 811.64H, Anion Gap 4L, Glomerular Filtration Rate > 60.0, Calcium Level 8.5, Ferritin 132, Total Bilirubin 0.2, Aspartate Amino Transf (AST/SGOT) 25, Alanine Aminotransferase (ALT/SGPT) 13, Alkaline Phosphatase 76, Lactate Dehydrogenase 177, C-Reactive Protein, Quantitative 4.48H, Total Protein 6.7, Albumin 2.8L, Albumin/Globulin Ratio 0.7L CBC/BMP Laboratory Tests 04/22/20 13:50 04/22/20 14:05 04/23/20 07:48 Discharge Medications Scheduled Ascorbic Acid (Vitamin C) 500 Mg Capsule.er, 500 MG PO DAILY, (Reported) Calcium Carbonate/Vitamin D3 (Calcium 600-Vit D3 400 Tablet) 1 Each Tablet, 1 TAB PO BID, (Reported) Carbamide Peroxide (Debrox) 15 Ml Drops, 4 AU ASDIRECTED, (Reported) FRI/SAT/SUN OF EACH MONTH Citalopram Hydrobromide (Citalopram HBr) 10 Mg Tablet, 10 MG PO DAILY, (Reported) Erythromycin Base (Erythromycin) 3.5 Gm Oint...g., 1 APLCT TOP QAM, (Reported) APPLY TO FACE Lactulose (Lactulose) 10 Gm/15 Ml Solution, 30 ML PO BID for constipation, (Reported) Levetiracetam (Keppra) 500 Mg Tablet, 500 MG PO BID, (Reported) Levothyroxine Sodium (Levothyroxine Sodium) 112 Mcg Tablet, 112 MCG PO QHS, (Reported) Linaclotide (Linzess) 290 Mcg Capsule, 290 MCG PO DAILY, (Reported) 30 min before meal Loratadine (Loratadine) 10 Mg Tab, 10 MG PO QHS, (Reported) Midodrine HCl (Midodrine HCl) 5 Mg Tab, 5 MG PO TID, (Reported) Multivitamins (Thera M Plus Tablet) 1 Tab Tab, 1 TAB PO DAILY, (Reported) Polyethylene Glycol 3350 (Miralax) 119 Gm Powder, 17 GRAM PO BID, (Reported) dissolve in water Quetiapine Fumarate (Seroquel) 200 Mg Tab, 400 MG PO QHS, (Reported) WITH 50MG FOR TOTAL DOSE 450MG QHS Quetiapine Fumarate (Seroquel) 200 Mg Tablet, 200 MG PO QAM, (Reported) Quetiapine Fumarate (Seroquel) 50 Mg Tablet, 50 MG PO QHS, (Reported) WITH 400MG FOR TOTAL DOSE 450MG Simvastatin (Simvastatin) 20 Mg Tab, 20 MG PO QHS, (Reported) Vits A and D/White Pet/Lanolin (A and D Ointment) 42.5 Gm Oint...g., 1 APLCT TOP BID, (Reported) APPLY TO FEET Scheduled PRN Acetaminophen (Acetaminophen) 325 Mg Tablet, 650 MG PO Q4H PRN for PAIN, (Reported) Allergies Coded Allergies: Penicillins (Verified Allergy, Unknown, RASH, 09/27/18) amoxicillin (Verified Allergy, Unknown, rash, 09/23/18) PRADIP HADDAD MD Apr 23, 2020 12:28
== END 2020-04-23 14:53 | disposition home or self-care (01) | DRG 178 ==
LOC: M ED 13:05 → M ED INP 18:09 → M 4MAIN 22:46
PROVIDERS: ADMIT Internal Medicine Nephrology; ATTEND Internal Medicine
DX: U07.1 COVID-19 (principal); F72 Severe intellectual disabilities; Q90.9 Down syndrome, unspecified; F02.80 Dementia in other diseases classified elsewhere, unspecified severity, without behavioral disturbance, psychotic disturbance, mood disturbance, and anxiety; G30.9 Alzheimer's disease, unspecified; F41.9 Anxiety disorder, unspecified; F32.9 Major depressive disorder, single episode, unspecified; F63.81 Intermittent explosive disorder; Z79.899 Other long term (current) drug therapy; Z88.0 Allergy status to penicillin; M81.0 Age-related osteoporosis without current pathological fracture; E66.9 Obesity, unspecified; K59.00 Constipation, unspecified

== ENCOUNTER 2020-04-26 03:56 | Inpatient (IN) | payer MEDICARE, MEDICAID ==
[~2020-04-26] VITALS: Ht 132.1 cm; Wt 68.6 kg
[~2020-04-26 03:56] MED LIST changes: +ACET1TAB55 PO; +CALC600T18 PO; +CITA10TA5 PO; +ERYTOIN8 TOP
[2020-04-26] MEDS ORDERED: dexameTHASONE 20MG/5ML VIAL (J1100 PER 1MG) IV ONE (04:15)
[2020-04-26 04:26] LABS: BASO % 0.3 % (0.0-1.0); HEMATOCRIT 38.3 % (36.0-47.0); HEMOGLOBIN 11.9 g/dl (12.0-15.5); LYMPH # 0.5 10^3/uL (1.5-5.0); LYMPH % 15.3 % (24.0-44.0); MEAN CORPUSCULAR HEMOGLOBIN 30.8 pg (27.0-33.0); MEAN CORPUSCULAR HGB CONC 31.1 g/dl (32.0-36.5); MEAN CORPUSCULAR VOLUME 99.2 fl (80.0-96.0); MONO # 0.2 10^3/uL (0.0-0.8); MONO % 5.2 % (0.0-5.0); NEUTROPHILS # 2.6 10^3/uL (1.5-8.5); NEUTROPHILS % 78.9 % (36.0-66.0); PLATELET COUNT, AUTOMATED 188 10^3/uL (150-450); RED BLOOD COUNT 3.86 10^6/uL (4.00-5.40); WHITE BLOOD COUNT 3.3 10^3/uL (4.0-10.0)
[2020-04-26] MEDS ORDERED: NS 1,000 ML IV ONE (04:30)
[2020-04-26 04:38] LABS: INR 1.06
[2020-04-26 04:39] LABS: PARTIAL THROMBOPLASTIN TIME 32.6 SECONDS (24.2-38.5)
[2020-04-26 04:42] LABS: D-DIMER QUANT 1868.57 ng/ml (<500)
[2020-04-26] MEDS ORDERED: LevoFLOXacin IV 750 MG in IV 1 EA IV ONE (04:45)
[2020-04-26] MEDS ORDERED: ACETAMINOPHEN 650 MG SUPP PR ONE (04:45)
[2020-04-26 05:05] LABS: ALBUMIN 3.1 GM/DL (3.2-5.2); ALT/SGPT 17 U/L (12-78); BILIRUBIN,TOTAL 0.3 MG/DL (0.2-1.0); BLOOD UREA NITROGEN 17 MG/DL (7-18); CALCIUM LEVEL 8.1 MG/DL (8.5-10.1); CARBON DIOXIDE LEVEL 30 MEQ/L (21-32); CHLORIDE LEVEL 99 MEQ/L (98-107); CPK CREATINE PHOSPHOKINASE 153 U/L (26-192); CREATININE FOR GFR 1.09 MG/DL (0.55-1.30); FERRITIN 405 NG/ML (8-252); GLOMERULAR FILTRATION RATE 54.9 (>51); GLUCOSE, FASTING 100 MG/DL (70-100); LDH LACTATE DEHYDROGENASE 271 U/L (84-246); MB/CK RELATIVE INDEX 0.65 (< OR =4); POTASSIUM SERUM 3.9 MEQ/L (3.5-5.1); SODIUM LEVEL 133 MEQ/L (136-145); TOTAL PROTEIN 7.6 GM/DL (6.4-8.2); TROPONIN I < 0.02 NG/ML (< 0.10)
[2020-04-26] MEDS ORDERED: IBUPROFEN 800 MG TAB PO ONE (05:15)
--- NOTE | 2020-04-26 05:52 | REPVR ---
PROCEDURE INFORMATION: Exam: XR Chest, 1 View Exam date and time: 04/26/20 (4:28am) Age: 59 years old Clinical indication: Screening examination. Covid work-up. TECHNIQUE: Imaging protocol: Portable CXR Views: 1 view COMPARISON: Portable CXR of 04/22/20 FINDINGS: Comparison is made with a portable CXR done on 04/22/20. Stable heart size. S-shaped scoliosis again seen. Interval development of patchy opacities in the RUL and below the right hilum. Underlying prominent interstitial markings again seen. No pleural effusions. No pneumothorax. IMPRESSION: Interval development of patchy right lung infiltrates (RULand right infrahilar area the). Underlying interstitial prominence. No pleural effusions. Multilobar right-sided infectious pneumonia is likely. Electronically signed by: Melva Zepeda On 04/26/2020 05:52:24 AM
--- NOTE | 2020-04-26 06:02 | HPEPDOC ---
[facility] Medical History & Physical Date of Admission Apr 26, 2020 Date of Service: Apr 26, 2020 History and Physical CHIEF COMPLAINT: Shortness of breath HISTORY OF PRESENT ILLNESS: History obtained from group director as well as emergency department staff due to patient's mental disability. Patient at her home was observed by staff to be having shortness of breath and cough they measured her oxygen saturation using a pulse oximeter and they report it was around 50% EMS arrived and placed on 4 L of oxygen by nasal cannula and she improved to 85% in the emergency department she was placed on Vapotherm at 25 L 100% FiO2 and saturating 95%. Majority of medical history is from [facility] staff as well as chart review due to patient's mental disability Medical History DOWN'S SYNDROME with Severe intellectual disability. 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 REVIEW OF SYSTEMS: I am unable to obtain a review of systems from this patient due to her severe mental disability HOME MEDICATIONS: Please see below. PHYSICAL EXAMINATION: LABORATORY DATA: See below. IMAGING: Chest x-ray suggestive of pneumonia MICROBIOLOGY: Please see below. ASSESSMENT/PLAN 59-year-old female with Down syndrome recently discharged March 23 with Covid presents due to cough and shortness of breath at her long-term found to be hypoxic requiring 25 L Vapotherm in the emergency department likely superimposed pneumonia admitted for medical management Assessment: # Acute hypoxic respiratory failure # Suspected superimposed bacterial pneumonia # Covid 19 infection # Down syndrome with severe intellectual disability # Depression and anxiety # Chronic hypotension # Hypothyroidism # Hyperlipidemia # Chronic constipation Plan: Patient will be admitted to the Covid unit under PCU status for anjali connor. For management of her acute hypoxic respiratory failure suspected to be secondary to Covid 19 infection with superimposed bacterial pneumonia she will continue to receive Vapotherm with a target FiO2 of 90% or better. I will start her on IV Decadron. I will start her on IV antibiotics for the suspected pneumonia she is allergic to penicillin and so I will continue levofloxacin which was started in the emergency department and add Vancomycin for MRSA coverage pending PCR screen. Follow up on blood cultures as well as Procalcitonin. Her inflammatory markers for Covid were increased initially and I will continue to trend them. Please discuss with pulmonology in the morning regarding appropriateness of starting patient on rimdasivir. I have opted to start the patient on therapeutic Lovenox dosing due to her high oxygen requirement, hypercoagulable state and recent history of TIA. Meds to be renally dosed by pharmacy. Patient has many high risk factors for severe Covid 19 illness and complication including Down syndrome and intellectual disability, hypertension, obesity as well as possibly developing a superimposed infection. Patient is currently full code according to [facility] staff. Her home medications will be resumed for her chronic medical problems as appropriate. A [facility] Hospitalist Vital Signs Vital Signs Date Time Temp Pulse Resp B/P (MAP) Pulse Ox O2 Delivery O2 Flow Rate FiO2 04/26/20 04:58 103.7 04/26/20 04:31 81 24 103/56 (72) 94 04/26/20 04:11 Nasal Cannula 5.0 Laboratory Data Labs 24H Laboratory Tests 2 04/26/20 04:12: Immature Granulocyte % (Auto) 0.3, Neutrophils (%) (Auto) 78.9H, Lymphocytes (%) (Auto) 15.3L, Monocytes (%) (Auto) 5.2H, Eosinophils (%) (Auto) 0.0, Basophils (%) (Auto) 0.3, Neutrophils # (Auto) 2.6, Lymphocytes # (Auto) 0.5L, Monocytes # (Auto) 0.2, Eosinophils # (Auto) 0.0, Basophils # (Auto) 0.0, Nucleated Red Bl ood Cells % (auto) 0.0, Prothrombin Time 14.0, Prothromb Time International Ratio 1.06, Activated Partial Thromboplast Time 32.6, Fibrinogen 429, D-Dimer, Quantitative 1868.57H, Anion Gap 4L, Glomerular Filtration Rate 54.9, Lactic Acid Level 1.1, Calcium Level 8.1L, Ferritin 405H, Total Bilirubin 0.3, Aspartate Amino Transf (AST/SGOT) 39H, Alanine Aminotransferase (ALT/SGPT) 17, Alkaline Phosphatase 73, Lactate Dehydrogenase 271H, Total Creatine Kinase 153, Creatine Kinase MB 1.0, Creatine Kinase MB Relative Index 0.65, Troponin I < 0.02, C-Reactive Protein, Quantitative 14.50H, Total Protein 7.6, Albumin 3.1L, Albumin/Globulin Ratio 0.7L 04/26/20 04:29: POC pH (Misc Panel) 7.542H, POC Base Excess (Misc Panel) 5.0H, POC Saturated Percent O2 (Misc) 97, POC pO2 (Misc Panel) 77.0L, POC pCO2 (Misc Panel) 32.2L, POC HCO3 (Misc Panel) 27.6H, POC Total CO2 (Misc Panel) 29.0H CBC/BMP Laboratory Tests 04/26/20 04:12 Microbiology Microbiology 04/26/20 Blood Culture, Received Pending 04/26/20 Blood Culture, Received Pending Home Medications Scheduled Ascorbic Acid (Vitamin C) 500 Mg Capsule.er, 500 MG PO DAILY Calcium Carbonate/Vitamin D3 (Calcium 600-Vit D3 400 Tablet) 1 Each Tablet, 1 TAB PO BID Carbamide Peroxide (Debrox) 15 Ml Drops, 4 AU ASDIRECTED FRI/SAT/SUN OF EACH MONTH Citalopram Hydrobromide (Citalopram HBr) 10 Mg Tablet, 10 MG PO DAILY Erythromycin Base (Erythromycin) 3.5 Gm Oint...g., 1 APLCT TOP QAM APPLY TO FACE Lactulose (Lactulose) 10 Gm/15 Ml Solution, 30 ML PO BID for constipation Levetiracetam (Keppra) 500 Mg Tablet, 500 MG PO BID Levothyroxine Sodium (Levothyroxine Sodium) 112 Mcg Tablet, 112 MCG PO QHS Linaclotide (Linzess) 290 Mcg Capsule, 290 MCG PO DAILY 30 min before meal Loratadine (Loratadine) 10 Mg Tab, 10 MG PO QHS Midodrine HCl (Midodrine HCl) 5 Mg Tab, 5 MG PO TID Multivitamins (Thera M Plus Tablet) 1 Tab Tab, 1 TAB PO DAILY Polyethylene Glycol 3350 (Miralax) 119 Gm Powder, 17 GRAM PO BID dissolve in water Quetiapine Fumarate (Seroquel) 200 Mg Tab, 400 MG PO QHS WITH 50MG FOR TOTAL DOSE 450MG QHS Quetiapine Fumarate (Seroquel) 200 Mg Tablet, 200 MG PO QAM Quetiapine Fumarate (Seroquel) 50 Mg Tablet, 50 MG PO QHS WITH 400MG FOR TOTAL DOSE 450MG Simvastatin (Simvastatin) 20 Mg Tab, 20 MG PO QHS Vits A and D/White Pet/Lanolin (A and D Ointment) 42.5 Gm Oint...g., 1 APLCT TOP BID APPLY TO FEET Scheduled PRN Acetaminophen (Acetaminophen) 325 Mg Tablet, 650 MG PO Q4H PRN for PAIN Allergies Coded Allergies: Penicillins (Verified Allergy, Unknown, RASH, 09/27/18) amoxicillin (Verified Allergy, Unknown, rash, 09/23/18) A-FIB/CHADSVASC A-FIB History Current/History of A-Fib/PAF?: No RICKI GARCIA MD Apr 26, 2020 06:02
[2020-04-26] MEDS: COMBIVENT RESPIMAT 100-20MCG INHALER 4GM INH SCH ×3 (06:15→06:55)
[2020-04-26] MEDS ORDERED: FLUID PLACE HOLDER IV SCH (06:45)
[2020-04-26] MEDS ORDERED: VANCOMYCIN HCL IV SCH (06:45)
[2020-04-26] MEDS ORDERED: VANCOMYCIN HCL 500 MG in D5W MINI-BAG PLUS 100 ML IV ONE (07:00)
[2020-04-26] MEDS: MIDODRINE 5 MG TAB PO SCH ×3 (08:00→22:29)
[2020-04-26] MEDS: MIRALAX *UNIT DOSE* 17GM PACKET PO SCH ×2 (09:00→22:28)
[2020-04-26] MEDS: LACTULOSE 20 GM/30 ML SYRUP UD PO SCH ×2 (09:00→22:28)
[2020-04-26] MEDS: QUEtiapine FUMARATE 200 MG TAB PO SCH ×2 (09:00→22:47)
[2020-04-26] MEDS: CitaloPRAM (CeleXA) 10 MG TABLET PO SCH (09:00)
[2020-04-26 10:40] VITALS: BP 91/53
--- NOTE | 2020-04-26 10:48 | IPNPDOC ---
Subjective Date Seen The patient was seen on 04/26/20. Subjective Chief Complaint/HPI SUBJECTIVE: I spoke with the patient's supervisory investigative specialist nanci ([phone]). She states that since her discharge from the 04/22 admission, she's been getting progressively worse with her sob. She's had a fever Tmax 104. This am the temp was 101.3. Of note, patient has Down's syndrome and cognitive impairment and she's agitated this morning and kept wanting to take off her oxygen. She's currently on vapotherm 25 L FIO2 80% and satting at 94%. ROS: limited 2/2 to patient's cognitive impairment PHYSICAL EXAM Vitals: 25% Vapotherm satting 94% Constitutional: Obese female with Downs features and cognitive impairment 2/2 to down's. Awake and alert, NAD ENT: Sclera are clear Respiratory: No use of accessory muscles. No wheezing was appreciated. Decreased breath sounds on the R middle and upper lobes. Cardiovascular: Distant heart sounds they appear regular and I cannot appreciate murmurs Gastrointestinal: Abdomen is soft, obese, non distended, non tender Musculoskeletal: No edema. No joint deformities. Neurologic: difficult to assess 2/2 to cognitive impairment Skin: Warm, dry, no cyanosis or clubbing IMAGING: Interval development of patchy right lung infiltrates (RUL and right infrahilar area). Underlying interstitial prominence. No pleural effusions. Multilobar right-sided infectious pneumonia is likely. ASSESSMENT AND PLAN: This is a 59 y/o female with Patient with a PMHx of down's syndrome, severe intellectual disability, Alzheimer's dementia, anxiety , depression, intermittent explosive behavior, HLD, Obesity, Chronic del toro, hypothyroid, was brought in by [facility] staff for sob and subjective fever of Tmax 104. Reportedly, the supervisory investigative specialist states that she was satting at 56% on RA when she arrived at the ER. XR chest shows multilobar R upper lobe PNA. She is admitted for acute hypoxic respiratory failure 2/2 to COVID PNA. #Acute hypoxic respiratory failure 2/2 to COVID PNA - requiring vapotherm 25L 80% FIO2 satting 94% - suspect a component of the hypoxia may be due to anxiety and agitation (pt was agitated and taking off her O2) this am. - c/w IV dexamethasone - Will start her on remdisivir today for total of 10 days (day 1) - c/w vanco and levaquin and pending MRSA screen to descalate - c/w trending inflamm markers - therapuetic lovenox for anticoag #Fever - Tmax 101.3 since admission - Blood cx's pending - C/w with abx #Hx of TIA - c/w home meds - full dose anticoagulation with lovenox # depression/anxiety - c/w home meds #hypothyroidism - c/w home meds #hypercholesterlemia - c/w home meds DVT ppx: therapuetic lovenox GI ppx: protonix Fluids: Diet: 2gNa Code status: Full Assessment /Plan Plan/VTE VTE Prophylaxis Ordered?: Yes VS, I&O, 24H, Fishbone Vital Signs/I&O Vital Signs Date Time Temp Pulse Resp B/P (MAP) Pulse Ox O2 Delivery O2 Flow Rate FiO2 04/26/20 08:01 62 94 04/26/20 08:00 129/87 (101) 04/26/20 07:31 25 Comfort Flow 04/26/20 06:44 101.3 04/26/20 06:09 25.0 80 Laboratory Data 24H LABS Laboratory Tests 2 04/26/20 04:12: Immature Granulocyte % (Auto) 0.3, Neutrophils (%) (Auto) 78.9H, Lymphocytes (%) (Auto) 15.3L, Monocytes (%) (Auto) 5.2H, Eosinophils (%) (Auto) 0.0, Basophils (%) (Auto) 0.3, Neutrophils # (Auto) 2.6, Lymphocytes # (Auto) 0.5L, Monocytes # (Auto) 0.2, Eosinophils # (Auto) 0.0, Basophils # (Auto) 0.0, Nucleated Red Blood Cells % (auto) 0.0, Prothrombin Time 14.0, Prothromb Time International Ratio 1.06, Activated Partial Thromboplast Time 32.6, Fibrinogen 429, D-Dimer, Quantitative 1868.57H, Anion Gap 4L, Glomerular Filtration Rate 54.9, Lactic Acid Level 1.1, Calcium Level 8.1L, Ferritin 405H, Total Bilirubin 0.3, Aspartate Amino Transf (AST/SGOT) 39H, Alanine Aminotransferase (ALT/SGPT) 17, Alkaline Phosphatase 73, Lactate Dehydrogenase 271H, Total Creatine Kinase 153, Creatine Kinase MB 1.0, Creatine Kinase MB Relative Index 0.65, Troponin I < 0 .02, C-Reactive Protein, Quantitative 14.50H, Total Protein 7.6, Albumin 3.1L, Albumin/Globulin Ratio 0.7L 04/26/20 04:29: POC pH (Misc Panel) 7.542H, POC Base Excess (Misc Panel) 5.0H, POC Saturated Percent O2 (Misc) 97, POC pO2 (Misc Panel) 77.0L, POC pCO2 (Misc Panel) 32.2L, P OC HCO3 (Misc Panel) 27.6H, POC Total CO2 (Misc Panel) 29.0H CBC/BMP Laboratory Tests 04/26/20 04:12 Microbiology Microbiology 04/26/20 Blood Culture, Received Pending 04/26/20 Blood Culture, Received Pending GME ATTESTATION GME ATTESTATION My faculty preceptor for this patient encounter was physically present during the encounter and was fully available. All aspects of the patient interview, examination, medical decision making process, and medical care plan development were reviewed and approved by the faculty preceptor. The faculty preceptor is aware and concurs with the plan as stated in the body of this note and will attest to such by his/her cosignature. ATTENDING NOTE I, Dexter Haddad MD, have independently examined this patient and performed my own physical exam, as well as reviewed the documentation and edited where necessary. I have discussed in detail with the resident / student the findings and plan of treatment as documented by the resident / student and edited their note. I agree with their findings and treatment plan and have edited their documentation. Merline Valentin DO Apr 26, 2020 10:25 DEXTER HADDAD MD Apr 30, 2020 14:52
[2020-04-26 12:00] VITALS: BP 109/60
[2020-04-26] MEDS: levETIRAcetam 250MG TABLET (KEPPRA) PO SCH ×2 (14:44→22:28)
[2020-04-26] MEDS: PANTOPRAZOLE 40MG TAB (PROTONIX) PO SCH (14:44)
[2020-04-26] MEDS: VANCOMYCIN HCL 500 MG in D5W MINI-BAG PLUS 100 ML IV SCH (14:45)
[2020-04-26] MEDS: ENOXAPARIN 80MG/0.8ML SYRINGE (J1650 PER 10MG) SC SCH (14:45)
[2020-04-26 16:00] VITALS: BP 97/58
[2020-04-26] MEDS ORDERED: REMDESIVIR 200 MG in NS 250 ML IV ONE (16:00)
[2020-04-26 18:00] VITALS: BP 90/51
[2020-04-26] MEDS ORDERED: SODIUM CHLORIDE 0.9% INJ 10 ML SYR IV ONE (18:00)
[2020-04-26 20:33] VITALS: BP 103/60
[2020-04-26] MEDS: LEVOTHYROXINE 112MCG TABLET (0.112MG) PO SCH (22:28)
[2020-04-26] MEDS: SIMVASTATIN 20 MG TAB PO SCH (22:28)
[2020-04-26] MEDS: dexameTHASONE 4 MG/ML 1ML VIAL (J1100 PER 1MG) IV SCH (22:29)
[2020-04-26] MEDS: LORATADINE 10 MG TAB PO SCH (22:29)
[2020-04-26] MEDS: QUEtiapine FUMARATE 50 MG TAB PO SCH (22:29)
[2020-04-26 23:39] VITALS: BP 109/61
[2020-04-27] MEDS: VANCOMYCIN HCL 500 MG in D5W MINI-BAG PLUS 100 ML IV SCH (02:13)
[2020-04-27 04:45] VITALS: BP 110/58
[2020-04-27] MEDS: ENOXAPARIN 80MG/0.8ML SYRINGE (J1650 PER 10MG) SC SCH (05:45)
--- NOTE | 2020-04-27 06:06 | ECGEPIP ---
- ED Test Date: 2020-04-26 Pat Name: TABBY CHI Department: Room: - Gender: Female Solution Consultant: SAEED : 1960 Requested By: NKECHI Velez Order Number: [id number] Reading MD: Pasha Lucero Measurements Intervals [place] Rate: 81 P: 52 SC: 142 QRS: -5 QRSD: 81 T: 60 QT: 351 QTc: 409 Interpretive Statements SINUS RHYTHM LOW QRS LIMB LEADS BASELINE ARTIFACT MAY AFFECT READING BASELINE WANDERING MAY AFFECT READING NONSPECIFIC ST T WAVE CHANGES CW 02/11/[address] T WAVE CHANGES Electronically Signed on 04-27-2020 6:06:41 EST by Pasha Lucero
[2020-04-27 07:38] LABS: HEMATOCRIT 37.2 % (36.0-47.0); HEMOGLOBIN 11.9 g/dl (12.0-15.5); LYMPH # 0.4 10^3/uL (1.5-5.0); LYMPH % 5.3 % (24.0-44.0); MEAN CORPUSCULAR HEMOGLOBIN 31.6 pg (27.0-33.0); MEAN CORPUSCULAR VOLUME 98.9 fl (80.0-96.0); MONO # 0.2 10^3/uL (0.0-0.8); MONO % 2.1 % (0.0-5.0); NEUTROPHILS # 6.5 10^3/uL (1.5-8.5); NEUTROPHILS % 92.2 % (36.0-66.0); PLATELET COUNT, AUTOMATED 166 10^3/uL (150-450); RED BLOOD COUNT 3.76 10^6/uL (4.00-5.40)
[2020-04-27 08:02] LABS: INR 1.16; PROTHROMBIN TIME 15.1 SECONDS (12.5-14.3)
[2020-04-27 08:03] LABS: PARTIAL THROMBOPLASTIN TIME 48.8 SECONDS (24.2-38.5)
[2020-04-27 08:08] LABS: ALBUMIN 2.5 GM/DL (3.2-5.2); ALT/SGPT 16 U/L (12-78); BILIRUBIN,DIRECT < 0.1 MG/DL (0.0-0.2); BILIRUBIN,TOTAL 0.2 MG/DL (0.2-1.0); BLOOD UREA NITROGEN 15 MG/DL (7-18); CALCIUM LEVEL 7.8 MG/DL (8.5-10.1); CARBON DIOXIDE LEVEL 26 MEQ/L (21-32); CHLORIDE LEVEL 108 MEQ/L (98-107); CREATININE FOR GFR 0.77 MG/DL (0.55-1.30); FERRITIN 884 NG/ML (8-252); GLOMERULAR FILTRATION RATE > 60.0 (>51); GLUCOSE, FASTING 127 MG/DL (70-100); MAGNESIUM LEVEL 2.6 MG/DL (1.8-2.4); POTASSIUM SERUM 4.5 MEQ/L (3.5-5.1); SODIUM LEVEL 140 MEQ/L (136-145); TOTAL PROTEIN 6.5 GM/DL (6.4-8.2)
[2020-04-27] MEDS: LACTULOSE 20 GM/30 ML SYRUP UD PO SCH ×2 (08:59→21:14)
[2020-04-27] MEDS: MIDODRINE 5 MG TAB PO SCH ×3 (09:00→16:37)
[2020-04-27] MEDS: dexameTHASONE 4 MG/ML 1ML VIAL (J1100 PER 1MG) IV SCH ×2 (09:00→21:15)
[2020-04-27] MEDS: levETIRAcetam 250MG TABLET (KEPPRA) PO SCH ×2 (09:00→21:15)
[2020-04-27] MEDS: MIRALAX *UNIT DOSE* 17GM PACKET PO SCH ×2 (09:10→21:14)
[2020-04-27] MEDS: PANTOPRAZOLE 40MG TAB (PROTONIX) PO SCH (09:10)
[2020-04-27] MEDS: CitaloPRAM (CeleXA) 10 MG TABLET PO SCH (09:10)
[2020-04-27] MEDS: QUEtiapine FUMARATE 200 MG TAB PO SCH ×2 (09:10→21:14)
[2020-04-27 10:00] VITALS: BP 112/59
[2020-04-27] MEDS ORDERED: FUROSEMIDE 20 MG TAB PO ONE (10:45)
[2020-04-27] MEDS ORDERED: FUROSEMIDE 20MG/2ML VIAL (J1940) IV ONE (11:00)
--- NOTE | 2020-04-27 12:45 | IPNPDOC ---
Subjective Date Seen The patient was seen on 04/27/20. Subjective Chief Complaint/HPI SUBJECTIVE: Pt was seen at bedside this am. She was not as agitated this am as yesterday. She';s resting comfortably in bed with any acute distress. She's currently still needing vaptherm but satting 100% on FIO2 of 100%. Will continue to wean as tolerated. Will give her PO lasix 20mg x1. Will order a COVID PCR and D-DIMER for tomorrow am. Pt is improving clinically. Afebrile overnight and blood cx x2 negative. ROS: limited 2/2 to patient's cognitive impairment PHYSICAL EXAM Vitals: See below Constitutional: Obese female with Downs features and cognitive impairment 2/2 to down's. Awake and alert, NAD ENT: Sclera are clear Respiratory: No use of accessory muscles. No wheezing was appreciated. Decreased breath sounds on the R middle and upper lobes. Cardiovascular: no m/g/r appreciated, no edema in lower extremities bilaterally. Gastrointestinal: Abdomen is soft, obese, non distended, non tender Musculoskeletal: No joint deformities, no joint effusions Neurologic: difficult to assess 2/2 to cognitive impairment Skin: Warm, dry, no cyanosis or clubbing IMAGING: see below. No new imaging. ASSESSMENT AND PLAN: This is a 59 y/o female with Patient with a PMHx of down's syndrome, severe intellectual disability, Alzheimer's dementia, anxiety , depression, intermittent explosive behavior, HLD, Obesity, Chronic del toro, hypothyroid, was brought in by [facility] staff for sob and subjective fever of Tmax 104. Reportedly, the port surveyor states that she was satting at 56% on RA when she arrived at the ER. XR chest shows multilobar R upper lobe PNA. She is admitted for acute hypoxic respiratory failure 2/2 to COVID PNA. #Acute hypoxic respiratory failure 2/2 to COVID PNA - continues to require vapotherm; this am she's satting 100% on FIO2 of 100% - Will wean down on FIO2 and monitor saturation - suspect a component of the hypoxia may be due to anxiety and agitation (pt was agitated and taking off her O2) this am. - c/w IV dexamethasone - Will start her on remdisivir today for total of 10 days (day 2) - C/w levaquin; will d/c vanco (MRSA PCR wnl) - c/w trending inflamm markers - therapuetic lovenox for anticoag - will give 1 dose of PO lasix 20mg - Will order for a COVID PCR tomorrow - Will order another D-DIMER for tomorrow #Fever - afebrile for past 24h - Blood cx x2 negative - C/w with Levaquin #Hx of TIA - c/w home meds - full dose anticoagulation with lovenox # depression/anxiety - c/w home meds #hypothyroidism - c/w home meds #hypercholesterlemia - c/w home meds DVT ppx: therapuetic lovenox GI ppx: protonix Fluids: none Diet: 2gNa Code status: Full Disposition: Continue to wean her O2 as tolerated. Improving clinically. Will continue to monitor. Assessment /Plan Plan/VTE VTE Prophylaxis Ordered?: Yes VS, I&O, 24H, Fishbone Vital Signs/I&O Vital Signs Date Time Temp Pulse Resp B/P (MAP) Pulse Ox O2 Delivery O2 Flow Rate FiO2 04/27/20 10:00 98.1 64 18 112/59 (76) 97 HVNI-Vapotherm 30.0 100 I&O- Last 24 Hours up to 6 AM 04/27/20 06:00 Intake Total 1370 ml Balance 1370 ml Laboratory Data 24H LABS Laboratory Tests 2 04/26/20 14:29: Methicillin-Resist S.aureus DNA PCR NOT DETECTED 04/27/20 06:58: Immature Granulocyte % (Auto) 0.4, Neutrophils (%) (Auto) 92.2H, Lymphocytes (%) (Auto) 5.3L, Monocytes (%) (Auto) 2.1, Eosinophils (%) (Auto) 0.0, Basophils (%) (Auto) 0.0, Neutrophils # (Auto) 6.5, Lymphocytes # (Auto) 0.4L, Monocytes # (Auto) 0.2, Eosinophils # (Auto) 0.0, Basophils # (Auto) 0.0, Nucleated Red Blood Cells % (auto) 0.0, Prothrombin Time 15.1H, Prothromb Time International Ratio 1.16, Activated Partial Thromboplast Time 48.8H, Fibrinogen 475H, Anion G ap 6L, Glomerular Filtration Rate > 60.0, Calcium Level 7.8L, Magnesium Level 2.6H, Ferritin 884H, Total Bilirubin 0.2, Direct Bilirubin < 0.1, Aspartate Amino Transf (AST/SGOT) 42H, Alanine Aminotransferase (ALT/SGPT) 16, Alkaline Phosphatase 64, Total Protein 6.5, Albumin 2.5L, Albumin/Globulin Ratio 0.6L CBC/BMP Laboratory Tests 04/27/20 06:58 Microbiology Microbiology 04/26/20 Blood Culture - Preliminary, Resulted No growth after 24 hours . All specim... 04/26/20 Blood Culture - Preliminary, Resulted No growth after 24 hours . All specim... GME ATTESTATION GME ATTESTATION My faculty preceptor for this patient encounter was physically present during the encounter and was fully available. All aspects of the patient interview, examination, medical decision making process, and medical care plan development were reviewed and approved by the faculty preceptor. The faculty preceptor is aware and concurs with the plan as stated in the body of this note and will attest to such by his/her cosignature. ATTENDING NOTE I, Dexter Aguirre MD, have independently examined this patient and performed my own physical exam, as well as reviewed the documentation and edited where carey mccall. I have discussed in detail with the resident / student the findings and plan of treatment as documented by the resident / student and edited their note. I agree with their findings and treatment plan and have edited their documentation. Merline Valentin DO Apr 27, 2020 11:24 DEXTER AGUIRRE MD Apr 30, 2020 14:53
[2020-04-27 14:00] VITALS: BP 90/53
[2020-04-27] MEDS: SODIUM CHLORIDE 0.9% INJ 10 ML SYR IV SCH (16:37)
[2020-04-27] MEDS: REMDESIVIR 100 MG in NS 250 ML IV SCH (16:37)
[2020-04-27 18:00] VITALS: BP 105/59
[2020-04-27 20:17] VITALS: BP 127/84
[2020-04-27] MEDS: LORATADINE 10 MG TAB PO SCH (21:14)
[2020-04-27] MEDS: LEVOTHYROXINE 112MCG TABLET (0.112MG) PO SCH (21:14)
[2020-04-27] MEDS: SIMVASTATIN 20 MG TAB PO SCH (21:14)
[2020-04-27] MEDS: QUEtiapine FUMARATE 50 MG TAB PO SCH (21:14)
[2020-04-28] VITALS (9 sets, daily range): BP systolic 105–126; BP diastolic 56–80; O2SAT 93–98
[2020-04-28] MEDS: ENOXAPARIN 80MG/0.8ML SYRINGE (J1650 PER 10MG) SC SCH (05:18)
[2020-04-28] MEDS: LevoFLOXacin IV 750 MG in IV 1 EA IV SCH (05:19)
[2020-04-28 07:47] LABS: HEMATOCRIT 34.4 % (36.0-47.0); HEMOGLOBIN 10.8 g/dl (12.0-15.5); LYMPH # 0.3 10^3/uL (1.5-5.0); LYMPH % 4.9 % (24.0-44.0); MEAN CORPUSCULAR HEMOGLOBIN 31.1 pg (27.0-33.0); MEAN CORPUSCULAR HGB CONC 31.4 g/dl (32.0-36.5); MEAN CORPUSCULAR VOLUME 99.1 fl (80.0-96.0); MONO # 0.2 10^3/uL (0.0-0.8); MONO % 2.7 % (0.0-5.0); NEUTROPHILS % 91.9 % (36.0-66.0); PLATELET COUNT, AUTOMATED 184 10^3/uL (150-450); RED BLOOD COUNT 3.47 10^6/uL (4.00-5.40); WHITE BLOOD COUNT 6.6 10^3/uL (4.0-10.0)
[2020-04-28 08:16] LABS: INR 1.17; PROTHROMBIN TIME 15.2 SECONDS (12.5-14.3)
[2020-04-28 08:17] LABS: PARTIAL THROMBOPLASTIN TIME 43.9 SECONDS (24.2-38.5)
[2020-04-28 08:19] LABS: ALBUMIN 2.3 GM/DL (3.2-5.2); ALT/SGPT 16 U/L (12-78); BILIRUBIN,DIRECT 0.1 MG/DL (0.0-0.2); BILIRUBIN,TOTAL 0.2 MG/DL (0.2-1.0); BLOOD UREA NITROGEN 15 MG/DL (7-18); CALCIUM LEVEL 7.6 MG/DL (8.5-10.1); CARBON DIOXIDE LEVEL 30 MEQ/L (21-32); CHLORIDE LEVEL 108 MEQ/L (98-107); CREATININE FOR GFR 0.74 MG/DL (0.55-1.30); D-DIMER QUANT 1677.44 ng/ml (<500); FERRITIN 1030 NG/ML (8-252); GLOMERULAR FILTRATION RATE > 60.0 (>51); GLUCOSE, FASTING 136 MG/DL (70-100); MAGNESIUM LEVEL 2.4 MG/DL (1.8-2.4); POTASSIUM SERUM 4.1 MEQ/L (3.5-5.1); SODIUM LEVEL 140 MEQ/L (136-145); TOTAL PROTEIN 6.2 GM/DL (6.4-8.2)
[2020-04-28] MEDS: dexameTHASONE 4 MG/ML 1ML VIAL (J1100 PER 1MG) IV SCH ×2 (08:40→21:13)
[2020-04-28] MEDS: levETIRAcetam 250MG TABLET (KEPPRA) PO SCH ×2 (08:40→21:12)
[2020-04-28] MEDS: LACTULOSE 20 GM/30 ML SYRUP UD PO SCH ×2 (08:40→21:12)
[2020-04-28] MEDS: PANTOPRAZOLE 40MG TAB (PROTONIX) PO SCH (08:41)
[2020-04-28] MEDS: MIDODRINE 5 MG TAB PO SCH ×3 (08:41→17:02)
[2020-04-28] MEDS: CitaloPRAM (CeleXA) 10 MG TABLET PO SCH (08:41)
[2020-04-28] MEDS: QUEtiapine FUMARATE 200 MG TAB PO SCH ×2 (08:41→21:12)
[2020-04-28] MEDS: MIRALAX *UNIT DOSE* 17GM PACKET PO SCH ×2 (08:42→21:12)
[2020-04-28] MEDS: SODIUM CHLORIDE 0.9% INJ 10 ML SYR IV SCH (17:02)
[2020-04-28] MEDS: REMDESIVIR 100 MG in NS 250 ML IV SCH (17:02)
[2020-04-28 17:12] LABS: MYCOPLASMA PNEUMONIAE IgG 279 U/mL (0-99); MYCOPLASMA PNEUMONIAE IgM <770 U/mL (0-769)
--- NOTE | 2020-04-28 18:23 | IPNPDOC ---
Subjective Date Seen The patient was seen on 04/28/20. Subjective Chief Complaint/HPI SUBJECTIVE: Pt was seen at bedside this am. She was not as agitated this am as yesterday. She';s resting comfortably in bed with any acute distress. She's currently still needing vaptherm but satting 100% on FIO2 of 100%. Will continue to wean as tolerated. Will give her PO lasix 20mg x1. Will order a COVID PCR and D-DIMER for tomorrow am. Pt is improving clinically. Afebrile overnight and blood cx x2 negative. ROS: limited 2/2 to patient's cognitive impairment PHYSICAL EXAM Vitals: See below Constitutional: Obese female with Downs features and cognitive impairment 2/2 to down's. Awake and alert, NAD Respiratory: No use of accessory muscles. No wheezing appreciated. limited expiratory effort or inspiratory effort Cardiovascular: no m/g/r appreciated, no edema in lower extremities bilaterally Gastrointestinal: Abdomen is soft, obese, non distended, non tender Musculoskeletal: No joint deformities, no joint effusions Neurologic: difficult to assess 2/2 to cognitive impairment Skin: Warm, dry, no cyanosis or clubbing IMAGING: see below. No new imaging. ASSESSMENT AND PLAN: This is a 59 y/o female with Patient with a PMHx of down's syndrome, severe intellectual disability, Alzheimer's dementia, anxiety , depression, inte rmittent explosive behavior, HLD, Obesity, Chronic del toro, hypothyroid, was brought in by [facility] staff for sob and subjective fever of Tmax 104. Reportedly, the size maker states that she was satting at 56% on RA when she arrived at the ER. XR chest shows multilobar R upper lobe PNA. She is admitted for acute hypoxic respiratory failure 2/2 to COVID PNA and get further mgmt. She's been afebrile for 48h and to slowly be weaned on FIO2 and maintaining saturations. #Acute hypoxic respiratory failure 2/2 to COVID PNA - continues to require vapotherm and able to wean from 100% FIO2 to 90% and 20L satting 95% - Will continue to wean down on FIO2 and monitor saturation - c/w IV dexamethasone - Will start her on remdisivir today for total of 10 days (day 3) - COVID retest 04/28 positive - C/w levaquin - c/w trending inflamm markers - therapuetic lovenox for anticoag #Fever - afebrile - Blood cx x2 negative - C/w with Levaquin #Hx of TIA - c/w home meds - full dose anticoagulation with lovenox # depression/anxiety - c/w home meds #hypothyroidism - c/w home meds #hypercholesterlemia - c/w home meds DVT ppx: therapuetic lovenox GI ppx: protonix Fluids: none Diet: 2gNa Code status: Full Disposition: Continue to wean her off of vapotherm O2 as tolerated Assessment /Plan Plan/VTE VTE Prophylaxis Ordered?: Yes VS, I&O, 24H, Fishbone Vital Signs/I&O Vital Signs Date Time Temp Pulse Resp B/P (MAP) Pulse Ox O2 Delivery O2 Flow Rate FiO2 04/28/20 13:22 97.5 74 20 119/56 (77) 92 HVNI-Vapotherm 15.0 80 I&O- Last 24 Hours up to 6 AM 04/28/20 06:00 Intake Total 330 ml Balance 330 ml Laboratory Data 24H LABS Laboratory Tests 2 04/28/20 07:21: Immature Granulocyte % (Auto) 0.5, Neutrophils (%) (Auto) 91.9H, Lymphocytes (%) (Auto) 4.9L, Monocytes (%) (Auto) 2.7, Eosinophils (%) (Auto) 0.0, Basophils (%) (Auto) 0.0, Neutrophils # (Auto) 6.0, Lymphocytes # (Auto) 0.3L, Monocytes # (Auto) 0.2, Eosinophils # (Auto) 0.0, Basophils # (Auto) 0.0, Nucleated Red Blood Cells % (auto) 0.0, Prothrombin Time 15.2H, Prothromb Time International Ratio 1.17, Activated Partial Thromboplast Time 43.9H, Fibrinogen 397, D-Dimer, Quantitative 1677.44H, Anion Gap 2L, Glomerular Filtration Rate > 60.0, Calcium Level 7.6L, Magnesium Level 2.4, Ferritin 1030H, Total Bilirubin 0.2, Direct Bilirubin 0.1, Aspartate Amino Transf (AST/SGOT) 36, Alanine Aminotransferase (ALT/SGPT) 16, Alkaline Phosphatase 60, Total Protein 6.2L, Albumin 2.3L, Albumin/Globulin Ratio 0.6L 04/28/20 08:09: Coronavirus (COVID-19)(PCR) POSITIVEA CBC/BMP Laboratory Tests 04/28/20 07:21 Microbiology Microbiology 04/26/20 Blood Culture - Preliminary, Resulted No Growth after 48 hours. All Specime... 04/26/20 Blood Culture - Preliminary, Resulted No Growth after 48 hours. All Specime... GME ATTESTATION GME ATTESTATION My faculty preceptor for this patient encounter was physically present during the encounter and was fully available. All aspects of the patient interview, examination, medical decision making process, and medical care plan development were reviewed and approved by the faculty preceptor. The faculty preceptor is aware and concurs with the plan as stated in the body of this note and will attest to such by his/her cosignature. ATTENDING NOTE I, Dexter Haddad MD, have independently examined this patient and performed my own physical exam, as well as reviewed the documentation and edited where necessary. I have discussed in detail with the resident / student the findings and plan of treatment as documented by the resident / student and edited their note. I agree with their findings and treatment plan and have edited their documentation. Merline Valentin DO Apr 28, 2020 15:41 DEXTER HADDAD MD Apr 30, 2020 14:54
[2020-04-28] MEDS: LEVOTHYROXINE 112MCG TABLET (0.112MG) PO SCH (21:12)
[2020-04-28] MEDS: LORATADINE 10 MG TAB PO SCH (21:12)
[2020-04-28] MEDS: SIMVASTATIN 20 MG TAB PO SCH (21:12)
[2020-04-28] MEDS: QUEtiapine FUMARATE 50 MG TAB PO SCH (21:12)
[2020-04-29] VITALS (9 sets, daily range): BP systolic 102–136; BP diastolic 59–82; O2SAT 91–94
[2020-04-29] MEDS: ENOXAPARIN 80MG/0.8ML SYRINGE (J1650 PER 10MG) SC SCH (06:17)
[2020-04-29] MEDS: MIDODRINE 5 MG TAB PO SCH ×3 (08:00→16:00)
[2020-04-29 08:46] LABS: BASO % 0.2 % (0.0-1.0); HEMATOCRIT 34.8 % (36.0-47.0); HEMOGLOBIN 10.8 g/dl (12.0-15.5); LYMPH # 0.4 10^3/uL (1.5-5.0); LYMPH % 8.4 % (24.0-44.0); MEAN CORPUSCULAR HEMOGLOBIN 30.8 pg (27.0-33.0); MEAN CORPUSCULAR VOLUME 99.1 fl (80.0-96.0); MONO # 0.2 10^3/uL (0.0-0.8); MONO % 4.5 % (0.0-5.0); NEUTROPHILS # 4.2 10^3/uL (1.5-8.5); NEUTROPHILS % 86.5 % (36.0-66.0); PLATELET COUNT, AUTOMATED 169 10^3/uL (150-450); RED BLOOD COUNT 3.51 10^6/uL (4.00-5.40); WHITE BLOOD COUNT 4.9 10^3/uL (4.0-10.0)
[2020-04-29 09:21] LABS: ALBUMIN 2.4 GM/DL (3.2-5.2); ALT/SGPT 15 U/L (12-78); BILIRUBIN,DIRECT < 0.1 MG/DL (0.0-0.2); BILIRUBIN,TOTAL 0.3 MG/DL (0.2-1.0); BLOOD UREA NITROGEN 15 MG/DL (7-18); CARBON DIOXIDE LEVEL 31 MEQ/L (21-32); CHLORIDE LEVEL 108 MEQ/L (98-107); CREATININE FOR GFR 0.77 MG/DL (0.55-1.30); FERRITIN 691 NG/ML (8-252); GLOMERULAR FILTRATION RATE > 60.0 (>51); GLUCOSE, FASTING 116 MG/DL (70-100); MAGNESIUM LEVEL 2.4 MG/DL (1.8-2.4); POTASSIUM SERUM 4.3 MEQ/L (3.5-5.1); SODIUM LEVEL 143 MEQ/L (136-145); TOTAL PROTEIN 5.9 GM/DL (6.4-8.2)
[2020-04-29 09:22] LABS: INR 1.29; PROTHROMBIN TIME 16.4 SECONDS (12.5-14.3)
[2020-04-29 09:23] LABS: PARTIAL THROMBOPLASTIN TIME 38.1 SECONDS (24.2-38.5)
[2020-04-29] MEDS: dexameTHASONE 4 MG/ML 1ML VIAL (J1100 PER 1MG) IV SCH (09:38)
[2020-04-29] MEDS: QUEtiapine FUMARATE 200 MG TAB PO SCH ×2 (09:38→21:15)
[2020-04-29] MEDS: MIRALAX *UNIT DOSE* 17GM PACKET PO SCH ×2 (09:38→21:14)
[2020-04-29] MEDS: PANTOPRAZOLE 40MG TAB (PROTONIX) PO SCH (09:38)
[2020-04-29] MEDS: levETIRAcetam 250MG TABLET (KEPPRA) PO SCH ×2 (09:38→21:15)
[2020-04-29] MEDS: CitaloPRAM (CeleXA) 10 MG TABLET PO SCH (09:38)
[2020-04-29] MEDS: LACTULOSE 20 GM/30 ML SYRUP UD PO SCH ×2 (09:38→21:15)
--- NOTE | 2020-04-29 17:09 | IPNPDOC ---
Subjective Date Seen The patient was seen on 04/29/20. Subjective Chief Complaint/HPI SUBJECTIVE: Pt was seen at bedside this am. She continues to improve and able to be weaned down on her vapotherm. She's afebrile overnight and did not have any acute issues reported by nursing. ROS: limited 2/2 to patient's cognitive impairment PHYSICAL EXAM Vitals: See below Constitutional: Obese female with Downs features and cognitive impairment 2/2 to down's. Awake and alert, NAD Respiratory: No use of accessory muscles. No wheezing appreciated. limited expiratory effort or inspiratory effort Cardiovascular: no m/g/r appreciated, no edema in lower extremities bilaterally Gastrointestinal: Abdomen is soft, obese, non distended, non tender Musculoskeletal: No joint deformities, no joint effusions Neurologic: difficult to assess 2/2 to cognitive impairment Skin: Warm, dry, no cyanosis or clubbing IMAGING: see below. No new imaging. ASSESSMENT AND PLAN: This is a 59 y/o female with Patient with a PMHx of down's syndrome, severe intellectual disability, Alzheimer's dementia, anxiety , depression, intermittent explosive behavior, HLD, Obesity, Chronic del toro, hypothyroid, was brought in by [facility] staff for sob and subjective fever of Tmax 104. Reportedly, the glass ribbon machine operator states that she was satting at 56% on RA when she arrived at the ER. XR chest shows multilobar R upper lobe PNA. She is admitted for acute hypoxic respiratory failure 2/2 to COVID PNA and get further mgmt. She's been afebrile for 48h and to slowly be weaned on FIO2 and maintaining saturations. #Acute hypoxic respiratory failure 2/2 to COVID PNA - COVID retest 04/28 positive - Able to be slowly weaned down on vapotherm; currently on 80% FIO2 15L and satting at 92% - Will attempt to wean O2 with a goal of FIO2 of 65%, if pt can tolerate to keep sats above 90% - Will order another 5 days of IV dexamethasone 6mg IV BID (04/27) - C/w Remdisivir today for total of 10 days (day 4) - C/w levaquin - c/w trending inflamm markers - therapuetic lovenox for anticoag #Fever - afebrile - Blood cx x2 negative - C/w with Levaquin #Hx of TIA - c/w home meds - full dose anticoagulation with lovenox # depression/anxiety - c/w home meds #hypothyroidism - c/w home meds #hypercholesterlemia - c/w home meds DVT ppx: therapuetic lovenox GI ppx: protonix Fluids: none Diet: 2gNa Code status: Full Disposition: Continue to wean her off of vapotherm with target FIO2 of 65%, if patient tolerates. Assessment /Plan Plan/VTE VTE Prophylaxis Ordered?: Yes VS, I&O, 24H, Fishbone Vital Signs/I&O Vital Signs Date Time Temp Pulse Resp B/P (MAP) Pulse Ox O2 Delivery O2 Flow Rate FiO2 04/29/20 09:35 98.9 67 17 103/62 (76) 95 HVNI-Vapotherm 15.0 80 l I&O- Last 24 Hours up to 6 AM 04/29/20 06:00 Intake Total 840 ml Output Total 1050 ml Balance -210 ml Laboratory Data 24H LABS Laboratory Tests 2 04/29/20 08:04: Immature Granulocyte % (Auto) 0.4, Neutrophils (%) (Auto) 86.5H, Lymphocytes (%) (Auto) 8.4L, Monocytes (%) (Auto) 4.5, Eosinophils (%) (Auto) 0.0, Basophils (%) (Auto) 0.2, Neutrophils # (Auto) 4.2, Lymphocytes # (Auto) 0.4L, Monocytes # (Auto) 0.2, Eosinophils # (Auto) 0.0, Basophils # (Auto) 0.0, Nucleated Red Blood Cells % (auto) 0.0, Prothrombin Time 16.4H, Prothromb Time International Ratio 1.29, Activated Partial Thromboplast Time 38.1, Fibrinogen 394, Anion Gap 4L, Glomerular Filtration Rate > 60.0, Calcium Level 8.0L, Magnesium Level 2.4, Ferritin 691H, Total Bilirubin 0.3, Direct Bilirubin < 0.1, Aspartate Amino Transf (AST/SGOT) 31, Alanine Aminotransferase (ALT/SGPT) 15, Alkaline Phosphatase 60, Total Protein 5.9L, Albumin 2.4L, Albumin/Globulin Ratio 0.7L CBC/BMP Laboratory Tests 04/29/20 08:04 Microbiology Microbiology 04/26/20 Blood Culture - Preliminary, Resulted No Growth after 72 hours. All specime... 1/4/21 Blood Culture - Preliminary, Resulted No Growth after 72 hours. All specime... GME ATTESTATION GME ATTESTATION My faculty preceptor for this patient encounter was physically present during the encounter and was fully available. All aspects of the patient interview, examination, medical decision making process, and medical care plan development were reviewed and approved by the faculty preceptor. The faculty preceptor is aware and concurs with the plan as stated in the body of this note and will attest to such by his/her cosignature. ATTENDING NOTE I, Dexter Haddad MD, have independently examined this patient and performed my own physical exam, as well as reviewed the documentation and edited where necessary. I have discussed in detail with the resident / student the findings and plan of treatment as documented by the resident / student and edited their note. I agree with their findings and treatment plan and have edited their documentation. Merline Valentin DO Apr 29, 2020 11:45 DEXTER HADDAD MD Apr 30, 2020 14:54
[2020-04-29] MEDS: REMDESIVIR 100 MG in NS 250 ML IV SCH (21:14)
[2020-04-29] MEDS: LEVOTHYROXINE 112MCG TABLET (0.112MG) PO SCH (21:14)
[2020-04-29] MEDS: dexameTHASONE 20MG/5ML VIAL (J1100 PER 1MG) IV SCH (21:14)
[2020-04-29] MEDS: SIMVASTATIN 20 MG TAB PO SCH (21:15)
[2020-04-29] MEDS: QUEtiapine FUMARATE 50 MG TAB PO SCH (21:15)
[2020-04-29] MEDS: LORATADINE 10 MG TAB PO SCH (21:15)
[2020-04-29] MEDS: SODIUM CHLORIDE 0.9% INJ 10 ML SYR IV SCH (22:46)
[2020-04-30] VITALS (9 sets, daily range): BP systolic 109–140; BP diastolic 57–74; O2SAT 93–96
[2020-04-30] MEDS: LevoFLOXacin IV 750 MG in IV 1 EA IV SCH (06:20)
[2020-04-30] MEDS: ENOXAPARIN 80MG/0.8ML SYRINGE (J1650 PER 10MG) SC SCH (06:21)
[2020-04-30 07:21] LABS: BASO % 0.2 % (0.0-1.0); HEMATOCRIT 35.6 % (36.0-47.0); HEMOGLOBIN 11.3 g/dl (12.0-15.5); LYMPH # 0.3 10^3/uL (1.5-5.0); LYMPH % 7.9 % (24.0-44.0); MEAN CORPUSCULAR HEMOGLOBIN 31.6 pg (27.0-33.0); MEAN CORPUSCULAR HGB CONC 31.7 g/dl (32.0-36.5); MEAN CORPUSCULAR VOLUME 99.4 fl (80.0-96.0); MONO # 0.3 10^3/uL (0.0-0.8); MONO % 6.4 % (0.0-5.0); NEUTROPHILS # 3.4 10^3/uL (1.5-8.5); PLATELET COUNT, AUTOMATED 183 10^3/uL (150-450); RED BLOOD COUNT 3.58 10^6/uL (4.00-5.40); WHITE BLOOD COUNT 4.1 10^3/uL (4.0-10.0)
[2020-04-30 07:42] LABS: INR 1.23; PROTHROMBIN TIME 15.8 SECONDS (12.5-14.3)
[2020-04-30 07:54] LABS: ALBUMIN 2.3 GM/DL (3.2-5.2); ALT/SGPT 13 U/L (12-78); BILIRUBIN,DIRECT < 0.1 MG/DL (0.0-0.2); BILIRUBIN,TOTAL 0.3 MG/DL (0.2-1.0); BLOOD UREA NITROGEN 14 MG/DL (7-18); CALCIUM LEVEL 7.7 MG/DL (8.5-10.1); CARBON DIOXIDE LEVEL 31 MEQ/L (21-32); CHLORIDE LEVEL 108 MEQ/L (98-107); CREATININE FOR GFR 0.64 MG/DL (0.55-1.30); FERRITIN 333 NG/ML (8-252); GLOMERULAR FILTRATION RATE > 60.0 (>51); GLUCOSE, FASTING 132 MG/DL (70-100); MAGNESIUM LEVEL 2.3 MG/DL (1.8-2.4); POTASSIUM SERUM 4.2 MEQ/L (3.5-5.1); SODIUM LEVEL 142 MEQ/L (136-145); TOTAL PROTEIN 5.8 GM/DL (6.4-8.2)
[2020-04-30] MEDS: MIDODRINE 5 MG TAB PO SCH ×3 (08:58→16:17)
[2020-04-30] MEDS: LACTULOSE 20 GM/30 ML SYRUP UD PO SCH ×2 (08:58→20:32)
[2020-04-30] MEDS: CitaloPRAM (CeleXA) 10 MG TABLET PO SCH (08:58)
[2020-04-30] MEDS: MIRALAX *UNIT DOSE* 17GM PACKET PO SCH ×2 (08:58→20:32)
[2020-04-30] MEDS: dexameTHASONE 20MG/5ML VIAL (J1100 PER 1MG) IV SCH ×2 (08:58→20:32)
[2020-04-30] MEDS: levETIRAcetam 250MG TABLET (KEPPRA) PO SCH ×2 (08:58→20:32)
[2020-04-30] MEDS: QUEtiapine FUMARATE 200 MG TAB PO SCH ×2 (08:58→20:33)
[2020-04-30] MEDS: PANTOPRAZOLE 40MG TAB (PROTONIX) PO SCH (08:58)
--- NOTE | 2020-04-30 12:14 | IPNPDOC ---
Subjective Date Seen The patient was seen on 04/30/20. Subjective Chief Complaint/HPI SUBJECTIVE: Pt was seen at bedside this am. She continues to improve and able to be weaned down on her vapotherm. She's afebrile overnight and did not have any acute issues reported by nursing. ROS: limited 2/2 to patient's cognitive impairment PHYSICAL EXAM Vitals: See below Constitutional: Obese female with Downs features and cognitive impairment 2/2 to down's. Awake and alert, NAD Respiratory: No use of accessory muscles. No wheezing appreciated. limited expiratory effort or inspiratory effort Cardiovascular: no m/g/r appreciated, no edema in lower extremities bilaterally Gastrointestinal: Abdomen is soft, obese, non distended, non tender Musculoskeletal: No joint deformities, no joint effusions Neurologic: difficult to assess 2/2 to cognitive impairment Skin: Warm, dry, no cyanosis or clubbing IMAGING: see below. No new imaging. ASSESSMENT AND PLAN: This is a 59 y/o female with Patient with a PMHx of down's syndrome, severe intellectual disability, Alzheimer's dementia, anxiety , depression, intermittent explosive behavior, HLD, Obesity, Chronic del toro, hypothyroid, was brought in by [facility] staff for sob and subjective fever of Tmax 104. Reportedly, the explosive operator fuse states that she was satting at 56% on RA when she arrived at the ER. XR chest shows multilobar R upper lobe PNA. She is admitted for acute hypoxic respiratory failure 2/2 to COVID PNA and get further mgmt. She's been afebrile and to slowly be weaned on FIO2 and maintaining saturations. Goal for her is to continue to wean FIO2 and off of vapotherm if tolerated. Inflammatory markers trending down. Will switch her lovenox to 40mg BID today and continue to titrate down her FIO2 to maintain sats >90%. #Acute hypoxic respiratory failure 2/2 to COVID PNA - COVID retest 04/28 positive - Able to be slowly weaned down on vapotherm; currently on 65% FIO2 15L and satting at 92% - Will attempt to wean O2 with a goal of FIO2 of 50%, if pt can tolerate to keep sats above 90% - Will order another 5 days of IV dexamethasone 6mg IV BID (05/28) - C/w Remdisivir today for total of 10 days (day 5) - C/w levaquin - c/w trending inflamm markers - Will change 70mg lovenox to 40mg BID #Fever - afebrile - Blood cx x2 negative - C/w with Levaquin #Hx of TIA - c/w home meds - full dose anticoagulation with lovenox # depression/anxiety - c/w home meds #hypothyroidism - c/w home meds #hypercholesterlemia - c/w home meds DVT ppx: therapuetic lovenox GI ppx: protonix Fluids: none Diet: 2gNa Code status: Full Disposition: Continue to wean her off of vapotherm with target FIO2 of 65%, if patient tolerates. Assessment /Plan Plan/VTE VTE Prophylaxis Ordered?: Yes VS, I&O, 24H, [place] Vital Signs/I&O Vital Signs Date Time Temp Pulse Resp B/P (MAP) Pulse Ox O2 Delivery O2 Flow Rate FiO2 04/30/20 08:42 95 HVNI-Vapotherm 15.0 65 04/30/20 08:00 98.0 71 20 114/61 (78) I&O- Last 24 Hours up to 6 AM 04/30/20 06:00 Intake Total 810 ml Output Total 1450 ml Balance -640 ml Laboratory Data 24H LABS Laboratory Tests 2 04/30/20 06:46: Immature Granulocyte % (Auto) 0.5, Neutrophils (%) (Auto) 85.0H, Lymphocytes (%) (Auto) 7.9L, Monocytes (%) (Auto) 6.4H, Eosinophils (%) (Auto) 0.0, Basophils (%) (Auto) 0.2, Neutrophils # (Auto) 3.4, Lymphocytes # (Auto) 0.3L, Monocytes # (Auto) 0.3, Eosinophils # (Auto) 0.0, Basophils # (Auto) 0.0, Nucleated Red Blood Cells % (auto) 0.0, Prothrombin Time 15.8H, Prothromb Time International Ratio 1.23, Activated Partial Thromboplast Time 30.0, Fibrinogen 358, Anion Gap 3L, Glomerular Filtration Rate > 60.0, Calcium Level 7.7L, Magnesium Level 2.3, Ferritin 333H, Total Bilirubin 0.3, Direct Bilirubin < 0.1, Aspartate Amino Transf (AST/SGOT) 20, Alanine Aminotransferase (ALT/SGPT) 13, Alkaline Phosphatase 64, Total Protein 5.8L, Albumin 2.3L, Albumin/Globulin Ratio 0.7L CBC/BMP Laboratory Tests 04/30/20 06:46 Microbiology Microbiology 04/26/20 Blood Culture - Preliminary, Resulted No Growth after 72 hours. All specime... 04/26/20 Blood Culture - Preliminary, Resulted No Growth after 72 hours. All specime... GME ATTESTATION GME ATTESTATION My faculty preceptor for this patient encounter was physically present during the encounter and was fully available. All aspects of the patient interview, examination, medical decision making process, and medical care plan development were reviewed and approved by the faculty preceptor. The faculty preceptor is aware and concurs with the plan as stated in the body of this note and will attest to such by his/her cosignature. ATTENDING NOTE I, Dexter Haddad MD, have independently examined this patient and performed my own physical exam, as well as reviewed the documentation and edited where necessary. I have discussed in detail with the resident / student the findings and plan of treatment as documented by the resident / student and edited their note. I agree with their findings and treatment plan and have edited their documentation. Merline Valentin DO Apr 30, 2020 10:30 DEXTER HADDAD MD Apr 30, 2020 14:55
[2020-04-30] MEDS: REMDESIVIR 100 MG in NS 250 ML IV SCH (16:17)
[2020-04-30] MEDS: SODIUM CHLORIDE 0.9% INJ 10 ML SYR IV SCH (17:37)
[2020-04-30] MEDS: LEVOTHYROXINE 112MCG TABLET (0.112MG) PO SCH (20:32)
[2020-04-30] MEDS: LORATADINE 10 MG TAB PO SCH (20:32)
[2020-04-30] MEDS: SIMVASTATIN 20 MG TAB PO SCH (20:33)
[2020-04-30] MEDS: QUEtiapine FUMARATE 50 MG TAB PO SCH (20:34)
[2020-05-01] VITALS (7 sets, daily range): BP systolic 120–140; BP diastolic 57–96; O2SAT 94–98
[2020-05-01] MEDS: PANTOPRAZOLE 40MG TAB (PROTONIX) PO SCH (08:16)
[2020-05-01] MEDS: levETIRAcetam 250MG TABLET (KEPPRA) PO SCH ×2 (08:16→21:24)
[2020-05-01] MEDS: CitaloPRAM (CeleXA) 10 MG TABLET PO SCH (08:16)
[2020-05-01] MEDS: MIDODRINE 5 MG TAB PO SCH ×3 (08:17→15:50)
[2020-05-01] MEDS: QUEtiapine FUMARATE 200 MG TAB PO SCH ×2 (08:17→21:23)
[2020-05-01] MEDS: MIRALAX *UNIT DOSE* 17GM PACKET PO SCH ×2 (08:17→21:24)
[2020-05-01] MEDS: LACTULOSE 20 GM/30 ML SYRUP UD PO SCH ×2 (08:17→21:23)
[2020-05-01] MEDS: ENOXAPARIN 40MG/0.4ML SYRINGE (J1650 PER 10MG) SC SCH ×2 (08:17→21:24)
[2020-05-01] MEDS: dexameTHASONE 20MG/5ML VIAL (J1100 PER 1MG) IV SCH ×2 (08:18→21:24)
[2020-05-01 11:16] LABS: HEMATOCRIT 35.5 % (36.0-47.0); HEMOGLOBIN 11.4 g/dl (12.0-15.5); LYMPH # 0.3 10^3/uL (1.5-5.0); LYMPH % 5.4 % (24.0-44.0); MEAN CORPUSCULAR HEMOGLOBIN 31.5 pg (27.0-33.0); MEAN CORPUSCULAR HGB CONC 32.1 g/dl (32.0-36.5); MEAN CORPUSCULAR VOLUME 98.1 fl (80.0-96.0); MONO # 0.6 10^3/uL (0.0-0.8); MONO % 10.1 % (0.0-5.0); NEUTROPHILS # 4.7 10^3/uL (1.5-8.5); NEUTROPHILS % 83.6 % (36.0-66.0); PLATELET COUNT, AUTOMATED 194 10^3/uL (150-450); RED BLOOD COUNT 3.62 10^6/uL (4.00-5.40); WHITE BLOOD COUNT 5.6 10^3/uL (4.0-10.0)
[2020-05-01 11:42] LABS: INR 1.28; PROTHROMBIN TIME 16.3 SECONDS (12.5-14.3)
[2020-05-01 11:43] LABS: PARTIAL THROMBOPLASTIN TIME 32.7 SECONDS (24.2-38.5)
[2020-05-01 11:54] LABS: ALBUMIN 2.3 GM/DL (3.2-5.2); ALT/SGPT 14 U/L (12-78); BILIRUBIN,DIRECT < 0.1 MG/DL (0.0-0.2); BILIRUBIN,TOTAL 0.3 MG/DL (0.2-1.0); BLOOD UREA NITROGEN 16 MG/DL (7-18); CALCIUM LEVEL 7.9 MG/DL (8.5-10.1); CARBON DIOXIDE LEVEL 30 MEQ/L (21-32); CHLORIDE LEVEL 108 MEQ/L (98-107); CREATININE FOR GFR 0.74 MG/DL (0.55-1.30); FERRITIN 231 NG/ML (8-252); GLOMERULAR FILTRATION RATE > 60.0 (>51); GLUCOSE, FASTING 123 MG/DL (70-100); MAGNESIUM LEVEL 2.3 MG/DL (1.8-2.4); POTASSIUM SERUM 4.4 MEQ/L (3.5-5.1); SODIUM LEVEL 142 MEQ/L (136-145); TOTAL PROTEIN 5.9 GM/DL (6.4-8.2)
[2020-05-01 12:16] LABS: D-DIMER QUANT 1352.2 ng/ml (<500)
--- NOTE | 2020-05-01 12:30 | IPNPDOC ---
Date Seen The patient was seen on 05/01/20. Progress Note SUBJECTIVE: Not cooperative and not answering questions but with purposeful movements And mumbles OBJECTIVE PHYSICAL EXAMINATION: VITAL SIGNS: Please see below. GENERAL: Dry mucous membranes with chapped lips. on Vapotherm HEENT: No JVD or thyromegaly CARDIOVASCULAR: S1, S2, regular rate and rhythm RESPIRATORY: Diminished ABDOMINAL: Positive bowel sounds 4 quadrants Soft, nontender, nondistended EXTREMITIES: No cyanosis or clubbing LABORATORY DATA, IMAGING STUDIES, MICROBIOLOGY: Please see below. ASSESSMENT AND PLAN: 59-year-old female with history of dementia, anxiety, TIA depression, dyslipidemia, obesity, chronic Fam catheter, hypothyroidism, and Down syndrome brought in from the [facility] resident due to fever, found to have Covid pneumonia and acute hypoxic respiratory failure Acute hypoxic respiratory failure. on IV dexamethasone, remdesevir, and Levaquin Requiring Vapotherm due to Covid 19. Pneumonia managed by speech scientist Monitoring. Inflammatory markers Covid 19. Pneumonia IV dexamethasone, M.D. severe and Levaquin Requiring Vapotherm due to Covid 19. Pneumonia managed by speech scientist Improving . Inflammatory markers History of TIA -On Lovenox. Anxiety/ depression on home meds Dyslipidemia/obesity, BMI 39.3 Complicating care Hypothyroidism And Synthroid DISPOSITION: . VS, I&O, 24H, [facility] Vital Signs/I&O Vital Signs Date Time Temp Pulse Resp B/P (MAP) Pulse Ox O2 Delivery O2 Flow Rate FiO2 05/01/20 08:27 95 HVNI-Vapotherm 15.0 65 05/01/20 08:00 97.0 60 20 120/68 (85) I&O- Last 24 Hours up to 6 AM 05/01/20 06:00 Intake Total 660 ml Output Total 775 ml Balance -115 ml Laboratory Data 24H LABS Laboratory Tests 2 05/01/20 10:49: Immature Granulocyte % (Auto) 0.9, Neutrophils (%) (Auto) 83.6H, Lymphocytes (%) (Auto) 5.4L, Monocytes (%) (Auto) 10.1H, Eosinophils (%) (Auto) 0.0, Basophils (%) (Auto) 0.0, Neutrophils # (Auto) 4.7, Lymphocytes # (Auto) 0.3L, Monocytes # (Auto) 0.6, Eosinophils # (Auto) 0.0, Basophils # (Auto) 0.0, Nucleated Red Blood Cells % (auto) 0.0, Prothrombin Time 16.3H, Prothromb Time International Ratio 1.28, Activated Partial Thromboplast Time 32.7, Fibrinogen 338, D-Dimer, Quantitative 1352.20H, Anion Gap 4L, Glomerular Filtration Rate > 60.0, Calcium Level 7.9L, Magnesium Level 2.3, Ferritin 231, Total Bilirubin 0.3, Direct Bilirubin < 0.1, Aspartate Amino Transf (AST/SGOT) 15, Alanine Aminotransferase (ALT/SGPT) 14, Alkaline Phosphatase 65, Total Protein 5.9L, Albumin 2.3L, Albumin/Globulin Ratio 0.6L CBC/BMP Laboratory Tests 05/01/20 10:49 Microbiology Microbiology 04/26/20 Blood Culture - Final, Complete NO GROWTH AFTER 5 DAYS 04/26/20 Blood Culture - Final, Complete NO GROWTH AFTER 5 DAYS SANKET ANGULO MD May 01, 2020 12:30
[2020-05-01] MEDS ORDERED: NS 1,000 ML IV SCH (20:15)
[2020-05-01] MEDS: LEVOTHYROXINE 112MCG TABLET (0.112MG) PO SCH (21:24)
[2020-05-01] MEDS: QUEtiapine FUMARATE 50 MG TAB PO SCH (21:24)
[2020-05-01] MEDS: LORATADINE 10 MG TAB PO SCH (21:24)
[2020-05-01] MEDS: SIMVASTATIN 20 MG TAB PO SCH (21:24)
[2020-05-02] VITALS (8 sets, daily range): BP systolic 98–137; BP diastolic 55–77; O2SAT 96–97
[2020-05-02] MEDS: LevoFLOXacin IV 750 MG in IV 1 EA IV SCH (05:23)
[2020-05-02 08:28] LABS: D-DIMER QUANT 1218.45 ng/ml (<500)
[2020-05-02] MEDS: levETIRAcetam 250MG TABLET (KEPPRA) PO SCH ×2 (09:18→21:25)
[2020-05-02] MEDS: ENOXAPARIN 40MG/0.4ML SYRINGE (J1650 PER 10MG) SC SCH ×2 (09:18→21:25)
[2020-05-02] MEDS: QUEtiapine FUMARATE 200 MG TAB PO SCH ×2 (09:18→21:25)
[2020-05-02] MEDS: CitaloPRAM (CeleXA) 10 MG TABLET PO SCH (09:18)
[2020-05-02] MEDS: MIDODRINE 5 MG TAB PO SCH ×3 (09:18→15:19)
[2020-05-02] MEDS: PANTOPRAZOLE 40MG TAB (PROTONIX) PO SCH (09:19)
[2020-05-02] MEDS: dexameTHASONE 20MG/5ML VIAL (J1100 PER 1MG) IV SCH ×2 (09:19→21:26)
[2020-05-02] MEDS: MIRALAX *UNIT DOSE* 17GM PACKET PO SCH ×2 (09:19→21:24)
[2020-05-02] MEDS: LACTULOSE 20 GM/30 ML SYRUP UD PO SCH ×2 (09:19→21:24)
--- NOTE | 2020-05-02 13:30 | IPNPDOC ---
Date Seen The patient was seen on 05/02/20. Progress Note SUBJECTIVE: no c/o pain or worsening sob. no fever or chills overnight. decreasing fio2 requirement down to 50% with o2 sat maintained at 94%. OBJECTIVE PHYSICAL EXAMINATION: VITAL SIGNS: Please see below. GENERAL: aaox 1 only not very communicative and only answered yes o rno Dry mucous membranes with chapped lips on Vapotherm poor dentition halitosis HEENT: No JVD or thyromegaly no use of resp acc mm CARDIOVASCULAR: S1, S2, regular rate and rhythm nondisplaced pmi no carotid bruits RESPIRATORY: Diminished no wheezing or rales no kyphoscoliosis ABDOMINAL: Positive bowel sounds 4 quadrants Soft, nontender, nondistended EXTREMITIES: No cyanosis, clubbing, or pitting edema b/l LE. LABORATORY DATA, IMAGING STUDIES, MICROBIOLOGY: Please see below. ASSESSMENT AND PLAN: 59-year-old female with history of dementia, anxiety, TIA depression, dyslipidemia, obesity, chronic Fam catheter, hypothyroidism, and Down syndrome brought in from the [facility] resident due to fever, found to have Covid pneumonia and acute hypoxic respiratory failure Acute hypoxic respiratory failure. o2sat maintained at 94% on IV dexamethasone, remdesevir, and Levaquin Requiring Vapotherm due to Covid 19 Pneumoniabut decreasing fio2 requirement improving Inflammatory markers Covid 19. Pneumonia on respiratory and contact isolation o2sat maintained at 94% on IV dexamethasone, remdesevir, and Levaquin Requiring Vapotherm due to Covid 19 Pneumoniabut decreasing fio2 requirement improving Inflammatory markers History of TIA -On Lovenox. Anxiety/ depression on home meds Dyslipidemia/obesity, BMI 39.3 Complicating care Hypothyroidism And Synthroid VS, I&O, 24H, Fishbone Vital Signs/I&O Vital Signs Date Time Temp Pulse Resp B/P (MAP) Pulse Ox O2 Delivery O2 Flow Rate FiO2 05/02/20 09:03 94 HVNI-Vapotherm 15.0 50 05/02/20 08:00 98.0 62 18 114/69 (84) I&O- Last 24 Hours up to 6 AM 05/02/20 06:00 Intake Total 1040 ml Output Total 925 ml Balance 115 ml Laboratory Data 24H LABS Laboratory Tests 2 05/02/20 07:08: Fibrinogen 315, D-Dimer, Quantitative 1218.45H Microbiology Microbiology 04/26/20 Blood Culture - Final, Complete NO GROWTH AFTER 5 DAYS 04/26/20 Blood Culture - Final, Complete NO GROWTH AFTER 5 DAYS SANKET ANGULO MD May 02, 2020 13:30
[2020-05-02] MEDS: ACETAMINOPHEN TAB 650MG DOSE (2X325MG) PO PRN ×2 (15:19→21:25)
[2020-05-02] MEDS: SIMVASTATIN 20 MG TAB PO SCH (21:25)
[2020-05-02] MEDS: LEVOTHYROXINE 112MCG TABLET (0.112MG) PO SCH (21:25)
[2020-05-02] MEDS: QUEtiapine FUMARATE 50 MG TAB PO SCH (21:25)
[2020-05-02] MEDS: LORATADINE 10 MG TAB PO SCH (21:25)
[2020-05-03] VITALS (7 sets, daily range): BP systolic 89–134; BP diastolic 50–66; O2SAT 92–94
[2020-05-03] MEDS: MIDODRINE 5 MG TAB PO SCH ×3 (08:00→16:21)
[2020-05-03] MEDS: QUEtiapine FUMARATE 200 MG TAB PO SCH ×2 (09:01→22:26)
[2020-05-03] MEDS: PANTOPRAZOLE 40MG TAB (PROTONIX) PO SCH (09:01)
[2020-05-03] MEDS: dexameTHASONE 20MG/5ML VIAL (J1100 PER 1MG) IV SCH ×3 (09:01→22:21)
[2020-05-03] MEDS: CitaloPRAM (CeleXA) 10 MG TABLET PO SCH (09:01)
[2020-05-03] MEDS: levETIRAcetam 250MG TABLET (KEPPRA) PO SCH ×2 (09:01→22:20)
[2020-05-03] MEDS: ENOXAPARIN 40MG/0.4ML SYRINGE (J1650 PER 10MG) SC SCH ×2 (09:01→22:20)
[2020-05-03] MEDS: MIRALAX *UNIT DOSE* 17GM PACKET PO SCH ×2 (09:01→22:21)
[2020-05-03] MEDS: LACTULOSE 20 GM/30 ML SYRUP UD PO SCH ×2 (09:01→22:21)
[2020-05-03] MEDS ORDERED: DEXA2TA PO (12:23)
--- NOTE | 2020-05-03 13:51 | DS.PDOC ---
Discharge Summary General Date of Admission Apr 26, 2020 at 06:09 Date of Discharge 05/03/20 Discharge Summary Chief complaints shortness of breath Final diagnosis Covid 19. Pneumonia Hypoxic respiratory failure History of present illness and Hospital course This is a 59 y/o female with Patient with a PMHx of down's syndrome, severe intellectual disability, Alzheimer's dementia, anxiety , depression, intermittent explosive behavior, HLD, Obesity, Chronic del toro, hypothyroid, was [facility] for sob and subjective fever of Tmax 104. 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 XR chest shows multilobar R upper lobe PNA. She is admitted for acute hypoxic respiratory failure 2/2 to [facility] and get further mgmt. She's been afebrile and was slowly be weaned on FIO2 and maintaining saturations.. She was wean FIO2 and off of vapotherm and eventually she is on room air now. . She completed 5 days of March along with that she has been on dexamethasone as well. The patient will be getting 2 mg of dexamethasone for the next 4 days as well along with that. The patient completed the course of Levaquin but will b e getting Augmentin 875 twice a day for the next 4 days. She is at her baseline home O2 and little tired, but she can go back to [facility] today. The patient is medically optimized for discharge. All her home medications have been continued and examined this and has been admitted to that. PHYSICAL EXAM Constitutional: Obese female with Downs features and cognitive impairment 2/2 to down's. Awake and alert, NAD Respiratory: No use of accessory muscles. No wheezing appreciated. limited expiratory effort or inspiratory effort Cardiovascular: no m/g/r appreciated, no edema in lower extremities bilaterally Gastrointestinal: Abdomen is soft, obese, non distended, non tender Musculoskeletal: No joint deformities, no joint effusions Neurologic: difficult to assess 2/2 to cognitive impairment Skin: Warm,no cyanosis or clubbing Mediictations. As per discharge reconciliation medication list Activity as tolerated Diet. 2 g sodium diet Follow-up appointments. PCP in 1 week. Condition on discharge. Patient is medically optimized for discharge Discharge disposition: Home Total time spent on this discharge including coordination of care, review of chart documentation and actual patient contact is around 35 minutes Vital Signs/I&Os Vital Signs Date Time Temp Pulse Resp B/P (MAP) Pulse Ox O2 Delivery O2 Flow Rate FiO2 05/03/20 12:28 94 Room Air 05/03/20 09:47 3.0 05/03/20 04:00 98.1 59 20 117/58 (77) 45 I&O- Last 24 Hours up to 6 AM 05/03/20 06:00 Intake Total 490 ml Output Total 1525 ml Balance -1035 ml Microbiology Microbiology 04/26/20 Blood Culture - Final, Complete NO GROWTH AFTER 5 DAYS 04/26/20 Blood Culture - Final, Complete NO GROWTH AFTER 5 DAYS Discharge Medications Scheduled Ascorbic Acid (Vitamin C) 500 Mg Capsule.er, 500 MG PO DAILY, (Reported) Calcium Carbonate/Vitamin D3 (Calcium 600-Vit D3 400 Tablet) 1 Each Tablet, 1 TAB PO BID, (Reported) Carbamide Peroxide (Debrox) 15 Ml Drops, 4 AU ASDIRECTED, (Reported) FRI/SAT/SUN OF EACH MONTH Citalopram Hydrobromide (Citalopram HBr) 10 Mg Tablet, 10 MG PO DAILY, (Reported) Dexamethasone (Dexamethasone) 2 Mg Tablet, 2 MG PO DAILY Erythromycin Base (Erythromycin) 3.5 Gm Oint...g., 1 APLCT TOP QAM, (Reported) APPLY TO FACE Lactulose (Lactulose) 10 Gm/15 Ml Solution, 30 ML PO BID for constipation, (Reported) Levetiracetam (Keppra) 500 Mg Tablet, 500 MG PO BID, (Reported) Levothyroxine Sodium (Levothyroxine Sodium) 112 Mcg Tablet, 112 MCG PO QHS, (Reported) Linaclotide (Linzess) 290 Mcg Capsule, 290 MCG PO DAILY, (Reported) 30 min before meal Loratadine (Loratadine) 10 Mg Tab, 10 MG PO QHS, (Reported) Midodrine HCl (Midodrine HCl) 5 Mg Tab, 5 MG PO TID, (Reported) Multivitamins (Thera M Plus Tablet) 1 Tab Tab, 1 TAB PO DAILY, (Reported) Polyethylene Glycol 3350 (Miralax) 119 Gm Powder, 17 GRAM PO BID, (Reported) dissolve in water Quetiapine Fumarate (Seroquel) 200 Mg Tab, 400 MG PO QHS, (Reported) WITH 50MG FOR TOTAL DOSE 450MG QHS Quetiapine Fumarate (Seroquel) 200 Mg Tablet, 200 MG PO QAM, (Reported) Quetiapine Fumarate (Seroquel) 50 Mg Tablet, 50 MG PO QHS, (Reported) WITH 400MG FOR TOTAL DOSE 450MG Simvastatin (Simvastatin) 20 Mg Tab, 20 MG PO QHS, (Reported) Vits A and D/White Pet/Lanolin (A and D Ointment) 42.5 Gm Oint...g., 1 APLCT TOP BID, (Reported) APPLY TO FEET Scheduled PRN Acetaminophen (Acetaminophen) 325 Mg Tablet, 650 MG PO Q4H PRN for PAIN, (Rep orted) Allergies Coded Allergies: Penicillins (Verified Allergy, Unknown, RASH, 09/27/18) amoxicillin (Verified Allergy, Unknown, rash, 09/23/18) PRADIP HADDAD MD May 03, 2020 13:50
[2020-05-03] MEDS: LEVOTHYROXINE 112MCG TABLET (0.112MG) PO SCH (22:20)
[2020-05-03] MEDS: SIMVASTATIN 20 MG TAB PO SCH (22:20)
[2020-05-03] MEDS: LORATADINE 10 MG TAB PO SCH (22:21)
[2020-05-03] MEDS: QUEtiapine FUMARATE 50 MG TAB PO SCH (22:25)
[2020-05-04] VITALS: BP 93/55; O2SAT 93
[2020-05-04 04:00] VITALS: BP 100/57; O2SAT 92
[2020-05-04] MEDS ORDERED: LevoFLOXacin 750 MG TABLET PO SCH (06:00)
[2020-05-04 08:00] VITALS: BP 147/67
[2020-05-04] MEDS: MIRALAX *UNIT DOSE* 17GM PACKET PO SCH (09:00)
[2020-05-04] MEDS: CitaloPRAM (CeleXA) 10 MG TABLET PO SCH (10:40)
[2020-05-04] MEDS: levETIRAcetam 250MG TABLET (KEPPRA) PO SCH (10:40)
[2020-05-04] MEDS: QUEtiapine FUMARATE 200 MG TAB PO SCH (10:40)
[2020-05-04] MEDS: MIDODRINE 5 MG TAB PO SCH (10:40)
[2020-05-04] MEDS: PANTOPRAZOLE 40MG TAB (PROTONIX) PO SCH (10:40)
[2020-05-04] MEDS: LACTULOSE 20 GM/30 ML SYRUP UD PO SCH (10:41)
[2020-05-04] MEDS: ENOXAPARIN 40MG/0.4ML SYRINGE (J1650 PER 10MG) SC SCH (10:41)
--- NOTE | 2020-05-04 11:32 | DS.PDOC ---
Discharge Summary General Date of Admission Apr 26, 2020 at 06:09 Date of Discharge 05/04/20 Discharge Summary Chief complaints shortness of breath Final diagnosis Covid 19. Pneumonia Hypoxic respiratory failure History of present illness and Hospital course This is a 59 y/o female with Patient with a PMHx of down's syndrome, severe intellectual disability, Alzheimer's dementia, anxiety , depression, intermittent explosive behavior, HLD, Obesity, Chronic del toro, hypothyroid, was brought in by [facility] staff for sob and subjective fever of Tmax 104. 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 XR chest shows multilobar R upper lobe PNA. She is admitted for acute hypoxic respiratory failure [facility]. She's been afebrile and was slowly be weaned on FIO2 and maintaining saturations.. She was wean FIO2 and off of vapotherm and eventually she is on room air now. . She completed 5 days of March along with that she has been on dexamethasone as well. The patient will be getting 2 mg of dexamethasone for the next 4 days as well along with that. The patient completed the course of Levaquin but will be getting Augmentin 875 twice a day for the next 4 days. She is at her baseline home O2 and little tired, but she can go back to [facility] today. The patient is medically optimized for discharge. All her home medications have been continued and examined this and has been admitted to that. PHYSICAL EXAM Constitutional: Obese female with Downs features and cognitive impairment 2/2 to down's. Awake and alert, NAD Respiratory: No use of accessory muscles. No wheezing appreciated. limited expiratory effort or inspiratory effort Cardiovascular: no m/g/r appreciated, no edema in lower extremities bilaterally Gastrointestinal: Abdomen is soft, obese, non distended, non tender Musculoskeletal: No joint deformities, no joint effusions Neurologic: difficult to assess 2/2 to cognitive impairment Skin: Warm,no cyanosis or clubbing Mediictations. As per discharge reconciliation medication list Activity as tolerated Diet. 2 g sodium diet Follow-up appointments. PCP in 1 week. Condition on discharge. Patient is medically optimized for discharge Discharge disposition: Home Total time spent on this discharge including coordination of care, review of chart documentation and actual patient contact is around 35 minutes Vital Signs/I&Os Vital Signs Date Time Temp Pulse Resp B/P (MAP) Pulse Ox O2 Delivery O2 Flow Rate FiO2 05/04/20 08:00 97.1 70 19 147/67 (93) 96 Room Air 05/03/20 09:47 3.0 05/03/20 04:00 45 I&O- Last 24 Hours up to 6 AM 05/04/20 06:00 Intake Total 600 ml Output Total 0 ml Balance 600 ml Microbiology Microbiology 04/26/20 Blood Culture - Final, Complete NO GROWTH AFTER 5 DAYS 04/26/20 Blood Culture - Final, Complete NO GROWTH AFTER 5 DAYS Discharge Medications Scheduled Ascorbic Acid (Vitamin C) 500 Mg Capsule.er, 500 MG PO DAILY, (Reported) Calcium Carbonate/Vitamin D3 (Calcium 600-Vit D3 400 Tablet) 1 Each Tablet, 1 TAB PO BID, (Reported) Carbamide Peroxide (Debrox) 15 Ml Drops, 4 AU ASDIRECTED, (Reported) FRI/SAT/SUN OF EACH MONTH Citalopram Hydrobromide (Citalopram HBr) 10 Mg Tablet, 10 MG PO DAILY, (Reported) Dexamethasone (Dexamethasone) 2 Mg Tablet, 2 MG PO DAILY Erythromycin Base (Erythromycin) 3.5 Gm Oint...g., 1 APLCT TOP QAM, (Reported) APPLY TO FACE Lactulose (Lactulose) 10 Gm/15 Ml Solution, 30 ML PO BID for constipation, (Reported) Levetiracetam (Keppra) 500 Mg Tablet, 500 MG PO BID, (Reported) Levothyroxine Sodium (Levothyroxine Sodium) 112 Mcg Tablet, 112 MCG PO QHS, (Reported) Linaclotide (Linzess) 290 Mcg Capsule, 290 MCG PO DAILY, (Reported) 30 min before meal Loratadine (Loratadine) 10 Mg Tab, 10 MG PO QHS, (Reported) Midodrine HCl (Midodrine HCl) 5 Mg Tab, 5 MG PO TID, (Reported) Multivitamins (Thera M Plus Tablet) 1 Tab Tab, 1 TAB PO DAILY, (Reported) Polyethylene Glycol 3350 (Miralax) 119 Gm Powder, 17 GRAM PO BID, (Reported) dissolve in water Quetiapine Fumarate (Seroquel) 200 Mg Tab, 400 MG PO QHS, (Reported) WITH 50MG FOR TOTAL DOSE 450MG QHS Quetiapine Fumarate (Seroquel) 200 Mg Tablet, 200 MG PO QAM, (Reported) Quetiapine Fumarate (Seroquel) 50 Mg Tablet, 50 MG PO QHS, (Reported) WITH 400MG FOR TOTAL DOSE 450MG Simvastatin (Simvastatin) 20 Mg Tab, 20 MG PO QHS, (Reported) Vits A and D/White Pet/Lanolin (A and D Ointment) 42.5 Gm Oint...g., 1 APLCT TOP BID, (Reported) APPLY TO FEET Scheduled PRN Acetaminophen (Acetaminophen) 325 Mg Tablet, 650 MG PO Q4H PRN for PAIN, (Reported) Allergies Coded Allergies: Penicillins (Verified Allergy, Unknown, RASH, 09/27/18) amoxicillin (Verified Allergy, Unknown, rash, 09/23/18) PRADIP HADDAD MD May 04, 2020 11:32
== END 2020-05-04 12:23 | disposition home or self-care (01) | DRG 177 ==
LOC: M ED 03:56 → M ED INP 06:09 → ENRESERVTM 07:44 → ENRESERVDT 07:44 → M 4MAIN 12:56
PROVIDERS: ADMIT Family Medicine; ATTEND Internal Medicine
DX: U07.1 COVID-19 (principal); J96.01 Acute respiratory failure with hypoxia; J15.9 Unspecified bacterial pneumonia; J12.89 Other viral pneumonia; F72 Severe intellectual disabilities; Q90.9 Down syndrome, unspecified; I95.89 Other hypotension; E03.9 Hypothyroidism, unspecified; G30.9 Alzheimer's disease, unspecified; E66.9 Obesity, unspecified; F02.80 Dementia in other diseases classified elsewhere, unspecified severity, without behavioral disturbance, psychotic disturbance, mood disturbance, and anxiety; Z79.899 Other long term (current) drug therapy; Z88.0 Allergy status to penicillin; M81.0 Age-related osteoporosis without current pathological fracture; Z86.73 Personal history of transient ischemic attack (TIA), and cerebral infarction without residual deficits; F32.9 Major depressive disorder, single episode, unspecified; F41.9 Anxiety disorder, unspecified; K59.00 Constipation, unspecified; E78.5 Hyperlipidemia, unspecified; Z68.39 Body mass index [BMI] 39.0-39.9, adult

== ENCOUNTER 2020-07-16 10:10 | Inpatient (IN) | payer MEDICARE, MEDICAID ==
[~2020-07-16] VITALS: Ht 132.1 cm; Wt 65.9 kg
[~2020-07-16 10:10] MED LIST changes: +DEXA2TA PO; -VITA-157 PO; +VITAE40CA PO
[2020-07-16] MEDS ORDERED: LevoFLOXacin IV 750 MG in IV 1 EA IV ONE (10:30)
[2020-07-16] MEDS ORDERED: NS 2,000 ML in IV 1 EA IV ONE (10:30)
[2020-07-16] MEDS ORDERED: ACETAMINOPHEN 500 MG TAB PO ONE (10:30)
[2020-07-16 10:50] LABS: HEMATOCRIT 37.2 % (36.0-47.0); HEMOGLOBIN 12.1 g/dl (12.0-15.5); MEAN CORPUSCULAR HGB CONC 32.5 g/dl (32.0-36.5); MEAN CORPUSCULAR VOLUME 95.4 fl (80.0-96.0); PLATELET COUNT, AUTOMATED 240 10^3/uL (150-450); WHITE BLOOD COUNT 6.1 10^3/uL (4.0-10.0)
--- NOTE | 2020-07-16 10:51 | REP ---
INDICATION: Altered Mental Status. COMPARISON: Comparison chest x-ray 26 April 2020. TECHNIQUE: Portable upright AP chest radiograph. FINDINGS: There is a moderate dextroconvex thoracic scoliotic curve again noted unchanged. Cardiomegaly is observed unchanged. There is some persistent infiltrate in the right upper lobe although this is improved from the April 26, 2020 study. Increased density is seen in the left lower lobe today consistent with left lower lobe infiltrate. Pleural angles are sharp. Pulmonary vasculature is not increased.. IMPRESSION: Infiltrates are seen in the right upper lobe and left lower lobe. The right upper lobe infiltrate is improved from the most recent prior study in the left lower lobe disease appears to be new.. <Electronically signed by Kain Hoang > 07/16/20 [id number]
[2020-07-16 11:06] LABS: ABG BASE EXCESS -1.9 (-2.0-2.0); ABG HCO3 22.4 MEQ/L (22.0-26.0); ABG O2 SATURATION 99.3 % (95.0-99.0); ABG PARTIAL PRESSURE CO2 36.4 mmHg (35.0-45.0); ABG PARTIAL PRESSURE O2 145.7 mmHg (75.0-100.0); ABG STANDARD HCO3 22.9 MEQ/L (22.0-26.0); ABG TOTAL CO2 23.5 MEQ/L (22.0-29.0); ABG pH (ARTERIAL) 7.407 UNITS (7.350-7.450)
[2020-07-16 11:12] LABS: ATYPICAL LYMPH 3 % (0-5); BASOPHILS 1 % (0-1); LYMPHOCYTES 12 % (16-44); MONOCYTES 7 % (0-5); NEUTROPHILS 56 % (28-66); PLATELET ESTIMATE NORMAL (NORMAL)
[2020-07-16 11:22] LABS: ALT/SGPT 9 U/L (12-78); BILIRUBIN,DIRECT 0.1 MG/DL (0.0-0.2); BILIRUBIN,TOTAL 0.3 MG/DL (0.2-1.0); CK-MB VALUE MASS < 1.0 NG/ML (<3.6); CPK CREATINE PHOSPHOKINASE 35 U/L (26-192); MB/CK RELATIVE INDEX 2.86 (< OR =4); TOTAL PROTEIN 7.2 GM/DL (6.4-8.2); TROPONIN I < 0.02 NG/ML (< 0.10)
--- NOTE | 2020-07-16 11:37 | REP ---
INDICATION: Altered Mental Status. COMPARISON: None. TECHNIQUE: CT BRAIN PERFORMED IN THE AXIAL PLANE. CORONAL RECONSTRUCTION IMAGES ARE PERFORMED. FINDINGS: There is stable atrophy and mild periventricular small vessel ischemic change. There is no acute intracranial hemorrhage or extra-axial fluid collection. There is no midline shift or mass effect. Bone window examination is unremarkable. IMPRESSION: Stable atrophic change. No acute findings intracranially. <Electronically signed by Tello Jaime > 07/16/20 [id number]
[2020-07-16] MEDS ORDERED: DOCU100C17 PO (11:44)
[2020-07-16] MEDS ORDERED: DESI13CR2 TOP (11:44)
[2020-07-16] MEDS ORDERED: LEVE750T5 PO (11:44)
[2020-07-16 12:12] LABS: BLOOD UREA NITROGEN 18 MG/DL (7-18); CARBON DIOXIDE LEVEL 24 MEQ/L (21-32); CHLORIDE LEVEL 105 MEQ/L (98-107); CREATININE FOR GFR 1.36 MG/DL (0.55-1.30); GLOMERULAR FILTRATION RATE 42.5 (>51); GLUCOSE, FASTING 167 MG/DL (70-100); POTASSIUM SERUM 4.3 MEQ/L (3.5-5.1); SODIUM LEVEL 138 MEQ/L (136-145)
[2020-07-16 12:13] LABS: CALCIUM LEVEL 8.6 MG/DL (8.5-10.1)
[2020-07-16 12:19] LABS: OSMOLALITY SERUM 294 MOSM/KG (275-295)
--- NOTE | 2020-07-16 17:20 | HPEPDOC ---
General Date of Admission 07/16/20 Date of Service: Jul 16, 2020 Chief Complaint The patient is a 59-year-old female admitted with a reason for visit of Weakness. Source: RN/, [facility] Caregiver/Aid History of Present Illness 59 year old female a [facility] resident with Downs syndrome, severe intellectual disability, Alzheimer's dementia, anxiety , depression, intermittent explosive behavior, HLD, Obesity, Urinary incontinence, chronic urinary obstruction, hypothyroid, was brought in by [facility] staff as this morning because she was less responsive and less active than usual. She was whining and was refusing to eat. She did have some symptoms yesterday but not as bad as today. SHe was too weak to get out of bed. At baseline she feeds herself her meals, she walks by herself without any assitive device. She follows commands though slow to respond and is re directable. In the ED she she was noted to be hypoxic on arrival to 85% to 86% in room air and she was febrile to 102. All history taken from [facility] staff at bedside. No noted fever before coming to the ED, no vomiting or diarrhea. Slept well last night. CXR showed Infiltrates are seen in the right upper lobe and left lower lobe. The right upper lobe infiltrate is improved from the most recent prior study in the left lower lobe disease appears to be new. She was admitted for left lower lobe pneumonia. Home Medications Scheduled Calcium Carbonate/Vitamin D3 (Calcium 600-Vit D3 400 Tablet) 1 Each Tablet, 1 TAB PO BID, (Reported) Carbamide Peroxide (Debrox) 15 Ml Drops, 4 AU ASDIRECTED, (Reported) FRI/SAT/SUN OF EACH MONTH Citalopram Hydrobromide (Citalopram HBr) 10 Mg Tablet, 10 MG PO DAILY, (Reported) Docusate Sodium (Docusate Sodium) 100 Mg Capsule, 100 MG PO BID, (Reported) Erythromycin Base (Erythromycin) 3.5 Gm Oint...g., 1 APLCT TOP QAM, (Reported) APPLY TO FACE Lactulose (Lactulose) 10 Gm/15 Ml Solution, 30 ML PO BID for constipation, (Reported) Levetiracetam (Levetiracetam) 750 Mg Tablet, 750 MG PO BID, (Reported) Levothyroxine Sodium (Levothyroxine Sodium) 112 Mcg Tablet, 112 MCG PO QHS, (Reported) Linaclotide (Linzess) 290 Mcg Capsule, 290 MCG PO DAILY, (Reported) 30 min before meal Loratadine (Loratadine) 10 Mg Tab, 10 MG PO QHS, (Reported) Midodrine HCl (Midodrine HCl) 5 Mg Tab, 5 MG PO TID, (Reported) TAKES AT 0600/1600/2000 Multivitamins (Thera M Plus Tablet) 1 Tab Tab, 1 TAB PO DAILY, (Reported) Polyethylene Glycol 3350 (Miralax) 119 Gm Powder, 17 GRAM PO BID, (Reported) dissolve in water Quetiapine Fumarate (Seroquel) 200 Mg Tab, 400 MG PO QHS, (Reported) WITH 50MG FOR TOTAL DOSE 450MG QHS Quetiapine Fumarate (Seroquel) 200 Mg Tablet, 200 MG PO QAM, (Reported) Quetiapine Fumarate (Seroquel) 50 Mg Tablet, 50 MG PO QHS, (Reported) WITH 400MG FOR TOTAL DOSE 450MG Simvastatin (Simvastatin) 20 Mg Tab, 20 MG PO QHS, (Reported) Vits A and D/White Pet/Lanolin (A and D Ointment) 42.5 Gm Oint...g., 1 APLCT TOP BID, (Reported) APPLY TO FEET Zinc Oxide (Desitin) 454 Gm Cream..g., 1 APLCT TOP QHS, (Reported) APPLY OVER ERYTHROMYCIN AROUND MOUTH/NOSE Scheduled PRN Acetaminophen (Acetaminophen) 325 Mg Tablet, 650 MG PO Q4H PRN for PAIN, (Reported) Allergies Coded Allergies: Penicillins (Verified Allergy, Unknown, RASH, 09/27/18) amoxicillin (Verified Allergy, Unknown, rash, 09/23/18) Past Medical History Medical History COVID 19. Pneumonia in Apr 2020 with Hypoxic respiratory failure Severe intellectual disability. Intermittent explosive disorder. 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 DOWN'S SYNDROME with Severe intellectual disability. DEPRESSION ANXIETY HYPOTHYROIDISM SEASONAL ALLERGIES OSTEOPOROSIS OBESITY HYPERCHOLESTEROLEMIA CHRONIC HYPOTENSION MRSA RIGHT INDEX FINGER 01/24/2006 HYDRONEPHROSIS, RIGHT URINARY OUTFLOW OBSTRUCTION h/o Perioral dermatitis Melanocytic Nevi at different parts. Obesity: BMI of 38.0 Surgical History LAPAROSCOPY/HERNIA REPAIR 1963 HERNIA [id number] BOWEL OBSTRUCTION SURGERY in 2016 Family History FAMILY HISTORY IS UNKNOWN. As per [facility] staff has 1 brother Social History * Smoker: Denies Alcohol: Denies Drugs: denies A-FIB/CHADSVASC A-FIB History Current/History of A-Fib/PAF?: No Review of Systems Other systems See HPI Physical Examination General Exam: Positive: No Acute Distress, Other (somnolent but easily arousable. ) Eye Exam: Positive: PERRLA, Conjunctiva & lids normal, EOMI; Negative: Sclera icteric Neck Exam: Positive: Supple; Negative: JVD, thyromegaly Chest Exam: Positive: Clear to auscultation, Normal air movement Heart Exam: Positive: Rate Normal, Regular Rhythm, Normal S1, Normal S2; Negative: Murmurs, Rubs Telemetry: Positive: Sinus Abdomen Exam: Positive: Normal bowel sounds, Soft; Negative: Tenderness, Hepatospenomegaly Extremity Exam: Negative: Clubbing, Cyanosis, Edema Vital Signs Vital Signs Date Time Temp Pulse Resp B/P (MAP) Pulse Ox O2 Delivery O2 Flow Rate FiO2 07/16/20 11:04 07/16/20 11:04 2.0 07/16/20 10:10 99.8 85 24 85 Room Air Laboratory Data Labs 24H Laboratory Tests 2 07/16/20 10:34: Anion Gap 9, Glomerular Filtration Rate 42.5L, Osmolality 294, Lactic Acid Level 2.3*H, Calcium Level 8.6, Total Bilirubin 0.3, Direct Bilirubin 0.1, Aspartate Amino Transf (AST/SGOT) 15, Alanine Aminotransferase (ALT/SGPT) 9L, Alkaline Phosphatase 81, Ammonia 13, Total Creatine Kinase 35, Creatine Kinase MB < 1.0, Creatine Kinase MB Relative Index 2.86, Troponin I < 0.02, Total Protein 7.2, Albumin 3.0L, Albumin/Globulin Ratio 0.7L, Thyroid Stimulating Hormone (TSH) 5.160H 07/16/20 10:35: Neutrophils (%) (Auto) , Nucleated Red Blood Cells % (auto) 0.0, Neutrophils 56, Band Neutrophils 21H, Lymphocytes (Manual) 12L, Monocytes (Manual) 7H, Basophils (Manual) 1, Atypical Lymphocytes 3, Platelet Estimate NORMAL 07/16/20 10:58: Blood Gas Bicarbonate Standard 22.9, Arterial Blood pH 7.407, Arterial Blood Partial Pressure CO2 36.4, Arterial Blood Partial Pressure O2 145.7H, Arterial Blood Total CO2 23.5, Arterial Blood HCO3 22.4, Arterial Blood Base Excess -1.9, Arterial Blood Oxygen Saturation 99.3H CBC/BMP Laboratory Tests 07/16/20 10:34 07/16/20 10:35 Microbiology Microbiology 07/16/20 Respiratory Virus Panel (PCR) ([facility]), Received Pending 07/16/20 Blood Culture, Received Pending 07/16/20 Blood Culture, Received Pending Assessment/Plan 59 year old female a [facility] resident with Downs syndrome, severe intellectual disability, Alzheimer's dementia, anxiety , depression, intermittent explosive behavior, HLD, Obesity, Urinary incontinence, chronic urinary obstruction, hypothyroid, was brought in by [facility] staff as this morning because she was less responsive and less active than usual. She was whining and was refusing to eat. She did have some symptoms yesterday but not as bad as today. SHe was too weak to get out of bed. At baseline she feeds herself her meals, she walks by herself without any assitive device. SHe follows commands though slow to respond and is re directable. In the ED she she was noted to be hypoxic on arrival to 85% to 86% in room air and she was febrile to 102. CXR showed Infiltrates are seen in the right upper lobe and left lower lobe. The right upper lobe infiltrate is improved from the most recent prior study in the left lower lobe disease appears to be new. She was admitted for left lower lobe pneumonia. Left lower lobe pneumonia will give levofloxacin cultures sent will send urine also has h/o urinary retention, she needs to be taken to the bathroom at timed intervals of 2 to 3 hours otherwise is incontinent. Hypoxia needing 2 liters of oxygen May be due to the pneumonia however may also have underlying undiagnosed VALE with BMI of 38.0 so when she is lethargic may become hypoxic. 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 continue outpatient medications H/o chronic severe consitpation will continue outpatient bowel regimen. had a good bowel movement on 07/15/20 DERIAN ARZOLA MD Jul 16, 2020 12:46
[2020-07-16] MEDS: MIDODRINE 5 MG TAB PO SCH ×2 (17:31→20:14)
[2020-07-16 18:00] VITALS: BP 102/58
[2020-07-16] MEDS: levETIRAcetam 250MG TABLET (KEPPRA) PO SCH (20:13)
[2020-07-16] MEDS: LEVOTHYROXINE 112MCG TABLET (0.112MG) PO SCH (20:13)
[2020-07-16] MEDS: LACTULOSE 20 GM/30 ML SYRUP UD PO SCH (20:14)
[2020-07-16] MEDS: DOCUSATE SODIUM 100MG CAPSULE PO SCH (20:14)
[2020-07-16] MEDS: QUEtiapine FUMARATE 200 MG TAB PO SCH (21:00)
[2020-07-16] MEDS: QUEtiapine FUMARATE 50MG TAB PO SCH (21:00)
[2020-07-16] MEDS: MIRALAX *UNIT DOSE* 17GM PACKET PO SCH ×2 (21:00→22:32)
[2020-07-16 22:00] VITALS: BP 98/56
--- NOTE | 2020-07-16 22:19 | ECGEPIP ---
[facility] - ED Test Date: 2020-07-16 Pat Name: TABBY CHI Department: Room: - Gender: Female Director Information: NATO : 1960 Requested By: Ernestina Ibrahim Order Number: [id number] Reading MD: Gaurav Garcia Measurements Intervals [place] Rate: 82 P: 27 [place]: QRS: 4 QRSD: 72 T: 32 QT: 348 QTc: 406 Interpretive Statements Undetermined rhythm as there are beats with variable pr intervals and beats w without p waves previous tracing was sinus on 04-26-20 Electronically Signed on 07-16-2020 22:19:19 EDT by Gaurav Garcia
[2020-07-17] MEDS: MIDODRINE 5 MG TAB PO SCH ×3 (05:59→17:03)
[2020-07-17 06:00] VITALS: BP 104/53
[2020-07-17 06:42] LABS: HEMATOCRIT 32.4 % (36.0-47.0); HEMOGLOBIN 10.3 g/dl (12.0-15.5); MEAN CORPUSCULAR HEMOGLOBIN 30.6 pg (27.0-33.0); MEAN CORPUSCULAR HGB CONC 31.8 g/dl (32.0-36.5); MEAN CORPUSCULAR VOLUME 96.1 fl (80.0-96.0); PLATELET COUNT, AUTOMATED 210 10^3/uL (150-450); RED BLOOD COUNT 3.37 10^6/uL (4.00-5.40); WHITE BLOOD COUNT 4.3 10^3/uL (4.0-10.0)
[2020-07-17 06:48] LABS: ATYPICAL LYMPH 2 % (0-5); EOSINOPHILS 3 % (0-3); LYMPHOCYTES 12 % (16-44); MONOCYTES 5 % (0-5); NEUTROPHILS 78 % (28-66)
[2020-07-17 06:49] LABS: ANISOCYTOSIS 1+; PLATELET ESTIMATE NORMAL (NORMAL); POLYCHROMASIA 1+
[2020-07-17 06:58] LABS: BLOOD UREA NITROGEN 11 MG/DL (7-18); CALCIUM LEVEL 7.9 MG/DL (8.5-10.1); CARBON DIOXIDE LEVEL 27 MEQ/L (21-32); CHLORIDE LEVEL 109 MEQ/L (98-107); CREATININE FOR GFR 0.64 MG/DL (0.55-1.30); GLOMERULAR FILTRATION RATE > 60.0 (>51); GLUCOSE, FASTING 87 MG/DL (70-100); POTASSIUM SERUM 3.3 MEQ/L (3.5-5.1); SODIUM LEVEL 140 MEQ/L (136-145)
[2020-07-17] MEDS: QUEtiapine FUMARATE 200 MG TAB PO SCH ×2 (09:00→20:21)
[2020-07-17] MEDS ORDERED: POTASSIUM CHLORIDE 10 MEQ SR TABLET PO ONE (09:00)
[2020-07-17] MEDS: levETIRAcetam 250MG TABLET (KEPPRA) PO SCH ×2 (09:39→20:21)
[2020-07-17] MEDS: ENOXAPARIN 30MG/0.3ML SYRINGE (J1650 PER 10MG) SC SCH (09:39)
[2020-07-17] MEDS: MIRALAX *UNIT DOSE* 17GM PACKET PO SCH ×2 (09:39→20:21)
[2020-07-17] MEDS: CitaloPRAM (CeleXA) 10 MG TABLET PO SCH (09:39)
[2020-07-17] MEDS: LACTULOSE 20 GM/30 ML SYRUP UD PO SCH ×2 (09:39→20:21)
[2020-07-17] MEDS: DOCUSATE SODIUM 100MG CAPSULE PO SCH ×2 (09:39→20:22)
[2020-07-17 14:00] VITALS: BP 117/84
--- NOTE | 2020-07-17 14:23 | IPNPDOC ---
Subjective Date Seen The patient was seen on 07/17/20. Subjective Chief Complaint/HPI Awake , alert, cooperative and talking, very pleasant and childlike. Did not offer any complaints . Had some breakfast. Objective Physical Examination General Exam: Positive: Alert, Cooperative, No Acute Distress Eye Exam: Positive: PERRLA, Conjunctiva & lids normal, EOMI; Negative: Sclera icteric Neck Exam: Positive: Supple; Negative: JVD, thyromegaly Chest Exam: Positive: Clear to auscultation, Normal air movement Heart Exam: Positive: Rate Normal, Regular Rhythm, Normal S1, Normal S2; Negative: Murmurs, Rubs Telemetry: Positive: Sinus Abdomen Exam: Positive: Normal bowel sounds, Soft; Negative: Tenderness, Hepatospenomegaly Extremity Exam: Negative: Clubbing, Cyanosis, Edema Assessment /Plan Assessment 59 year old female a [facility] resident with Downs syndrome, severe intellectual disability, Alzheimer's dementia, anxiety , depression, intermittent explosive behavior, HLD, Obesity, Urinary incontinence, chronic urinary obstruction, hypothyroid, was brought in by [facility] staff as this morning because she was less responsive and less active than usual. She was whining and was refusing to eat. She did have some symptoms yesterday but not as bad as today. SHe was too weak to get out of bed. At baseline she feeds herself her meals, she walks by herself without any assitive device. SHe follows commands though slow to respond and is re directable. In the ED she she was noted to be hypoxic on arrival to 85% to 86% in room air and she was febrile to 102. CXR showed Infiltrates are seen in the right upper lobe and left lower lobe. The right upper lobe infiltrate is improved from the most recent prior study in the left lower lobe disease appears to be new. She was admitted for left lower lobe pneumonia. Left lower lobe pneumonia On levofloxacin cultures negative till date UA clean. Acute respiratory failure with Hypoxia RR was 24, Spo2 was 83% to 85% in room air on arrival to ED. On 2 liters of oxygen May be due to the pneumonia however may also have underlying undiagnosed VLAE with BMI of 38.0 so when she is lethargic may become hypoxic. will try to wean oxygen. 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 continue outpatient medications H/o chronic severe constipation will continue outpatient bowel regimen. had a good bowel movement on 07/15/20 h/o urinary retention, she needs to be taken to the bathroom at timed intervals of 2 to 3 hours otherwise is incontinent. VS, I&O, 24H, Fishbone Vital Signs/I&O Vital Signs Date Time Temp Pulse Resp B/P (MAP) Pulse Ox O2 Delivery O2 Flow Rate FiO2 07/17/20 09:48 2.0 07/17/20 06:00 97.0 68 18 104/53 (70) 97 Nasal Cannula I&O- Last 24 Hours up to 6 AM 07/17/20 06:00 Intake Total 2450 ml Balance 2450 ml Laboratory Data 24H LABS Laboratory Tests 2 07/16/20 15:39: Lactic Acid Followup at 4 Hours 0.8 07/17/20 05:58: Neutrophils (%) (Auto) , Nucleated Red Blood Cells % (auto) 0.0, Neutrophils 78H, Lymphocytes (Manual) 12L, Monocytes (Manual) 5, Eosinophils (Manual) 3, Atypical Lymphocytes 2, Polychromasia 1+, Anisocytosis 1+, Platelet Estimate NORMAL, Anion Gap 4L, Glomerular Filtration Rate > 60.0, Calcium Level 7.9L 07/17/20 06:02: Urine Color YELLOW, Urine Appearance HAZY, Urine pH 6.0, Urine Specific [place] 1.019, Urine Protein NEGATIVE, Urine Glucose (UA) NEGATIVE, Urine Ketones NEGATIVE, Urine Blood NEGATIVE, Urine Nitrite NEGATIVE, Urine Bilirubin NEGATIVE, Urine Urobilinogen 0.2, Urine Leukocyte Esterase NEGATIVE, Urine WBC (Auto) 1, Urine RBC (Auto) 1, Urine Hyaline Casts (Auto) 0, Urine Bacteria (Auto) NEGATIVE, Urine Squamous Epithelial Cells 0, Urine Sperm (Auto) CBC/BMP Laboratory Tests 07/17/20 05:58 Microbiology Microbiology 07/16/20 Respiratory Virus Panel (PCR) (BRUNO) - Final, Complete 07/16/20 Blood Culture - Preliminary, Resulted No growth after 24 hours . All specim... 07/16/20 Blood Culture - Preliminary, Resulted No growth after 24 hours . All specim... DERIAN ARZOLA MD Jul 17, 2020 14:23
[2020-07-17] MEDS: NYSTATIN 100,000 UNITS/GM TOPICAL PWD 15 GM TOP PRN (14:39)
[2020-07-17] MEDS: QUEtiapine FUMARATE 50MG TAB PO SCH (20:21)
[2020-07-17] MEDS: LEVOTHYROXINE 112MCG TABLET (0.112MG) PO SCH (20:25)
[2020-07-17 22:00] VITALS: BP 119/83
[2020-07-18 06:00] VITALS: BP 97/59
[2020-07-18 06:28] LABS: HEMATOCRIT 30.6 % (36.0-47.0); MEAN CORPUSCULAR HEMOGLOBIN 30.9 pg (27.0-33.0); MEAN CORPUSCULAR HGB CONC 32.7 g/dl (32.0-36.5); MEAN CORPUSCULAR VOLUME 94.4 fl (80.0-96.0); PLATELET COUNT, AUTOMATED 240 10^3/uL (150-450); RED BLOOD COUNT 3.24 10^6/uL (4.00-5.40)
[2020-07-18] MEDS: MIDODRINE 5 MG TAB PO SCH ×3 (06:33→18:00)
[2020-07-18 06:36] LABS: ATYPICAL LYMPH 5 % (0-5); EOSINOPHILS 1 % (0-3); LYMPHOCYTES 28 % (16-44); MONOCYTES 7 % (0-5); NEUTROPHILS 59 % (28-66); PLATELET CLUMPS SMALL AMT; PLATELET ESTIMATE NORMAL (NORMAL); POLYCHROMASIA 1+
[2020-07-18] MEDS ORDERED: LEVO750T13 PO (06:50)
[2020-07-18 07:09] LABS: BLOOD UREA NITROGEN 8 MG/DL (7-18); CALCIUM LEVEL 8.1 MG/DL (8.5-10.1); CARBON DIOXIDE LEVEL 29 MEQ/L (21-32); CHLORIDE LEVEL 111 MEQ/L (98-107); CREATININE FOR GFR 0.64 MG/DL (0.55-1.30); GLOMERULAR FILTRATION RATE > 60.0 (>51); GLUCOSE, FASTING 90 MG/DL (70-100); POTASSIUM SERUM 3.8 MEQ/L (3.5-5.1); SODIUM LEVEL 143 MEQ/L (136-145)
[2020-07-18] MEDS: DOCUSATE SODIUM 100MG CAPSULE PO SCH (08:07)
[2020-07-18] MEDS: CitaloPRAM (CeleXA) 10 MG TABLET PO SCH (08:07)
[2020-07-18] MEDS: QUEtiapine FUMARATE 200 MG TAB PO SCH (08:07)
[2020-07-18] MEDS: ENOXAPARIN 30MG/0.3ML SYRINGE (J1650 PER 10MG) SC SCH (08:07)
[2020-07-18] MEDS: levETIRAcetam 250MG TABLET (KEPPRA) PO SCH (08:07)
[2020-07-18] MEDS: MIRALAX *UNIT DOSE* 17GM PACKET PO SCH (08:07)
[2020-07-18] MEDS: LACTULOSE 20 GM/30 ML SYRUP UD PO SCH (08:07)
[2020-07-18] MEDS: NYSTATIN 100,000 UNITS/GM TOPICAL PWD 15 GM TOP PRN (08:08)
[2020-07-18] MEDS ORDERED: LevoFLOXacin IV 750 MG in IV 1 EA IV SCH ×2 (09:00→11:00)
--- NOTE | 2020-07-18 17:45 | DS.PDOC ---
Discharge Summary General Date of Admission Jul 16, 2020 at 14:36 Date of Discharge 07/18/20 Discharge Summary PROCEDURES PERFORMED DURING STAY: [None]. DISCHARGE DIAGNOSES: Left lower lobe pneumonia Acute respiratory failure with hypoxia SECONDARY DIAGNOSIS: COVID 19. Pneumonia in Apr 2020 with Hypoxic respiratory failure Severe intellectual disability. Intermittent explosive disorder. 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 DOWN'S SYNDROME with Severe intellectual disability. DEPRESSION ANXIETY HYPOTHYROIDISM SEASONAL ALLERGIES OSTEOPOROSIS HYPERCHOLESTEROLEMIA CHRONIC HYPOTENSION HYDRONEPHROSIS, RIGHT URINARY OUTFLOW OBSTRUCTION Chronic constipation h/o Perioral dermatitis Melanocytic Nevi at different parts. Obesity: BMI of 38.0 LAPAROSCOPY/HERNIA REPAIR 1962 HERNIA [id number] BOWEL OBSTRUCTION SURGERY in 2016 COMPLICATIONS/CHIEF COMPLAINT: Acute Respiratory Failure With Hypoxia,Pneumonia. HOSPITAL COURSE: 59 year old female a [facility] resident with Downs syndrome, severe intellectual disability, Alzheimer's dementia, anxiety , depression, intermittent explosive behavior, HLD, Obesity, Urinary incontinence, chronic urinary obstruction, hypothyroid, was brought in by [facility] staff as this morning because she was less responsive and less active than usual. She was whining and was refusing to eat. She did have some symptoms yesterday but not as bad as today. SHe was too weak to get out of bed. At baseline she feeds herself her meals, she walks by herself without any assitive device. SHe follows commands though slow to respond and is re directable. In the ED she she was noted to be hypoxic on arrival to 85% to 86% in room air and she was febrile to 102. CXR showed Infiltrates are seen in the right upper lobe and left lower lobe. The right upper lobe infiltrate is improved from the most recent prior study in the left lower lobe disease appears to be new. She was admitted for left lower lobe pneumonia. Left lower lobe pneumonia On levofloxacin cultures negative till date UA clean. Acute respiratory failure with Hypoxia May be due to the pneumonia however may also have underlying undiagnosed VALE with BMI of 38.0 so when she is lethargic may become hypoxic. 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 continue outpatient medications H/o chronic severe constipation will continue outpatient bowel regimen. had a good bowel movement on 07/15/20 h/o urinary retention, she needs to be taken to the bathroom at timed intervals of 2 to 3 hours otherwise is incontinent. DISCHARGE MEDICATIONS: Please see below. ALLERGIES: Please see below. PHYSICAL EXAMINATION ON DISCHARGE: VITAL SIGNS: Please see below. General Exam: Positive: Alert, Cooperative, No Acute Distress Eye Exam: Positive: PERRLA, Conjunctiva & lids normal, EOMI; Negative: Sclera icteric Neck Exam: Positive: Supple; Negative: JVD, thyromegaly Chest Exam: Positive: Clear to auscultation, Normal air movement Heart Exam: Positive: Rate Normal, Regular Rhythm, Normal S1, Normal S2; Negative: Murmurs, Rubs Telemetry: Positive: Sinus Abdomen Exam: Positive: Normal bowel sounds, Soft; Negative: Tenderness, Hepatosplenomegaly Extremity Exam: Negative: Clubbing, Cyanosis, Edema LABORATORY DATA: Please see below. IMAGING: CXR: Infiltrates are seen in the right upper lobe and left lower lobe. The right upper lobe infiltrate is improved from the most recent prior study in the left lower lobe disease appears to be new.. ACTIVITY: [As tolerated]. DIET: As tolerated DISCHARGE PLAN: [facility] DISCHARGE INSTRUCTIONS: Follow up with PMD DISCHARGE CONDITION: [Stable]. TIME SPENT ON DISCHARGE: 35 minutes. Vital Signs/I&Os Vital Signs Date Time Temp Pulse Resp B/P (MAP) Pulse Ox O2 Delivery O2 Flow Rate FiO2 07/18/20 08:27 17 94 Room Air 07/18/20 06:00 97.3 82 97/59 (72) 07/17/20 20:30 I&O- Last 24 Hours up to 6 AM 07/18/20 07:00 Intake Total 570 ml Balance 570 ml Laboratory Data Labs 24H Laboratory Tests 2 07/18/20 06:07: Neutrophils (%) (Auto) , Nucleated Red Blood Cells % (auto) 0.0, Neutrophils 59, Lymphocytes (Manual) 28, Monocytes (Manual) 7H, Eosinophils (Manual) 1, Atypical Lymphocytes 5, Polychromasia 1+, Platelet Estimate NORMAL, Clumped Platelets SMALL AMT, Anion Gap 3L, Glomerular Filtration Rate > 60.0, Calcium Level 8.1L CBC/BMP Laboratory Tests 07/18/20 06:07 Microbiology Microbiology 07/16/20 Respiratory Virus Panel (PCR) (BRUNO) - Final, Complete 07/16/20 Blood Culture - Preliminary, Resulted No Growth after 48 hours. All Specime... 07/16/20 Blood Culture - Preliminary, Resulted No Growth after 48 hours. All Specime... Discharge Medications Scheduled Calcium Carbonate/Vitamin D3 (Calcium 600-Vit D3 400 Tablet) 1 Each Tablet, 1 TAB PO BID, (Reported) Carbamide Peroxide (Debrox) 15 Ml Drops, 4 AU ASDIRECTED, (Reported) FRI/SAT/SUN OF EACH MONTH Citalopram Hydrobromide (Citalopram HBr) 10 Mg Tablet, 10 MG PO DAILY, (Reported) Docusate Sodium (Docusate Sodium) 100 Mg Capsule, 100 MG PO BID, (Reported) Erythromycin Base (Erythromycin) 3.5 Gm Oint...g., 1 APLCT TOP QAM, (Reported) APPLY TO FACE Lactulose (Lactulose) 10 Gm/15 Ml Solution, 30 ML PO BID for constipation, (Reported) Levetiracetam (Levetiracetam) 750 Mg Tablet, 750 MG PO BID, (Reported) Levofloxacin (Levofloxacin) 750 Mg Tablet, 750 MG PO Q48H start On 07/20 Levothyroxine Sodium (Levothyroxine Sodium) 112 Mcg Tablet, 112 MCG PO QHS, (Reported) Linaclotide (Linzess) 290 Mcg Capsule, 290 MCG PO DAILY, (Reported) 30 min before meal Loratadine (Loratadine) 10 Mg Tab, 10 MG PO QHS, (Reported) Midodrine HCl (Midodrine HCl) 5 Mg Tab, 5 MG PO TID, (Reported) TAKES AT 0600/1600/2000 Multivitamins (Thera M Plus Tablet) 1 Tab Tab, 1 TAB PO DAILY, (Reported) Polyethylene Glycol 3350 (Miralax) 119 Gm Powder, 17 GRAM PO BID, (Reported) dissolve in water Quetiapine Fumarate (Seroquel) 200 Mg Tab, 400 MG PO QHS, (Reported) WITH 50MG FOR TOTAL DOSE 450MG QHS Quetiapine Fumarate (Seroquel) 200 Mg Tablet, 200 MG PO QAM, (Reported) Quetiapine Fumarate (Seroquel) 50 Mg Tablet, 50 MG PO QHS, (Reported) WITH 400MG FOR TOTAL DOSE 450MG Simvastatin (Simvastatin) 20 Mg Tab, 20 MG PO QHS, (Reported) Vits A and D/White Pet/Lanolin (A and D Ointment) 42.5 Gm Oint...g., 1 APLCT TOP BID, (Reported) APPLY TO FEET Zinc Oxide (Desitin) 454 Gm Cream..g., 1 APLCT TOP QHS, (Reported) APPLY OVER ERYTHROMYCIN AROUND MOUTH/NOSE Scheduled PRN Acetaminophen (Acetaminophen) 325 Mg Tablet, 650 MG PO Q4H PRN for PAIN, (Reported) Allergies Coded Allergies: Penicillins (Verified Allergy, Unknown, RASH, 09/27/18) amoxicillin (Verified Allergy, Unknown, rash, 09/23/18) DERIAN ARZOLA MD Jul 18, 2020 17:45
[2020-07-18] MEDS ORDERED: MIDODRINE 2.5 MG TAB PO SCH (18:22)
== END 2020-07-18 18:35 | disposition home or self-care (01) | DRG 193 ==
LOC: M ED 10:10 → M ED INP 14:36 → M MSPAV 16:43
PROVIDERS: ADMIT Internal Medicine Nephrology; ATTEND Internal Medicine Nephrology
DX: J18.9 Pneumonia, unspecified organism (principal); J96.01 Acute respiratory failure with hypoxia; N13.30 Unspecified hydronephrosis; F72 Severe intellectual disabilities; E03.9 Hypothyroidism, unspecified; E66.9 Obesity, unspecified; Z68.38 Body mass index [BMI] 38.0-38.9, adult; F41.9 Anxiety disorder, unspecified; F32.9 Major depressive disorder, single episode, unspecified; M81.0 Age-related osteoporosis without current pathological fracture; I95.9 Hypotension, unspecified; Q90.9 Down syndrome, unspecified; E78.00 Pure hypercholesterolemia, unspecified; K59.00 Constipation, unspecified; G30.9 Alzheimer's disease, unspecified; F02.80 Dementia in other diseases classified elsewhere, unspecified severity, without behavioral disturbance, psychotic disturbance, mood disturbance, and anxiety; F63.81 Intermittent explosive disorder; Z79.899 Other long term (current) drug therapy; Z88.0 Allergy status to penicillin

== ENCOUNTER 2020-07-27 12:03 | Inpatient (IN) | payer MEDICARE, MEDICAID ==
[~2020-07-27] VITALS: Ht 132.1 cm; Wt 68.4 kg
[~2020-07-27 12:03] MED LIST changes: +DESI13CR2 TOP; +DOCU100C17 PO; +LEVE750T5 PO; +LEVO750T13 PO
--- NOTE | 2020-07-27 13:34 | REP ---
INDICATION: SOB. COMPARISON: 07/16/2020. TECHNIQUE: SINGLE PORTABLE AP VIEW OF THE CHEST WAS PERFORMED. FINDINGS: Diffuse dense infiltrates are seen throughout the right lung, increased since prior study. There is no definite infiltrate in the left lung. Heart and mediastinum are grossly unchanged. IMPRESSION: Diffuse dense infiltrates throughout the right lung have increased since the prior study. <Electronically signed by Tello Jaime > 07/27/20 0827
[2020-07-27 14:06] LABS: BASO % 0.4 % (0.0-1.0); EOS % 0.4 % (0.0-3.0); HEMATOCRIT 32.7 % (36.0-47.0); LYMPH % 12.7 % (24.0-44.0); MEAN CORPUSCULAR HEMOGLOBIN 29.9 pg (27.0-33.0); MEAN CORPUSCULAR HGB CONC 30.6 g/dl (32.0-36.5); MEAN CORPUSCULAR VOLUME 97.9 fl (80.0-96.0); MONO # 0.4 10^3/uL (0.0-0.8); MONO % 4.9 % (2.0-8.0); NEUTROPHILS # 6.5 10^3/uL (1.5-8.5); NEUTROPHILS % 81.2 % (36.0-66.0); PLATELET COUNT, AUTOMATED 303 10^3/uL (150-450); RED BLOOD COUNT 3.34 10^6/uL (4.00-5.40)
[2020-07-27 14:17] LABS: ALBUMIN 2.5 GM/DL (3.2-5.2); ALT/SGPT 8 U/L (12-78); BILIRUBIN,DIRECT < 0.1 MG/DL (0.0-0.2); BILIRUBIN,TOTAL 0.4 MG/DL (0.2-1.0); BLOOD UREA NITROGEN 13 MG/DL (7-18); CALCIUM LEVEL 8.8 MG/DL (8.5-10.1); CARBON DIOXIDE LEVEL 29 MEQ/L (21-32); CHLORIDE LEVEL 107 MEQ/L (98-107); CK-MB VALUE MASS < 1.0 NG/ML (<3.6); CPK CREATINE PHOSPHOKINASE 61 U/L (26-192); CREATININE FOR GFR 0.75 MG/DL (0.55-1.30); GLOMERULAR FILTRATION RATE > 60.0 (>51); GLUCOSE, FASTING 113 MG/DL (70-100); MB/CK RELATIVE INDEX 1.64 (< OR =4); NT-PRO BNP 592 PG/ML (<125); POTASSIUM SERUM 4.8 MEQ/L (3.5-5.1); SODIUM LEVEL 139 MEQ/L (136-145); TOTAL PROTEIN 6.6 GM/DL (6.4-8.2); TROPONIN I < 0.02 NG/ML (< 0.10)
[2020-07-27] MEDS ORDERED: VANCOMYCIN HCL 1,250 MG in IV FLUID PLACE HOLDER 1 EA IV ONE (14:40)
[2020-07-27] MEDS ORDERED: VANCOMYCIN HCL 500 MG in D5W MINI-BAG PLUS 100 ML IV ONE (14:45)
[2020-07-27] MEDS ORDERED: VANCOMYCIN HCL 750 MG, VIAL MATE ADAPTER 1 EACH in NS 250 ML IV ONE (14:45)
[2020-07-27 15:34] LABS: VENOUS BASE EXCESS 2.6 (-2.0-2.0); VENOUS HCO3 29.5 MEQ/L (23.0-27.0); VENOUS O2 SATURATION 56.8 % (60.0-80.0); VENOUS PARTIAL PRESSURE CO2 57.4 mmHg (38.0-50.0); VENOUS PARTIAL PRESSURE O2 33.7 mmHg (30.0-50.0); VENOUS PH 7.329 UNITS (7.330-7.430); VENOUS TOTAL CO2 31.3 MEQ/L (24.0-28.0)
[2020-07-27] MEDS ORDERED: ACETAMINOPHEN 325 MG TAB PO PRN (16:10)
[2020-07-27] MEDS ORDERED: ACETAMINOPHEN TAB 650MG DOSE (2X325MG) PO PRN (16:40)
--- NOTE | 2020-07-27 18:00 | ECGEPIP ---
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
[2020-07-27] MEDS ORDERED: CEFEPIME HCL 1 GM in D5W MINI-BAG PLUS 50 ML IV SCH (19:00)
--- NOTE | 2020-07-27 19:04 | REPVR ---
PROCEDURE INFORMATION: Exam: CT Chest Without Contrast; Diagnostic Exam date and time: 07/27/2020 6:20 PM Age: 59 years old Clinical indication: Condition or disease; Lung condition and disease; Pneumonia; Additional info: Recurrent pneumonia TECHNIQUE: Imaging protocol: Diagnostic computed tomography of the chest without contrast. 3D rendering (Not supervised by radiologist): MIP and/or 3D reconstructed images were created by the technologist. Radiation optimization: All CT scans at this facility use at least one of these dose optimization techniques: automated exposure control; mA and/or kV adjustment per patient size (includes targeted exams where dose is matched to clinical indication); or iterative reconstruction. COMPARISON: VT Chest, 1 view 07/27/2020 1:28 PM FINDINGS: Lungs: Airspace consolidation is seen throughout most of the right lung as well as left infrahilar and medially in the left lower lobe. Air bronchogram is also seen throughout the right lung. There is a subpleural cyst anteriorly in the right upper lobe measuring 2.5 cm. There is a 1.8 cm pneumatocele in the right lower lobe. Pleural spaces: There is a moderate right pleural effusion. No left pleural effusion. Heart: No significant cardiomegaly. There is a small pericardial effusion most prominent inferiorly at the right cardiac base where it measures 1.6 cm in width. Aorta: No aortic aneurysm. Lymph nodes: Both hima appear prominent but they are not well assessed due to lack of intravenous contrast. Bones/joints: Scoliosis. Soft tissues: Unremarkable. No significant findings in the upper abdomen. IMPRESSION: There is diffuse consolidation throughout the right lung most likely due to pneumonia. Discrete mass is not identified but could be obscured. Both hima are prominent which may be due to vascular structures however bilateral lymphadenopathy is also possible. The hima and mediastinum are poorly evaluated due to lack of intravenous contrast. Electronically signed by: Guerline Madrid On 07/27/2020 19:05:21 PM
[2020-07-27] MEDS: LACTOBACILLUS ACIDOPHILUS CAP (BACID) PO SCH (19:12)
--- NOTE | 2020-07-27 19:30 | HPEPDOC ---
General Date of Admission Jul 27, 2020 at 16:04 Date of Service: Jul 27, 2020 Chief Complaint The patient is a 59-year-old female admitted with a reason for visit of hypoxia and increased lethargy. Source: [facility] Caregiver/Aid History of Present Illness Ms. Leone is a 59 year old female with Down's syndrome, severe intellectual disability, and recent COVID 19 infection in Apr 2020 who present with hypoxia. She was recently admitted and discharged for pneumonia from 06/22 to 06/20/2020. After discharge, she was sent back to [facility] on antibiotics. Per BLOCK CLEANER at [facility], she was at room air, but still was fatigued. Yesterday evening, she had a poor apatite. This morning, she did not want to eat. She slept most of the morning. The caregiver was concerned and spoke with the BLOCK CLEANER who checked pulse ox which demonstrated hypoxia in the high 70s. Patient was sent to the ED. While in the ED, patient initially required 5L of oxygen. Imaging demonstrated increasing infiltrate in the right lung. Otherwise, no fever or leukocytosis Patient does have some sputum she coughing up. Patient was given vancomycin and admission was called. Patient will be admitted for right lung pneumonia. Home Medications Scheduled Calcium Carbonate/Vitamin D3 (Calcium 600-Vit D3 400 Tablet) 1 Each Tablet, 1 TAB PO BID, (Reported) Carbamide Peroxide (Debrox) 15 Ml Drops, 4 AU ASDIRECTED, (Reported) FRI/SAT/SUN OF EACH MONTH Citalopram Hydrobromide (Citalopram HBr) 10 Mg Tablet, 10 MG PO DAILY, (Reported) Docusate Sodium (Docusate Sodium) 100 Mg Capsule, 100 MG PO BID, (Reported) Erythromycin Base (Erythromycin) 3.5 Gm Oint...g., 1 APLCT TOP QAM, (Reported) APPLY TO FACE Lactulose (Lactulose) 10 Gm/15 Ml Solution, 30 ML PO BID for constipation, (Reported) Levetiracetam (Levetiracetam) 750 Mg Tablet, 750 MG PO BID, (Reported) Levothyroxine Sodium (Levothyroxine Sodium) 112 Mcg Tablet, 112 MCG PO QHS, (Reported) Linaclotide (Linzess) 290 Mcg Capsule, 290 MCG PO DAILY, (Reported) 30 min before meal Loratadine (Loratadine) 10 Mg Tab, 10 MG PO QHS, (Reported) Midodrine HCl (Midodrine HCl) 5 Mg Tab, 5 MG PO TID, (Reported) TAKES AT 0600/1600/2000 Multivitamins (Thera M Plus Tablet) 1 Tab Tab, 1 TAB PO DAILY, (Reported) Polyethylene Glycol 3350 (Miralax) 119 Gm Powder, 17 GRAM PO BID, (Reported) dissolve in water Quetiapine Fumarate (Seroquel) 200 Mg Tab, 400 MG PO QHS, (Reported) WITH 50MG FOR TOTAL DOSE 450MG QHS Quetiapine Fumarate (Seroquel) 200 Mg Tablet, 200 MG PO QAM, (Reported) Quetiapine Fumarate (Seroquel) 50 Mg Tablet, 50 MG PO QHS, (Reported) WITH 400MG FOR TOTAL DOSE 450MG Simvastatin (Simvastatin) 20 Mg Tab, 20 MG PO QHS, (Reported) Vits A and D/White Pet/Lanolin (A and D Ointment) 42.5 Gm Oint...g., 1 APLCT TOP BID, (Reported) APPLY TO FEET Zinc Oxide (Desitin) 454 Gm Cream..g., 1 APLCT TOP QHS, (Reported) APPLY OVER ERYTHROMYCIN AROUND MOUTH/NOSE Scheduled PRN Acetaminophen (Acetaminophen) 325 Mg Tablet, 650 MG PO Q4H PRN for PAIN, (Reported) Allergies Coded Allergies: Penicillins (Verified Allergy, Intermediate, RASH, 07/27/20) amoxicillin (Verified Allergy, Intermediate, rash, 07/27/20) Past Medical History Medical History 1. COVID 19 infection in Apr 2020 2. Severe intellectual disability 3. Intermittent explosive disorder 4. Alzheimer's dementia 5. Down's syndrome 6. Depression and anxiety 7. Hypothyroidism 8. Seasonal allergies 9. Osteoporosis 10. Obesity 11. Hypercholesterolemia 12. Chronic hypotension 13. Hydronephrosis (right) 14. Urinary outflow obstruction 15. Melanocytic Nevi 16. Obesity (BMI 35) Surgical History 1. Laparoscopy/hernia repair 1962 2. Hernia repair 3. Bowel obstruction surgery 2016 Family History Patient has severe intellectual disability, unable to provide family history Social History * Smoker: Denies Alcohol: Denies Drugs: denies A-FIB/CHADSVASC A-FIB History Current/History of A-Fib/PAF?: No Review of Systems Other systems Due to severe intellectual disability, unable to obtain accurate review of systems. [facility] aid reports that patient has not been able to report symptoms at baseline. At baseline patient is happy and active, but as of late, has been lethargic. Denies seeing the patient cough on food, but does report that patient has poor appetite. [facility] aid also reports patient bowel movements and urination has been normal. Unable to answer questions of pain as patient will point to different places each time which as baseline to [facility] aid. Physical Examination General Exam: Positive: Mild Distress; Negative: Cooperative Eye Exam: Negative: Sclera icteric ENT Exam: Positive: Other ENT (Poor oral care) Neck Exam: Positive: Supple Chest Exam: Positive: Clear to auscultation Heart Exam: Positive: Rate Normal, Regular Rhythm Abdomen Exam: Positive: Normal bowel sounds, Soft; Negative: Tenderness Extremity Exam: Negative: Edema Neuro Exam: Positive: Other (Unable to perform neurologic exam as patient did not follow commands) Psych Exam: Negative: Mental status NL, Anxiety Vital Signs Vital Signs Date Time Temp Pulse Resp B/P (MAP) Pulse Ox O2 Delivery O2 Flow Rate FiO2 07/27/20 15:44 68 20 108/62 (77) 95 Nasal Cannula 07/27/20 12:35 3.0 07/27/20 12:31 99.5 Laboratory Data Labs 24H Laboratory Tests 2 07/27/20 12:42: Immature Granulocyte % (Auto) 0.4, Neutrophils (%) (Auto) 81.2H, Lymphocytes (%) (Auto) 12.7L, Monocytes (%) (Auto) 4.9, Eosinophils (%) (Auto) 0.4, Basophils (%) (Auto) 0.4, Neutrophils # (Auto) 6.5, Lymphocytes # (Auto) 1.0L, Monocytes # (Auto) 0.4, Eosinophils # (Auto) 0.0, Basophils # (Auto) 0.0, Nucleated Red B lood Cells % (auto) 0.0 07/27/20 13:28: Anion Gap 3L, Glomerular Filtration Rate > 60.0, Calcium Level 8.8, Total Bilirubin 0.4, Direct Bilirubin < 0.1, Aspartate Amino Transf (AST/SGOT) 34, Alanine Aminotransferase (ALT/SGPT) 8L, Alkaline Phosphatase 71, Total Creatine Kinase 61, Creatine Kinase MB < 1.0, Creatine Kinase MB Relative Index 1.64, Troponin I < 0.02, BO-Dys-Z-Type Natriuretic Peptide 592H, Total Protein 6.6, Albumin 2.5L, Albumin/Globulin Ratio 0.6L, Thyroid Stimulating Hormone (TSH) 3.710 07/27/20 13:31: SARS Antigen (LFIA) NEGATIVE 07/27/20 15:26: Blood Gas Bicarbonate Standard 26.0, Venous Blood pH 7.329L, Venous Blood Partial Pressure CO2 57.4H, Venous Blood Partial Pressure O2 33.7, Venous Blood Total Carbon Dioxide 31.3H, Venous Blood HCO3 29.5H, Venous Blood Oxygen Saturation 56.8L, Venous Blood Base Excess 2.6H CBC/BMP Laboratory Tests 07/27/20 12:42 07/27/20 13:28 Microbiology Microbiology 07/27/20 Blood Culture, Received Pending 07/27/20 Respiratory Virus Panel (PCR) (BRUNO) - Final, Complete 07/27/20 Blood Culture, Received Pending Assessment/Plan Ms. Leone is a 59 year old female with Down's syndrome, severe intellectual disability, and recent COVID 19 infection in Apr 2020 who present with hypoxia and imaging suggestive for right lung pneumonia. Since she was recently admitted and was on Levofloxacin, antibiotics has been escalated to Vancomycin and Cefepime. Caregiver is denies signs of aspiration, but will have speech therapy evaluate tomorrow. Plan / VTE VTE Prophylaxis Ordered?: Yes Plan Plan 1. Right lung pneumonia -Hypoxia and sputum production -Recently here in June for right lung pneumonia -Discharged on levofloxacin -Will escalate antibiotics to Vancomycin and Cefepime. Due to being on multiple antibiotics these past few weeks, will start probiotic -Caregiver denies overt signs of aspiration. Will continue patient on mechanical soft diet. Will have speech therapy evaluate for aspiration -Otherwise blood cultures x2 pending, ordered for sputum culture 2. Down's syndrome with severe intellectual disability/Intermittent explosive disorder/Alzheimer's dementia -Resident of [facility] -Continue regular medications 3. Chronic hypotension -Continue Midodrine 4. Chronic constipation -Continue Miralax and Lactulose 5. Hypothyroidism -Continue levothyroxine -TSH within normal limits 6. DVT ppx -SCD and TEDs Disposition: Pending results from CT and clinical improvement DANNY GARLAND DO Jul 27, 2020 19:30
[2020-07-27] MEDS: SIMVASTATIN 20 MG TAB PO SCH (21:00)
[2020-07-27] MEDS: VITAMIN A & D OINTMENT 60GM TOP SCH (21:00)
[2020-07-27] MEDS: LORATADINE 10 MG TAB PO SCH (21:00)
[2020-07-27] MEDS: DOCUSATE SODIUM 100MG CAPSULE PO SCH (22:33)
[2020-07-27] MEDS: LACTULOSE 20 GM/30 ML SYRUP UD PO SCH (22:33)
[2020-07-27] MEDS: MIRALAX *UNIT DOSE* 17GM PACKET PO SCH (22:33)
[2020-07-27] MEDS: QUEtiapine FUMARATE 200 MG TAB PO SCH (23:03)
[2020-07-27] MEDS: levETIRAcetam 250MG TABLET (KEPPRA) PO SCH (23:03)
[2020-07-27] MEDS: QUEtiapine FUMARATE 50MG TAB PO SCH (23:03)
[2020-07-28] MEDS ORDERED: VANCOMYCIN 1000MG/20ML VIAL As Ordered ONE (02:10)
[2020-07-28] MEDS ORDERED: VANCOMYCIN HCL 1,000 MG, VIAL MATE ADAPTER 1 EACH in NS 250 ML IV SCH (03:00)
[2020-07-28] MEDS: LEVOTHYROXINE 112MCG TABLET (0.112MG) PO SCH (06:00)
[2020-07-28 06:12] LABS: HEMATOCRIT 30.2 % (36.0-47.0); HEMOGLOBIN 9.3 g/dl (12.0-15.5); MEAN CORPUSCULAR HEMOGLOBIN 30.2 pg (27.0-33.0); MEAN CORPUSCULAR HGB CONC 30.8 g/dl (32.0-36.5); MEAN CORPUSCULAR VOLUME 98.1 fl (80.0-96.0); PLATELET COUNT, AUTOMATED 293 10^3/uL (150-450); RED BLOOD COUNT 3.08 10^6/uL (4.00-5.40); WHITE BLOOD COUNT 4.5 10^3/uL (4.0-10.0)
[2020-07-28 06:39] LABS: BLOOD UREA NITROGEN 9 MG/DL (7-18); CALCIUM LEVEL 8.3 MG/DL (8.5-10.1); CARBON DIOXIDE LEVEL 30 MEQ/L (21-32); CHLORIDE LEVEL 107 MEQ/L (98-107); CREATININE FOR GFR 0.61 MG/DL (0.55-1.30); GLOMERULAR FILTRATION RATE > 60.0 (>51); GLUCOSE, FASTING 102 MG/DL (70-100); SODIUM LEVEL 140 MEQ/L (136-145)
[2020-07-28] MEDS ORDERED: ALBUTEROL SULFATE 2.5 MG/0.5 ML INH NEB SOLN NEB PRN (07:25)
[2020-07-28] MEDS: DOCUSATE SODIUM 100MG CAPSULE PO SCH (09:00)
[2020-07-28] MEDS ORDERED: guaiFENesin ER 600 MG TAB PO SCH (09:00)
[2020-07-28] MEDS: CitaloPRAM (CeleXA) 10 MG TABLET PO SCH (09:10)
[2020-07-28] MEDS: levETIRAcetam 250MG TABLET (KEPPRA) PO SCH ×2 (09:10→22:08)
[2020-07-28] MEDS: MIDODRINE 5 MG TAB PO SCH ×3 (09:10→16:27)
[2020-07-28] MEDS: MULTIVITAMINS/MINERALS THERAP 1 TAB PO SCH (09:10)
[2020-07-28] MEDS: QUEtiapine FUMARATE 200 MG TAB PO SCH ×2 (09:10→22:08)
[2020-07-28] MEDS: LACTOBACILLUS ACIDOPHILUS CAP (BACID) PO SCH ×2 (09:10→16:27)
[2020-07-28] MEDS: LACTULOSE 20 GM/30 ML SYRUP UD PO SCH ×2 (09:10→22:07)
[2020-07-28] MEDS: VITAMIN A & D OINTMENT 60GM TOP SCH ×2 (09:11→22:18)
[2020-07-28] MEDS: MIRALAX *UNIT DOSE* 17GM PACKET PO SCH ×2 (09:12→22:09)
[2020-07-28] MEDS: ERYTHROMYCIN OPHTH OINT TOP SCH (09:12)
[2020-07-28] MEDS ORDERED: guaiFENesin SYRUP 200 MG/10 ML UDC PO PRN (09:40)
[2020-07-28] MEDS ORDERED: VARIBAR PUDDING 40% w/v 230ML TUBE As Ordered ONE (13:00)
[2020-07-28] MEDS ORDERED: VARIBAR NECTAR 40% w/v 240ML SUSP BTL As Ordered ONE (13:01)
[2020-07-28] MEDS ORDERED: E-Z-PAQUE 96% w/w SUSP 176GM BTL As Ordered ONE (13:01)
[2020-07-28] MEDS ORDERED: METR-265 PO (13:45)
[2020-07-28] MEDS ORDERED: CEFD1CAP8 PO (13:45)
[2020-07-28] MEDS: CEFEPIME HCL 1 GM in D5W MINI-BAG PLUS 50 ML IV SCH (13:46)
[2020-07-28] MEDS ORDERED: CVS1CAP2 PO (13:47)
[2020-07-28 14:43] VITALS: BP 109/65
[2020-07-28] MEDS ORDERED: VANCOMYCIN HCL 750 MG, VIAL MATE ADAPTER 1 EACH in NS 250 ML IV SCH (15:00)
--- NOTE | 2020-07-28 18:05 | REP ---
INDICATION: rule out aspiration. COMPARISON: None. TECHNIQUE: The procedure was performed by Cecilia Ann [facility], under the direct supervision of Dr. Jaime. The procedure was performed with Charlotte Flower and Heather Gilman from speech pathology present. 5 ml aliquots of thin, pudding, mixed fruit, soft food, hard food and applesauce consistency barium was administered. FINDINGS: Penetration was visualized with thin consistency barium. The detailed report of this examination will be provided by speech pathology. IMPRESSION: Penetration with thin consistency barium, a detailed report will be provided by speech pathology. 1.9 minutes of fluoroscopy time was utilized for this procedure. Some fluoroscopic images are performed with last image hold technology. These images require no additional radiation <Electronically signed by Cecilia Ann > 07/28/20 1634 <Electronically signed by Tello Jaime > 07/28/20 [id number]
[2020-07-28 22:00] VITALS: BP 112/64
[2020-07-28] MEDS: QUEtiapine FUMARATE 50MG TAB PO SCH (22:08)
[2020-07-28] MEDS: LORATADINE 10 MG TAB PO SCH (22:08)
[2020-07-28] MEDS: SIMVASTATIN 20 MG TAB PO SCH (22:08)
[2020-07-28] MEDS: DOCUSATE SOD LIQ 100MG/10ML UDC PO SCH (22:09)
--- NOTE | 2020-07-28 22:53 | IPNPDOC ---
Subjective Date Seen The patient was seen on 07/28/20. Subjective Chief Complaint/HPI Ms. Leone is a 59 year old female with Down's syndrome, severe intellectual disability, and recent COVID 19 infection in Apr 2020 who present with hypoxia. Overnight, she did well and was off of oxygen. This morning, she was more alert and awake. We have ST evaluate patient. Patient did demonstrate aspiration. After modified cookie swallow with barium study, she became hypoxic requiring 2L of oxygen. Most likely aspirated on the contrast Objective Physical Examination General Exam: Positive: Alert, Cooperative Eye Exam: Negative: Sclera icteric ENT Exam: Positive: Other ENT (Poor oral care) Neck Exam: Positive: Supple Chest Exam: Positive: Clear to auscultation Heart Exam: Positive: Rate Normal, Regular Rhythm Abdomen Exam: Positive: Normal bowel sounds, Soft; Negative: Tenderness Extremity Exam: Negative: Edema Neuro Exam: Positive: Other (Unable to perform neurologic exam as patient did not follow commands) Psych Exam: Positive: Mental status NL Assessment /Plan Assessment Ms. Leone is a 59 year old female with Down's syndrome, severe intellectual disability, and recent COVID 19 infection in Apr 2020 who present with hypoxia and imaging suggestive for right lung pneumonia. She most likely has aspiration pneumonia. ST evaluation performed modified cookie barium swallow which does demonstrate aspiration. 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 I reached out to Pulmonology, Dr. Jo. These are congenital and does not need to be followed outpatient. Plan/VTE VTE Prophylaxis Ordered?: Yes Plan 1. Right lung pneumonia secondary to aspiration -Hypoxia and sputum production -Recently here in June for right lung pneumonia and was discharged on levofloxacin -MRSA swab negative, discontinued vancomycin -Continue cefepime with metronidazole for aspiration -Otherwise blood cultures x2 pending, ordered for sputum culture 2. Down's syndrome with severe intellectual disability/Intermittent explosive disorder/Alzheimer's dementia -Resident of [facility] -Continue regular medications 3. Chronic hypotension -Continue Midodrine 4. Chronic constipation -Continue Miralax and Lactulose 5. Hypothyroidism -Continue levothyroxine -TSH within normal limits 6. DVT ppx -SCD and TEDs Disposition: Pending improvement in respiratory status and recommendations from ST VS, I&O, 24H, Fishbone Vital Signs/I&O Vital Signs Date Time Temp Pulse Resp B/P (MAP) Pulse Ox O2 Delivery O2 Flow Rate FiO2 07/28/20 15:02 2.0 07/28/20 14:43 98.9 79 20 109/65 (80) 92 Nasal Cannula I&O- Last 24 Hours up to 6 AM 07/28/20 06:00 Intake Total 855 ml Balance 855 ml Laboratory Data 24H LABS Laboratory Tests 2 07/28/20 05:54: Nucleated Red Blood Cells % (auto) 0.0, Anion Gap 3L, Glomerular Filtration Rate > 60.0, Calcium Level 8.3L 07/28/20 11:46: Methicillin-Resist S.aureus DNA PCR NOT DETECTED 07/28/20 13:43: Vancomycin Level Trough 16.1 CBC/BMP Laboratory Tests 07/28/20 05:54 Microbiology Microbiology 07/27/20 Blood Culture - Preliminary, Resulted No growth after 24 hours . All specim... 07/27/20 Respiratory Virus Panel (PCR) ([facility]) - Final, Complete 07/27/20 Blood Culture - Preliminary, Resulted No growth after 24 hours . All specim... DANNY GARLAND DO Jul 28, 2020 22:53
[2020-07-29] MEDS: metroNIDAZOLE 500 MG in IV 1 EA IV SCH ×2 (00:14→10:31)
[2020-07-29] MEDS: CEFEPIME HCL 1 GM in D5W MINI-BAG PLUS 50 ML IV SCH ×2 (01:38→13:00)
[2020-07-29 04:59] VITALS: BP 102/66
[2020-07-29] MEDS: LEVOTHYROXINE 112MCG TABLET (0.112MG) PO SCH (05:34)
[2020-07-29] MEDS: LACTOBACILLUS ACIDOPHILUS CAP (BACID) PO SCH ×2 (08:00→17:28)
[2020-07-29 08:03] LABS: HEMATOCRIT 30.4 % (36.0-47.0); HEMOGLOBIN 9.6 g/dl (12.0-15.5); MEAN CORPUSCULAR HEMOGLOBIN 30.5 pg (27.0-33.0); MEAN CORPUSCULAR HGB CONC 31.6 g/dl (32.0-36.5); MEAN CORPUSCULAR VOLUME 96.5 fl (80.0-96.0); PLATELET COUNT, AUTOMATED 294 10^3/uL (150-450); RED BLOOD COUNT 3.15 10^6/uL (4.00-5.40); WHITE BLOOD COUNT 3.4 10^3/uL (4.0-10.0)
[2020-07-29 08:27] LABS: BLOOD UREA NITROGEN 7 MG/DL (7-18); CARBON DIOXIDE LEVEL 31 MEQ/L (21-32); CHLORIDE LEVEL 107 MEQ/L (98-107); CREATININE FOR GFR 0.62 MG/DL (0.55-1.30); GLOMERULAR FILTRATION RATE > 60.0 (>51); GLUCOSE, FASTING 97 MG/DL (70-100); POTASSIUM SERUM 4.3 MEQ/L (3.5-5.1); SODIUM LEVEL 141 MEQ/L (136-145)
[2020-07-29] MEDS: LACTULOSE 20 GM/30 ML SYRUP UD PO SCH ×2 (10:23→21:04)
[2020-07-29] MEDS: MIRALAX *UNIT DOSE* 17GM PACKET PO SCH ×2 (10:23→21:05)
[2020-07-29] MEDS: CitaloPRAM (CeleXA) 10 MG TABLET PO SCH (10:24)
[2020-07-29] MEDS: MULTIVITAMINS/MINERALS THERAP 1 TAB PO SCH (10:24)
[2020-07-29] MEDS: levETIRAcetam 250MG TABLET (KEPPRA) PO SCH ×2 (10:24→21:05)
[2020-07-29] MEDS: QUEtiapine FUMARATE 200 MG TAB PO SCH ×2 (10:24→21:05)
[2020-07-29] MEDS: DOCUSATE SOD LIQ 100MG/10ML UDC PO SCH ×2 (10:24→21:04)
[2020-07-29] MEDS: MIDODRINE 5 MG TAB PO SCH ×3 (10:24→17:28)
[2020-07-29] MEDS: VITAMIN A & D OINTMENT 60GM TOP SCH ×2 (10:25→21:11)
[2020-07-29] MEDS: ERYTHROMYCIN OPHTH OINT TOP SCH (10:26)
[2020-07-29] MEDS: metroNIDAZOLE (FLAGYL) 500MG TABLET PO SCH ×2 (14:20→21:04)
[2020-07-29 15:06] VITALS: BP 102/68
--- NOTE | 2020-07-29 16:17 | IPNPDOC ---
Subjective Date Seen The patient was seen on 07/29/20. Subjective Chief Complaint/HPI Ms. Leone is a 59 year old female with Down's syndrome, severe intellectual disability, and recent COVID 19 infection in Apr 2020 who present with hypoxia. Per nurses, patient has nocturnal hypoxia and desaturates below 88. In the day time, she saturates in 90 to 94 at room air. She does fights against wearing the pulse oximeter and NC. Otherwise, the radiologist read for the cookie swallow modified barium does report penetration with thin consistentcy barium, but official ST report says no aspiration. Objective Physical Examination General Exam: Positive: Alert, Cooperative Eye Exam: Negative: Sclera icteric ENT Exam: Positive: Other ENT (Poor oral care) Neck Exam: Positive: Supple Chest Exam: Positive: Clear to auscultation Heart Exam: Positive: Rate Normal, Regular Rhythm Abdomen Exam: Positive: Normal bowel sounds, Soft; Negative: Tenderness Extremity Exam: Negative: Edema Neuro Exam: Positive: Other (Unable to perform neurologic exam as patient did not follow commands) Psych Exam: Positive: Mental status NL Assessment /Plan Assessment Ms. Leone is a 59 year old female with Down's syndrome, severe intellectual disability, and recent COVID 19 infection in Apr 2020 who present with hypoxia and imaging suggestive for right lung pneumonia. ST evaluated patient and reported no aspiration. Recommends on ST report. Otherwise, patient does have some nocturnal hypoxia. Will try to obtain nocturnal pulse ox to have patient qualify for nocturnal oxygen. 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 I reached out to Pulmonology, Dr. Jo. These are congenital and does not need to be followed outpatient. Plan/VTE VTE Prophylaxis Ordered?: Yes Plan 1. Right lung pneumonia -ST evaluated and made recommendations for safe swallowing -Has nocturnal hypoxia which may have a component of VALE. Will try to obtain nocturnal pulse ox and have patient qualify for nocturnal oxygen -MRSA swab negative, discontinued vancomycin -Continue cefdinir with metronidazole -Otherwise blood cultures x2 pending, ordered for sputum culture 2. Down's syndrome with severe intellectual disability/Intermittent explosive disorder/Alzheimer's dementia -Resident of [facility] -Continue regular medications 3. Chronic hypotension -Continue Midodrine 4. Chronic constipation -Continue Miralax and Lactulose 5. Hypothyroidism -Continue levothyroxine -TSH within normal limits 6. DVT ppx -SCD and TEDs Disposition: Pending nocturnal pulse ox and having patient qualify for nocturnal oxygen. Possible discharge tomorrow as long as oxygenation does well at room air. VS, I&O, 24H, Fishbone Vital Signs/I&O Vital Signs Date Time Temp Pulse Resp B/P (MAP) Pulse Ox O2 Delivery O2 Flow Rate FiO2 07/29/20 04:59 97.8 78 18 102/66 (78) 92 Nasal Cannula 2.0 I&O- Last 24 Hours up to 6 AM 07/29/20 06:00 Intake Total 1160 ml Balance 1160 ml Laboratory Data 24H LABS Laboratory Tests 2 07/29/20 07:41: Nucleated Red Blood Cells % (auto) 0.0, Anion Gap 3L, Glomerular Filtration Rate > 60.0, Calcium Level 8.0L CBC/BMP Laboratory Tests 07/29/20 07:41 Microbiology Microbiology 07/27/20 Blood Culture - Preliminary, Resulted No Growth after 48 hours. All Specime... 07/27/20 Respiratory Virus Panel (PCR) ([facility]) - Final, Complete 07/27/20 Blood Culture - Preliminary, Resulted No Growth after 48 hours. All Specime... DANNY GARLAND DO Jul 29, 2020 16:17
[2020-07-29] MEDS: CEFDINIR 300 MG CAP (OMNICEF) PO SCH ×2 (17:28→21:04)
[2020-07-29] MEDS: LORATADINE 10 MG TAB PO SCH (21:05)
[2020-07-29] MEDS: SIMVASTATIN 20 MG TAB PO SCH (21:05)
[2020-07-29] MEDS: QUEtiapine FUMARATE 50MG TAB PO SCH (21:11)
[2020-07-29 22:00] VITALS: BP 104/67
[2020-07-30 06:00] VITALS: BP 110/64
[2020-07-30] MEDS: metroNIDAZOLE (FLAGYL) 500MG TABLET PO SCH ×2 (06:20→12:47)
[2020-07-30] MEDS: LEVOTHYROXINE 112MCG TABLET (0.112MG) PO SCH (06:20)
[2020-07-30 07:03] LABS: HEMATOCRIT 31.4 % (36.0-47.0); HEMOGLOBIN 9.6 g/dl (12.0-15.5); MEAN CORPUSCULAR HEMOGLOBIN 29.9 pg (27.0-33.0); MEAN CORPUSCULAR HGB CONC 30.6 g/dl (32.0-36.5); MEAN CORPUSCULAR VOLUME 97.8 fl (80.0-96.0); PLATELET COUNT, AUTOMATED 327 10^3/uL (150-450); RED BLOOD COUNT 3.21 10^6/uL (4.00-5.40); WHITE BLOOD COUNT 2.9 10^3/uL (4.0-10.0)
[2020-07-30 07:22] LABS: BLOOD UREA NITROGEN 7 MG/DL (7-18); CALCIUM LEVEL 8.2 MG/DL (8.5-10.1); CARBON DIOXIDE LEVEL 31 MEQ/L (21-32); CHLORIDE LEVEL 108 MEQ/L (98-107); CREATININE FOR GFR 0.71 MG/DL (0.55-1.30); GLOMERULAR FILTRATION RATE > 60.0 (>51); GLUCOSE, FASTING 92 MG/DL (70-100); POTASSIUM SERUM 4.3 MEQ/L (3.5-5.1); SODIUM LEVEL 142 MEQ/L (136-145)
[2020-07-30] MEDS: MIDODRINE 5 MG TAB PO SCH ×2 (08:41→12:47)
[2020-07-30] MEDS: levETIRAcetam 250MG TABLET (KEPPRA) PO SCH (08:41)
[2020-07-30] MEDS: QUEtiapine FUMARATE 200 MG TAB PO SCH (08:41)
[2020-07-30] MEDS: CitaloPRAM (CeleXA) 10 MG TABLET PO SCH (08:41)
[2020-07-30] MEDS: MULTIVITAMINS/MINERALS THERAP 1 TAB PO SCH (08:41)
[2020-07-30] MEDS: CEFDINIR 300 MG CAP (OMNICEF) PO SCH (08:41)
[2020-07-30] MEDS: LACTULOSE 20 GM/30 ML SYRUP UD PO SCH (08:42)
[2020-07-30] MEDS: ERYTHROMYCIN OPHTH OINT TOP SCH (08:42)
[2020-07-30] MEDS: LACTOBACILLUS ACIDOPHILUS CAP (BACID) PO SCH (08:42)
[2020-07-30] MEDS: MIRALAX *UNIT DOSE* 17GM PACKET PO SCH (08:42)
[2020-07-30] MEDS: DOCUSATE SOD LIQ 100MG/10ML UDC PO SCH (08:42)
[2020-07-30] MEDS: VITAMIN A & D OINTMENT 60GM TOP SCH (08:43)
--- NOTE | 2020-07-30 23:47 | DS.PDOC ---
Discharge Summary General Date of Admission Jul 27, 2020 at 16:04 Date of Discharge Jul 30, 2020 Discharge Summary PROCEDURES PERFORMED DURING STAY: [None]. ADMITTING DIAGNOSES: 1. . DISCHARGE DIAGNOSES: 1. . COMPLICATIONS/CHIEF COMPLAINT: Hypoxia/Pneumonia/Weakness. HISTORY OF PRESENT ILLNESS: . HOSPITAL COURSE: . DISCHARGE MEDICATIONS: Please see below. ALLERGIES: Please see below. PHYSICAL EXAMINATION ON DISCHARGE: VITAL SIGNS: Please see below. GENERAL: HEENT: NECK: CARDIOVASCULAR EXAMINATION: RESPIRATORY EXAMINATION: ABDOMINAL EXAMINATION: EXTREMITIES: SKIN: NEUROLOGICAL EXAMINATION: PSYCHIATRIC EXAMINATION: LABORATORY DATA: Please see below. IMAGING: PROGNOSIS: ACTIVITY: [As tolerated]. DIET: DISCHARGE PLAN: DISPOSITION: Home, Self-Care. DISCHARGE INSTRUCTIONS: 1. . ITEMS TO FOLLOWUP ON ON OUTPATIENT: 1. . DISCHARGE CONDITION: [Stable]. TIME SPENT ON DISCHARGE: Greater than minutes. Vital Signs/I&Os Vital Signs Date Time Temp Pulse Resp B/P (MAP) Pulse Ox O2 Delivery O2 Flow Rate FiO2 07/30/20 08:01 98 Nasal Cannula 2.0 07/30/20 06:00 98.3 75 19 110/64 (79) I&O- Last 24 Hours up to 6 AM 07/30/20 06:00 Intake Total 50 ml Balance 50 ml Laboratory Data Labs 24H Laboratory Tests 2 07/30/20 06:14: Nucleated Red Blood Cells % (auto) 0.0, Anion Gap 3L, Glomerular Filtration Rate > 60.0, Calcium Level 8.2L CBC/BMP Laboratory Tests 07/30/20 06:14 Microbiology Microbiology 07/27/20 Blood Culture - Preliminary, Resulted No Growth after 72 hours. All specime... 07/27/20 Respiratory Virus Panel (PCR) ([facility]) - Final, Complete 07/27/20 Blood Culture - Preliminary, Resulted No Growth after 72 hours. All specime... Discharge Medications Scheduled Calcium Carbonate/Vitamin D3 (Calcium 600-Vit D3 400 Tablet) 1 Each Tablet, 1 TAB PO BID, (Reported) Carbamide Peroxide (Debrox) 15 Ml Drops, 4 AU ASDIRECTED, (Reported) FRI/SAT/SUN OF EACH MONTH Cefdinir (Cefdinir) 300 Mg Capsule, 300 MG PO BID Citalopram Hydrobromide (Citalopram HBr) 10 Mg Tablet, 10 MG PO DAILY, (Reported) Docusate Sodium (Docusate Sodium) 100 Mg Capsule, 100 MG PO BID, (Reported) Erythromycin Base (Erythromycin) 3.5 Gm Oint...g., 1 APLCT TOP QAM, (Reported) APPLY TO FACE Lactobacillus Combo No.10 (Probiotic) 1 Each Capsule, 1 TAB PO BID Lactulose (Lactulose) 10 Gm/15 Ml Solution, 30 ML PO BID for constipation, (Reported) Levetiracetam (Levetiracetam) 750 Mg Tablet, 750 MG PO BID, (Reported) Levothyroxine Sodium (Levothyroxine Sodium) 112 Mcg Tablet, 112 MCG PO QHS, (Reported) Linaclotide (Linzess) 290 Mcg Capsule, 290 MCG PO DAILY, (Reported) 30 min before meal Loratadine (Loratadine) 10 Mg Tab, 10 MG PO QHS, (Reported) Metronidazole (Metronidazole) 500 Mg Tablet, 500 MG PO BID Midodrine HCl (Midodrine HCl) 5 Mg Tab, 5 MG PO TID, (Reported) TAKES AT 0600/1600/2000 Multivitamins (Thera M Plus Tablet) 1 Tab Tab, 1 TAB PO DAILY, (Reported) Polyethylene Glycol 3350 (Miralax) 119 Gm Powder, 17 GRAM PO BID, (Reported) dissolve in water Quetiapine Fumarate (Seroquel) 200 Mg Tab, 400 MG PO QHS, (Reported) WITH 50MG FOR TOTAL DOSE 450MG QHS Quetiapine Fumarate (Seroquel) 200 Mg Tablet, 200 MG PO QAM, (Reported) Quetiapine Fumarate (Seroquel) 50 Mg Tablet, 50 MG PO QHS, (Reported) WITH 400MG FOR TOTAL DOSE 450MG Simvastatin (Simvastatin) 20 Mg Tab, 20 MG PO QHS, (Reported) Vits A and D/White Pet/Lanolin (A and D Ointment) 42.5 Gm Oint...g., 1 APLCT TOP BID, (Reported) APPLY TO FEET Zinc Oxide (Desitin) 454 Gm Cream..g., 1 APLCT TOP QHS, (Reported) APPLY OVER ERYTHROMYCIN AROUND MOUTH/NOSE Scheduled PRN Acetaminophen (Acetaminophen) 325 Mg Tablet, 650 MG PO Q4H PRN for PAIN, (Reported) Allergies Coded Allergies: Penicillins (Verified Allergy, Intermediate, RASH, 07/27/20) amoxicillin (Verified Allergy, Intermediate, rash, 07/27/20) DANNY GARLAND DO Jul 30, 2020 23:47
== END 2020-07-30 14:00 | disposition home or self-care (01) | DRG 194 ==
LOC: M ED 12:03 → EDBD 12:03 → M ED INP 16:04 → EEVIPCON 16:04 → M MS5PR 20:26
PROVIDERS: ADMIT Internal Medicine; ATTEND Internal Medicine
DX: J18.9 Pneumonia, unspecified organism (principal); F72 Severe intellectual disabilities; N13.30 Unspecified hydronephrosis; Q90.9 Down syndrome, unspecified; Z86.16 Personal history of COVID-19; Z79.899 Other long term (current) drug therapy; Z88.0 Allergy status to penicillin; E03.9 Hypothyroidism, unspecified; E78.00 Pure hypercholesterolemia, unspecified; F41.9 Anxiety disorder, unspecified; F32.9 Major depressive disorder, single episode, unspecified; E66.9 Obesity, unspecified; Z68.35 Body mass index [BMI] 35.0-35.9, adult; F02.80 Dementia in other diseases classified elsewhere, unspecified severity, without behavioral disturbance, psychotic disturbance, mood disturbance, and anxiety; G30.0 Alzheimer's disease with early onset; M81.0 Age-related osteoporosis without current pathological fracture; I95.9 Hypotension, unspecified; K59.00 Constipation, unspecified

== ENCOUNTER → 2020-08-30 | Outpatient (CLI) | payer MEDICARE, MEDICAID ==
[~2020-08-30] MED LIST changes: +CEFD1CAP8 PO; +CVS1CAP2 PO; +METR-265 PO
--- NOTE | 2020-08-30 16:11 | REP ---
INDICATION: PNEUMONIA OF RIGHT LUNG COMPARISON: 07/27/2020. TECHNIQUE: PA/Lateral FINDINGS: The previously noted infiltrates have resolved. No infiltrate is seen in either lung. There is mild stable biapical pleural thickening. The heart is not significantly enlarged. The mediastinal silhouette is unchanged. There is curvature of the thoracic spine convex to the right as seen on prior study. IMPRESSION: No acute pulmonary disease. <Electronically signed by Tello Jaime > 08/30/20 [id number]
== END ==
LOC: M WUC 14:01
PROVIDERS: ATTEND Family Medicine
DX: J18.9 Pneumonia, unspecified organism (principal)

== ENCOUNTER → 2020-10-05 | Outpatient (CLI) | payer MEDICARE, MEDICAID ==
--- NOTE | 2020-10-05 13:32 | REPPI ---
INDICATION: COUGH. COMPARISON: 08/30/2020 TECHNIQUE: PA and lateral FINDINGS: The cardiomediastinal silhouette is essentially unchanged. There is mild cardiomegaly. Increased interstitial markings are now seen throughout the lung celaya with basilar predominance but also in the right upper lobe region. Once again, the patient is tilted and rotated. There is no change in the osseous structures. IMPRESSION: New lung field opacities suspicious for pneumonia. <Electronically signed by Clayton yN > 10/05/20 [id number]
== END ==
LOC: M PLARAD 11:50
PROVIDERS: ATTEND Family Medicine
DX: I51.7 Cardiomegaly (principal); R91.8 Other nonspecific abnormal finding of lung field; R05 Cough
CPT/HCPCS: 71046; G0463

== ENCOUNTER → 2020-11-01 | Outpatient (CLI) | payer MEDICARE, MEDICAID ==
--- NOTE | 2020-11-01 16:57 | REP ---
INDICATION: PNEUMONIA, UNSPECIFIED ORGANISMC. COMPARISON: Comparison chest x-ray is from October 05, 2020 and august 30, 2020. TECHNIQUE: Two views.. FINDINGS: There are patchy areas of pulmonary parenchymal consolidation in the right upper lobe, right inferior perihilar region, and left lower lobe behind the heart consistent with bilateral pneumonia. Pleural angles are sharp. Heart size is borderline. There is a moderate dextroconvex thoracic scoliotic curve again noted unchanged. IMPRESSION: Bilateral infiltrates both bases and right upper lobe, essentially unchanged radiographically from October 05, 2020. Persistent pneumonitis pattern.. <Electronically signed by Kain Hoang > 11/01/20 [id number]
== END ==
LOC: M PLAIMG 16:00
PROVIDERS: ATTEND Family Medicine
DX: J18.9 Pneumonia, unspecified organism (principal)

== ENCOUNTER → 2020-12-03 | Outpatient (CLI) | payer MEDICARE, MEDICAID ==
--- NOTE | 2020-12-05 19:08 | REP ---
INDICATION: PNEUMONIA, UNSPECIFIED ORGANISM. COMPARISON: 11/01/2020 TECHNIQUE: Two views FINDINGS: Consolidation in the right lower lobe. The lungs are otherwise clear. Resolution of right upper lobe and left lower lobe infiltrates noted on the previous study. IMPRESSION: Consolidation right lower lobe. <Electronically signed by Abdifatah Correia > 12/05/20 [id number]
== END ==
LOC: M PLAIMG 14:38
PROVIDERS: ATTEND Family Medicine
DX: J18.9 Pneumonia, unspecified organism (principal)

== ENCOUNTER → 2020-12-24 | Outpatient (CLI) | payer MEDICARE, MEDICAID ==
[~2020-12-24] MED LIST changes: +ISOVUE-370 76% 100ML VIAL As Ordered ONE
--- NOTE | 2020-12-24 16:42 | REP ---
INDICATION: ABN CHEST XRAY. COMPARISON: Comparison chest x-ray December 03, 2020. Comparison chest CT study is from July 27, 2020. TECHNIQUE: Helical scanning is acquired following the intravenous injection of 75 mL of Isovue 370. 3 mm axial images are generated. Coronal and sagittal MPR and coronal MIP images are provided. 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 This appears more prominent than on the 12/03/2020 chest x-ray. Axial CT images demonstrate an interstitial infiltrate in the right upper lobe and to some degree in the right lower lobe and left lower lobe. These interstitial changes are much less prominent than the prior chest CT study of July 27, 2020. There is no evidence of pleural effusion. Cardiac enlargement is observed. No hilar or mediastinal mass or adenopathy is seen. Visualized upper abdominal structures are unremarkable. No extra thoracic mass or adenopathy is seen. There is good opacification of the pulmonary arterial tree and the thoracic aorta. No vascular filling defect is seen. IMPRESSION: Patchy areas of interstitial consolidation in the right upper lobe and both lower lobes. These are generally improved from the July 27, 2020 study. Infectious/inflammatory infiltrate suspected. This may be chronic fibrosis as well. <Electronically signed by Kain Hoang > 12/24/20 [id number]
== END ==
LOC: M RAD 14:47
PROVIDERS: ATTEND Family Medicine
DX: R93.89 Abnormal findings on diagnostic imaging of other specified body structures (principal)
CPT/HCPCS: 71260; Q9967

== ENCOUNTER → 2021-01-03 | Outpatient (CLI) | payer MEDICARE, MEDICAID ==
[~2021-01-03] MED LIST changes: +BARIUM SULFATE 700 MG TABLET (E-Z-DISK) As Ordered ONE; +E-Z-PAQUE 96% w/w SUSP 176GM BTL As Ordered ONE; -ISOVUE-370 76% 100ML VIAL As Ordered ONE; +VARIBAR NECTAR 40% w/v 240ML SUSP BTL As Ordered ONE; +VARIBAR PUDDING 40% w/v 230ML TUBE As Ordered ONE
--- NOTE | 2021-01-03 12:30 | REP ---
INDICATION: DYSPHAGIA,UNSPECIFIED TYPE. COMPARISON: None. TECHNIQUE: The procedure was performed by Cecilia Ann [facility], under the direct supervision of Dr. Jaime. The procedure was performed with Charlotte Flower from speech pathology present. 5 ml aliquots of thin, pudding, mixed fruit, soft food, and hard food consistency barium was administered. FINDINGS: Flash penetration was visualized with thin consistency barium. The detailed report of this examination will be provided by speech pathology. IMPRESSION: Flash penetration with thin consistency barium, a detailed report will be provided by speech pathology. 1.1 minutes of fluoroscopy time was utilized for this procedure. Some fluoroscopic images are performed with last image hold technology. These images require no additional radiation <Electronically signed by Cecilia Ann > 01/03/21 1223 <Electronically signed by Tello Jaime > 01/03/21 [id number]
== END ==
LOC: M RAD 10:55
PROVIDERS: ATTEND Family Medicine
DX: R13.10 Dysphagia, unspecified (principal)

== ENCOUNTER → 2021-01-06 | Outpatient (CLI) | payer MEDICARE, MEDICAID ==
[~2021-01-06] MED LIST changes: -BARIUM SULFATE 700 MG TABLET (E-Z-DISK) As Ordered ONE; -E-Z-PAQUE 96% w/w SUSP 176GM BTL As Ordered ONE; -VARIBAR NECTAR 40% w/v 240ML SUSP BTL As Ordered ONE; -VARIBAR PUDDING 40% w/v 230ML TUBE As Ordered ONE
== END ==
LOC: M LAB 15:22
PROVIDERS: ATTEND Nurse Practitioner Family
DX: R91.8 Other nonspecific abnormal finding of lung field (principal); Z87.01 Personal history of pneumonia (recurrent); Z86.16 Personal history of COVID-19

== ENCOUNTER → 2021-01-18 | Outpatient (CLI) | payer MEDICARE, MEDICAID ==
[2021-01-18 11:26] LABS: ALBUMIN 3.2 GM/DL (3.2-5.2); ALT/SGPT 11 U/L (12-78); BILIRUBIN,TOTAL 0.3 MG/DL (0.2-1.0); BLOOD UREA NITROGEN 12 MG/DL (7-18); CALCIUM LEVEL 8.9 MG/DL (8.5-10.1); CARBON DIOXIDE LEVEL 30 MEQ/L (21-32); CHLORIDE LEVEL 105 MEQ/L (98-107); CHOLESTEROL LEVEL 196 MG/DL (<200); CREATININE FOR GFR 0.91 MG/DL (0.55-1.30); GLOMERULAR FILTRATION RATE > 60.0 (>51); GLUCOSE, FASTING 83 MG/DL (70-100); HDL CHOLESTEROL 50 MG/DL (>40); LDL CHOLESTEROL 126 MG/DL (<100); NON-HDL-C 146 MG/DL; POTASSIUM SERUM 4.8 MEQ/L (3.5-5.1); SODIUM LEVEL 139 MEQ/L (136-145); TOTAL PROTEIN 7.6 GM/DL (6.4-8.2); TRIGLYCERIDES LEVEL 100 MG/DL (<150)
== END ==
LOC: M LAB 09:51
PROVIDERS: ATTEND Family Medicine
DX: E78.2 Mixed hyperlipidemia (principal); E03.9 Hypothyroidism, unspecified

== ENCOUNTER 2021-01-24 15:27 | Emergency (ER) | payer MEDICARE, MEDICAID ==
--- NOTE | 2021-01-24 18:13 | REP ---
INDICATION: cough COMPARISON: 12/03/2020 TECHNIQUE: Portable AP view of the chest FINDINGS: The mediastinum and cardiac silhouette are stable and within normal limits for portable technique. Subtle bilateral patchy airspace disease (left greater than right) is suspected. No obvious effusion or pneumothorax. Skeletal structures are intact. IMPRESSION: Subtle patchy airspace disease suggested. <Electronically signed by Hilton Denis > 01/24/21 [id number]
[2021-01-24 18:29] VITALS: BP 125/89
[2021-01-24] MEDS ORDERED: QUET50TA4 PO (20:27)
[2021-01-24] MEDS ORDERED: HOME MED LIST COMPLETE! XX SCH (20:30)
[2021-01-25] MEDS ORDERED: IBUP-1720 PO (17:39)
[2021-01-25] MEDS ORDERED: CALM1OIN TOP (17:39)
[2021-01-25] MEDS ORDERED: LORA24TA PO (17:39)
[2021-01-25] MEDS ORDERED: GUAI100L6 PO (17:39)
[2021-01-25] MEDS ORDERED: NEOM14OI TOP (17:39)
== END 2021-01-24 21:20 | disposition home or self-care (01) ==
LOC: M ED 15:27
DX: J98.4 Other disorders of lung (principal); B97.4 Respiratory syncytial virus as the cause of diseases classified elsewhere; J12.82 Pneumonia due to coronavirus disease 2019; I95.9 Hypotension, unspecified; R19.7 Diarrhea, unspecified; Q90.9 Down syndrome, unspecified; G30.9 Alzheimer's disease, unspecified; Z88.0 Allergy status to penicillin; Z88.1 Allergy status to other antibiotic agents; Z79.899 Other long term (current) drug therapy

== ENCOUNTER 2021-01-25 14:01 | Inpatient (IN) | payer MEDICARE, MEDICAID ==
[~2021-01-25] VITALS: Ht 137.2 cm; Wt 68.0 kg
[~2021-01-25 14:01] MED LIST changes: +QUET50TA4 PO
--- NOTE | 2021-01-25 14:49 | REP ---
INDICATION: DYSPNEA/COUGH. COMPARISON: Comparison chest x-ray January 24, 2021. TECHNIQUE: Portable upright AP chest radiograph. FINDINGS: Progressive pulmonary parenchymal opacification is seen in the left lower lobe and in both perihilar regions and in the right lower lobe consistent with progressive pneumonia. Heart is not enlarged. There is a moderate dextroconvex thoracic curvature in the spine. No acute bony abnormality is seen. There is no evidence of pleural effusion. IMPRESSION: Extensive and progressive infiltrates consistent with pneumonia. <Electronically signed by Kain Hoang > 01/25/21 [id number]
[2021-01-25 15:00] LABS: BASO # 0.1 10^3/uL (0.0-0.2); BASO % 0.4 % (0.0-1.0); EOS % 0.1 % (0.0-3.0); HEMATOCRIT 34.9 % (36.0-47.0); HEMOGLOBIN 11.5 g/dl (12.0-15.5); LYMPH # 0.7 10^3/uL (1.5-5.0); LYMPH % 4.4 % (24.0-44.0); MEAN CORPUSCULAR HEMOGLOBIN 32.3 pg (27.0-33.0); MONO # 0.9 10^3/uL (0.0-0.8); MONO % 5.7 % (2.0-8.0); NEUTROPHILS # 14.2 10^3/uL (1.5-8.5); NEUTROPHILS % 88.8 % (36.0-66.0); PLATELET COUNT, AUTOMATED 187 10^3/uL (150-450); RED BLOOD COUNT 3.56 10^6/uL (4.00-5.40)
[2021-01-25 15:33] LABS: ALBUMIN 2.6 GM/DL (3.2-5.2); ALT/SGPT 18 U/L (12-78); BILIRUBIN,DIRECT 0.1 MG/DL (0.0-0.2); BILIRUBIN,TOTAL 0.3 MG/DL (0.2-1.0); BLOOD UREA NITROGEN 16 MG/DL (7-18); CALCIUM LEVEL 9.3 MG/DL (8.5-10.1); CARBON DIOXIDE LEVEL 22 MEQ/L (21-32); CHLORIDE LEVEL 106 MEQ/L (98-107); CK-MB VALUE MASS 6.4 NG/ML (<3.6); CPK CREATINE PHOSPHOKINASE 159 U/L (26-192); CREATININE FOR GFR 1.58 MG/DL (0.55-1.30); GLOMERULAR FILTRATION RATE 35.6 (>51); GLUCOSE, FASTING 115 MG/DL (70-100); MB/CK RELATIVE INDEX 4.03 (< OR =4); NT-PRO BNP 1002 PG/ML (<125); POTASSIUM SERUM 3.9 MEQ/L (3.5-5.1); SODIUM LEVEL 137 MEQ/L (136-145); THYROXINE (T4) 4.5 UG/DL (4.5-12.0); TOTAL PROTEIN 6.9 GM/DL (6.4-8.2); TROPONIN I < 0.02 NG/ML (< 0.10)
[2021-01-25] MEDS ORDERED: LevoFLOXacin IV 750 MG in IV 1 EA IV ONE (16:00)
[2021-01-25] MEDS ORDERED: NS 1,000 ML IV ONE (17:25)
[2021-01-25] MEDS ORDERED: IBUP-1720 PO (17:39)
[2021-01-25] MEDS ORDERED: NEOM14OI TOP (17:39)
[2021-01-25] MEDS ORDERED: GUAI100L6 PO (17:39)
[2021-01-25] MEDS ORDERED: LORA24TA PO (17:39)
[2021-01-25] MEDS ORDERED: CALM1OIN TOP (17:39)
[2021-01-25] MEDS ORDERED: HOME MED LIST COMPLETE! XX SCH (17:45)
--- NOTE | 2021-01-25 18:43 | HPEPDOC ---
[facility] Medical History & Physical Date of Admission Jan 25, 2021 Date of Service: Jan 25, 2021 Attending Physician: RICK UREÑA MD History and Physical CHIEF COMPLAINT: Weakness and sob HISTORY OF PRESENT ILLNESS: Theresa is a 60 year old woman with notable history for severe intellectual disability (down syndrome), COVID-19 infection (Apr 2020), Alzheimer's dementia, hypothyroidism and chronic hypotension, who presents to the [facility] ER from [facility] with chief complaint of weakness and SOB. History is given per aid that is with the patient as patient is unable to provide this information 2/2 inte llectual disability. She states that yesterday the patient was "not herself" and that she was showing signs of lethargy and weakness. The patient was brought to this ER where she was diagnosed with RSV and d/c to home. Today she is much less responsive with increase in lethargy and weakness. She was unable to lift herself from the toilet or get into bed on her own. Vitals were taken at the [facility] house and she reports them to be BP ~70/50 (lower than baseline hypotension) and O2 sats in ~low 90%s. Caregiver also reports limited appetite and fluid intake. She also has been using 2L of oxygen at night starting after COVID-19 infection in Apr 2020 and two subsequent episodes of pneumonia. Per aid, there have been sick staff at [facility] but with unknown dx. Patient is covid vaccinated and anticipates booster shot once available (first two were moderna), also received pneumovax-13 last month. Patient's legal guardian is her brother Tae Leone ([phone], [place]). Aid does not know her code status, she does not have a MOLST or a healthcare proxy. REVIEW OF SYSTEMS PER CAREGIVER ([facility] AID): General: Reports patient has been sweaty and clammy. Denies fever, chills HEENT: Denies congestion. Denies hx of asthma or use of inhalers Heart: Denies CP Pulm: Reports SOB and cough that is wet sounding but non productive. Also reports belly breathing but does not report any obvious retractions GI: Reports one episode of loose stool. Denies N/V/D/C, no obvious signs of abd pain per aid Extrems: Denies notable increase in lower extremity edema or cyanosis of hands/feet/mouth PAST MEDICAL HISTORY: 1. COVID 19 infection in Apr 2020 2. Severe intellectual disability 3. Intermittent explosive disorder 4. Alzheimer's dementia 5. Down's syndrome 6. Depression and anxiety 7. Hypothyroidism 8. Seasonal allergies 9. Osteoporosis 10. Obesity (BMI 35) 11. Hypercholesterolemia 12. Chronic hypotension 13. Hydronephrosis (right) 14. Urinary outflow obstruction 15. Melanocytic Nevi Surgical History 1. Laparoscopy/hernia repair 1962 2. Hernia repair 3. Bowel obstruction surgery 2015 Family history: unable to provide due to intellectual disability; reviewed prior records and no n-contributory SOCIAL HISTORY: Never smoker, etoh, or illicit drug use ALLERGIES: Please see below. HOME MEDICATIONS: Please see below. PHYSICAL EXAMINATION: VITAL SIGNS: Please see below GENERAL: The patient is lethargic and audibly wheezing but abusable to sternal rub HEENT: NC/AT. No obvious lymphadenopathy. Sclera without icterus PULM: Diffuse coarse breath sounds CARDIO: Distant heart sounds, difficult to appreciate over lung sounds, but present ABDOMEN: Soft, nontender, and nondistended. Normal bowel sounds EXTREMITIES: Trace pitting edema in bilateral lower extremities LABORATORY DATA: See below. IMAGING: CXR Portable upright AP - 01/25/21 IMPRESSION: "Extensive and progressive infiltrates consistent with pneumonia." MICROBIOLOGY: Please see below. ASSESSMENT: Theresa is a 60 year old woman with notable history for severe intellectual disability (down syndrome), COVID-19 infection (Apr 2020), Alzheimer's dementia, hypothyroidism and chronic hypotension, who presents to the [facility] ER from [facility] with chief complaint of weakness and SOB. History is given per aid that is with the patient as patient is unable to provide this information 2/2 intellectual disability. She was found to have extensive and progressive infiltrates consistent with pneumonia on CXR in the ER and she is on 4L of O2. She will be admitted for acute hypoxic respiratory failure 2/2 CAP. PLAN: #Acute hypoxic respiratory failure 2/2 to superimposed CAP on viral infection (RSV) -will place on telemetry - leukocytosis with infiltrates on CXR. see above. Procal elevated; will order sputum culture - ER gave 1 dose of 750mng Levaquin; will start her on renally dosed levaquin 500 q48h. Qtc on EKG wnl. - Titrate O2 to >=94% - Incentive spirometry +Chest PT+acapella - Blood cultures pending - Guaifenesin 600mg PO BID for chest congestion - Repeat respiratory panel # LORETTA - Fam catheter - urine lytes ordered. as well as renal u/s- will f/u - fluids 80cc/h maintenance # Chronic hypotension - Continue home Midodrine # Hypothyroidism - Continue home levothyroxine # Mood disorder / Intellectual disability - c/w home regimen # Debility - PT/OT DVT Prophylaxis: Heparin SC q8h Vital Signs Vital Signs Date Time Temp Pulse Resp B/P (MAP) Pulse Ox O2 Delivery O2 Flow Rate FiO2 01/25/21 14:11 97.4 69 22 105/69 (81) 100 Non-Rebreather 5.0 Laboratory Data Labs 24H Laboratory Tests 2 01/25/21 14:39: Immature Granulocyte % (Auto) 0.6, Neutrophils (%) (Auto) 88.8H, Lymphocytes (%) (Auto) 4.4L, Monocytes (%) (Auto) 5.7, Eosinophils (%) (Auto) 0.1, Basophils (%) (Auto) 0.4, Neutrophils # (Auto) 14.2H, Lymphocytes # (Auto) 0.7L, Monocytes # (Auto) 0.9H, Eosinophils # (Auto) 0.0, Basophils # (Auto) 0.1, Nucleated Red Blood Cells % (auto) 0.0, Anion Gap 9, Glomerular Filtration Rate 35.6L, Lactic Acid Level 1.1, Calcium Level 9.3, Total Bilirubin 0.3, Direct Bilirubin 0.1, Aspartate Amino Transf (AST/SGOT) 33, Alanine Aminotransferase (ALT/SGPT) 18, Alkaline Phosphatase 79, Total Creatine Kinase 159, Creatine Kinase MB 6.4H, Creatine Kinase MB Relative Index 4.03H, Troponin I < 0.02, KW-Fgi-[id number]-Type Natriuretic Peptide 1002H, Total Protein 6.9, Albumin 2.6L, Albumin/Globulin Ratio 0.6L, Thyroid Stimulating Hormone (TSH) 3.450, Thyroxine (T4) 4.5 CBC/BMP Laboratory Tests 01/25/21 14:39 Microbiology Microbiology 01/25/21 Blood Culture, Received Pending Home Medications Scheduled Calcium Carbonate/Vitamin D3 (Calcium 600-Vit D3 400 Tablet) 1 Each Tablet, 1 TAB PO BID Carbamide Peroxide (Debrox) 15 Ml Drops, 4 DROP AU ASDIRECTED ONCE A MONTH ON FRI/SAT/SUN AT BEDTIME Citalopram Hydrobromide (Citalopram HBr) 10 Mg Tablet, 10 MG PO DAILY Docusate Sodium (Docusate Sodium) 100 Mg Capsule, 100 MG PO BID Lactulose (Lactulose) 10 Gm/15 Ml Solution, 30 ML PO BID Levetiracetam (Levetiracetam) 750 Mg Tablet, 750 MG PO BID Levothyroxine Sodium (Levothyroxine Sodium) 112 Mcg Tablet, 112 MCG PO DAILY Linaclotide (Linzess) 290 Mcg Capsule, 290 MCG PO DAILY Menthol/Zinc Oxide (Calmoseptine Ointment Packet) 3.5 Gm Oint.pack, 1 APPLIC TOP BID APPLY TO REDNESS IN MAKENZIE AREA Midodrine HCl (Midodrine HCl) 5 Mg Tab, 5 MG PO TID TAKES AT 0600/1600/2000 Multivitamins (Thera M Plus Tablet) 1 Tab Tab, 1 TAB PO DAILY Polyethylene Glycol 3350 (Miralax) 119 Gm Powder, 17 GRAM PO BID Quetiapine Fumarate (Seroquel) 200 Mg Tab, 400 MG PO QHS WITH 50MG FOR TOTAL DOSE 450MG QHS Quetiapine Fumarate (Seroquel) 200 Mg Tablet, 200 MG PO DAILY Quetiapine Fumarate (Quetiapine Fumarate) 50 Mg Tablet, 50 MG PO QHS WITH 400MG FOR TOTAL DOSE OF 450 MG QHS Simvastatin (Simvastatin) 20 Mg Tab, 20 MG PO QHS Scheduled PRN Acetaminophen (Acetaminophen) 325 Mg Tablet, 650 MG PO Q4H PRN for PAIN LEVEL 1- 4 Guaifenesin (Guaifenesin) 100 Mg/5 Ml Liquid, 10 ML PO Q4H PRN for COUGH Ibuprofen (Ibuprofen) 200 Mg Tablet, 400 MG PO Q6H PRN for PAIN LEVEL 1-4 Loratadine/Pseudoephedrine (Loratadine-D 24Hr Tablet) 1 Each Tab.er.24h, 1 TAB PO DAILY PRN for ALLERGIES Neomycin/Bacitracin/Polymyxinb (Triple Antibiotic Ointment) 14 Gm Oint...g., 1 APPLIC TOP BID PRN for REDNESS/IRRITATION APPLY TO ANY CUTS/ABRASIONS THAT APPEAR INFECTED Zinc Oxide (Desitin) 454 Gm Cream..g., 1 APPLIC TOP BID PRN for REDNESS/IRRITATION APPLY TO CHAFED SKIN Allergies Coded Allergies: Penicillins (Verified Allergy, Intermediate, RASH, 07/27/20) amoxicillin (Verified Allergy, Intermediate, rash, 07/27/20) GME ATTESTATION GME ATTESTATION My faculty preceptor for this patient encounter was physically present during the encounter and was fully available. All aspects of the patient interview, examination, medical decision making process, and medical care plan development were reviewed and approved by the faculty preceptor. The faculty preceptor is aware and concurs with the plan as stated in the body of this note and will attest to such by his/her cosignature. ATTENDING NOTE I, Rick Ureña, have independently examined this patient and performed my own physical exam, as well as reviewed the documentation and edited where necessary with the resident. For medical students we have performed the physical exam together and discussed medical decision making and I have verified the history. I have discussed in detail with the resident / student the findings and plan of treatment as documented by the resident / student and edited their note. I agree with their findings and treatment plan and have edited their documentation. I will continue to follow the patient during this hospital stay. Merline Valentin DO Jan 25, 2021 17:31 RICK UREÑA MD Jan 25, 2021 20:17
--- NOTE | 2021-01-25 18:43 | REP ---
INDICATION: LORETTA COMPARISON: None TECHNIQUE: Real time lang scale ultrasound examination using curved array transducer. FINDINGS: Bilateral kidneys are symmetric in size and normal in contour, echogenicity, and reniform shape. No hydronephrosis, nephrolithiasis, cystic or renal mass lesion. Right kidney measures 7.3 x 4.4 x 3.0 cm. Left kidney measures 7.0 x 3.1 x 3.6 cm. IMPRESSION: 1. No evidence for hydronephrosis. <Electronically signed by Hilton Denis > 01/25/21 [id number]
[2021-01-25 18:53] LABS: RSV AMPLIFICATION POSITIVE (NEGATIVE)
[2021-01-25] MEDS ORDERED: CARBAMIDE PEROXIDE 6.5% OTIC SOLN 15ML AU PRN (19:15)
[2021-01-25] MEDS ORDERED: IBUPROFEN 200MG TAB PO PRN (19:15)
[2021-01-25] MEDS ORDERED: ACETAMINOPHEN TAB 650MG DOSE (2X325MG) PO PRN (19:15)
[2021-01-25] MEDS: NS 1,000 ML IV SCH (19:18)
[2021-01-25] MEDS: DOCUSATE SODIUM 100MG CAPSULE PO SCH (21:00)
[2021-01-25] MEDS: LACTULOSE 20 GM/30 ML SYRUP UD PO SCH (22:30)
[2021-01-25] MEDS: levETIRAcetam 250MG TABLET (KEPPRA) PO SCH (22:30)
[2021-01-25] MEDS: SIMVASTATIN 20 MG TAB PO SCH (22:30)
[2021-01-25] MEDS: HEPARIN SOD (PORCINE) 5000UNITS/ML 1ML VIAL/SYRINGE SC SCH (22:30)
[2021-01-25] MEDS: guaiFENesin ER 600 MG TAB PO SCH (22:30)
[2021-01-25 22:32] VITALS: BP 110/55
[2021-01-25] MEDS: MIDODRINE 5 MG TAB PO SCH (22:40)
[2021-01-25 23:12] LABS: ABG BASE EXCESS 0.9 (-2.0-2.0); ABG HCO3 26.5 MEQ/L (22.0-26.0); ABG O2 SATURATION 98.6 % (95.0-99.0); ABG PARTIAL PRESSURE CO2 46.4 mmHg (35.0-45.0); ABG PARTIAL PRESSURE O2 142.6 mmHg (75.0-100.0); ABG STANDARD HCO3 25.3 MEQ/L (22.0-26.0); ABG TOTAL CO2 27.9 MEQ/L (22.0-29.0); ABG pH (ARTERIAL) 7.375 UNITS (7.350-7.450)
[2021-01-26] MEDS: QUEtiapine FUMARATE 200 MG TAB PO SCH ×3 (00:06→21:02)
[2021-01-26] MEDS: QUEtiapine FUMARATE 50MG TAB PO SCH ×2 (00:07→21:02)
[2021-01-26 04:12] VITALS: BP 109/66
[2021-01-26] MEDS: NS 1,000 ML IV SCH (05:40)
[2021-01-26] MEDS: HEPARIN SOD (PORCINE) 5000UNITS/ML 1ML VIAL/SYRINGE SC SCH ×4 (06:00→22:16)
[2021-01-26] MEDS: MIDODRINE 5 MG TAB PO SCH ×3 (06:19→21:10)
[2021-01-26] MEDS: LEVOTHYROXINE 112MCG TABLET (0.112MG) PO SCH (06:19)
[2021-01-26 06:26] LABS: HEMOGLOBIN 10.9 g/dl (12.0-15.5); MEAN CORPUSCULAR HEMOGLOBIN 31.6 pg (27.0-33.0); MEAN CORPUSCULAR HGB CONC 32.1 g/dl (32.0-36.5); MEAN CORPUSCULAR VOLUME 98.6 fl (80.0-96.0); PLATELET COUNT, AUTOMATED 180 10^3/uL (150-450); RED BLOOD COUNT 3.45 10^6/uL (4.00-5.40); WHITE BLOOD COUNT 8.9 10^3/uL (4.0-10.0)
[2021-01-26 07:35] LABS: BLOOD UREA NITROGEN 13 MG/DL (7-18); CALCIUM LEVEL 8.5 MG/DL (8.5-10.1); CARBON DIOXIDE LEVEL 26 MEQ/L (21-32); CHLORIDE LEVEL 106 MEQ/L (98-107); CREATININE FOR GFR 0.86 MG/DL (0.55-1.30); GLOMERULAR FILTRATION RATE > 60.0 (>51); GLUCOSE, FASTING 104 MG/DL (70-100); MAGNESIUM LEVEL 2.1 MG/DL (1.8-2.4); SODIUM LEVEL 139 MEQ/L (136-145)
[2021-01-26 08:00] VITALS: BP 123/70
[2021-01-26] MEDS: DOCUSATE SODIUM 100MG CAPSULE PO SCH ×2 (09:00→21:02)
[2021-01-26] MEDS: guaiFENesin ER 600 MG TAB PO SCH ×2 (09:00→21:02)
[2021-01-26] MEDS: LACTULOSE 20 GM/30 ML SYRUP UD PO SCH ×2 (09:55→21:02)
[2021-01-26] MEDS: levETIRAcetam 250MG TABLET (KEPPRA) PO SCH ×2 (09:56→21:02)
[2021-01-26] MEDS: CitaloPRAM (CeleXA) 10 MG TABLET PO SCH (09:56)
[2021-01-26] MEDS: MULTIVITAMINS/MINERALS THERAP 1 TAB PO SCH (09:56)
[2021-01-26 11:29] VITALS: O2SAT 92
--- NOTE | 2021-01-26 11:59 | IPNPDOC ---
Subjective Date Seen The patient was seen on 01/26/21. Subjective Chief Complaint/HPI SUBJECTIVE: Theresa is much less lethargic than on presentation. She is awake in bed and coloring contently. She acknowledges when spoken to and will respond to some questions. There is not a [facility] aid with her today- per nursing, this may be due t o a staffing issue at [facility]. She is unable to give much report on her illness due to her intellectual deficit, but subjectively has improved in energy and alertness since presentation. She is unable to tell us confidently if she is in any pain but seems to acknowledge that her chest is uncomfortable. Overnight, Theresa was taken off of her non rebreather mask and put on a NC at 3L. At ~0600 this morning her O2 sats dipped to 83% and her O2 was increased to 5L. She appears agitated with the NC and won't keep it in place, but at this time is in no respiratory distress. ROS unable to be obtained at this time due to baseline severe intellectual disability OBJECTIVE: Vitals: Please see below Physical exam limited due to limited patient cooperation this morning General: Down's syndrome patient with Severe intellectual disability. baseline mentation. Alert and does answer to questions. No acute respiratory distress HEENT: PERRLA, no sclera icterus or injection, MMM, pharynx pink and grossly normal CV: Heart sounds are distant and difficult to hear over coarse lung sounds, but present. Rt rad pulse 2+, IV wrapped on left hand RESP: Diffuse coarse ronchi bilaterally, no wheezing, rales appreciated ABDOMEN: BS present and normoactive, no obvious tenderness to palpation EXTREM: PTAs present bilaterally, no obvious edema appreciated, no bruising, petechia or rashes. IMAGING: CXR Portable upright AP - 01/25/21 IMPRESSION: Extensive and progressive infiltrates consistent with pneumonia Renal US - 01/25/21 IMPRESSION: No evidence for hydronephrosis ASSESSMENT: Theresa is a 60 year old woman with notable history for severe intellectual disability (down syndrome), COVID-19 infection (Apr 2020), Alzheimer's dementia, hypothyroidism and chronic hypotension, who presents to the [facility] ER from [facility] with chief complaint of weakness and SOB. History is given per aid that is with the patient as patient is unable to provide this information 2/2 intellectual disability. She was found to have extensive and progressive infiltrates consistent with pneumonia on CXR in the ER and she is on 4L of O2. She will be admitted for acute hypoxic respiratory failure 2/2 CAP. PLAN: #Acute hypoxic respiratory failure 2/2 to superimposed CAP vs viral infection (RSV) - Will place on telemetry - s/p leukocytosis - infiltrates on CXR. see above. Procal elevated; will order sputum culture - ER gave 1 dose of 750mng Levaquin; will start her on renally dosed levaquin 500 q48h. Qtc on EKG wnl. - Titrate O2 to >=94% - Incentive spirometry +Chest PT+acapella - Blood cultures pending - Guaifenesin 600mg PO BID for chest congestion - RSV positive on 01/25/21 from specimen collected 17:37 # LORETTA - Fam catheter - Urine lytes resulted - WNL - Renal US resulted - no hydro - - fluids 80cc/h maintenance - stopped 01/26 # Chronic hypotension - Continue home Midodrine - will c/w close monitoring of bp # Hypothyroidism - Continue home levothyroxine # Mood disorder / Intellectual disability - c/w home regimen # Debility - PT/OT # DVT Prophylaxis: Heparin SC q8h, TEDS and sequentials VS, I&O, 24H, Fishbone Vital Signs/I&O Vital Signs Date Time Temp Pulse Resp B/P (MAP) Pulse Ox O2 Delivery O2 Flow Rate FiO2 01/26/21 08:00 98.1 77 20 123/70 (87) 90 Nasal Cannula 01/26/21 06:22 5.0 I&O- Last 24 Hours up to 6 AM 01/26/21 06:00 Intake Total 560 ml Output Total 2130 ml Balance -1570 ml Laboratory Data 24H LABS Laboratory Tests 2 01/25/21 14:39: Immature Granulocyte % (Auto) 0.6, Neutrophils (%) (Auto) 88.8H, Lymphocytes (%) (Auto) 4.4L, Monocytes (%) (Auto) 5.7, Eosinophils (%) (Auto) 0.1, Basophils (%) (Auto) 0.4, Neutrophils # (Auto) 14.2H, Lymphocytes # (Auto) 0.7L, Monocytes # (Auto) 0.9H, Eosinophils # (Auto) 0.0, Basophils # (Auto) 0.1, Nucleated Red Blood Cells % (auto) 0.0, Anion Gap 9, Glomerular Filtration Rate 35.6L, Lactic Acid Level 1.1, Calcium Level 9.3, Total Bilirubin 0.3, Direct Bilirubin 0.1, Aspartate Amino Transf (AST/SGOT) 33, Alanine Aminotransferase (ALT/SGPT) 18, Alkaline Phosphatase 79, Total Creatine Kinase 159, Creatine Kinase MB 6.4H, Creatine Kinase MB Relative Index 4.03H, Troponin I < 0.02, NN-Kna-X-Type Natriuretic Peptide 1002H, Total Protein 6.9, Albumin 2.6L, Albumin/Globulin Ratio 0.6L, Procalcitonin 7.66, Thyroid Stimulating Hormone (TSH) 3.450, Thyroxine (T4) 4.5 01/25/21 17:37: Coronavirus (COVID-19)(PCR) NEGATIVE, Influenza Type A (RT-PCR) NEGATIVE, Influenza Type B (RT-PCR) NEGATIVE, Respiratory Syncytial Virus (PCR) POSITIVE 01/25/21 19:05: Lactic Acid Level 1.1 01/25/21 19:07: Procalcitonin 6.96, Osmolality 286 01/25/21 23:02: Blood Gas Bicarbonate Standard 25.3, Arterial Blood pH 7.375, Arterial Blood Partial Pressure CO2 46.4H, Arterial Blood Partial Pressure O2 142.6H, Arterial Blood Total CO2 27.9, Arterial Blood HCO3 26.5H, Arterial Blood Base Excess 0.9, Arterial Blood Oxygen Saturation 98.6 01/25/21 23:14: Urine Color YELLOW, Urine Appearance HAZY, Urine pH 6.0, Urine Specific [place] 1.011, Urine Protein NEGATIVE, Urine Glucose (UA) NEGATIVE, Urine Ketones NEGATIVE, Urine Blood NEGATIVE, Urine Nitrite NEGATIVE, Urine Bilirubin NEGATIVE, Urine Urobilinogen 0.2, Urine Leukocyte Esterase NEGATIVE, Urine WBC (Auto) 1, Urine RBC (Auto) 0, Urine Hyaline Casts (Auto) 4, Urine Bacteria (Auto) NEGATIVE, Urine Squamous Epithelial Cells 0, Urine Mucus (Auto) SMALL, Urine Sperm (Auto) , Urine Osmolality 348, Urine Random Creatinine 87.0, Urine Random Sodium 26, Methicillin-Resist S.aureus DNA PCR NOT DETECTED 01/26/21 06:07: Nucleated Red Blood Cells % (auto) 0.0, Anion Gap 7L, Glomerular Filtration Rate > 60.0, Calcium Level 8.5, Magnesium Level 2.1 CBC/BMP Laboratory Tests 01/25/21 14:39 01/26/21 06:07 Microbiology Microbiology 01/25/21 Blood Culture, Received Pending 01/25/21 Blood Culture, Received Pending 01/25/21 Blood Culture, Received Pending GME ATTESTATION GME ATTESTATION My faculty preceptor for this patient encounter was physically present during the encounter and was fully available. All aspects of the patient interview, examination, medical decision making process, and medical care plan development were reviewed and approved by the faculty preceptor. The faculty preceptor is aware and concurs with the plan as stated in the body of this note and will attest to such by his/her cosignature. ATTENDING NOTE I, Rick Rogel, have independently examined this patient and performed my own physical exam, as well as reviewed the documentation and edited where necessary with the resident. For medical students we have performed the physical exam together and discussed medical decision making and I have verified the history. I have discussed in detail with the resident / student the findings and plan of treatment as documented by the resident / student and edited their note. I agree with their findings and treatment plan and have edited their documentation. I will continue to follow the patient during this hospital stay. Merline Valentin DO Jan 26, 2021 11:46 RICK ROGEL MD Jan 26, 2021 13:24
[2021-01-26 12:00] VITALS: BP 141/87
--- NOTE | 2021-01-26 14:06 | ECGEPIP ---
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 Increased heart rate compared with 01/25/2021. Electronically Signed on 01-26-2021 14:06:11 EDT by Gaurav Bates
[2021-01-26 16:00] VITALS: BP 159/74
--- NOTE | 2021-01-26 17:36 | ECGEPIP ---
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
[2021-01-26 20:00] VITALS: BP 115/59
[2021-01-26] MEDS: SIMVASTATIN 20 MG TAB PO SCH (21:02)
[2021-01-27] VITALS: BP 108/58
[2021-01-27 04:00] VITALS: BP 119/55
[2021-01-27] MEDS: MIDODRINE 5 MG TAB PO SCH ×3 (05:49→22:13)
[2021-01-27] MEDS: HEPARIN SOD (PORCINE) 5000UNITS/ML 1ML VIAL/SYRINGE SC SCH ×3 (05:49→22:14)
[2021-01-27] MEDS: LEVOTHYROXINE 112MCG TABLET (0.112MG) PO SCH (05:49)
[2021-01-27 07:33] VITALS: BP 117/55
[2021-01-27 08:32] LABS: BASO % 0.4 % (0.0-1.0); HEMATOCRIT 30.9 % (36.0-47.0); HEMOGLOBIN 10.3 g/dl (12.0-15.5); LYMPH # 0.4 10^3/uL (1.5-5.0); MEAN CORPUSCULAR HEMOGLOBIN 32.3 pg (27.0-33.0); MEAN CORPUSCULAR HGB CONC 33.3 g/dl (32.0-36.5); MEAN CORPUSCULAR VOLUME 96.9 fl (80.0-96.0); MONO # 0.4 10^3/uL (0.0-0.8); MONO % 7.1 % (2.0-8.0); NEUTROPHILS # 4.6 10^3/uL (1.5-8.5); NEUTROPHILS % 84.1 % (36.0-66.0); PLATELET COUNT, AUTOMATED 177 10^3/uL (150-450); RED BLOOD COUNT 3.19 10^6/uL (4.00-5.40); WHITE BLOOD COUNT 5.5 10^3/uL (4.0-10.0)
[2021-01-27 08:52] LABS: BLOOD UREA NITROGEN 11 MG/DL (7-18); CALCIUM LEVEL 8.2 MG/DL (8.5-10.1); CARBON DIOXIDE LEVEL 28 MEQ/L (21-32); CHLORIDE LEVEL 108 MEQ/L (98-107); CREATININE FOR GFR 0.86 MG/DL (0.55-1.30); GLOMERULAR FILTRATION RATE > 60.0 (>51); GLUCOSE, FASTING 114 MG/DL (70-100); POTASSIUM SERUM 4.1 MEQ/L (3.5-5.1); SODIUM LEVEL 140 MEQ/L (136-145)
[2021-01-27] MEDS: levETIRAcetam 250MG TABLET (KEPPRA) PO SCH ×2 (09:52→22:13)
[2021-01-27] MEDS: DOCUSATE SODIUM 100MG CAPSULE PO SCH ×2 (09:52→22:13)
[2021-01-27] MEDS: LACTULOSE 20 GM/30 ML SYRUP UD PO SCH ×2 (09:52→22:14)
[2021-01-27] MEDS: CitaloPRAM (CeleXA) 10 MG TABLET PO SCH (09:52)
[2021-01-27] MEDS: MULTIVITAMINS/MINERALS THERAP 1 TAB PO SCH (09:52)
[2021-01-27] MEDS: guaiFENesin ER 600 MG TAB PO SCH ×2 (09:52→22:17)
[2021-01-27] MEDS: QUEtiapine FUMARATE 200 MG TAB PO SCH ×2 (09:53→22:13)
--- NOTE | 2021-01-27 10:44 | REP ---
INDICATION: Hypoxia. COMPARISON: Comparison chest January 24, 2021 and 09/09/2020. TECHNIQUE: Portable upright AP chest radiograph. FINDINGS: There is progressively dense opacification in the left upper lobe and right upper lobe infiltrates. There is a right upper lobe patchy infiltrate which is unchanged. There is increased density in the left lower lobe as well. This is somewhat improved. A moderate dextroconvex thoracic curvature is seen. Heart is borderline. IMPRESSION: Radiographic progression of infiltrates in the left upper lobe and right lower lobe. Slight improvement left lower lobe. Infiltrate right upper lobe unchanged. <Electronically signed by Kain Hoang > 01/27/21 [id number]
[2021-01-27 10:48] LABS: ABG BASE EXCESS 1.5 (-2.0-2.0); ABG HCO3 26.1 MEQ/L (22.0-26.0); ABG O2 SATURATION 99.4 % (95.0-99.0); ABG PARTIAL PRESSURE CO2 41.2 mmHg (35.0-45.0); ABG PARTIAL PRESSURE O2 192.4 mmHg (75.0-100.0); ABG STANDARD HCO3 25.9 MEQ/L (22.0-26.0); ABG TOTAL CO2 27.4 MEQ/L (22.0-29.0)
--- NOTE | 2021-01-27 11:53 | IPNPDOC ---
Subjective Date Seen The patient was seen on 01/27/21. Subjective Chief Complaint/HPI SUBJECTIVE: Pt was seen at bedside this am and looks more lethargic than yesterday. She refused to keep her NC on overnight and her O2 sats continued to drop. She is now on a NC as well as a Venturi mask on O2 flow rate of 90.0. She was aware of my presence on exam but had little response when spoken to. There was not an aid from [facility] with her at this time but per nursing staff, there typically is an aid with her during the day. Unable to perform ROS at this time due to patient severe intellectual disability and lethargy OBJECTIVE: GENERAL: Patient is lethargic with limited responsiveness on exam HEENT: NC/AT, sclera without icterus and non-injected CV: Heart sounds are diminished but present and grossly normal, radial pulse appreciated 2+ on right, left is wrapped (IV site), cap refill <2s RESP: Diffuse ronchi with some lower lobe crackles bilaterally, no obvious wheezing or retractions ABDOMEN: Soft, non-tender to palpation, BS present EXTREMITIES: Trace non-pitting edema, DPAs and PTAs present bilaterally IMAGING: CXR, portable upright AP view 01/27/21 IMPRESSION: Radiographic progression of infiltrates in the left upper lobe and right lower lobe. Slight improvement left lower lobe. Infiltrate right upper lobe unchanged. CXR Portable upright AP - 01/25/21 IMPRESSION: Extensive and progressive infiltrates consistent with pneumonia Renal US - 01/25/21 IMPRESSION: No evidence for hydronephrosis MICROBIOLOGY: Prelim blood cx shows: Gram positive cocci in pairs and clusters. Will repeat blood cxs- pending ASSESSMENT AND PLAN: This is a 60 year old woman with notable history for severe intellectual disability (down syndrome), COVID-19 infection (Apr 2020), Alzheimer's dementia, hypothyroidism and chronic hypotension, who presents to the [facility] ER from [facility] with chief complaint of weakness and SOB. History is given per aid that is with the patient as patient is unable to provide this information 2/2 intellectual disability. She was found to have extensive and progressive infiltrates consistent with pneumonia on CXR in the ER and she was on 4L of O2. She will be admitted for acute hypoxic respiratory failure 2/2 CAP vs viral infection (RSV). #Acute hypoxic respiratory failure 2/2 to superimposed CAP vs viral infection (R SV) - Hypoxia appears to have worsened - c/w telemetry - s/p leukocytosis - ABG noted this morning without any PCO2 retention - infiltrates on CXR. see above. Procal elevated; will order sputum culture - Repeat CXR 01/27 shows slight improvement of infiltrates in the left lower lobe while the right remains unchanged - ER gave 1 dose of 750mng Levaquin; will start her on renally dosed levaquin 500 q48h. Qtc on EKG wnl. - Titrate O2 to >=94% - Incentive spirometry +Chest PT+acapella; will continue with aggressive chest PT to help clear secretions and improve oxygenation - Guaifenesin 600mg PO BID for chest congestion - RSV positive on 01/25/21 from specimen collected 17:37 # Bacteremia - possibly 2/2 contaminant - Has remained hemodynamically stable and afebrile - Leukocytosis has improved - Prelim cultures showed gram pos cocci in pairs and clusters,will repeat cultures ordered to confirm results vs contamination # s/p LORETTA - Fam catheter - Urine lytes resulted WNL - Renal US resulted - no hydro - fluids 80cc/h maintenance - stopped 01/26 # Chronic hypotension - Continue home Midodrine - will c/w close monitoring of bp # Hypothyroidism - Continue home levothyroxine # Mood disorder / Intellectual disability - c/w home regimen # Debility - PT/OT # DVT Prophylaxis: - c/w Heparin SC q8h, TEDS and sequentials VS, I&O, 24H, Fishbone Vital Signs/I&O Vital Signs Date Time Temp Pulse Resp B/P (MAP) Pulse Ox O2 Delivery O2 Flow Rate FiO2 01/27/21 07:33 88 30 117/55 (75) Venturi Mask 90.0 01/27/21 04:00 97.8 92 01/27/21 04:00 50 I&O- Last 24 Hours up to 6 AM 01/27/21 06:00 Intake Total 120 ml Output Total 550 ml Balance -430 ml Laboratory Data 24H LABS Laboratory Tests 2 01/27/21 08:17: Immature Granulocyte % (Auto) 0.4, Neutrophils (%) (Auto) 84.1H, Lymphocytes (%) (Auto) 8.0L, Monocytes (%) (Auto) 7.1, Eosinophils (%) (Auto) 0.0, Basophils (%) (Auto) 0.4, Neutrophils # (Auto) 4.6, Lymphocytes # (Auto) 0.4L, Monocytes # (Auto) 0.4, Eosinophils # (Auto) 0.0, Basophils # (Auto) 0.0, Nucleated Red Blood Cells % (auto) 0.0, Anion Gap 4L, Glomerular Filtration Rate > 60.0, Calcium Level 8.2L, Magnesium Level 2.0 01/27/21 10:41: Blood Gas Bicarbonate Standard 25.9, Arterial Blood pH 7.420, Arterial Blood Partial Pressure CO2 41.2, Arterial Blood Partial Pressure O2 192.4H, Arterial Blood Total CO2 27.4, Arterial Blood HCO3 26.1H, Arterial Blood Base Excess 1.5, Arterial Blood Oxygen Saturation 99.4H CBC/BMP Laboratory Tests 01/27/21 08:17 Microbiology Microbiology 01/27/21 Blood Culture, Received Pending 01/25/21 Blood Culture - Preliminary, Resulted No growth after 24 hours . All specim... 01/25/21 Blood Culture - Preliminary, Resulted No growth after 24 hours . All specim... 01/25/21 Blood Culture - Preliminary, Resulted GME ATTESTATION GME ATTESTATION My faculty preceptor for this patient encounter was physically present during the encounter and was fully available. All aspects of the patient interview, exa mination, medical decision making process, and medical care plan development were reviewed and approved by the faculty preceptor. The faculty preceptor is aware and concurs with the plan as stated in the body of this note and will attest to such by his/her cosignature. ATTENDING NOTE I, Rick Rogel, have independently examined this patient and performed my own physical exam, as well as reviewed the documentation and edited where necessary with the resident. For medical students we have performed the physical exam together and discussed medical decision making and I have verified the history. I have discussed in detail with the resident / student the findings and plan of treatment as documented by the resident / student and edited their note. I agree with their findings and treatment plan and have edited their documentation. I will continue to follow the patient during this hospital stay. Merline Valentin DO Jan 27, 2021 11:53 RICK ROGEL MD Jan 27, 2021 12:51
[2021-01-27 12:09] VITALS: BP 104/58
[2021-01-27 16:02] VITALS: BP 107/59
[2021-01-27] MEDS ORDERED: NS 1,000 ML IV SCH (16:10)
[2021-01-27] MEDS: LevoFLOXacin IV 500 MG in IV 1 EA IV SCH (17:20)
[2021-01-27 20:00] VITALS: BP 109/58
[2021-01-27] MEDS: SIMVASTATIN 20 MG TAB PO SCH (22:13)
[2021-01-27] MEDS: QUEtiapine FUMARATE 50MG TAB PO SCH (22:13)
[2021-01-28] VITALS (7 sets, daily range): BP systolic 97–131; BP diastolic 53–67
[2021-01-28] MEDS: LEVOTHYROXINE 112MCG TABLET (0.112MG) PO SCH (05:32)
[2021-01-28] MEDS: MIDODRINE 5 MG TAB PO SCH ×3 (05:32→20:37)
[2021-01-28] MEDS: HEPARIN SOD (PORCINE) 5000UNITS/ML 1ML VIAL/SYRINGE SC SCH ×3 (05:33→23:00)
[2021-01-28 06:20] LABS: HEMATOCRIT 30.2 % (36.0-47.0); HEMOGLOBIN 9.9 g/dl (12.0-15.5); MEAN CORPUSCULAR HEMOGLOBIN 32.5 pg (27.0-33.0); MEAN CORPUSCULAR HGB CONC 32.8 g/dl (32.0-36.5); PLATELET COUNT, AUTOMATED 176 10^3/uL (150-450); RED BLOOD COUNT 3.05 10^6/uL (4.00-5.40); WHITE BLOOD COUNT 5.1 10^3/uL (4.0-10.0)
[2021-01-28 06:41] LABS: BLOOD UREA NITROGEN 10 MG/DL (7-18); CARBON DIOXIDE LEVEL 29 MEQ/L (21-32); CHLORIDE LEVEL 108 MEQ/L (98-107); GLOMERULAR FILTRATION RATE > 60.0 (>51); GLUCOSE, FASTING 113 MG/DL (70-100); MAGNESIUM LEVEL 2.1 MG/DL (1.8-2.4); SODIUM LEVEL 141 MEQ/L (136-145)
[2021-01-28] MEDS: QUEtiapine FUMARATE 200 MG TAB PO SCH ×2 (08:46→20:37)
[2021-01-28] MEDS: guaiFENesin ER 600 MG TAB PO SCH ×2 (08:46→20:37)
[2021-01-28] MEDS: levETIRAcetam 250MG TABLET (KEPPRA) PO SCH ×2 (08:46→20:37)
[2021-01-28] MEDS: MULTIVITAMINS/MINERALS THERAP 1 TAB PO SCH (08:46)
[2021-01-28] MEDS: LACTULOSE 20 GM/30 ML SYRUP UD PO SCH ×2 (08:47→20:38)
[2021-01-28] MEDS: DOCUSATE SODIUM 100MG CAPSULE PO SCH ×2 (08:47→20:38)
[2021-01-28] MEDS: CitaloPRAM (CeleXA) 10 MG TABLET PO SCH (08:47)
--- NOTE | 2021-01-28 12:03 | IPNPDOC ---
Subjective Date Seen The patient was seen on 01/28/21. Subjective Chief Complaint/HPI SUBJECTIVE: Per nursing staff, Theresa is less lethargic today and has intermittent bouts of alertness. Patient waxes and wanes with her mentation; however, per nursing who has taken care of this patient during prior hospitalizations, this is her baseline. She is currently on high flow NC at 15L at 98% O2 sat. Patient is uncooperative with ROS 2/2 to her intellectual disability. OBJECTIVE VITALS: See below GENERAL: Patient is laying in bed, somewhat lethargic, mild response to speech and touch HEENT: NC/AT, sclera without icterus and non-injected CV: Heart sounds are diminished but present and grossly normal, radial pulse appreciated 2+ on right, left is wrapped (IV site), cap refill <2s RESP: Diffuse rhonci, lower lobe crackles bilaterally with expiratory wheezing ABDOMEN: Soft, non-tender to palpation, BS present EXTREMS: Slight non-pitting edema, PTAs present bilaterally IMAGING: CXR, portable upright AP view 01/27/21 IMPRESSION: Radiographic progression of infiltrates in the left upper lobe and right lower lobe. Slight improvement left lower lobe. Infiltrate right upper lobe unchanged. CXR Portable upright AP - 01/25/21 IMPRESSION: Extensive and progressive infiltrates consistent with pneumonia Renal US - 01/25/21 IMPRESSION: No evidence for hydronephrosis ASSESSMENT & PLAN: Theresa is a 60 year old woman with notable history for severe intellectual disability (down syndrome), COVID-19 infection (Apr 2020), Alzheimer's dementia, hypothyroidism and chronic hypotension, who presents to the [facility] ER from [facility] with chief complaint of weakness and SOB. History is given per aid that is with the patient as patient is unable to provide this information 2/2 intellectual disability. She was found to have extensive and progressive infiltrates consistent with pneumonia on CXR in the ER and she was on 4L of O2. She will be admitted for acute hypoxic respiratory failure 2/2 CAP vs viral infection (RSV). #Acute hypoxic respiratory failure 2/2 to superimposed CAP vs viral infection (RSV) - Will place on telemetry - s/p leukocytosis - RSV positive on 01/25/21 from specimen collected 17:37 - Blood cultures resulted, repeat cultures pending to confirm results vs contamination - infiltrates on CXR. see above. Procal elevated; will order sputum culture - Repeat CXR 01/27 shows slight improvement of infiltrates in the left lower lobe while the right remains unchanged - Titrate O2 to >=94% - Incentive spirometry + aggressive Chest PT q4h+acapella to clear out secretions - Guaifenesin 600mg PO BID for chest congestion - c/w levaquin 500 q48h. Qtc on EKG wnl. # LORETTA, improved - Urine lytes resulted WNL - Renal US resulted - no hydro - s/p fluids. will continue to monitor labs closely. # Chronic hypotension - Continue home Midodrine - will c/w close monitoring of bp # Hypothyroidism - Continue home levothyroxine # Mood disorder / Intellectual disability - c/w home regimen # Debility - PT/OT # DVT Prophylaxis: Heparin SC q8h, TEDS and sequentials VS, I&O, 24H, Fishbone Vital Signs/I&O Vital Signs Date Time Temp Pulse Resp B/P (MAP) Pulse Ox O2 Delivery O2 Flow Rate FiO2 01/28/21 08:00 15.0 01/28/21 08:00 98.2 80 22 97/55 (69) 98 High Flow Cannula 01/27/21 20:00 I&O- Last 24 Hours up to 6 AM 01/28/21 06:00 Intake Total 420 ml Output Total 50 ml Balance 370 ml Laboratory Data 24H LABS Laboratory Tests 2 01/28/21 06:04: Nucleated Red Blood Cells % (auto) 0.0, Anion Gap 4L, Glomerular Filtration Rate > 60.0, Calcium Level 8.0L, Magnesium Level 2.1, XV-Zdp-[id number]-Type Natriuretic Peptide 554H CBC/BMP Laboratory Tests 01/28/21 06:04 Microbiology Microbiology 01/27/21 Blood Culture, Received Pending 01/27/21 Blood Culture - Preliminary, Resulted No growth after 24 hours . All specim... 01/25/21 Blood Culture - Preliminary, Resulted No Growth after 48 hours. All Specime... 01/25/21 Blood Culture - Preliminary, Resulted No Growth after 48 hours. All Specime... 01/25/21 Blood Culture - Preliminary, Resulted GME ATTESTATION GME ATTESTATION My faculty preceptor for this patient encounter was physically present during the encounter and was fully available. All aspects of the patient interview, examination, medical decision making process, and medical care plan development were reviewed and approved by the faculty preceptor. The faculty preceptor is aware and concurs with the plan as stated in the body of this note and will attest to such by his/her cosignature. ATTENDING NOTE I, Rick Rogel, have independently examined this patient and performed my own physical exam, as well as reviewed the documentation and edited where necessary with the resident. For medical students we have performed the physical exam together and discussed medical decision making and I have verified the history. I have discussed in detail with the resident / student the findings and plan of treatment as documented by the resident / student and edited their note. I agree with their findings and treatment plan and have edited their documentation. I will continue to follow the patient during this hospital stay. Merline Valentin DO Jan 28, 2021 12:02 RICK ROGEL MD Jan 28, 2021 14:33
[2021-01-28] MEDS: SIMVASTATIN 20 MG TAB PO SCH (20:37)
[2021-01-28] MEDS: QUEtiapine FUMARATE 50MG TAB PO SCH (20:37)
[2021-01-29 06:00] VITALS: BP 101/48
[2021-01-29] MEDS: MIDODRINE 5 MG TAB PO SCH ×3 (06:04→21:18)
[2021-01-29] MEDS: LEVOTHYROXINE 112MCG TABLET (0.112MG) PO SCH (06:04)
[2021-01-29] MEDS: HEPARIN SOD (PORCINE) 5000UNITS/ML 1ML VIAL/SYRINGE SC SCH ×3 (06:05→21:31)
[2021-01-29 07:42] LABS: BASO % 0.2 % (0.0-1.0); EOS # 0.1 10^3/uL (0.0-0.5); EOS % 1.2 % (0.0-3.0); HEMATOCRIT 29.7 % (36.0-47.0); HEMOGLOBIN 9.9 g/dl (12.0-15.5); LYMPH # 0.6 10^3/uL (1.5-5.0); LYMPH % 12.4 % (24.0-44.0); MEAN CORPUSCULAR HEMOGLOBIN 32.1 pg (27.0-33.0); MEAN CORPUSCULAR HGB CONC 33.3 g/dl (32.0-36.5); MEAN CORPUSCULAR VOLUME 96.4 fl (80.0-96.0); MONO # 0.5 10^3/uL (0.0-0.8); MONO % 11.1 % (2.0-8.0); NEUTROPHILS # 3.6 10^3/uL (1.5-8.5); NEUTROPHILS % 74.3 % (36.0-66.0); PLATELET COUNT, AUTOMATED 192 10^3/uL (150-450); RED BLOOD COUNT 3.08 10^6/uL (4.00-5.40); WHITE BLOOD COUNT 4.9 10^3/uL (4.0-10.0)
[2021-01-29 08:10] LABS: BLOOD UREA NITROGEN 10 MG/DL (7-18); CARBON DIOXIDE LEVEL 28 MEQ/L (21-32); CHLORIDE LEVEL 108 MEQ/L (98-107); CREATININE FOR GFR 0.65 MG/DL (0.55-1.30); GLOMERULAR FILTRATION RATE > 60.0 (>51); GLUCOSE, FASTING 121 MG/DL (70-100); MAGNESIUM LEVEL 2.2 MG/DL (1.8-2.4); POTASSIUM SERUM 3.8 MEQ/L (3.5-5.1); SODIUM LEVEL 141 MEQ/L (136-145)
[2021-01-29] MEDS: CitaloPRAM (CeleXA) 10 MG TABLET PO SCH (10:30)
[2021-01-29] MEDS: levETIRAcetam 250MG TABLET (KEPPRA) PO SCH ×2 (10:30→21:17)
[2021-01-29] MEDS: LACTULOSE 20 GM/30 ML SYRUP UD PO SCH ×2 (10:30→21:30)
[2021-01-29] MEDS: MULTIVITAMINS/MINERALS THERAP 1 TAB PO SCH (10:30)
--- NOTE | 2021-01-29 10:41 | IPNPDOC ---
Subjective Date Seen The patient was seen on 01/29/21. Subjective Chief Complaint/HPI SUBJECTIVE: Patient seen at bedside this a.m. She looks lethargic and sleeping in bed would not cooperate with the exam. She still sounds rhonchorous on auscultation. Continues to work with with aggressive chest PT for mucus clearance. No acute events overnight. OBJECTIVE VITALS: See below GENERAL: Patient is laying in bed, lethargic, no acute respiratory distress on high flow. HEENT: NC/AT, sclera without icterus and non-injected CV: Heart sounds are diminished but present and grossly normal, radial pulse appreciated 2+ on right, left is wrapped (IV site), cap refill <2s RESP: Rhonchorous, mild expiratory wheezes bilaterally. No significant rales or crackles appreciated. ABDOMEN: Soft, non-tender to palpation, BS present EXTREMITIES: Slight non-pitting edema, PTAs present bilaterally IMAGING: CXR Portable upright AP - 01/25/21 Extensive and progressive infiltrates consistent with pneumonia Renal US - 01/25/21 No evidence for hydronephrosis CXR, portable upright AP view 01/27/21 Radiographic progression of infiltrates in the left upper lobe and right lower lobe. Slight improvement left lower lobe. Infiltrate right upper lobe unchanged. ASSESSMENT & PLAN: This is a 60 year old woman with Down syndrome/severe intellectual disability, who presents to the [facility] ER from [facility] with chief complaint of weakness and SOB. History is obtained from [facility] aide who is with the patient at the time of admission. She was found to hypoxic respiratory failure requiring nonrebreather to sat above 90% and chest radiograph in the ER showed worsening of infiltrates suspicious for pneumonia. Her respiratory panel also shows positive for RSV. Hospitalist team was asked to admit the patient for further management of her care. #Acute hypoxic respiratory failure 2/2 to superimposed CAP and viral infection (RSV) - Patient's oxygen levels and slowly improving and amount of supplemental oxygen has been decreasing - Continue with telemetry - Initial pro-Kaiden elevate and chest radiograph shows worsening of infiltrates- will continue her on Levaquin (EKG shows normal limits of her QTc interval). - Patient still requiring high flow however her oxygenation tends to improve after aggressive chest PT for mucus clearance. - We will continue with aggressive chest PT plus incentive spirometry plus Acapella plus Mucinex and titrate O2 to to maintain SPO2 above 92% - c/w Levofloxacin (Day #5) # Micrococcus Luteus in 1 blood culture - likely 2/2 contaminant - Has remained hemodynamically stable and afebrile - Leukocytosis has improved - Blood cultures 01/25: (1of2) Micrococcus luteus - Blood cultures 01/27: No growth x48 hours. # LORETTA, improved - Urine lytes resulted WNL - Renal US resulted - no hydro - s/p fluids. will continue to monitor labs closely. # Chronic hypotension - c/w Midodrine # Hypothyroidism - Continue home levothyroxine # Mood disorder / Intellectual disability - Patient has been very lethargic and waxes and wanes. - We will hold her quetiapine and continue to monitor her mentation # Debility - PT/OT # DVT Prophylaxis: - c/w Heparin SC q8h - c/w TEDS and sequentials Code Status: - Full Disposition: - Pending clinical improvement VS, I&O, 24H, Fishbone Vital Signs/I&O Vital Signs Date Time Temp Pulse Resp B/P (MAP) Pulse Ox O2 Delivery O2 Flow Rate FiO2 01/29/21 06:00 98.9 90 22 101/48 (65) 93 High Flow Cannula 10.0 01/27/21 20:00 I&O- Last 24 Hours up to 6 AM 01/29/21 06:00 Intake Total 340 ml Output Total 600 ml Balance -260 ml Laboratory Data 24H LABS Laboratory Tests 2 01/29/21 07:30: Immature Granulocyte % (Auto) 0.8, Neutrophils (%) (Auto) 74.3H, Lymphocytes (%) (Auto) 12.4L, Monocytes (%) (Auto) 11.1H, Eosinophils (%) (Auto) 1.2, Basophils (%) (Auto) 0.2, Neutrophils # (Auto) 3.6, Lymphocytes # (Auto) 0.6L, Monocytes # (Auto) 0.5, Eosinophils # (Auto) 0.1, Basophils # (Auto) 0.0, Nucleated Red Blood Cells % (auto) 0.8H, Anion Gap 5L, Glomerular Filtration Rate > 60.0, Calcium Level 8.0L, Magnesium Level 2.2 CBC/BMP Laboratory Tests 01/29/21 07:30 Microbiology Microbiology 01/27/21 Blood Culture - Preliminary, Resulted No growth after 24 hours . All specim... 01/27/21 Blood Culture - Preliminary, Resulted No growth after 24 hours . All specim... 01/25/21 Blood Culture - Preliminary, Resulted No Growth after 72 hours. All specime... 01/25/21 Blood Culture - Preliminary, Resulted No Growth after 72 hours. All specime... 01/25/21 Blood Culture - Final, Complete Micrococcus Luteus GME ATTESTATION GME ATTESTATION My faculty preceptor for this patient encounter was physically present during the encounter and was fully available. All aspects of the patient interview, examination, medical decision making process, and medical care plan development were reviewed and approved by the faculty preceptor. The faculty preceptor is aware and concurs with the plan as stated in the body of this note and will attest to such by his/her cosignature. ATTENDING NOTE I, Rick Rogel, have independently examined this patient and performed my own physical exam, as well as reviewed the documentation and edited where necessary with the resident. For medical students we have performed the physical exam together and discussed medical decision making and I have verified the history. I have discussed in detail with the resident / student the findings and plan of treatment as documented by the resident / student and edited their note. I agree with their findings and treatment plan and have edited their documentation. I will continue to follow the patient during this hospital stay. Merline Valentin DO Jan 29, 2021 10:24 RICK ROGEL MD Jan 29, 2021 13:42
[2021-01-29] MEDS ORDERED: DOCUSATE SOD LIQ 100MG/10ML UDC GT PRN (11:45)
[2021-01-29] MEDS: guaiFENesin 200 MG TAB PO SCH ×3 (13:44→21:17)
[2021-01-29] MEDS: ALBUTEROL SULFATE 2.5 MG/0.5 ML INH NEB SOLN NEB ONE ×2 (13:44→14:40)
[2021-01-29] MEDS: LevoFLOXacin IV 500 MG in IV 1 EA IV SCH (17:29)
[2021-01-29 17:30] VITALS: BP 108/52
[2021-01-29] MEDS ORDERED: ALBUTEROL SULFATE 2.5 MG/0.5 ML INH NEB SOLN NEB ONE (17:50)
[2021-01-29] MEDS ORDERED: RACEPINEPHrine 2.25 % UD INHA INH ONE (18:15)
[2021-01-29 18:25] LABS: ABG pH (ARTERIAL) 7.398 UNITS (7.350-7.450)
[2021-01-29 18:26] LABS: ABG BASE EXCESS 4.1 (-2.0-2.0); ABG HCO3 29.6 MEQ/L (22.0-26.0); ABG O2 SATURATION 99.5 % (95.0-99.0); ABG PARTIAL PRESSURE CO2 49.1 mmHg (35.0-45.0); ABG PARTIAL PRESSURE O2 221.5 mmHg (75.0-100.0); ABG STANDARD HCO3 28.2 MEQ/L (22.0-26.0); ABG TOTAL CO2 31.1 MEQ/L (22.0-29.0)
--- NOTE | 2021-01-29 21:00 | REP ---
INDICATION: hypoxia COMPARISON: 01/27/2021 TECHNIQUE: Portable AP view of the chest FINDINGS: Mediastinum and cardiac silhouette stable. Diffuse bilateral infiltrates essentially unchanged. No obvious effusion. No pneumothorax. IMPRESSION: Bilateral infiltrates essentially unchanged. <Electronically signed by Hilton Denis > 01/29/212055
[2021-01-29] MEDS: SIMVASTATIN 20 MG TAB PO SCH (21:17)
[2021-01-29 21:33] LABS: ABG BASE EXCESS 3.6 (-2.0-2.0); ABG HCO3 27.9 MEQ/L (22.0-26.0); ABG PARTIAL PRESSURE CO2 41.3 mmHg (35.0-45.0); ABG PARTIAL PRESSURE O2 83.1 mmHg (75.0-100.0); ABG STANDARD HCO3 27.7 MEQ/L (22.0-26.0); ABG TOTAL CO2 29.2 MEQ/L (22.0-29.0); ABG pH (ARTERIAL) 7.448 UNITS (7.350-7.450)
[2021-01-29 21:46] LABS: BASO % 0.4 % (0.0-1.0); EOS # 0.1 10^3/uL (0.0-0.5); EOS % 2.6 % (0.0-3.0); HEMOGLOBIN 9.5 g/dl (12.0-15.5); LYMPH # 0.7 10^3/uL (1.5-5.0); LYMPH % 12.8 % (24.0-44.0); MEAN CORPUSCULAR HEMOGLOBIN 31.9 pg (27.0-33.0); MEAN CORPUSCULAR HGB CONC 32.8 g/dl (32.0-36.5); MEAN CORPUSCULAR VOLUME 97.3 fl (80.0-96.0); MONO # 0.6 10^3/uL (0.0-0.8); MONO % 10.7 % (2.0-8.0); NEUTROPHILS # 3.9 10^3/uL (1.5-8.5); NEUTROPHILS % 73.1 % (36.0-66.0); PLATELET COUNT, AUTOMATED 190 10^3/uL (150-450); RED BLOOD COUNT 2.98 10^6/uL (4.00-5.40); WHITE BLOOD COUNT 5.3 10^3/uL (4.0-10.0)
[2021-01-29 22:07] VITALS: BP 131/64
[2021-01-29 22:11] LABS: ALBUMIN 1.9 GM/DL (3.2-5.2); ALT/SGPT 13 U/L (12-78); BILIRUBIN,TOTAL 0.3 MG/DL (0.2-1.0); BLOOD UREA NITROGEN 10 MG/DL (7-18); CALCIUM LEVEL 7.6 MG/DL (8.5-10.1); CARBON DIOXIDE LEVEL 32 MEQ/L (21-32); CHLORIDE LEVEL 103 MEQ/L (98-107); CK-MB VALUE MASS 1.4 NG/ML (<3.6); CPK CREATINE PHOSPHOKINASE 51 U/L (26-192); CREATININE FOR GFR 0.72 MG/DL (0.55-1.30); GLOMERULAR FILTRATION RATE > 60.0 (>51); GLUCOSE, FASTING 103 MG/DL (70-100); MB/CK RELATIVE INDEX 2.75 (< OR =4); NT-PRO BNP 373 PG/ML (<125); POTASSIUM SERUM 3.8 MEQ/L (3.5-5.1); SODIUM LEVEL 140 MEQ/L (136-145); TOTAL PROTEIN 6.3 GM/DL (6.4-8.2); TROPONIN I < 0.02 NG/ML (< 0.10)
[2021-01-30] VITALS: BP 113/61
[2021-01-30 04:00] VITALS: BP 110/55
[2021-01-30 04:48] LABS: HEMATOCRIT 30.4 % (36.0-47.0); MEAN CORPUSCULAR HEMOGLOBIN 31.7 pg (27.0-33.0); MEAN CORPUSCULAR HGB CONC 32.9 g/dl (32.0-36.5); MEAN CORPUSCULAR VOLUME 96.5 fl (80.0-96.0); PLATELET COUNT, AUTOMATED 203 10^3/uL (150-450); RED BLOOD COUNT 3.15 10^6/uL (4.00-5.40); WHITE BLOOD COUNT 4.6 10^3/uL (4.0-10.0)
[2021-01-30 05:16] LABS: BLOOD UREA NITROGEN 9 MG/DL (7-18); CALCIUM LEVEL 7.5 MG/DL (8.5-10.1); CARBON DIOXIDE LEVEL 32 MEQ/L (21-32); CHLORIDE LEVEL 103 MEQ/L (98-107); CREATININE FOR GFR 0.73 MG/DL (0.55-1.30); GLOMERULAR FILTRATION RATE > 60.0 (>51); GLUCOSE, FASTING 100 MG/DL (70-100); MAGNESIUM LEVEL 2.1 MG/DL (1.8-2.4); SODIUM LEVEL 139 MEQ/L (136-145)
[2021-01-30 05:19] LABS: ATYPICAL LYMPH 2 % (0-5); EOSINOPHILS 4 % (0-3); LYMPHOCYTES 12 % (16-44); MONOCYTES 9 % (0-5); NEUTROPHILS 73 % (28-66); PLATELET ESTIMATE NORMAL (NORMAL)
[2021-01-30 05:20] LABS: ANISOCYTOSIS 1+
[2021-01-30] MEDS: LEVOTHYROXINE 112MCG TABLET (0.112MG) PO SCH (05:56)
[2021-01-30] MEDS: HEPARIN SOD (PORCINE) 5000UNITS/ML 1ML VIAL/SYRINGE SC SCH ×3 (05:56→22:49)
[2021-01-30] MEDS: MIDODRINE 5 MG TAB PO SCH ×3 (05:56→19:54)
[2021-01-30 08:00] VITALS: BP 105/55
[2021-01-30] MEDS: levETIRAcetam 250MG TABLET (KEPPRA) PO SCH ×2 (08:34→20:20)
[2021-01-30] MEDS: guaiFENesin 200 MG TAB PO SCH ×3 (08:34→20:21)
[2021-01-30] MEDS: LACTULOSE 20 GM/30 ML SYRUP UD PO SCH ×2 (08:34→20:20)
[2021-01-30] MEDS: MULTIVITAMINS/MINERALS THERAP 1 TAB PO SCH (08:34)
[2021-01-30] MEDS: CitaloPRAM (CeleXA) 10 MG TABLET PO SCH (08:34)
--- NOTE | 2021-01-30 08:35 | REP ---
INDICATION: Hypoxia COMPARISON: 01/29/2021 TECHNIQUE: Portable AP view of the chest FINDINGS: Mediastinum and cardiac silhouette are relatively stable. Allowing for variation in technique, bilateral infiltrates (left greater than right) appear slightly more pronounced than prior examination. IMPRESSION: Bilateral airspace disease (left greater than right) appears slightly more pronounced than prior examination. <Electronically signed by Hilton Denis > 01/30/21 0837
--- NOTE | 2021-01-30 09:14 | IPNPDOC ---
Text Note Date of Service The patient was seen on 01/30/21. NOTE Subjective: Patient is a 60-year-old female with a PMHx of Intellectual disability (2/2 Down syndrome), Hypothyroidism, Chronic hypotension , who presented to the emergency room with complaints of shortness of breath. Patient was recently found to have RSV infection. Patient was admitted to the hospital service for further evaluation and treatment. Overnight patient was moved to PCU because of worsening breathing and her oxygen requirement had gone up. Patient was seen and examined at the bedside. This morning patient is awake, alert. She is able to answer simple questions, does not appear to be in any respiratory distress. Denies any pain. Reports she is hungry. Objective: Vitals (See below) General: Lying in bed, appears comfortable, awake / alert HEENT: NC, AT CVS: +S1S2 Lungs: Fair air entry b/l, diffuse rhonchi, mild wheezing, no crackles Abdomen: Soft, ND, NT Extremities: Lower extremities are without edema Imaging: CXR 01/25: Extensive and progressive infiltrates consistent with pneumonia Renal US 01/25: No evidence for hydronephrosis CXR 01/27: Radiographic progression of infiltrates in the left upper lobe and right lower lobe. Slight improvement left lower lobe. Infiltrate right upper lobe unchanged. CXR 01/29: Bilateral infiltrates essentially unchanged. CXR 01/30: Bilateral airspace disease (left greater than right) appears slightly more prono unced than prior examination. Assessment and plan: Acute hypoxic respiratory failure - likely 2/2 to superimposed CAP and viral infection (RSV) - Patient is currently on a Ventimask; will attempted titrate down oxygen as tolerated - PCT elevated; trending down - Imaging noted above - Will get CTA chest - c/w Acapella / Chest PT / Mucinex - c/w Levofloxacin (Day #6) Micrococcus Luteus in 1 blood culture - likely 2/2 contaminant - Remains hemodynamically stable and afebrile - s/p Leukocytosis - Blood cultures 01/25: (1of2) Micrococcus luteus - Blood cultures 01/27, 01/29: Negative s/p LORETTA - Cr normalized - Renal US noted above - s/p IV fluids Chronic hypotension - c/w Midodrine Hypothyroidism - c/w Levothyroxine Mood disorder / Intellectual disability - Seroquel on hold (re: Lethargy on 01/29) Debility - PT/OT DVT prophylaxis - c/w Heparin Code Status: - Full Disposition: - Pending clinical improvement VSMinna, I+O VSMinna, I+O Laboratory Tests 01/29/21 21:34 01/29/21 21:35 01/30/21 04:11 Vital Signs Date Time Temp Pulse Resp B/P (MAP) Pulse Ox O2 Delivery O2 Flow Rate FiO2 01/30/21 08:00 97.6 75 25 105/55 (72) 95 Venturi Mask 15.0 40 I&O- Last 24 Hours up to 6 AM 01/30/21 05:59 Intake Total 1220 ml Output Total 250 ml Balance 970 ml JOHN ROGEL MD Jan 30, 2021 09:14
[2021-01-30 12:00] VITALS: BP 135/70
[2021-01-30 16:00] VITALS: BP 134/61
[2021-01-30 20:00] VITALS: BP 127/61
[2021-01-30] MEDS: SIMVASTATIN 20 MG TAB PO SCH (20:21)
[2021-01-30] MEDS ORDERED: RAMELTEON 8 MG TAB (ROZEREM) PO PRN (23:05)
[2021-01-30] MEDS ORDERED: IPRATROPIUM 0.5MG/ALBUTEROL 2.5MG INH SOL UD 3ML (DUONEB) NEB PRN (23:05)
[2021-01-30] MEDS ORDERED: QUEtiapine FUMARATE 25 MG TAB PO ONE (23:05)
[2021-01-30] MEDS ORDERED: OLANZapine INTRAMUSCULAR 10MG VIAL IM PRN (23:20)
[2021-01-31] VITALS (19 sets, daily range): BP systolic 100–129; BP diastolic 55–61; O2SAT 74–97
[2021-01-31] MEDS: LevoFLOXacin IV 500 MG in IV 1 EA IV SCH ×2 (03:15→19:04)
[2021-01-31] MEDS ORDERED: LevoFLOXacin 500 MG TABLET PO SCH (06:00)
[2021-01-31] MEDS: LEVOTHYROXINE 112MCG TABLET (0.112MG) PO SCH (06:33)
[2021-01-31] MEDS: MIDODRINE 5 MG TAB PO SCH ×3 (06:33→21:44)
[2021-01-31] MEDS: HEPARIN SOD (PORCINE) 5000UNITS/ML 1ML VIAL/SYRINGE SC SCH ×3 (06:34→22:00)
--- NOTE | 2021-01-31 08:20 | REP ---
INDICATION: Hypoxia COMPARISON: 01/30/2021 TECHNIQUE: Portable AP view of the chest FINDINGS: The mediastinum and cardiac silhouette are stable and within normal limits for portable technique. The lung celaya again demonstrate scattered opacities (left greater than right) which may be slightly improved. No new acute process identified. Skeletal structures are intact. IMPRESSION: Diffuse bilateral opacities minimally improved. <Electronically signed by Hilton Denis > 01/31/21 0878
[2021-01-31 08:24] LABS: BASO % 0.8 % (0.0-1.0); EOS # 0.2 10^3/uL (0.0-0.5); EOS % 5.8 % (0.0-3.0); HEMATOCRIT 30.7 % (36.0-47.0); HEMOGLOBIN 9.8 g/dl (12.0-15.5); LYMPH # 0.8 10^3/uL (1.5-5.0); LYMPH % 20.3 % (24.0-44.0); MEAN CORPUSCULAR HEMOGLOBIN 31.5 pg (27.0-33.0); MEAN CORPUSCULAR HGB CONC 31.9 g/dl (32.0-36.5); MEAN CORPUSCULAR VOLUME 98.7 fl (80.0-96.0); MONO # 0.5 10^3/uL (0.0-0.8); MONO % 13.7 % (2.0-8.0); NEUTROPHILS # 2.3 10^3/uL (1.5-8.5); NEUTROPHILS % 58.6 % (36.0-66.0); PLATELET COUNT, AUTOMATED 248 10^3/uL (150-450); RED BLOOD COUNT 3.11 10^6/uL (4.00-5.40)
[2021-01-31 08:51] LABS: BLOOD UREA NITROGEN 9 MG/DL (7-18); CALCIUM LEVEL 8.2 MG/DL (8.5-10.1); CARBON DIOXIDE LEVEL 33 MEQ/L (21-32); CHLORIDE LEVEL 107 MEQ/L (98-107); CREATININE FOR GFR 0.63 MG/DL (0.55-1.30); GLOMERULAR FILTRATION RATE > 60.0 (>51); GLUCOSE, FASTING 122 MG/DL (70-100); MAGNESIUM LEVEL 2.2 MG/DL (1.8-2.4); SODIUM LEVEL 143 MEQ/L (136-145)
[2021-01-31] MEDS: LACTULOSE 20 GM/30 ML SYRUP UD PO SCH ×2 (08:51→22:06)
[2021-01-31] MEDS: guaiFENesin 200 MG TAB PO SCH ×3 (08:52→21:44)
[2021-01-31] MEDS: CitaloPRAM (CeleXA) 10 MG TABLET PO SCH (08:53)
[2021-01-31] MEDS: MULTIVITAMINS/MINERALS THERAP 1 TAB PO SCH (08:53)
[2021-01-31] MEDS: levETIRAcetam 250MG TABLET (KEPPRA) PO SCH ×2 (08:53→21:44)
--- NOTE | 2021-01-31 09:26 | IPNPDOC ---
Text Note Date of Service The patient was seen on 01/31/21. NOTE Subjective: Patient is a 60-year-old female with a PMHx of Intellectual disability (2/2 Down syndrome), Hypothyroidism, Chronic hypotension , who presented to the emergency room with complaints of shortness of breath. Patient was recently found to have RSV infection. Patient was admitted to the hospital service for further evaluation and treatment. Overnight patient was agitated and was given olanzapine to help. Patient was seen and examined at the bedside. Patient still on a Ventimask at 40%, however saturation seems to be doing well. Spoke with nursing staff to reduce FiO2 and to speak with respiratory about regular chest PT. Patient did not appear to be in any respiratory distress. Denies any pain. Was coughing in the room with some productive sputum. Objective: Vitals (See below) General: Patient is sitting up in bed, appears to be comfortable. She is drowsy but awakes to physical stimuli and name HEENT: Atraumatic, normocephalic CVS: +S1S2 Lungs: Air entry appears to be fair bilaterally. There is diffuse rhonchi bilaterally without any evidence of crackles or wheezing Abdomen: Soft, nondistended, nontender Extremities: No edema Imaging: CXR 01/25: Extensive and progressive infiltrates consistent with pneumonia Renal US 01/25: No evidence for hydronephrosis CXR 01/27: Radiographic progression of infiltrates in the left upper lobe and right lower lobe. Slight improvement left lower lobe. Infiltrate right upper lobe unchanged. CXR 01/29: Bilateral infiltrates essentially unchanged. CXR 01/30: Bilateral airspace disease (left greater than right) appears slightly more pronounced than prior examination. Assessment and plan: Acute hypoxic respiratory failure - likely 2/2 to superimposed CAP and viral infection (RSV) - Patient still remains in a Ventimask. However, her saturation appears to be improving; spoke with nursing staff about reducing FiO2 - Patient has not received any chest PT advised nursing to to page respiratory for continued chest PT every 4 hours while awake - PCT elevated; trending down - Imaging noted above - c/w Acapella / Chest PT / Mucinex - c/w Levofloxacin (Day #7) Micrococcus Luteus in 1 blood culture - likely 2/2 contaminant - Remains hemodynamically stable and afebrile - s/p Leukocytosis - Blood cultures 01/25: (1of2) Micrococcus luteus - Blood cultures 01/27: 01/29: Negative s/p LORETTA - Cr normalized - Renal US noted above - s/p IV fluids Chronic hypotension - c/w Midodrine Hypothyroidism - c/w Levothyroxine Mood disorder / Intellectual disability - c/w Olanzapine IM - Seroquel on hold (re: Lethargy on 01/29) Debility - PT/OT DVT prophylaxis - c/w Heparin Code Status: - Full Disposition: - Pending clinical and oxygenation requirement improvement VS,Fishbone, I+O VS, Fishbone, I+O Laboratory Tests 01/31/21 07:54 Vital Signs Date Time Temp Pulse Resp B/P (MAP) Pulse Ox O2 Delivery O2 Flow Rate FiO2 01/31/21 04:00 15.0 40 01/31/21 04:00 96.8 77 18 107/55 (72) 94 Venturi Mask I&O- Last 24 Hours up to 6 AM 01/31/21 06:00 Intake Total 0 ml Output Total 775 ml Balance -775 ml JOHN ROGEL MD Jan 31, 2021 09:26
[2021-01-31] MEDS: QUEtiapine FUMARATE 200 MG TAB PO SCH ×2 (11:08→21:45)
[2021-01-31 12:04] LABS: CK-MB VALUE MASS 1.5 NG/ML (<3.6); CPK CREATINE PHOSPHOKINASE 38 U/L (26-192); MB/CK RELATIVE INDEX 3.95 (< OR =4); TROPONIN I < 0.02 NG/ML (< 0.10)
[2021-01-31 12:14] LABS: CK-MB VALUE MASS < 1.0 NG/ML (<3.6); CPK CREATINE PHOSPHOKINASE 33 U/L (26-192); MB/CK RELATIVE INDEX 3.03 (< OR =4); TROPONIN I < 0.02 NG/ML (< 0.10)
[2021-01-31 15:25] LABS: CK-MB VALUE MASS 1.4 NG/ML (<3.6); CPK CREATINE PHOSPHOKINASE 31 U/L (26-192); MB/CK RELATIVE INDEX 4.52 (< OR =4); TROPONIN I < 0.02 NG/ML (< 0.10)
[2021-01-31] MEDS ORDERED: LevoFLOXacin IV 500 MG in IV 1 EA IV SCH (18:35)
[2021-01-31 19:01] LABS: CK-MB VALUE MASS 1.1 NG/ML (<3.6); CPK CREATINE PHOSPHOKINASE 27 U/L (26-192); MB/CK RELATIVE INDEX 4.07 (< OR =4); TROPONIN I < 0.02 NG/ML (< 0.10)
--- NOTE | 2021-01-31 19:30 | ECGEPIP ---
[facility] Test Date: 2021-01-31 Pat Name: TABBY CHI Department: Room: [place] [address] Gender: Female Triage Clinician: XENIA : 1960 Requested By: JOHN ROGEL Order Number: [id number] Reading MD: Gaurav Garcia Measurements Intervals [place] Rate: 66 P: 28 [place]: 142 QRS: 9 QRSD: 76 T: 38 QT: 388 QTc: 406 Interpretive Statements Normal sinus rhythm Similar to tracing done 01-26-21 Electronically Signed on 01-31-2021 19:30:28 EDT by Gaurav Garcia
[2021-01-31] MEDS: SIMVASTATIN 20 MG TAB PO SCH (21:45)
[2021-01-31] MEDS: QUEtiapine FUMARATE 50MG TAB PO SCH (21:45)
[2021-02-01] VITALS (21 sets, daily range): BP systolic 100–127; BP diastolic 53–62; O2SAT 87–98
[2021-02-01 05:30] LABS: BASO % 0.6 % (0.0-1.0); EOS # 0.3 10^3/uL (0.0-0.5); EOS % 7.9 % (0.0-3.0); HEMATOCRIT 29.5 % (36.0-47.0); HEMOGLOBIN 9.4 g/dl (12.0-15.5); LYMPH # 0.8 10^3/uL (1.5-5.0); LYMPH % 23.3 % (24.0-44.0); MEAN CORPUSCULAR HEMOGLOBIN 31.6 pg (27.0-33.0); MEAN CORPUSCULAR HGB CONC 31.9 g/dl (32.0-36.5); MEAN CORPUSCULAR VOLUME 99.3 fl (80.0-96.0); MONO # 0.5 10^3/uL (0.0-0.8); MONO % 13.9 % (2.0-8.0); NEUTROPHILS # 1.8 10^3/uL (1.5-8.5); NEUTROPHILS % 53.4 % (36.0-66.0); PLATELET COUNT, AUTOMATED 247 10^3/uL (150-450); RED BLOOD COUNT 2.97 10^6/uL (4.00-5.40); WHITE BLOOD COUNT 3.3 10^3/uL (4.0-10.0)
[2021-02-01 05:51] LABS: BLOOD UREA NITROGEN 8 MG/DL (7-18); CALCIUM LEVEL 8.4 MG/DL (8.5-10.1); CARBON DIOXIDE LEVEL 35 MEQ/L (21-32); CHLORIDE LEVEL 108 MEQ/L (98-107); GLOMERULAR FILTRATION RATE > 60.0 (>51); GLUCOSE, FASTING 122 MG/DL (70-100); MAGNESIUM LEVEL 2.3 MG/DL (1.8-2.4); POTASSIUM SERUM 3.7 MEQ/L (3.5-5.1); SODIUM LEVEL 143 MEQ/L (136-145)
[2021-02-01] MEDS: HEPARIN SOD (PORCINE) 5000UNITS/ML 1ML VIAL/SYRINGE SC SCH ×3 (06:00→21:22)
[2021-02-01] MEDS: LEVOTHYROXINE 112MCG TABLET (0.112MG) PO SCH (06:39)
[2021-02-01] MEDS: MIDODRINE 5 MG TAB PO SCH ×3 (06:39→20:47)
--- NOTE | 2021-02-01 08:41 | REP ---
INDICATION: Hypoxia COMPARISON: 01/31/2021 TECHNIQUE: Portable AP view of the chest FINDINGS: Bilateral airspace disease (left greater than right) remains essentially unchanged. No obvious effusion or pneumothorax. Mediastinum and cardiac silhouette stable. Skeletal structures stable. IMPRESSION: Bilateral airspace disease similar to prior examination. <Electronically signed by Hilton Denis > 02/01/21 0831
[2021-02-01] MEDS: LACTULOSE 20 GM/30 ML SYRUP UD PO SCH ×2 (10:53→20:46)
[2021-02-01] MEDS: levETIRAcetam 250MG TABLET (KEPPRA) PO SCH ×2 (10:53→20:46)
[2021-02-01] MEDS: guaiFENesin 200 MG TAB PO SCH ×3 (10:54→20:46)
[2021-02-01] MEDS: MULTIVITAMINS/MINERALS THERAP 1 TAB PO SCH (10:54)
[2021-02-01] MEDS: QUEtiapine FUMARATE 200 MG TAB PO SCH ×2 (10:54→20:47)
[2021-02-01] MEDS: CitaloPRAM (CeleXA) 10 MG TABLET PO SCH (10:55)
[2021-02-01 11:42] LABS: VENOUS BASE EXCESS 8.6 (-2.0-2.0); VENOUS HCO3 32.7 MEQ/L (23.0-27.0); VENOUS O2 SATURATION 99.4 % (60.0-80.0); VENOUS PARTIAL PRESSURE CO2 43.2 mmHg (38.0-50.0); VENOUS PARTIAL PRESSURE O2 262.8 mmHg (30.0-50.0); VENOUS PH 7.497 UNITS (7.330-7.430); VENOUS STANDARD HCO3 32.4 MEQ/L
[2021-02-01] MEDS ORDERED: ISOVUE-370 76% 100ML VIAL As Ordered ONE (12:29)
--- NOTE | 2021-02-01 12:58 | IPNPDOC ---
Date Seen The patient was seen on 02/01/21. Progress Note SUBJECTIVE: seen and examined at bedside. Obtunded. Responds to physical stimuli, but not verbal. On venti mask 15L at 40%. Satting 96%. OBJECTIVE PHYSICAL EXAMINATION: VITAL SIGNS: please see below General: NAD, comfortable HEENT: PERRLA, EOMI, sclerae clear Neck: supple, normal ROM, no JVD Respiratory: rhonchi bilaterally, fair inspiratory effort. CVS: RRR, normal S1, S2, no murmurs Abdo: soft, no masses, no hepatosplenomegaly, BS+, no rebound tenderness Extremities: no edema, pulses 2+ MSK: no joint deformities, normal ROM Neuro: no focal neuro deficits, moving all 4 extremities, CN2-12 intact. Strength 5/5 in all 4 extremities. No nystagmus. Psych: calm, cooperative, AAO x 3 LABORATORY DATA, IMAGING STUDIES, MICROBIOLOGY: Please see below. CXR 01/25: Extensive and progressive infiltrates consistent with pneumonia Renal US 01/25: No evidence for hydronephrosis CXR 01/27: Radiographic progression of infiltrates in the left upper lobe and right lower lobe. Slight improvement left lower lobe. Infiltrate right upper lobe unchanged. CXR 01/29: Bilateral infiltrates essentially unchanged. CXR 01/30: Bilateral airspace disease (left greater than right) appears slightly more pronounced than prior examination. DVT prophylaxis ordered?: Heparin ASSESSMENT AND PLAN: 60-year-old female with a PMHx of Intellectual disability (2/2 Down syndrome), Hypothyroidism, Chronic hypotension , who presented to the emergency room with complaints of shortness of breath. Patient was recently found to have RSV infection. PROBLEMS: Acute hypoxic respiratory failure - likely 2/2 to superimposed CAP and viral infection (RSV) - Patient still remains in a Ventimask, saturating well, but continues to be obtunded. Respiratory alkalosis on VBG - Patient has not received any chest PT advised nursing to to page respiratory for continued chest PT every 4 hours while awake - PCT elevated; trending down - Imaging noted above - c/w Acapella / Chest PT / Mucinex - D dimer was elevated on admission to 3200. Obtain CTA chest. - c/w Levofloxacin (Day #8) - Infectious Disease consult placed with Dr. Roman. Recommendations are greatly appreciated. Micrococcus Luteus in 1 blood culture - likely 2/2 contaminant - Remains hemodynamically stable and afebrile - s/p Leukocytosis - Blood cultures 01/25: (1of2) Micrococcus luteus - Blood cultures 01/27: 01/29: Negative s/p LORETTA - Cr normalized - Renal US noted above - s/p IV fluids Chronic hypotension - c/w Midodrine Hypothyroidism - c/w Levothyroxine Mood disorder / Intellectual disability - c/w Olanzapine IM - Seroquel on hold (re: Lethargy on 01/29) Debility - PT/OT DVT prophylaxis - c/w Heparin Code Status: - Full Disposition: - Pending clinical and oxygenation requirement improvement VS, I&O, 24H, Fishbone Vital Signs/I&O Vital Signs Date Time Temp Pulse Resp B/P (MAP) Pulse Ox O2 Delivery O2 Flow Rate FiO2 02/01/21 08:00 97.6 77 19 126/53 (77) 96 Venturi Mask 15.0 40 I&O- Last 24 Hours up to 6 AM 02/01/21 06:00 Intake Total 340 ml Output Total 350 ml Balance -10 ml Laboratory Data 24H LABS Laboratory Tests 2 01/31/21 14:20: Total Creatine Kinase 31, Creatine Kinase MB 1.4, Creatine Kinase MB Relative Index 4.52H, Troponin I < 0.02 01/31/21 17:29: Total Creatine Kinase 27, Creatine Kinase MB 1.1, Creatine Kinase MB Relative Index 4.07H, Troponin I < 0.02 02/01/21 05:20: Immature Granulocyte % (Auto) 0.9, Neutrophils (%) (Auto) 53.4, Lymphocytes (%) (Auto) 23.3L, Monocytes (%) (Auto) 13.9H, Eosinophils (%) (Auto) 7.9H, Basophils (%) (Auto) 0.6, Neutrophils # (Auto) 1.8, Lymphocytes # (Auto) 0.8L, Monocytes # (Auto) 0.5, Eosinophils # (Auto) 0.3, Basophils # (Auto) 0.0, Nucleated Red Blood Cells % (auto) 0.0, Anion Gap 0L, Glomerular Filtration Rate > 60.0, Calcium Level 8.4L, Magnesium Level 2.3 02/01/21 11:01: 02/01/21 11:03: Blood Gas Bicarbonate Standard 32.4, Venous Blood pH 7.497H, Venous Blood Pa rtial Pressure CO2 43.2, Venous Blood Partial Pressure O2 262.8H, Venous Blood Total Carbon Dioxide 34.0H, Venous Blood HCO3 32.7H, Venous Blood Oxygen Saturation 99.4H, Venous Blood Base Excess 8.6H CBC/BMP Laboratory Tests 02/01/21 05:20 Microbiology Microbiology 01/29/21 Respiratory Virus Panel (PCR) (BRUNO) - Final, Complete Respiratory Syncytial Virus 01/29/21 Blood Culture - Preliminary, Resulted No Growth after 72 hours. All specime... 01/29/21 Blood Culture - Preliminary, Resulted No Growth after 72 hours. All specime... 01/27/21 Blood Culture - Preliminary, Resulted No Growth after 72 hours. All specime... 01/27/21 Blood Culture - Final, Complete NO GROWTH AFTER 5 DAYS 01/25/21 Blood Culture - Final, Complete NO GROWTH AFTER 5 DAYS 01/25/21 Blood Culture - Final, Complete NO GROWTH AFTER 5 DAYS 01/25/21 Blood Culture - Final, Complete Micrococcus Luteus ANN MARIE DELATORRE MD Feb 01, 2021 12:58
--- NOTE | 2021-02-01 13:20 | REP ---
INDICATION: hypoxia, r/o PE, pneumonia. COMPARISON: 07/16/2020. TECHNIQUE: CT brain performed in the axial plane. Coronal reconstruction images are performed. FINDINGS: There is stable atrophy and periventricular small vessel ischemic change. There is no acute intracranial hemorrhage or extra-axial fluid collection. There is no midline shift or mass effect. There is opacification of right mastoid air cells compatible with mastoiditis. There is significant diffuse mucosal disease in the right maxillary sinus and mild mucosal disease in the bilateral ethmoid and left maxillary sinus. IMPRESSION: Stable chronic changes in the brain with no evidence of acute intracranial hemorrhage, midline shift or mass effect. Opacification of right mastoid air cells compatible with mastoiditis. There is sinus mucosal disease also noted. <Electronically signed by Tello Jaime > 02/01/21 1033
--- NOTE | 2021-02-01 13:28 | REP ---
INDICATION: hypoxia, r/o PE, pneumonia. COMPARISON: 12/24/2020. TECHNIQUE: CT angiogram chest performed following the intravenous administration of 100 cc of Isovue 370. Sagittal and coronal reconstruction images are performed. The study is limited by motion. FINDINGS: Lungs: Diffuse right lung infiltrate is again noted, with worsening inferiorly. There is new diffuse left lung infiltrate. Mediastinum: No adenopathy. Pulmonary arteries: No evidence of pulmonary embolism within the limits of this exam. Molly: No adenopathy. Axilla: No adenopathy. Pleura: There is a small left pleural effusion. Heart: Not enlarged. Thoracic aorta: No aneurysm or dissection. Upper abdominal structures: Unremarkable. Visualized osseous structures: Unremarkable. IMPRESSION: No CT evidence of pulmonary embolism, the exam is limited by patient motion. Diffuse bilateral infiltrates. Small left pleural effusion. <Electronically signed by Tello Jaime > 02/01/21 [id number]
[2021-02-01] MEDS: SIMVASTATIN 20 MG TAB PO SCH (20:47)
[2021-02-01] MEDS: QUEtiapine FUMARATE 50MG TAB PO SCH (20:47)
[2021-02-02] VITALS (10 sets, daily range): BP systolic 109–126; BP diastolic 60–89; O2SAT 86–98
[2021-02-02 05:27] LABS: BASO % 0.9 % (0.0-1.0); EOS # 0.3 10^3/uL (0.0-0.5); EOS % 8.2 % (0.0-3.0); HEMATOCRIT 29.9 % (36.0-47.0); HEMOGLOBIN 9.6 g/dl (12.0-15.5); LYMPH # 0.8 10^3/uL (1.5-5.0); MEAN CORPUSCULAR HEMOGLOBIN 31.9 pg (27.0-33.0); MEAN CORPUSCULAR HGB CONC 32.1 g/dl (32.0-36.5); MEAN CORPUSCULAR VOLUME 99.3 fl (80.0-96.0); MONO # 0.4 10^3/uL (0.0-0.8); MONO % 12.7 % (2.0-8.0); NEUTROPHILS # 1.8 10^3/uL (1.5-8.5); PLATELET COUNT, AUTOMATED 263 10^3/uL (150-450); RED BLOOD COUNT 3.01 10^6/uL (4.00-5.40); WHITE BLOOD COUNT 3.3 10^3/uL (4.0-10.0)
[2021-02-02 05:57] LABS: BLOOD UREA NITROGEN 6 MG/DL (7-18); CARBON DIOXIDE LEVEL 35 MEQ/L (21-32); CHLORIDE LEVEL 105 MEQ/L (98-107); CREATININE FOR GFR 0.58 MG/DL (0.55-1.30); GLOMERULAR FILTRATION RATE > 60.0 (>51); GLUCOSE, FASTING 91 MG/DL (70-100); MAGNESIUM LEVEL 2.2 MG/DL (1.8-2.4); POTASSIUM SERUM 3.8 MEQ/L (3.5-5.1); SODIUM LEVEL 144 MEQ/L (136-145)
[2021-02-02] MEDS: HEPARIN SOD (PORCINE) 5000UNITS/ML 1ML VIAL/SYRINGE SC SCH ×3 (06:00→22:00)
[2021-02-02] MEDS: LEVOTHYROXINE 112MCG TABLET (0.112MG) PO SCH (06:49)
[2021-02-02] MEDS: MIDODRINE 5 MG TAB PO SCH ×3 (06:49→21:19)
--- NOTE | 2021-02-02 07:57 | CR ---
CONSULTATION DATE: 02/01/2021 REASON FOR CONSULTATION: I was asked to consult by the hospitalist team for evaluation of RSV pneumonia and possible superimposed bacterial pneumonia. HISTORY OF PRESENT ILLNESS: Theresa is a 60-year-old female with a history of Down's syndrome who has been hospitalized since January 25 with RSV pneumonia. Her first test initially was in the ER on 01/24. She was discharged home and readmitted with mental status changes, weakness and shortness of breath. Her blood pressure was 70/50, O2 sat in the low 90s. The patient was treated with levofloxacin since admission. She is currently day #7. She has been afebrile but requiring significant oxygen at 40% FiO2 without much improvement. She did not receive any steroids. This morning, she was noted to be more lethargic and difficult to arouse so a head CT was obtained and there was a question whether ribavirin would be helpful in the treatment of her RSV pneumonia. PAST MEDICAL HISTORY: 1. COVID-19 infection, April of 2020. 2. Alzheimer's dementia. 3. Down's syndrome with severe intellectual disability. 4. Hypothyroidism. 5. Hypotension. 6. History of explosive disorder. 7. Depression. 8. Anxiety. 9. Seasonal allergies. 10. Osteoporosis. 11. Obesity. 12. Hypercholesterolemia. 13. Right-sided hydronephrosis with urinary outlet obstruction. 14. Melanocytic nevi. PAST SURGICAL HISTORY: 1. Hernia repair in 1963, 1982 and 2003. 2. Bowel obstruction surgery in 2015. FAMILY HISTORY: Not provided. SOCIAL HISTORY: She does not smoke, use alcohol or drugs. She lives at [facility]. ALLERGIES: PENICILLINS. MEDICATIONS: 1. Levofloxacin 500 mg IV q.48 hours. 2. Rozerem 8 mg p.o. q.h.s. p.r.n. 3. Albuterol Atrovent nebs q.4 p.r.n. 4. Colace 100 mg b.i.d. p.r.n. 5. Robitussin 600 mg p.o. t.i.d. 6. Seroquel 200 mg p.o. daily. 7. Multivitamin one tablet p.o. daily. 8. Citalopram 10 mg p.o. daily. 9. Levothyroxine 112 mcg p.o. daily. 10. Heparin 5000 units subcu q.8 hours. 11. Zocor 20 mg p.o. q.h.s. 12. Seroquel 450 mg p.o. q.h.s. 13. Keppra 750 mg p.o. b.i.d. 14. Lactulose 30 mL p.o. b.i.d. 15. Midodrine 5 mg p.o. t.i.d. 16. Keppra 750 mg p.o. b.i.d. 17. Tylenol p.r.n. REVIEW OF SYSTEMS: Could not be obtained as patient is only stating that she was cold. She was not able to give me much other history. LABORATORY DATA: White count 3.3, hemoglobin 9.4, hematocrit 29.5, platelets 247, 53% neutrophils, 23% lymphocytes, 14% monocytes, 8% eosinophils. Sodium 143, potassium 3.7, chloride 108, bicarb 35, BUN 8, creatinine 0.7, glucose 122, calcium 8.4, magnesium 2.3, procalcitonin 0.09, down from 7.66 on 01/25. Blood cultures 01/25, two sets were no growth. 01/27, two sets were no growth. 01/29, two sets were no growth. Nasopharyngeal respiratory panel was only positive for RSV. 01/25, SARS-CoV-2 influenza A and B negative. RSV positive. MRSA screen was not detected. IMAGING: Head CT done on 02/01 shows stable chronic changes, no acute intracranial hemorrhage or shift or mass, opacification of right mastoid air cells. CT angiogram done on 02/[address] evidence of pulmonary embolism. Exam is limited, diffuse bilateral infiltrates with small left pleural effusion. Renal ultrasound, 01/25 showed no evidence of hydronephrosis. Chest x-ray, 01/25 shows extensive and progressive infiltrate consistent with pneumonia. PHYSICAL EXAMINATION: General: She is a pleasant Down syndrome patient in no acute distress. Her oxygen ventimask is around her neck but even without much oxygenation going through her nose or mouth, her O2 sat is around 94%. She is alert, stating she was cold, screaming when she was bothered, not dyspneic, opens her eyes, follows commands. Heart: Normal S1, S2, no murmurs, rubs or gallops appreciated. Neck: Supple, no JVD, no bruits. HEENT: Oropharynx with poor dentition, dry mucosa. Lungs: Extra rhonchi bilaterally. Heart: Normal S-1, S-2, no murmurs. Abdomen: Obese, soft, nontender, no hepatosplenomegaly. Some underlying healed scars. Extremities: No clubbing, cyanosis or edema. Skin: No rashes. Neurologic: Moves all extremities. IMPRESSION: This is a 60-year-old female who was admitted with RSV pneumonia with probably superimposed bacterial pneumonia based on the fact that she had quite an elevated procalcitonin at 7.66 which has improved over the past week to down to 0.09. The patient has extensive infiltrates in both lungs causing her respiratory failure and persistent hypoxia requiring 40-50% FiO2. Seven days after hospitalization for RSV pneumonia, I do not see any role for ribavirin. This is not used very frequently, mostly in bone marrow transplant patients and even the benefit of that drug is questionable. I would suggest instead a trial of steroids for reactive airways to see if that would help with her hypoxia. PLAN: Continue p.o. levofloxacin for a total of 7-10 days for superimposed bacterial pneumonia based on elevated procalcitonin. Consider steroids if pulmonary agrees. I would not recommend ribavirin. Urine legionnaire antigen, pneumococcal antigen were also ordered.
--- NOTE | 2021-02-02 08:39 | REP ---
INDICATION: Hypoxia COMPARISON: 02/01/2021 TECHNIQUE: Portable AP view of the chest FINDINGS: Patchy diffuse bilateral airspace disease (left greater than right) is relatively unchanged when allowing for variation in technique. Mediastinum and cardiac silhouette stable. Skeletal structures stable. IMPRESSION: Patchy bilateral airspace disease (left greater than right) unchanged. <Electronically signed by Hilton Denis > 02/02/21 0839
[2021-02-02] MEDS: guaiFENesin 200 MG TAB PO SCH ×3 (08:49→21:19)
[2021-02-02] MEDS: levETIRAcetam 250MG TABLET (KEPPRA) PO SCH ×2 (08:50→21:18)
[2021-02-02] MEDS: CitaloPRAM (CeleXA) 10 MG TABLET PO SCH (08:50)
[2021-02-02] MEDS: MULTIVITAMINS/MINERALS THERAP 1 TAB PO SCH (08:50)
[2021-02-02] MEDS: QUEtiapine FUMARATE 200 MG TAB PO SCH ×2 (08:50→21:21)
[2021-02-02] MEDS: LACTULOSE 20 GM/30 ML SYRUP UD PO SCH ×2 (08:51→21:19)
[2021-02-02] MEDS: LevoFLOXacin 750 MG TABLET PO SCH (08:51)
[2021-02-02] MEDS ORDERED: SLF 3 ML SYR IV PRN (12:20)
--- NOTE | 2021-02-02 13:02 | IPNPDOC ---
Date Seen The patient was seen on 02/02/21. Progress Note SUBJECTIVE: Patient was seen examined at bedside this morning. She is much more alert and oriented. She is interacting with myself and her caregiver from [facility]. She is on venturi mast at 2LPM with FiO2 35%. Significantly improved mentation from yesterdat, OBJECTIVE PHYSICAL EXAMINATION: VITAL SIGNS: please see below General: NAD, comfortable HEENT: PERRLA, EOMI, sclerae clear Neck: supple, normal ROM, no JVD Respiratory: rhonchi bilaterally, fair inspiratory effort. CVS: RRR, normal S1, S2, no murmurs Abdo: soft, no masses, no hepatosplenomegaly, BS+, no rebound tenderness Extremities: no edema, pulses 2+ MSK: no joint deformities, normal ROM Neuro: no focal neuro deficits, moving all 4 extremities, CN2-12 intact. Strength 5/5 in all 4 extremities. No nystagmus. Psych: calm, cooperative LABORATORY DATA, IMAGING STUDIES, MICROBIOLOGY: Please see below. CT angio chest (02/01/21): IMPRESSION: No CT evidence of pulmonary embolism, the exam is limited by patient motion. Diffuse bilateral infiltrates. Small left pleural effusion CT head non contrast (02/01/21): IMPRESSION: Stable chronic changes in the brain with no evidence of acute intracranial hemorrhage, midline shift or mass effect. Opacification of right mastoid air cells compatible with mastoiditis. There is sinus mucosal disease also noted. CXR 01/25: Extensive and progressive infiltrates consistent with pneumonia Renal US 01/25: No evidence for hydronephrosis ASSESSMENT AND PLAN: 60-year-old female with a PMHx of Intellectual disability (2/2 Down syndrome), Hypothyroidism, Chronic hypotension , who presented to the emergency room with complaints of shortness of breath. Patient was recently found to have RSV infection. PROBLEMS: Acute hypoxic respiratory failure - likely 2/2 to superimposed CAP and viral infection (RSV) - Patient still remains in a Ventimask, saturating well, but continues to be obtunded. Respiratory alkalosis on VBG - Patient has not received any chest PT advised nursing to to page respiratory for continued chest PT every 4 hours while awake - PCT elevated; trending down - Imaging noted above - c/w Acapella / Chest PT / Mucinex - CTA chest negative for PE. - Infectious Disease consult placed with Dr. Roman. Recommendations are greatly appreciated. - to complete 7-10 days of levaquin. Reviewed med administration. Patient has received 3 doses of levaquin 500 mg given every 48 hours. Given her normal renal function at this time, we will increase her dosage to levaquin 750 mg PO daily. Micrococcus Luteus in 1 blood culture - likely 2/2 contaminant - Remains hemodynamically stable and afebrile - s/p Leukocytosis - Blood cultures 01/25: (1of2) Micrococcus luteus - Blood cultures 01/27: 01/29: Negative s/p LORETTA - Cr normalized - Renal US noted above - s/p IV fluids Chronic hypotension - c/w Midodrine Hypothyroidism - c/w Levothyroxine Mood disorder / Intellectual disability - c/w Olanzapine IM - Seroquel on hold (re: Lethargy on 01/29) Debility - PT/OT DVT prophylaxis - c/w Heparin Code Status: - Full Disposition: - Pending clinical and oxygenation requirement improvement VS, I&O, 24H, Fishbone Vital Signs/I&O Vital Signs Date Time Temp Pulse Resp B/P (MAP) Pulse Ox O2 Delivery O2 Flow Rate FiO2 02/02/21 12:00 97.0 68 22 123/65 (84) 94 Venturi Mask 12.0 35 I&O- Last 24 Hours up to 6 AM 02/02/21 05:59 Intake Total 480 ml Output Total 275 ml Balance 205 ml Laboratory Data 24H LABS Laboratory Tests 2 02/01/21 16:00: 02/02/21 04:45: Immature Granulocyte % (Auto) 1.2, Neutrophils (%) (Auto) 54.0, Lymphocytes (%) (Auto) 23.0L, Monocytes (%) (Auto) 12.7H, Eosinophils (%) (Auto) 8.2H, Basophils (%) (Auto) 0.9, Neutrophils # (Auto) 1.8, Lymphocytes # (Auto) 0.8L, Monocytes # (Auto) 0.4, Eosinophils # (Auto) 0.3, Basophils # (Auto) 0.0, Nucleated Red Blood Cells % (auto) 0.0, Anion Gap 4L, Glomerular Filtration Rate > 60.0, Calcium Level 8.0L, Magnesium Level 2.2 CBC/BMP Laboratory Tests 02/02/21 04:45 Microbiology Microbiology 01/29/21 Respiratory Virus Panel (PCR) (BRUNO) - Final, Complete Respiratory Syncytial Virus 01/29/21 Blood Culture - Preliminary, Resulted No Growth after 72 hours. All specime... 01/29/21 Blood Culture - Preliminary, Resulted No Growth after 72 hours. All specime... 01/27/21 Blood Culture - Final, Complete NO GROWTH AFTER 5 DAYS 01/27/21 Blood Culture - Final, Complete NO GROWTH AFTER 5 DAYS 01/25/21 Blood Culture - Final, Complete NO GROWTH AFTER 5 DAYS 01/25/21 Blood Culture - Final, Complete NO GROWTH AFTER 5 DAYS 01/25/21 Blood Culture - Final, Complete Micrococcus Luteus ANN MARIE DELATORRE MD Feb 02, 2021 13:02
[2021-02-02] MEDS: predniSONE 50 MG TAB PO SCH (13:04)
[2021-02-02] MEDS: SLF 3 ML SYR IV SCH ×2 (14:56→22:00)
--- NOTE | 2021-02-02 15:05 | ECGEPIP ---
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
[2021-02-02] MEDS: QUEtiapine FUMARATE 50MG TAB PO SCH (21:18)
[2021-02-02] MEDS: SIMVASTATIN 20 MG TAB PO SCH (21:19)
[2021-02-03] VITALS: BP 125/66
[2021-02-03 04:00] VITALS: BP 118/71
[2021-02-03 05:19] LABS: BASO % 0.2 % (0.0-1.0); HEMATOCRIT 31.7 % (36.0-47.0); HEMOGLOBIN 10.2 g/dl (12.0-15.5); LYMPH # 0.7 10^3/uL (1.5-5.0); LYMPH % 16.3 % (24.0-44.0); MEAN CORPUSCULAR HEMOGLOBIN 31.4 pg (27.0-33.0); MEAN CORPUSCULAR HGB CONC 32.2 g/dl (32.0-36.5); MEAN CORPUSCULAR VOLUME 97.5 fl (80.0-96.0); MONO # 0.3 10^3/uL (0.0-0.8); MONO % 7.3 % (2.0-8.0); NEUTROPHILS # 3.2 10^3/uL (1.5-8.5); NEUTROPHILS % 74.8 % (36.0-66.0); PLATELET COUNT, AUTOMATED 318 10^3/uL (150-450); RED BLOOD COUNT 3.25 10^6/uL (4.00-5.40); WHITE BLOOD COUNT 4.2 10^3/uL (4.0-10.0)
[2021-02-03 05:41] LABS: BLOOD UREA NITROGEN 8 MG/DL (7-18); CALCIUM LEVEL 8.6 MG/DL (8.5-10.1); CARBON DIOXIDE LEVEL 31 MEQ/L (21-32); CHLORIDE LEVEL 106 MEQ/L (98-107); CREATININE FOR GFR 0.73 MG/DL (0.55-1.30); GLOMERULAR FILTRATION RATE > 60.0 (>51); GLUCOSE, FASTING 114 MG/DL (70-100); MAGNESIUM LEVEL 2.2 MG/DL (1.8-2.4); POTASSIUM SERUM 3.9 MEQ/L (3.5-5.1); SODIUM LEVEL 140 MEQ/L (136-145)
[2021-02-03] MEDS: SLF 3 ML SYR IV SCH (06:00)
[2021-02-03] MEDS: HEPARIN SOD (PORCINE) 5000UNITS/ML 1ML VIAL/SYRINGE SC SCH (06:00)
[2021-02-03] MEDS: MIDODRINE 5 MG TAB PO SCH (06:27)
[2021-02-03] MEDS: LEVOTHYROXINE 112MCG TABLET (0.112MG) PO SCH (06:28)
[2021-02-03] MEDS: LevoFLOXacin 750 MG TABLET PO SCH (06:28)
--- NOTE | 2021-02-03 08:12 | REP ---
INDICATION: Hypoxia COMPARISON: None. TECHNIQUE: Portable AP view of the chest FINDINGS: The mediastinum and cardiac silhouette are stable and grossly within normal limits for portable technique. Lung celaya demonstrate patchy right perihilar and multifocal left sided opacities. No obvious effusion. No pneumothorax. Skeletal structures are intact. IMPRESSION: Multifocal opacities similar to prior examination. <Electronically signed by Hilton Denis > 02/03/21 0850
[2021-02-03 08:23] VITALS: BP 128/80
[2021-02-03] MEDS: LACTULOSE 20 GM/30 ML SYRUP UD PO SCH (08:24)
[2021-02-03] MEDS: guaiFENesin 200 MG TAB PO SCH (08:24)
[2021-02-03] MEDS: predniSONE 50 MG TAB PO SCH (08:24)
[2021-02-03] MEDS: levETIRAcetam 250MG TABLET (KEPPRA) PO SCH (08:24)
[2021-02-03] MEDS: MULTIVITAMINS/MINERALS THERAP 1 TAB PO SCH (08:24)
[2021-02-03] MEDS: CitaloPRAM (CeleXA) 10 MG TABLET PO SCH (08:25)
[2021-02-03] MEDS: QUEtiapine FUMARATE 200 MG TAB PO SCH (08:46)
[2021-02-03] MEDS ORDERED: LEVO750T13 PO (11:23)
[2021-02-03] MEDS ORDERED: SERO200T PO (11:23)
[2021-02-03] MEDS ORDERED: PRED10TA2 PO (11:23)
[2021-02-03] MEDS ORDERED: PANT40TA29 PO (11:23)
--- NOTE | 2021-02-03 11:32 | DS.PDOC ---
Discharge Summary General Date of Admission Jan 25, 2021 at 18:12 Date of Discharge 02/03/21 Discharge Summary PROCEDURES PERFORMED DURING STAY: [None]. ADMITTING DIAGNOSES: Acute hypoxic respiratory failure LORETTA Hx HTN Hx Hypothyroidism Mood disorder Intellectual disability DISCHARGE DIAGNOSES: Acute hypoxic respiratory failure LORETTA Hx HTN Hx Hypothyroidism Mood disorder Intellectual disability Micrococcus Luteus in 1 blood culture, likely contaminent. COMPLICATIONS/CHIEF COMPLAINT: Hypoxia,Pneumonia,Ac Bronchiolitis D/T Rsv,Weaknes. HISTORY OF PRESENT ILLNESS: Obtained from H&P: "Theresa is a 60 year old woman with notable history for severe intellectual disability (down syndrome), COVID- 19 infection (Apr 2020), Alzheimer's dementia, hypothyroidism and chronic hypotension, who presents to the [facility] ER from [facility] with chief complaint of weakness and SOB. History is given per aid that is with the patient as patient is unable to provide this information 2/2 intellectual disability. She states that yesterday the patient was "not herself" and that she was showing signs of lethargy and weakness. The patient was brought to this ER where she was diagnosed with RSV and d/c to home. Today she is much less responsive with increase in lethargy and weakness. She was unable to lift herself from the toilet or get into bed on her own. Vitals were taken at the [facility] house and she reports them to be BP ~70/50 (lower than baseline hypotension) and O2 sats in ~low 90%s. Caregiver also reports limited appetite and fluid intake. She also has been using 2L of oxygen at night starting after COVID-19 infection in Apr 2020 and two subsequent episodes of pneumonia. Per aid, there have been sick staff at [facility] but with unknown dx. Patient is covid vaccinated and anticipates booster shot once available (first two were moderna), also received pneumovax-13 last month. Patient's legal guardian is her brother Tae Leone ([phone], [place]). Aid does not know her code status, she does not have a MOLST or a healthcare proxy." HOSPITAL COURSE: Acute hypoxic respiratory failure - likely 2/2 to superimposed CAP and viral infection (RSV) - Patient still remains in a Ventimask, saturating well, but continues to be obtunded. Respiratory alkalosis on VBG - Patient has not received any chest PT advised nursing to to page respiratory for continued chest PT every 4 hours while awake - PCT elevated; trending down - Imaging noted above - c/w Acapella / Chest PT / Mucinex - CTA chest negative for PE. - Infectious Disease consult placed with Dr. Roman. Recommendations are greatly appreciated. - to complete 7-10 days of levaquin. Reviewed med administration. Patient has received 3 doses of levaquin 500 mg given every 48 hours. Given her normal renal function at this time, we will increase her dosage to levaquin 750 mg PO daily on DC. Micrococcus Luteus in 1 blood culture - likely 2/2 contaminant - Remains hemodynamically stable and afebrile - s/p Leukocytosis - Blood cultures 01/25: (1of2) Micrococcus luteus - Blood cultures 01/27: Negative 01/29: Negative s/p LORETTA - Cr normalized - Renal US noted above - s/p IV fluids Chronic hypotension - c/w Midodrine Hypothyroidism - c/w Levothyroxine Mood disorder / Intellectual disability - c/w Olanzapine IM - Seroquel on hold (re: Lethargy on 01/29) Debility - PT/OT DISCHARGE MEDICATIONS: Please see below. ALLERGIES: Please see below. PHYSICAL EXAMINATION ON DISCHARGE: VITAL SIGNS: please see below General: NAD, comfortable HEENT: PERRLA, EOMI, sclerae clear Neck: supple, normal ROM, no JVD Respiratory: rhonchi bilaterally, fair inspiratory effort. CVS: RRR, normal S1, S2, no murmurs Abdo: soft, no masses, no hepatosplenomegaly, BS+, no rebound tenderness Extremities: no edema, pulses 2+ MSK: no joint deformities, normal ROM Neuro: no focal neuro deficits, moving all 4 extremities, CN2-12 intact. Strength 5/5 in all 4 extremities. No nystagmus. Psych: calm, cooperative LABORATORY DATA: Please see below. IMAGING: CT angio chest (02/01/21): IMPRESSION: No CT evidence of pulmonary embolism, the exam is limited by patient motion. Diffuse bilateral infiltrates. Small left pleural effusion CT head non contrast (02/01/21): IMPRESSION: Stable chronic changes in the brain with no evidence of acute intracranial hemorrhage, midline shift or mass effect. Opacification of right mastoid air cells compatible with mastoiditis. There is sinus mucosal disease also noted. CXR 01/25: Extensive and progressive infiltrates consistent with pneumonia Renal US 01/25: No evidence for hydronephrosis PROGNOSIS: fair ACTIVITY: prior level of function/support at [facility]. DIET: as tolerated DISCHARGE PLAN: DC to [facility]. Continue levaquin for 5 additional days (10 days therapy), EOT 02/08/21. Reduced dose of seroquel at night from 450 mg to 200 mg, while using levaquin. To complete course of prednisone taper x 30 tabs. Stopped NSAIDs in context of use with steroids, started pantoprazole. Continue to use baseline O2 at [facility]. DISPOSITION: discharge to [facility]. DISCHARGE INSTRUCTIONS: F/u PCP 3-5 days Take medication as prescribed. If you develop worsening shortness of breath, cough, chest pain, fever or otherwise worsening of your symptoms, please call 911 or return to the ER. DISCHARGE CONDITION: [Stable]. TIME SPENT ON DISCHARGE: 35 minutes Vital Signs/I&Os Vital Signs Date Time Temp Pulse Resp B/P (MAP) Pulse Ox O2 Delivery O2 Flow Rate FiO2 02/03/21 08:23 97.8 80 18 128/80 (96) 95 Room Air 02/03/21 04:00 2.0 02/02/21 12:00 35 I&O- Last 24 Hours up to 6 AM 02/03/21 05:59 Intake Total 460 ml Balance 460 ml Laboratory Data Labs 24H Laboratory Tests 2 02/03/21 04:51: Immature Granulocyte % (Auto) 1.4, Neutrophils (%) (Auto) 74.8H, Lymphocytes (%) (Auto) 16.3L, Monocytes (%) (Auto) 7.3, Eosinophils (%) (Auto) 0.0, Basophils (%) (Auto) 0.2, Neutrophils # (Auto) 3.2, Lymphocytes # (Auto) 0.7L, Monocytes # (Auto) 0.3, Eosinophils # (Auto) 0.0, Basophils # (Auto) 0.0, Nucleated Red Blood Cells % (auto) 0.0, Anion Gap 3L, Glomerular Filtration Rate > 60.0, Calcium Level 8.6, Magnesium Level 2.2 CBC/BMP Laboratory Tests 02/03/21 04:51 Microbiology Microbiology 01/29/21 Respiratory Virus Panel (PCR) (BRUNO) - Final, Complete Respiratory Syncytial Virus 01/29/21 Blood Culture - Final, Complete NO GROWTH AFTER 5 DAYS 01/29/21 Blood Culture - Final, Complete NO GROWTH AFTER 5 DAYS 01/27/21 Blood Culture - Final, Complete NO GROWTH AFTER 5 DAYS 01/27/21 Blood Culture - Final, Complete NO GROWTH AFTER 5 DAYS 01/25/21 Blood Culture - Final, Complete NO GROWTH AFTER 5 DAYS 01/25/21 Blood Culture - Final, Complete NO GROWTH AFTER 5 DAYS 01/25/21 Blood Culture - Final, Complete Micrococcus Luteus Discharge Medications Scheduled Calcium Carbonate/Vitamin D3 (Calcium 600-Vit D3 400 Tablet) 1 Each Tablet, 1 TAB PO BID, (Reported) Carbamide Peroxide (Debrox) 15 Ml Drops, 4 DROP AU ASDIRECTED, (Reported) ONCE A MONTH ON FRI/SAT/SUN AT BEDTIME Citalopram Hydrobromide (Citalopram HBr) 10 Mg Tablet, 10 MG PO DAILY, (Reported) Docusate Sodium (Docusate Sodium) 100 Mg Capsule, 100 MG PO BID, (Reported) Lactulose (Lactulose) 10 Gm/15 Ml Solution, 30 ML PO BID, (Reported) Levetiracetam (Levetiracetam) 750 Mg Tablet, 750 MG PO BID, (Reported) Levofloxacin (Levofloxacin) 750 Mg Tablet, 750 MG PO DAILY@06 Levothyroxine Sodium (Levothyroxine Sodium) 112 Mcg Tablet, 112 MCG PO DAILY, (Reported) Linaclotide (Linzess) 290 Mcg Capsule, 290 MCG PO DAILY, (Reported) Menthol/Zinc Oxide (Calmoseptine Ointment Packet) 3.5 Gm Oint.pack, 1 APPLIC TOP BID, (Reported) APPLY TO REDNESS IN MAKENZIE AREA Midodrine HCl (Midodrine HCl) 5 Mg Tab, 5 MG PO TID, (Reported) TAKES AT 0600/1600/2000 Multivitamins (Thera M Plus Tablet) 1 Tab Tab, 1 TAB PO DAILY, (Reported) Pantoprazole Sodium (Pantoprazole Sodium) 40 Mg Tablet.dr, 1 TAB PO DAILY Polyethylene Glycol 3350 (Miralax) 119 Gm Powder, 17 GRAM PO BID, (Reported) Prednisone (Prednisone) 10 Mg Tablet, 10 MG PO TAPER Take 4 tabs daily x 3 days, then 3 tabs daily x 3 days, then 2 tabs daily x 3 days, then 1 tab daily x 3 days and stop Quetiapine Fumarate (Seroquel) 200 Mg Tablet, 200 MG PO DAILY, (Reported) Quetiapine Fumarate (Seroquel) 200 Mg Tab, 200 MG PO QHS Reduced QHS dose to 200 mg QHS, down from 450 mg, while on levaquin and hx of sedation on admission. Simvastatin (Simvastatin) 20 Mg Tab, 20 MG PO QHS, (Reported) Scheduled PRN Acetaminophen (Acetaminophen) 325 Mg Tablet, 650 MG PO Q4H PRN for PAIN LEVEL 1- 4, (Reported) Guaifenesin (Guaifenesin) 100 Mg/5 Ml Liquid, 10 ML PO Q4H PRN for COUGH, (R eported) Loratadine/Pseudoephedrine (Loratadine-D 24Hr Tablet) 1 Each Tab.er.24h, 1 TAB PO DAILY PRN for ALLERGIES, (Reported) Neomycin/Bacitracin/Polymyxinb (Triple Antibiotic Ointment) 14 Gm Oint...g., 1 APPLIC TOP BID PRN for REDNESS/IRRITATION, (Reported) APPLY TO ANY CUTS/ABRASIONS THAT APPEAR INFECTED Zinc Oxide (Desitin) 454 Gm Cream..g., 1 APPLIC TOP BID PRN for REDNESS/IRRITATION, (Reported) APPLY TO CHAFED SKIN Allergies Coded Allergies: Penicillins (Verified Allergy, Intermediate, RASH, 07/27/20) amoxicillin (Verified Allergy, Intermediate, rash, 07/27/20) ANN MARIE DELATORRE MD Feb 03, 2021 11:32
[2021-02-03 12:00] VITALS: BP 109/73
[2021-02-09 18:08] LABS: BODY FLUID CULTURE Not indicated. (.); LEGIONELLA ANTIGEN URINE Negative (Negative); ORGANISM ID Not indicated. (.); SPECIMEN SOURCE Urine (.); URINE STREP PNEUMONIAE ANTIGEN Negative (Negative)
== END 2021-02-03 14:04 | disposition home or self-care (01) | DRG 193 ==
LOC: EDBD 14:01 → M ED 14:01 → M ED INP 18:12 → ENRESERV 20:09 → M PCU 22:33 → M MSPAV 01-28 16:25 → M PCU 01-29 22:07
PROVIDERS: ADMIT Internal Medicine; ATTEND Family Medicine
DX: J12.1 Respiratory syncytial virus pneumonia (principal); J96.01 Acute respiratory failure with hypoxia; J12.82 Pneumonia due to coronavirus disease 2019; F72 Severe intellectual disabilities; N13.30 Unspecified hydronephrosis; N17.9 Acute kidney failure, unspecified; F63.81 Intermittent explosive disorder; B97.89 Other viral agents as the cause of diseases classified elsewhere; I95.9 Hypotension, unspecified; Q90.9 Down syndrome, unspecified; G30.9 Alzheimer's disease, unspecified; Z88.0 Allergy status to penicillin; Z88.1 Allergy status to other antibiotic agents; Z79.899 Other long term (current) drug therapy; E66.9 Obesity, unspecified; Z68.35 Body mass index [BMI] 35.0-35.9, adult; F02.80 Dementia in other diseases classified elsewhere, unspecified severity, without behavioral disturbance, psychotic disturbance, mood disturbance, and anxiety; M81.0 Age-related osteoporosis without current pathological fracture; E03.9 Hypothyroidism, unspecified; E78.00 Pure hypercholesterolemia, unspecified

== ENCOUNTER → 2021-03-29 | Outpatient (CLI) | payer MEDICARE, MEDICAID ==
[~2021-03-29] MED LIST changes: +CALM1OIN TOP; +GUAI100L6 PO; +IBUP-1720 PO; +LORA24TA PO; +NEOM14OI TOP; +PANT40TA29 PO; +PRED10TA2 PO
== END ==
LOC: M PLALAB 14:00
PROVIDERS: ATTEND Psychiatry & Neurology Neurology
DX: G40.89 Other seizures (principal)

== ENCOUNTER → 2021-04-07 | Outpatient (REF) | LOC: M LABSMTC 10:54 | PROVIDERS: ATTEND Pediatrics | DX: Z11.52 Encounter for screening for COVID-19 (principal) ==

== ENCOUNTER → 2021-05-31 | Outpatient (CLI) | payer MEDICARE, MEDICAID ==
[~2021-05-31] MED LIST changes: -CEFD1CAP8 PO; +CEFD300C41 PO; -CITA10TA5 PO; +CITA10TA7 PO; +QUET200T2 PO
== END ==
LOC: M PLALAB 13:57
PROVIDERS: ATTEND Internal Medicine Pulmonary Disease
DX: R91.8 Other nonspecific abnormal finding of lung field (principal)

== ENCOUNTER 2021-06-05 21:32 | Inpatient (IN) | payer MEDICARE, MEDICAID ==
[~2021-06-05] VITALS: Ht 134.6 cm; Wt 66.5 kg
[2021-06-05 23:34] LABS: BASO % 0.3 % (0.0-1.0); EOS % 0.3 % (0.0-3.0); HEMATOCRIT 30.8 % (36.0-47.0); LYMPH # 0.9 10^3/uL (1.5-5.0); LYMPH % 7.4 % (24.0-44.0); MEAN CORPUSCULAR HEMOGLOBIN 31.5 pg (27.0-33.0); MEAN CORPUSCULAR HGB CONC 32.5 g/dl (32.0-36.5); MEAN CORPUSCULAR VOLUME 97.2 fl (80.0-96.0); MONO # 0.7 10^3/uL (0.0-0.8); MONO % 5.8 % (2.0-8.0); NEUTROPHILS # 10.2 10^3/uL (1.5-8.5); NEUTROPHILS % 85.7 % (36.0-66.0); PLATELET COUNT, AUTOMATED 237 10^3/uL (150-450); RED BLOOD COUNT 3.17 10^6/uL (4.00-5.40); WHITE BLOOD COUNT 11.9 10^3/uL (4.0-10.0)
[2021-06-05 23:43] LABS: ABG BASE EXCESS 1.5 (-2.0-2.0); ABG O2 SATURATION 88.9 % (95.0-99.0); ABG PARTIAL PRESSURE CO2 40.6 mmHg (35.0-45.0); ABG PARTIAL PRESSURE O2 57.6 mmHg (75.0-100.0); ABG STANDARD HCO3 25.6 MEQ/L (22.0-26.0); ABG TOTAL CO2 27.2 MEQ/L (22.0-29.0); ABG pH (ARTERIAL) 7.424 UNITS (7.350-7.450)
[2021-06-05 23:57] LABS: CK-MB VALUE MASS 17.8 NG/ML (<3.6); MB/CK RELATIVE INDEX 1.91 (< OR =4)
[2021-06-05 23:59] LABS: BLOOD UREA NITROGEN 17 MG/DL (7-18); CREATININE FOR GFR 0.89 MG/DL (0.55-1.30); GLUCOSE, FASTING 108 MG/DL (70-100)
[2021-06-06] LABS: ALBUMIN 2.6 GM/DL (3.2-5.2); ALT/SGPT 20 U/L (12-78); BILIRUBIN,DIRECT 0.1 MG/DL (0.0-0.2); BILIRUBIN,TOTAL 0.3 MG/DL (0.2-1.0); CALCIUM LEVEL 8.5 MG/DL (8.5-10.1); CARBON DIOXIDE LEVEL 29 MEQ/L (21-32); CHLORIDE LEVEL 101 MEQ/L (98-107); GLOMERULAR FILTRATION RATE > 60.0 (>51); NT-PRO BNP 979 PG/ML (<125); SODIUM LEVEL 137 MEQ/L (136-145); TOTAL PROTEIN 6.4 GM/DL (6.4-8.2)
[2021-06-06] MEDS ORDERED: cefTRIAXone SOD 1 GM in D5W MINI-BAG PLUS 50 ML IV ONE (00:05)
[2021-06-06] MEDS ORDERED: AZITHROMYCIN INJ 500 MG, VIAL MATE ADAPTER 1 EACH in NS 250 ML IV ONE (00:05)
[2021-06-06 01:10] LABS: CK-MB VALUE MASS 14.9 NG/ML (<3.6); MB/CK RELATIVE INDEX 1.83 (< OR =4)
[2021-06-06] MEDS ORDERED: MOM 30ML SUSPENSION UDC PO PRN (02:20)
[2021-06-06] MEDS ORDERED: MAALOX 30 ML SUSP *UDC PO PRN (02:20)
[2021-06-06] MEDS ORDERED: IPRATROPIUM 0.5MG/ALBUTEROL 2.5MG INH SOL UD 3ML (DUONEB) INH PRN (02:20)
[2021-06-06] MEDS: NS 1,000 ML IV SCH ×2 (02:20→14:34)
[2021-06-06] MEDS ORDERED: NS 1,000 ML IV ONE (02:20)
[2021-06-06 03:04] LABS: INR 1.15; PROTHROMBIN TIME 15.1 SECONDS (12.7-14.5)
[2021-06-06] MEDS ORDERED: MIRA3350 PO (03:04)
[2021-06-06] MEDS ORDERED: PANT-23 PO (03:04)
[2021-06-06] MEDS ORDERED: MIDO5TA PO (03:04)
[2021-06-06] MEDS ORDERED: CELE10TA PO (03:04)
[2021-06-06] MEDS ORDERED: IBUP200T46 PO (03:04)
[2021-06-06] MEDS ORDERED: QUET50TA4 PO (03:04)
[2021-06-06] MEDS ORDERED: QUET200T2 PO ×2 (03:07→03:09)
[2021-06-06] MEDS ORDERED: HOME MED LIST COMPLETE! XX SCH (03:10)
[2021-06-06] MEDS ORDERED: CARBAMIDE PEROXIDE 6.5% OTIC SOLN 15ML AU SCH (03:15)
[2021-06-06] MEDS ORDERED: guaiFENesin SYRUP 200MG 10ML UDC PO PRN (03:15)
[2021-06-06] MEDS ORDERED: MIRALAX *UNIT DOSE* 17GM PACKET PO PRN (03:15)
[2021-06-06] MEDS: metroNIDAZOLE 500 MG in IV 1 EA IV SCH ×3 (04:12→20:02)
[2021-06-06] MEDS ORDERED: PILL CUTTER 1 EACH XX ONE ×2 (05:46→09:33)
[2021-06-06] MEDS: CEFEPIME HCL 2 GM in D5W MINI-BAG PLUS 50 ML IV SCH ×2 (05:50→17:53)
[2021-06-06] MEDS: LEVOTHYROXINE 112MCG TABLET (0.112MG) PO SCH (05:50)
[2021-06-06 07:54] LABS: HEMOGLOBIN 8.9 g/dl (12.0-15.5); MEAN CORPUSCULAR HEMOGLOBIN 31.6 pg (27.0-33.0); MEAN CORPUSCULAR HGB CONC 31.8 g/dl (32.0-36.5); MEAN CORPUSCULAR VOLUME 99.3 fl (80.0-96.0); PLATELET COUNT, AUTOMATED 210 10^3/uL (150-450); RED BLOOD COUNT 2.82 10^6/uL (4.00-5.40)
[2021-06-06] MEDS: MIDODRINE 5 MG TAB PO SCH ×3 (08:00→17:53)
[2021-06-06 08:18] LABS: BLOOD UREA NITROGEN 11 MG/DL (7-18); CALCIUM LEVEL 7.9 MG/DL (8.5-10.1); CARBON DIOXIDE LEVEL 28 MEQ/L (21-32); CHLORIDE LEVEL 109 MEQ/L (98-107); CREATININE FOR GFR 0.69 MG/DL (0.55-1.30); GLOMERULAR FILTRATION RATE > 60.0 (>51); GLUCOSE, FASTING 133 MG/DL (70-100); POTASSIUM SERUM 4.1 MEQ/L (3.5-5.1); SODIUM LEVEL 142 MEQ/L (136-145)
[2021-06-06] MEDS: LACTULOSE 20 GM/30 ML SYRUP UD PO SCH ×2 (13:10→20:01)
[2021-06-06] MEDS: ENOXAPARIN 40MG/0.4ML SYRINGE (J1650 PER 10MG) SC SCH (13:11)
[2021-06-06] MEDS: CitaloPRAM (CeleXA) 10 MG TABLET PO SCH (14:32)
[2021-06-06] MEDS: DOCUSATE SODIUM 100MG CAPSULE PO SCH ×2 (14:32→20:02)
[2021-06-06] MEDS: levETIRAcetam 250MG TABLET (KEPPRA) PO SCH ×2 (14:32→20:02)
[2021-06-06] MEDS: QUEtiapine FUMARATE 200 MG TAB PO SCH ×2 (14:32→20:01)
[2021-06-06] MEDS: PANTOPRAZOLE 40MG TAB (PROTONIX) PO SCH (14:32)
[2021-06-06 20:00] VITALS: BP 110/66
[2021-06-06] MEDS: SIMVASTATIN 20 MG TAB PO SCH (20:01)
[2021-06-06] MEDS: QUEtiapine FUMARATE 50MG TAB PO SCH (20:02)
[2021-06-06 22:00] VITALS: BP 110/66
[2021-06-06 23:45] VITALS: O2SAT 95
[2021-06-07] VITALS (7 sets, daily range): BP systolic 105–124; BP diastolic 53–79; O2SAT 89–100
[2021-06-07] MEDS: NS 1,000 ML IV SCH (02:31)
[2021-06-07] MEDS: metroNIDAZOLE 500 MG in IV 1 EA IV SCH ×3 (04:22→20:09)
[2021-06-07] MEDS: LEVOTHYROXINE 112MCG TABLET (0.112MG) PO SCH (05:43)
[2021-06-07] MEDS: CEFEPIME HCL 2 GM in D5W MINI-BAG PLUS 50 ML IV SCH ×2 (05:43→17:49)
[2021-06-07 06:17] LABS: HEMATOCRIT 29.2 % (36.0-47.0); MEAN CORPUSCULAR HEMOGLOBIN 31.5 pg (27.0-33.0); MEAN CORPUSCULAR HGB CONC 30.8 g/dl (32.0-36.5); MEAN CORPUSCULAR VOLUME 102.1 fl (80.0-96.0); PLATELET COUNT, AUTOMATED 209 10^3/uL (150-450); RED BLOOD COUNT 2.86 10^6/uL (4.00-5.40); WHITE BLOOD COUNT 6.7 10^3/uL (4.0-10.0)
[2021-06-07 06:35] LABS: BLOOD UREA NITROGEN 8 MG/DL (7-18); CARBON DIOXIDE LEVEL 27 MEQ/L (21-32); CHLORIDE LEVEL 113 MEQ/L (98-107); GLOMERULAR FILTRATION RATE > 60.0 (>51); GLUCOSE, FASTING 120 MG/DL (70-100); SODIUM LEVEL 144 MEQ/L (136-145)
[2021-06-07] MEDS ORDERED: IPRATROPIUM 0.5MG/ALBUTEROL 2.5MG INH SOL UD 3ML (DUONEB) NEB ONE (06:55)
[2021-06-07 07:40] LABS: VENOUS BASE EXCESS -2.3 (-2.0-2.0); VENOUS HCO3 23.3 MEQ/L (23.0-27.0); VENOUS O2 SATURATION 99.3 % (60.0-80.0); VENOUS PARTIAL PRESSURE CO2 43.4 mmHg (38.0-50.0); VENOUS PARTIAL PRESSURE O2 194.9 mmHg (30.0-50.0); VENOUS PH 7.348 UNITS (7.330-7.430); VENOUS STANDARD HCO3 22.6 MEQ/L; VENOUS TOTAL CO2 24.6 MEQ/L (24.0-28.0)
[2021-06-07] MEDS ORDERED: ALBUTEROL SULFATE 2.5 MG/0.5 ML INH NEB SOLN NEB PRN (08:15)
[2021-06-07] MEDS: IPRATROPIUM 0.5MG/ALBUTEROL 2.5MG INH SOL UD 3ML (DUONEB) INH SCH ×4 (08:38→20:00)
[2021-06-07] MEDS: levETIRAcetam 250MG TABLET (KEPPRA) PO SCH (09:00)
[2021-06-07] MEDS: LACTULOSE 20 GM/30 ML SYRUP UD PO SCH ×2 (09:00→20:10)
[2021-06-07] MEDS: PANTOPRAZOLE 40MG TAB (PROTONIX) PO SCH (09:00)
[2021-06-07] MEDS: CitaloPRAM (CeleXA) 10 MG TABLET PO SCH (09:00)
[2021-06-07] MEDS: QUEtiapine FUMARATE 200 MG TAB PO SCH ×2 (09:00→20:10)
[2021-06-07] MEDS: DOCUSATE SODIUM 100MG CAPSULE PO SCH ×2 (09:00→20:10)
[2021-06-07] MEDS: MIDODRINE 5 MG TAB PO SCH ×3 (09:18→17:00)
[2021-06-07] MEDS: ENOXAPARIN 40MG/0.4ML SYRINGE (J1650 PER 10MG) SC SCH (09:59)
[2021-06-07] MEDS: levETIRAcetam INJection 750 MG in D5W 100 ML IV SCH (14:43)
[2021-06-07] MEDS: PANTOPRAZOLE 40MG VIAL (C9113 PER 1) IV SCH (14:43)
[2021-06-07] MEDS ORDERED: LORazepam 2 MG/ML VIAL IV STA (17:32)
[2021-06-07] MEDS: QUEtiapine FUMARATE 50MG TAB PO SCH (20:10)
[2021-06-07] MEDS: SIMVASTATIN 20 MG TAB PO SCH (20:10)
[2021-06-08] VITALS (8 sets, daily range): BP systolic 90–101; BP diastolic 48–55; O2SAT 90–93
[2021-06-08] MEDS: IPRATROPIUM 0.5MG/ALBUTEROL 2.5MG INH SOL UD 3ML (DUONEB) INH SCH ×6 (00:42→18:21)
[2021-06-08] MEDS: levETIRAcetam INJection 750 MG in D5W 100 ML IV SCH ×2 (03:11→14:28)
[2021-06-08] MEDS: metroNIDAZOLE 500 MG in IV 1 EA IV SCH ×3 (04:36→20:03)
[2021-06-08 05:33] LABS: HEMOGLOBIN 9.3 g/dl (12.0-15.5); MEAN CORPUSCULAR HEMOGLOBIN 31.4 pg (27.0-33.0); MEAN CORPUSCULAR VOLUME 104.7 fl (80.0-96.0); PLATELET COUNT, AUTOMATED 189 10^3/uL (150-450); RED BLOOD COUNT 2.96 10^6/uL (4.00-5.40); WHITE BLOOD COUNT 6.8 10^3/uL (4.0-10.0)
[2021-06-08 05:43] LABS: BLOOD UREA NITROGEN 6 MG/DL (7-18); CALCIUM LEVEL 8.1 MG/DL (8.5-10.1); CARBON DIOXIDE LEVEL 21 MEQ/L (21-32); CHLORIDE LEVEL 112 MEQ/L (98-107); CREATININE FOR GFR 0.66 MG/DL (0.55-1.30); GLOMERULAR FILTRATION RATE > 60.0 (>51); GLUCOSE, FASTING 107 MG/DL (70-100); POTASSIUM SERUM 5.4 MEQ/L (3.5-5.1); SODIUM LEVEL 139 MEQ/L (136-145)
[2021-06-08] MEDS: CEFEPIME HCL 2 GM in D5W MINI-BAG PLUS 50 ML IV SCH ×2 (06:03→17:37)
[2021-06-08] MEDS: LEVOTHYROXINE 112MCG TABLET (0.112MG) PO SCH (06:03)
[2021-06-08] MEDS ORDERED: OLANZapine INTRAMUSCULAR 10MG VIAL IM ONE (07:00)
[2021-06-08] MEDS: ENOXAPARIN 40MG/0.4ML SYRINGE (J1650 PER 10MG) SC SCH (08:36)
[2021-06-08] MEDS: QUEtiapine FUMARATE 200 MG TAB PO SCH ×2 (08:36→20:03)
[2021-06-08] MEDS: CitaloPRAM (CeleXA) 10 MG TABLET PO SCH (08:37)
[2021-06-08] MEDS: DOCUSATE SODIUM 100MG CAPSULE PO SCH ×2 (08:37→20:03)
[2021-06-08] MEDS: LACTULOSE 20 GM/30 ML SYRUP UD PO SCH ×2 (08:37→20:04)
[2021-06-08] MEDS: MIDODRINE 5 MG TAB PO SCH ×3 (08:37→17:37)
[2021-06-08] MEDS: PANTOPRAZOLE 40MG VIAL (C9113 PER 1) IV SCH (14:36)
[2021-06-08] MEDS: SIMVASTATIN 20 MG TAB PO SCH (20:03)
[2021-06-08] MEDS: QUEtiapine FUMARATE 50MG TAB PO SCH (20:04)
[2021-06-09] VITALS (22 sets, daily range): BP systolic 92–116; BP diastolic 50–59; O2SAT 76–94
[2021-06-09] MEDS: IPRATROPIUM 0.5MG/ALBUTEROL 2.5MG INH SOL UD 3ML (DUONEB) INH SCH ×6 (01:07→21:29)
[2021-06-09] MEDS: levETIRAcetam INJection 750 MG in D5W 100 ML IV SCH ×2 (02:28→14:46)
[2021-06-09 03:51] LABS: HEMATOCRIT 25.8 % (36.0-47.0); MEAN CORPUSCULAR HEMOGLOBIN 30.9 pg (27.0-33.0); MEAN CORPUSCULAR VOLUME 99.6 fl (80.0-96.0); PLATELET COUNT, AUTOMATED 249 10^3/uL (150-450); RED BLOOD COUNT 2.59 10^6/uL (4.00-5.40); WHITE BLOOD COUNT 3.7 10^3/uL (4.0-10.0)
[2021-06-09] MEDS: metroNIDAZOLE 500 MG in IV 1 EA IV SCH ×3 (04:02→21:35)
[2021-06-09 04:20] LABS: BLOOD UREA NITROGEN 6 MG/DL (7-18); CALCIUM LEVEL 8.2 MG/DL (8.5-10.1); CARBON DIOXIDE LEVEL 27 MEQ/L (21-32); CHLORIDE LEVEL 111 MEQ/L (98-107); CREATININE FOR GFR 0.66 MG/DL (0.55-1.30); GLOMERULAR FILTRATION RATE > 60.0 (>51); GLUCOSE, FASTING 127 MG/DL (70-100); POTASSIUM SERUM 3.3 MEQ/L (3.5-5.1); SODIUM LEVEL 144 MEQ/L (136-145)
[2021-06-09] MEDS ORDERED: POTASSIUM CHLORIDE 10% LIQ 20 MEQ/15 ML UDC PO ONE (04:35)
[2021-06-09] MEDS: CEFEPIME HCL 2 GM in D5W MINI-BAG PLUS 50 ML IV SCH ×2 (06:04→18:32)
[2021-06-09] MEDS: LEVOTHYROXINE 112MCG TABLET (0.112MG) PO SCH (06:04)
[2021-06-09] MEDS: DOCUSATE SODIUM 100MG CAPSULE PO SCH ×2 (09:00→21:36)
[2021-06-09] MEDS: ENOXAPARIN 40MG/0.4ML SYRINGE (J1650 PER 10MG) SC SCH (09:33)
[2021-06-09] MEDS: MIDODRINE 5 MG TAB PO SCH ×3 (09:33→16:04)
[2021-06-09] MEDS: LACTULOSE 20 GM/30 ML SYRUP UD PO SCH ×2 (09:33→21:36)
[2021-06-09] MEDS: CitaloPRAM (CeleXA) 10 MG TABLET PO SCH (09:33)
[2021-06-09] MEDS: QUEtiapine FUMARATE 200 MG TAB PO SCH ×2 (09:34→21:36)
[2021-06-09 15:47] LABS: BLOOD UREA NITROGEN 5 MG/DL (7-18); CALCIUM LEVEL 7.8 MG/DL (8.5-10.1); CARBON DIOXIDE LEVEL 28 MEQ/L (21-32); CHLORIDE LEVEL 114 MEQ/L (98-107); GLOMERULAR FILTRATION RATE > 60.0 (>51); GLUCOSE, FASTING 128 MG/DL (70-100); SODIUM LEVEL 146 MEQ/L (136-145)
[2021-06-09] MEDS: PANTOPRAZOLE 40MG VIAL (C9113 PER 1) IV SCH (16:04)
[2021-06-09] MEDS: SIMVASTATIN 20 MG TAB PO SCH (21:36)
[2021-06-09] MEDS: QUEtiapine FUMARATE 50MG TAB PO SCH (21:36)
[2021-06-10] VITALS (27 sets, daily range): BP systolic 104–146; BP diastolic 53–69; O2SAT 77–100
[2021-06-10] MEDS: IPRATROPIUM 0.5MG/ALBUTEROL 2.5MG INH SOL UD 3ML (DUONEB) INH SCH ×6 (00:47→19:57)
[2021-06-10] MEDS: levETIRAcetam INJection 750 MG in D5W 100 ML IV SCH ×2 (02:10→14:17)
[2021-06-10] MEDS: metroNIDAZOLE 500 MG in IV 1 EA IV SCH ×3 (04:04→21:12)
[2021-06-10 04:05] LABS: HEMATOCRIT 25.8 % (36.0-47.0); MEAN CORPUSCULAR HEMOGLOBIN 30.8 pg (27.0-33.0); MEAN CORPUSCULAR VOLUME 99.2 fl (80.0-96.0); PLATELET COUNT, AUTOMATED 277 10^3/uL (150-450); WHITE BLOOD COUNT 4.4 10^3/uL (4.0-10.0)
[2021-06-10 04:36] LABS: BLOOD UREA NITROGEN 4 MG/DL (7-18); CALCIUM LEVEL 7.5 MG/DL (8.5-10.1); CARBON DIOXIDE LEVEL 28 MEQ/L (21-32); CHLORIDE LEVEL 112 MEQ/L (98-107); CREATININE FOR GFR 0.61 MG/DL (0.55-1.30); GLOMERULAR FILTRATION RATE > 60.0 (>51); GLUCOSE, FASTING 139 MG/DL (70-100); POTASSIUM SERUM 3.6 MEQ/L (3.5-5.1); SODIUM LEVEL 145 MEQ/L (136-145)
[2021-06-10] MEDS: CEFEPIME HCL 2 GM in D5W MINI-BAG PLUS 50 ML IV SCH ×2 (05:53→17:40)
[2021-06-10] MEDS: LEVOTHYROXINE 112MCG TABLET (0.112MG) PO SCH (05:56)
[2021-06-10] MEDS: LACTULOSE 20 GM/30 ML SYRUP UD PO SCH ×2 (09:09→21:11)
[2021-06-10] MEDS: ENOXAPARIN 40MG/0.4ML SYRINGE (J1650 PER 10MG) SC SCH (09:09)
[2021-06-10] MEDS: DOCUSATE SODIUM 100MG CAPSULE PO SCH ×2 (09:10→21:12)
[2021-06-10] MEDS: QUEtiapine FUMARATE 200 MG TAB PO SCH ×2 (09:10→21:12)
[2021-06-10] MEDS: CitaloPRAM (CeleXA) 10 MG TABLET PO SCH (09:10)
[2021-06-10] MEDS: MIDODRINE 5 MG TAB PO SCH ×3 (09:10→16:44)
[2021-06-10] MEDS: PANTOPRAZOLE 40MG VIAL (C9113 PER 1) IV SCH (15:27)
[2021-06-10] MEDS: QUEtiapine FUMARATE 50MG TAB PO SCH (21:12)
[2021-06-10] MEDS: SIMVASTATIN 20 MG TAB PO SCH (21:12)
[2021-06-11] VITALS (20 sets, daily range): BP systolic 106–128; BP diastolic 53–61; O2SAT 84–100
[2021-06-11] MEDS: IPRATROPIUM 0.5MG/ALBUTEROL 2.5MG INH SOL UD 3ML (DUONEB) INH SCH ×6 (01:15→19:12)
[2021-06-11] MEDS: levETIRAcetam INJection 750 MG in D5W 100 ML IV SCH ×2 (03:08→14:33)
[2021-06-11] MEDS: metroNIDAZOLE 500 MG in IV 1 EA IV SCH ×3 (03:57→20:19)
[2021-06-11 05:33] LABS: HEMATOCRIT 30.9 % (36.0-47.0); HEMOGLOBIN 9.4 g/dl (12.0-15.5); MEAN CORPUSCULAR HEMOGLOBIN 30.8 pg (27.0-33.0); MEAN CORPUSCULAR HGB CONC 30.4 g/dl (32.0-36.5); MEAN CORPUSCULAR VOLUME 101.3 fl (80.0-96.0); PLATELET COUNT, AUTOMATED 292 10^3/uL (150-450); RED BLOOD COUNT 3.05 10^6/uL (4.00-5.40); WHITE BLOOD COUNT 5.9 10^3/uL (4.0-10.0)
[2021-06-11 06:02] LABS: BLOOD UREA NITROGEN 5 MG/DL (7-18); CALCIUM LEVEL 7.9 MG/DL (8.5-10.1); CARBON DIOXIDE LEVEL 29 MEQ/L (21-32); CHLORIDE LEVEL 109 MEQ/L (98-107); GLOMERULAR FILTRATION RATE > 60.0 (>51); GLUCOSE, FASTING 119 MG/DL (70-100); POTASSIUM SERUM 3.7 MEQ/L (3.5-5.1); SODIUM LEVEL 141 MEQ/L (136-145)
[2021-06-11] MEDS: LEVOTHYROXINE 112MCG TABLET (0.112MG) PO SCH (06:20)
[2021-06-11] MEDS: CEFEPIME HCL 2 GM in D5W MINI-BAG PLUS 50 ML IV SCH ×2 (06:20→17:37)
[2021-06-11] MEDS: ENOXAPARIN 40MG/0.4ML SYRINGE (J1650 PER 10MG) SC SCH (09:00)
[2021-06-11] MEDS: DOCUSATE SODIUM 100MG CAPSULE PO SCH ×3 (09:00→20:20)
[2021-06-11] MEDS: LACTULOSE 20 GM/30 ML SYRUP UD PO SCH ×2 (09:00→20:19)
[2021-06-11] MEDS: QUEtiapine FUMARATE 200 MG TAB PO SCH ×2 (09:01→20:19)
[2021-06-11] MEDS: CitaloPRAM (CeleXA) 10 MG TABLET PO SCH (09:01)
[2021-06-11] MEDS: MIDODRINE 5 MG TAB PO SCH ×3 (09:01→16:17)
[2021-06-11] MEDS: PANTOPRAZOLE 40MG VIAL (C9113 PER 1) IV SCH (14:33)
[2021-06-11] MEDS: SIMVASTATIN 20 MG TAB PO SCH (20:19)
[2021-06-11] MEDS: QUEtiapine FUMARATE 50MG TAB PO SCH (20:20)
[2021-06-12] VITALS (7 sets, daily range): BP systolic 100–118; BP diastolic 58–65; O2SAT 94–95
[2021-06-12] MEDS: IPRATROPIUM 0.5MG/ALBUTEROL 2.5MG INH SOL UD 3ML (DUONEB) INH SCH ×7 (00:06→23:25)
[2021-06-12] MEDS: levETIRAcetam INJection 750 MG in D5W 100 ML IV SCH ×2 (02:58→14:21)
[2021-06-12] MEDS: metroNIDAZOLE 500 MG in IV 1 EA IV SCH ×2 (03:26→11:48)
[2021-06-12] MEDS: LEVOTHYROXINE 112MCG TABLET (0.112MG) PO SCH (04:41)
[2021-06-12] MEDS: CEFEPIME HCL 2 GM in D5W MINI-BAG PLUS 50 ML IV SCH ×2 (04:41→16:17)
[2021-06-12 05:45] LABS: HEMATOCRIT 27.2 % (36.0-47.0); HEMOGLOBIN 8.6 g/dl (12.0-15.5); MEAN CORPUSCULAR HGB CONC 31.6 g/dl (32.0-36.5); MEAN CORPUSCULAR VOLUME 98.2 fl (80.0-96.0); PLATELET COUNT, AUTOMATED 298 10^3/uL (150-450); RED BLOOD COUNT 2.77 10^6/uL (4.00-5.40); WHITE BLOOD COUNT 3.5 10^3/uL (4.0-10.0)
[2021-06-12 06:01] LABS: BLOOD UREA NITROGEN 4 MG/DL (7-18); CALCIUM LEVEL 7.5 MG/DL (8.5-10.1); CARBON DIOXIDE LEVEL 28 MEQ/L (21-32); CHLORIDE LEVEL 108 MEQ/L (98-107); CREATININE FOR GFR 0.73 MG/DL (0.55-1.30); GLOMERULAR FILTRATION RATE > 60.0 (>51); GLUCOSE, FASTING 129 MG/DL (70-100); POTASSIUM SERUM 3.8 MEQ/L (3.5-5.1); SODIUM LEVEL 143 MEQ/L (136-145)
[2021-06-12] MEDS: MIDODRINE 5 MG TAB PO SCH ×3 (08:48→14:22)
[2021-06-12] MEDS: LACTULOSE 20 GM/30 ML SYRUP UD PO SCH ×2 (08:48→21:54)
[2021-06-12] MEDS: ENOXAPARIN 40MG/0.4ML SYRINGE (J1650 PER 10MG) SC SCH (08:48)
[2021-06-12] MEDS: DOCUSATE SODIUM 100MG CAPSULE PO SCH ×2 (08:49→21:55)
[2021-06-12] MEDS: CitaloPRAM (CeleXA) 10 MG TABLET PO SCH (08:49)
[2021-06-12] MEDS: QUEtiapine FUMARATE 200 MG TAB PO SCH ×2 (08:49→21:55)
[2021-06-12] MEDS: PANTOPRAZOLE 40MG VIAL (C9113 PER 1) IV SCH (14:22)
[2021-06-12] MEDS: ACETAMINOPHEN TAB 650MG DOSE (2X325MG) PO PRN (18:35)
[2021-06-12] MEDS: IBUPROFEN 400MG TAB PO PRN (18:35)
[2021-06-12] MEDS: levETIRAcetam 250MG TABLET (KEPPRA) PO SCH (21:55)
[2021-06-12] MEDS: metroNIDAZOLE (FLAGYL) 500MG TABLET PO SCH (21:55)
[2021-06-12] MEDS: QUEtiapine FUMARATE 50MG TAB PO SCH (21:55)
[2021-06-12] MEDS: SIMVASTATIN 20 MG TAB PO SCH (21:56)
[2021-06-12 22:07] LABS: NT-PRO BNP 447 PG/ML (<125)
[2021-06-13 03:00] VITALS: O2SAT 95
[2021-06-13] MEDS: IPRATROPIUM 0.5MG/ALBUTEROL 2.5MG INH SOL UD 3ML (DUONEB) INH SCH ×6 (03:00→23:52)
[2021-06-13 04:47] LABS: HEMOGLOBIN 8.5 g/dl (12.0-15.5); MEAN CORPUSCULAR HEMOGLOBIN 31.1 pg (27.0-33.0); MEAN CORPUSCULAR HGB CONC 31.5 g/dl (32.0-36.5); MEAN CORPUSCULAR VOLUME 98.9 fl (80.0-96.0); PLATELET COUNT, AUTOMATED 313 10^3/uL (150-450); RED BLOOD COUNT 2.73 10^6/uL (4.00-5.40)
[2021-06-13] MEDS: CEFEPIME HCL 2 GM in D5W MINI-BAG PLUS 50 ML IV SCH ×2 (04:59→18:22)
[2021-06-13 05:14] LABS: BLOOD UREA NITROGEN 7 MG/DL (7-18); CALCIUM LEVEL 7.6 MG/DL (8.5-10.1); CARBON DIOXIDE LEVEL 29 MEQ/L (21-32); CHLORIDE LEVEL 109 MEQ/L (98-107); CREATININE FOR GFR 0.76 MG/DL (0.55-1.30); GLOMERULAR FILTRATION RATE > 60.0 (>51); GLUCOSE, FASTING 113 MG/DL (70-100); POTASSIUM SERUM 4.3 MEQ/L (3.5-5.1); SODIUM LEVEL 144 MEQ/L (136-145)
[2021-06-13 06:00] VITALS: BP 99/68
[2021-06-13] MEDS ORDERED: LevoFLOXacin 750 MG TABLET PO ONE (06:00)
[2021-06-13] MEDS: metroNIDAZOLE (FLAGYL) 500MG TABLET PO SCH ×3 (06:44→20:52)
[2021-06-13] MEDS: LEVOTHYROXINE 112MCG TABLET (0.112MG) PO SCH (06:44)
[2021-06-13] MEDS ORDERED: ISOVUE-370 76% 100ML VIAL As Ordered ONE (08:09)
[2021-06-13] MEDS: LACTULOSE 20 GM/30 ML SYRUP UD PO SCH ×2 (09:01→20:51)
[2021-06-13] MEDS: levETIRAcetam 250MG TABLET (KEPPRA) PO SCH (09:01)
[2021-06-13] MEDS: CitaloPRAM (CeleXA) 10 MG TABLET PO SCH (09:01)
[2021-06-13] MEDS: DOCUSATE SODIUM 100MG CAPSULE PO SCH ×2 (09:01→20:51)
[2021-06-13] MEDS: ENOXAPARIN 40MG/0.4ML SYRINGE (J1650 PER 10MG) SC SCH (09:02)
[2021-06-13] MEDS: QUEtiapine FUMARATE 200 MG TAB PO SCH ×2 (09:02→20:51)
[2021-06-13] MEDS: MIDODRINE 5 MG TAB PO SCH ×3 (09:04→15:09)
[2021-06-13] MEDS: PANTOPRAZOLE 40MG VIAL (C9113 PER 1) IV SCH (12:21)
[2021-06-13 14:00] VITALS: BP 122/65
[2021-06-13] MEDS ORDERED: LIDOCAINE 1% MDV 20ML VIAL As Ordered ONE (15:32)
[2021-06-13] MEDS: NS 1,000 ML IV SCH (19:55)
[2021-06-13] MEDS: levETIRAcetam INJection 750 MG in D5W 100 ML IV SCH (20:51)
[2021-06-13] MEDS: SIMVASTATIN 20 MG TAB PO SCH (20:52)
[2021-06-13] MEDS: QUEtiapine FUMARATE 50MG TAB PO SCH (20:52)
[2021-06-13 22:00] VITALS: BP 140/68
[2021-06-14] MEDS: IPRATROPIUM 0.5MG/ALBUTEROL 2.5MG INH SOL UD 3ML (DUONEB) INH SCH ×6 (03:30→23:39)
[2021-06-14] MEDS: SODIUM CHLORIDE 0.9% INJ 10 ML SYR IV SCH ×2 (05:31→18:16)
[2021-06-14] MEDS: CEFEPIME HCL 2 GM in D5W MINI-BAG PLUS 50 ML IV SCH ×2 (05:31→18:15)
[2021-06-14] MEDS: LEVOTHYROXINE 112MCG TABLET (0.112MG) PO SCH (05:31)
[2021-06-14] MEDS: NS 1,000 ML IV SCH (05:32)
[2021-06-14 05:37] LABS: HEMATOCRIT 27.3 % (36.0-47.0); HEMOGLOBIN 8.6 g/dl (12.0-15.5); MEAN CORPUSCULAR HGB CONC 31.5 g/dl (32.0-36.5); MEAN CORPUSCULAR VOLUME 98.6 fl (80.0-96.0); PLATELET COUNT, AUTOMATED 327 10^3/uL (150-450); RED BLOOD COUNT 2.77 10^6/uL (4.00-5.40); WHITE BLOOD COUNT 2.8 10^3/uL (4.0-10.0)
[2021-06-14 06:00] VITALS: BP 132/69
[2021-06-14 06:00] LABS: BLOOD UREA NITROGEN 5 MG/DL (7-18); CALCIUM LEVEL 7.3 MG/DL (8.5-10.1); CARBON DIOXIDE LEVEL 30 MEQ/L (21-32); CHLORIDE LEVEL 110 MEQ/L (98-107); CREATININE FOR GFR 0.59 MG/DL (0.55-1.30); GLOMERULAR FILTRATION RATE > 60.0 (>51); GLUCOSE, FASTING 98 MG/DL (70-100); SODIUM LEVEL 144 MEQ/L (136-145)
[2021-06-14] MEDS: metroNIDAZOLE (FLAGYL) 500MG TABLET PO SCH ×3 (06:12→23:30)
[2021-06-14 07:12] VITALS: O2SAT 98
[2021-06-14] MEDS: MIDODRINE 5 MG TAB PO SCH ×3 (08:53→15:29)
[2021-06-14] MEDS: LACTULOSE 20 GM/30 ML SYRUP UD PO SCH ×2 (08:54→20:26)
[2021-06-14] MEDS: CitaloPRAM (CeleXA) 10 MG TABLET PO SCH (08:54)
[2021-06-14] MEDS: DOCUSATE SODIUM 100MG CAPSULE PO SCH ×2 (08:54→20:28)
[2021-06-14] MEDS: QUEtiapine FUMARATE 200 MG TAB PO SCH ×2 (08:54→20:26)
[2021-06-14] MEDS: ENOXAPARIN 40MG/0.4ML SYRINGE (J1650 PER 10MG) SC SCH (08:55)
[2021-06-14] MEDS: levETIRAcetam INJection 750 MG in D5W 100 ML IV SCH ×2 (08:56→20:26)
[2021-06-14] MEDS: FUROSEMIDE 20MG/2ML VIAL (J1940) IV SCH (09:00)
[2021-06-14 14:00] VITALS: BP 125/66
[2021-06-14] MEDS: PANTOPRAZOLE 40MG VIAL (C9113 PER 1) IV SCH (15:29)
[2021-06-14] MEDS: QUEtiapine FUMARATE 50MG TAB PO SCH (20:26)
[2021-06-14] MEDS: SIMVASTATIN 20 MG TAB PO SCH (20:26)
[2021-06-14 22:00] VITALS: BP 112/96
[2021-06-15] MEDS: IPRATROPIUM 0.5MG/ALBUTEROL 2.5MG INH SOL UD 3ML (DUONEB) INH SCH ×5 (03:46→20:22)
[2021-06-15] MEDS: LEVOTHYROXINE 112MCG TABLET (0.112MG) PO SCH (05:23)
[2021-06-15] MEDS: CEFEPIME HCL 2 GM in D5W MINI-BAG PLUS 50 ML IV SCH ×2 (05:23→18:34)
[2021-06-15] MEDS: SODIUM CHLORIDE 0.9% INJ 10 ML SYR IV SCH ×2 (05:23→18:36)
[2021-06-15] MEDS: metroNIDAZOLE (FLAGYL) 500MG TABLET PO SCH ×3 (05:23→23:28)
[2021-06-15 06:00] VITALS: BP 111/88
[2021-06-15 06:09] LABS: HEMATOCRIT 33.2 % (36.0-47.0); HEMOGLOBIN 10.1 g/dl (12.0-15.5); MEAN CORPUSCULAR HEMOGLOBIN 30.2 pg (27.0-33.0); MEAN CORPUSCULAR HGB CONC 30.4 g/dl (32.0-36.5); MEAN CORPUSCULAR VOLUME 99.4 fl (80.0-96.0); PLATELET COUNT, AUTOMATED 408 10^3/uL (150-450); RED BLOOD COUNT 3.34 10^6/uL (4.00-5.40)
[2021-06-15 06:35] LABS: ALBUMIN 2.2 GM/DL (3.2-5.2); ALT/SGPT 7 U/L (12-78); BILIRUBIN,TOTAL 0.2 MG/DL (0.2-1.0); BLOOD UREA NITROGEN 5 MG/DL (7-18); CALCIUM LEVEL 8.3 MG/DL (8.5-10.1); CARBON DIOXIDE LEVEL 30 MEQ/L (21-32); CHLORIDE LEVEL 107 MEQ/L (98-107); CREATININE FOR GFR 0.74 MG/DL (0.55-1.30); GLOMERULAR FILTRATION RATE > 60.0 (>51); GLUCOSE, FASTING 102 MG/DL (70-100); POTASSIUM SERUM 4.2 MEQ/L (3.5-5.1); SODIUM LEVEL 143 MEQ/L (136-145); TOTAL PROTEIN 6.4 GM/DL (6.4-8.2)
[2021-06-15] MEDS: CitaloPRAM (CeleXA) 10 MG TABLET PO SCH (09:18)
[2021-06-15] MEDS: QUEtiapine FUMARATE 200 MG TAB PO SCH ×2 (09:19→20:47)
[2021-06-15] MEDS: DOCUSATE SODIUM 100MG CAPSULE PO SCH ×2 (09:19→20:46)
[2021-06-15] MEDS: ENOXAPARIN 40MG/0.4ML SYRINGE (J1650 PER 10MG) SC SCH (09:19)
[2021-06-15] MEDS: LACTULOSE 20 GM/30 ML SYRUP UD PO SCH ×2 (09:19→20:46)
[2021-06-15] MEDS: MIDODRINE 5 MG TAB PO SCH ×3 (09:19→15:00)
[2021-06-15] MEDS: FUROSEMIDE 20MG/2ML VIAL (J1940) IV SCH (09:20)
[2021-06-15] MEDS: levETIRAcetam INJection 750 MG in D5W 100 ML IV SCH ×2 (09:57→21:50)
[2021-06-15 14:00] VITALS: BP 117/81
[2021-06-15] MEDS: PANTOPRAZOLE 40MG VIAL (C9113 PER 1) IV SCH (15:00)
[2021-06-15] MEDS: QUEtiapine FUMARATE 50MG TAB PO SCH (20:46)
[2021-06-15] MEDS: SIMVASTATIN 20 MG TAB PO SCH (20:47)
[2021-06-15] MEDS: ACETAMINOPHEN TAB 650MG DOSE (2X325MG) PO PRN (20:47)
[2021-06-15 22:00] VITALS: BP 115/78
[2021-06-16] MEDS: IPRATROPIUM 0.5MG/ALBUTEROL 2.5MG INH SOL UD 3ML (DUONEB) INH SCH ×5 (03:54→19:19)
[2021-06-16] MEDS: SODIUM CHLORIDE 0.9% INJ 10 ML SYR IV PRN (04:48)
[2021-06-16] MEDS: SODIUM CHLORIDE 0.9% INJ 10 ML SYR IV SCH ×2 (04:48→17:36)
[2021-06-16 05:15] LABS: HEMATOCRIT 29.6 % (36.0-47.0); HEMOGLOBIN 9.2 g/dl (12.0-15.5); MEAN CORPUSCULAR HEMOGLOBIN 30.6 pg (27.0-33.0); MEAN CORPUSCULAR HGB CONC 31.1 g/dl (32.0-36.5); MEAN CORPUSCULAR VOLUME 98.3 fl (80.0-96.0); PLATELET COUNT, AUTOMATED 368 10^3/uL (150-450); RED BLOOD COUNT 3.01 10^6/uL (4.00-5.40); WHITE BLOOD COUNT 5.6 10^3/uL (4.0-10.0)
[2021-06-16 05:36] LABS: ALBUMIN 2.2 GM/DL (3.2-5.2); ALT/SGPT < 6 U/L (12-78); BILIRUBIN,TOTAL 0.2 MG/DL (0.2-1.0); BLOOD UREA NITROGEN 7 MG/DL (7-18); CALCIUM LEVEL 8.2 MG/DL (8.5-10.1); CARBON DIOXIDE LEVEL 34 MEQ/L (21-32); CHLORIDE LEVEL 108 MEQ/L (98-107); CREATININE FOR GFR 0.75 MG/DL (0.55-1.30); GLOMERULAR FILTRATION RATE > 60.0 (>51); GLUCOSE, FASTING 105 MG/DL (70-100); MAGNESIUM LEVEL 2.3 MG/DL (1.8-2.4); POTASSIUM SERUM 4.1 MEQ/L (3.5-5.1); SODIUM LEVEL 144 MEQ/L (136-145); TOTAL PROTEIN 6.1 GM/DL (6.4-8.2)
[2021-06-16 05:44] LABS: ABG BASE EXCESS 6.2 (-2.0-2.0); ABG HCO3 30.7 MEQ/L (22.0-26.0); ABG O2 SATURATION 99.2 % (95.0-99.0); ABG PARTIAL PRESSURE CO2 44.1 mmHg (35.0-45.0); ABG PARTIAL PRESSURE O2 157.1 mmHg (75.0-100.0); ABG STANDARD HCO3 30.1 MEQ/L (22.0-26.0)
[2021-06-16] MEDS: LEVOTHYROXINE 112MCG TABLET (0.112MG) PO SCH (05:50)
[2021-06-16 06:00] VITALS: BP 119/82
[2021-06-16] MEDS ORDERED: FUROSEMIDE 20MG/2ML VIAL (J1940) IV ONE ×2 (06:00→10:55)
[2021-06-16] MEDS: ENOXAPARIN 40MG/0.4ML SYRINGE (J1650 PER 10MG) SC SCH (10:16)
[2021-06-16] MEDS: CitaloPRAM (CeleXA) 10 MG TABLET PO SCH (10:17)
[2021-06-16] MEDS: DOCUSATE SODIUM 100MG CAPSULE PO SCH ×2 (10:17→21:59)
[2021-06-16] MEDS: LACTULOSE 20 GM/30 ML SYRUP UD PO SCH ×2 (10:17→21:59)
[2021-06-16] MEDS: FUROSEMIDE 20MG/2ML VIAL (J1940) IV SCH (10:17)
[2021-06-16] MEDS: levETIRAcetam INJection 750 MG in D5W 100 ML IV SCH ×2 (10:17→22:00)
[2021-06-16] MEDS: MIDODRINE 5 MG TAB PO SCH ×3 (10:17→17:37)
[2021-06-16] MEDS: QUEtiapine FUMARATE 200 MG TAB PO SCH ×2 (13:43→21:59)
[2021-06-16] MEDS: IBUPROFEN 400MG TAB PO PRN (13:43)
[2021-06-16 14:00] VITALS: BP 105/58
[2021-06-16] MEDS: PANTOPRAZOLE 40MG VIAL (C9113 PER 1) IV SCH (15:00)
[2021-06-16] MEDS: ACETAMINOPHEN TAB 650MG DOSE (2X325MG) PO PRN (18:34)
[2021-06-16 20:46] VITALS: BP 119/70
[2021-06-16] MEDS: QUEtiapine FUMARATE 50MG TAB PO SCH (21:59)
[2021-06-16] MEDS: SIMVASTATIN 20 MG TAB PO SCH (21:59)
[2021-06-17] MEDS: IPRATROPIUM 0.5MG/ALBUTEROL 2.5MG INH SOL UD 3ML (DUONEB) INH SCH ×6 (03:34→23:27)
[2021-06-17] MEDS: LEVOTHYROXINE 112MCG TABLET (0.112MG) PO SCH (05:16)
[2021-06-17] MEDS: SODIUM CHLORIDE 0.9% INJ 10 ML SYR IV SCH ×2 (05:17→16:41)
[2021-06-17 05:35] VITALS: BP 110/71
[2021-06-17] MEDS: FUROSEMIDE 20MG/2ML VIAL (J1940) IV SCH (09:09)
[2021-06-17] MEDS: LACTULOSE 20 GM/30 ML SYRUP UD PO SCH ×2 (09:09→22:20)
[2021-06-17] MEDS: ENOXAPARIN 40MG/0.4ML SYRINGE (J1650 PER 10MG) SC SCH (09:10)
[2021-06-17] MEDS: DOCUSATE SODIUM 100MG CAPSULE PO SCH ×2 (09:10→22:20)
[2021-06-17] MEDS: MIDODRINE 5 MG TAB PO SCH ×3 (09:10→15:02)
[2021-06-17] MEDS: CitaloPRAM (CeleXA) 10 MG TABLET PO SCH (09:10)
[2021-06-17] MEDS: QUEtiapine FUMARATE 200 MG TAB PO SCH ×2 (09:10→22:21)
[2021-06-17] MEDS: ACETAMINOPHEN TAB 650MG DOSE (2X325MG) PO PRN (09:22)
[2021-06-17] MEDS: levETIRAcetam INJection 750 MG in D5W 100 ML IV SCH ×2 (11:10→22:21)
[2021-06-17] MEDS: IBUPROFEN 400MG TAB PO PRN (12:33)
[2021-06-17 13:35] LABS: HEMATOCRIT 30.2 % (36.0-47.0); HEMOGLOBIN 9.5 g/dl (12.0-15.5); MEAN CORPUSCULAR HEMOGLOBIN 30.8 pg (27.0-33.0); MEAN CORPUSCULAR HGB CONC 31.5 g/dl (32.0-36.5); MEAN CORPUSCULAR VOLUME 98.1 fl (80.0-96.0); PLATELET COUNT, AUTOMATED 372 10^3/uL (150-450); RED BLOOD COUNT 3.08 10^6/uL (4.00-5.40); WHITE BLOOD COUNT 5.7 10^3/uL (4.0-10.0)
[2021-06-17 14:15] VITALS: BP 117/72
[2021-06-17 14:43] LABS: ALBUMIN 2.3 GM/DL (3.2-5.2); ALT/SGPT 9 U/L (12-78); BILIRUBIN,TOTAL < 0.1 MG/DL (0.2-1.0); BLOOD UREA NITROGEN 7 MG/DL (7-18); CALCIUM LEVEL 8.1 MG/DL (8.5-10.1); CARBON DIOXIDE LEVEL 37 MEQ/L (21-32); CHLORIDE LEVEL 105 MEQ/L (98-107); CREATININE FOR GFR 0.66 MG/DL (0.55-1.30); GLOMERULAR FILTRATION RATE > 60.0 (>51); GLUCOSE, FASTING 109 MG/DL (70-100); POTASSIUM SERUM 3.7 MEQ/L (3.5-5.1); SODIUM LEVEL 144 MEQ/L (136-145); TOTAL PROTEIN 6.4 GM/DL (6.4-8.2)
[2021-06-17] MEDS: PANTOPRAZOLE 40MG VIAL (C9113 PER 1) IV SCH (15:02)
[2021-06-17 21:21] VITALS: BP 122/65
[2021-06-17] MEDS: QUEtiapine FUMARATE 50MG TAB PO SCH (22:21)
[2021-06-17] MEDS: SIMVASTATIN 20 MG TAB PO SCH (22:21)
[2021-06-18] MEDS: SODIUM CHLORIDE 0.9% INJ 10 ML SYR IV SCH ×2 (05:11→17:32)
[2021-06-18] MEDS: LEVOTHYROXINE 112MCG TABLET (0.112MG) PO SCH (05:11)
[2021-06-18 05:44] LABS: HEMATOCRIT 27.4 % (36.0-47.0); HEMOGLOBIN 8.4 g/dl (12.0-15.5); MEAN CORPUSCULAR HEMOGLOBIN 30.5 pg (27.0-33.0); MEAN CORPUSCULAR HGB CONC 30.7 g/dl (32.0-36.5); MEAN CORPUSCULAR VOLUME 99.6 fl (80.0-96.0); PLATELET COUNT, AUTOMATED 340 10^3/uL (150-450); RED BLOOD COUNT 2.75 10^6/uL (4.00-5.40); WHITE BLOOD COUNT 3.1 10^3/uL (4.0-10.0)
[2021-06-18 05:47] VITALS: BP 134/83
[2021-06-18 06:18] LABS: ALT/SGPT 8 U/L (12-78); BILIRUBIN,TOTAL 0.1 MG/DL (0.2-1.0); BLOOD UREA NITROGEN 6 MG/DL (7-18); CALCIUM LEVEL 7.8 MG/DL (8.5-10.1); CARBON DIOXIDE LEVEL 33 MEQ/L (21-32); CHLORIDE LEVEL 107 MEQ/L (98-107); CREATININE FOR GFR 0.59 MG/DL (0.55-1.30); GLOMERULAR FILTRATION RATE > 60.0 (>51); GLUCOSE, FASTING 94 MG/DL (70-100); POTASSIUM SERUM 3.5 MEQ/L (3.5-5.1); SODIUM LEVEL 143 MEQ/L (136-145); TOTAL PROTEIN 5.5 GM/DL (6.4-8.2)
[2021-06-18] MEDS: IPRATROPIUM 0.5MG/ALBUTEROL 2.5MG INH SOL UD 3ML (DUONEB) INH SCH ×5 (08:22→23:59)
[2021-06-18] MEDS: LACTULOSE 20 GM/30 ML SYRUP UD PO SCH ×2 (08:50→20:29)
[2021-06-18] MEDS: DOCUSATE SODIUM 100MG CAPSULE PO SCH ×2 (08:50→21:17)
[2021-06-18] MEDS: levETIRAcetam INJection 750 MG in D5W 100 ML IV SCH (08:51)
[2021-06-18] MEDS: MIDODRINE 5 MG TAB PO SCH ×3 (08:51→17:31)
[2021-06-18] MEDS: QUEtiapine FUMARATE 200 MG TAB PO SCH ×2 (08:51→20:29)
[2021-06-18] MEDS: CitaloPRAM (CeleXA) 10 MG TABLET PO SCH (08:51)
[2021-06-18] MEDS: ENOXAPARIN 40MG/0.4ML SYRINGE (J1650 PER 10MG) SC SCH (08:51)
[2021-06-18] MEDS: FUROSEMIDE 20MG/2ML VIAL (J1940) IV SCH (08:52)
[2021-06-18] MEDS: SODIUM CHLORIDE 0.9% INJ 10 ML SYR IV PRN (09:25)
[2021-06-18 14:00] VITALS: BP 132/80
[2021-06-18] MEDS: PANTOPRAZOLE 40MG VIAL (C9113 PER 1) IV SCH (17:31)
[2021-06-18 19:09] LABS: PERCENT SATURATION 19.7 % (13.2-45.0)
[2021-06-18] MEDS: SIMVASTATIN 20 MG TAB PO SCH (20:30)
[2021-06-18] MEDS: levETIRAcetam 250MG TABLET (KEPPRA) PO SCH (20:30)
[2021-06-18] MEDS: QUEtiapine FUMARATE 50MG TAB PO SCH (20:30)
[2021-06-18 22:00] VITALS: BP 126/73
[2021-06-19] MEDS: IPRATROPIUM 0.5MG/ALBUTEROL 2.5MG INH SOL UD 3ML (DUONEB) INH SCH ×5 (03:00→20:12)
[2021-06-19] MEDS: SODIUM CHLORIDE 0.9% INJ 10 ML SYR IV PRN (05:50)
[2021-06-19] MEDS: SODIUM CHLORIDE 0.9% INJ 10 ML SYR IV SCH ×2 (05:50→18:16)
[2021-06-19] MEDS: LEVOTHYROXINE 112MCG TABLET (0.112MG) PO SCH (05:50)
[2021-06-19 06:14] LABS: HEMATOCRIT 30.7 % (36.0-47.0); HEMOGLOBIN 9.8 g/dl (12.0-15.5); MEAN CORPUSCULAR HEMOGLOBIN 31.3 pg (27.0-33.0); MEAN CORPUSCULAR HGB CONC 31.9 g/dl (32.0-36.5); MEAN CORPUSCULAR VOLUME 98.1 fl (80.0-96.0); PLATELET COUNT, AUTOMATED 378 10^3/uL (150-450); RED BLOOD COUNT 3.13 10^6/uL (4.00-5.40); WHITE BLOOD COUNT 3.3 10^3/uL (4.0-10.0)
[2021-06-19 06:41] LABS: ALBUMIN 2.3 GM/DL (3.2-5.2); ALT/SGPT 8 U/L (12-78); BILIRUBIN,TOTAL 0.2 MG/DL (0.2-1.0); BLOOD UREA NITROGEN 6 MG/DL (7-18); CALCIUM LEVEL 8.3 MG/DL (8.5-10.1); CARBON DIOXIDE LEVEL 36 MEQ/L (21-32); CHLORIDE LEVEL 105 MEQ/L (98-107); CREATININE FOR GFR 0.63 MG/DL (0.55-1.30); GLOMERULAR FILTRATION RATE > 60.0 (>51); GLUCOSE, FASTING 91 MG/DL (70-100); POTASSIUM SERUM 3.9 MEQ/L (3.5-5.1); SODIUM LEVEL 144 MEQ/L (136-145); TOTAL PROTEIN 6.5 GM/DL (6.4-8.2)
[2021-06-19] MEDS: levETIRAcetam 250MG TABLET (KEPPRA) PO SCH ×2 (08:18→20:13)
[2021-06-19] MEDS: FUROSEMIDE 20 MG TAB PO SCH (08:18)
[2021-06-19] MEDS: CitaloPRAM (CeleXA) 10 MG TABLET PO SCH (08:18)
[2021-06-19] MEDS: DOCUSATE SODIUM 100MG CAPSULE PO SCH ×2 (08:18→20:13)
[2021-06-19] MEDS: LACTULOSE 20 GM/30 ML SYRUP UD PO SCH ×2 (08:18→20:12)
[2021-06-19] MEDS: ENOXAPARIN 40MG/0.4ML SYRINGE (J1650 PER 10MG) SC SCH (08:18)
[2021-06-19] MEDS: MIDODRINE 5 MG TAB PO SCH ×3 (08:19→16:40)
[2021-06-19] MEDS: QUEtiapine FUMARATE 200 MG TAB PO SCH ×2 (08:19→20:13)
[2021-06-19 14:00] VITALS: BP 114/76
[2021-06-19] MEDS: PANTOPRAZOLE 40MG TAB (PROTONIX) PO SCH (16:40)
[2021-06-19] MEDS: ACETAMINOPHEN TAB 650MG DOSE (2X325MG) PO PRN ×2 (18:20→20:13)
[2021-06-19] MEDS ORDERED: FURO20TA2 PO (20:05)
[2021-06-19] MEDS: QUEtiapine FUMARATE 50MG TAB PO SCH (20:13)
[2021-06-19] MEDS: SIMVASTATIN 20 MG TAB PO SCH (20:13)
[2021-06-19 22:00] VITALS: BP 113/76
[2021-06-20] MEDS: IPRATROPIUM 0.5MG/ALBUTEROL 2.5MG INH SOL UD 3ML (DUONEB) INH SCH ×7 (04:00→23:37)
[2021-06-20] MEDS: SODIUM CHLORIDE 0.9% INJ 10 ML SYR IV SCH ×2 (05:53→18:00)
[2021-06-20] MEDS: LEVOTHYROXINE 112MCG TABLET (0.112MG) PO SCH (05:53)
[2021-06-20 06:00] VITALS: BP 110/72
[2021-06-20 06:11] LABS: HEMATOCRIT 31.7 % (36.0-47.0); HEMOGLOBIN 9.9 g/dl (12.0-15.5); MEAN CORPUSCULAR HEMOGLOBIN 30.8 pg (27.0-33.0); MEAN CORPUSCULAR HGB CONC 31.2 g/dl (32.0-36.5); MEAN CORPUSCULAR VOLUME 98.8 fl (80.0-96.0); PLATELET COUNT, AUTOMATED 345 10^3/uL (150-450); RED BLOOD COUNT 3.21 10^6/uL (4.00-5.40); WHITE BLOOD COUNT 2.5 10^3/uL (4.0-10.0)
[2021-06-20 06:48] LABS: ALBUMIN 2.2 GM/DL (3.2-5.2); ALT/SGPT 9 U/L (12-78); BILIRUBIN,TOTAL 0.2 MG/DL (0.2-1.0); BLOOD UREA NITROGEN 5 MG/DL (7-18); CALCIUM LEVEL 8.1 MG/DL (8.5-10.1); CARBON DIOXIDE LEVEL 31 MEQ/L (21-32); CHLORIDE LEVEL 107 MEQ/L (98-107); CREATININE FOR GFR 0.69 MG/DL (0.55-1.30); GLOMERULAR FILTRATION RATE > 60.0 (>51); GLUCOSE, FASTING 83 MG/DL (70-100); POTASSIUM SERUM 3.5 MEQ/L (3.5-5.1); SODIUM LEVEL 142 MEQ/L (136-145); TOTAL PROTEIN 6.5 GM/DL (6.4-8.2)
[2021-06-20] MEDS: LACTULOSE 20 GM/30 ML SYRUP UD PO SCH ×2 (07:43→20:03)
[2021-06-20] MEDS: DOCUSATE SODIUM 100MG CAPSULE PO SCH ×2 (07:43→20:04)
[2021-06-20] MEDS: QUEtiapine FUMARATE 200 MG TAB PO SCH ×2 (07:44→20:04)
[2021-06-20] MEDS: ENOXAPARIN 40MG/0.4ML SYRINGE (J1650 PER 10MG) SC SCH (07:44)
[2021-06-20] MEDS: MIDODRINE 5 MG TAB PO SCH ×3 (07:44→16:29)
[2021-06-20] MEDS: CitaloPRAM (CeleXA) 10 MG TABLET PO SCH (07:44)
[2021-06-20] MEDS: FUROSEMIDE 20 MG TAB PO SCH (07:44)
[2021-06-20] MEDS: levETIRAcetam 250MG TABLET (KEPPRA) PO SCH ×2 (07:44→20:05)
[2021-06-20] MEDS: PANTOPRAZOLE 40MG TAB (PROTONIX) PO SCH (07:44)
[2021-06-20] MEDS: ACETAMINOPHEN TAB 650MG DOSE (2X325MG) PO PRN (12:02)
[2021-06-20 14:00] VITALS: BP 110/69
[2021-06-20] MEDS ORDERED: FERR325T3 PO (17:57)
[2021-06-20] MEDS ORDERED: SENN-80 PO (17:57)
[2021-06-20] MEDS: SIMVASTATIN 20 MG TAB PO SCH (20:04)
[2021-06-20] MEDS: QUEtiapine FUMARATE 50MG TAB PO SCH (20:04)
[2021-06-20] MEDS: FERROUS SULFATE 325MG TAB PO SCH (20:04)
[2021-06-20] MEDS ORDERED: SENNA 8.6 MG TAB (SENOKOT) PO SCH (21:00)
[2021-06-20 22:00] VITALS: BP 120/70
[2021-06-21] MEDS: IPRATROPIUM 0.5MG/ALBUTEROL 2.5MG INH SOL UD 3ML (DUONEB) INH SCH ×4 (03:50→15:00)
[2021-06-21] MEDS: LEVOTHYROXINE 112MCG TABLET (0.112MG) PO SCH (05:27)
[2021-06-21 06:00] VITALS: BP 110/67
[2021-06-21] MEDS: FERROUS SULFATE 325MG TAB PO SCH (09:46)
[2021-06-21] MEDS: QUEtiapine FUMARATE 200 MG TAB PO SCH (09:46)
[2021-06-21] MEDS: PANTOPRAZOLE 40MG TAB (PROTONIX) PO SCH (09:46)
[2021-06-21] MEDS: CitaloPRAM (CeleXA) 10 MG TABLET PO SCH (09:46)
[2021-06-21] MEDS: DOCUSATE SODIUM 100MG CAPSULE PO SCH (09:47)
[2021-06-21] MEDS: MIDODRINE 5 MG TAB PO SCH ×3 (09:47→16:45)
[2021-06-21] MEDS: FUROSEMIDE 20 MG TAB PO SCH (09:47)
[2021-06-21] MEDS: LACTULOSE 20 GM/30 ML SYRUP UD PO SCH (09:47)
[2021-06-21] MEDS: ACETAMINOPHEN TAB 650MG DOSE (2X325MG) PO PRN (09:47)
[2021-06-21] MEDS: levETIRAcetam 250MG TABLET (KEPPRA) PO SCH (09:47)
[2021-06-21] MEDS: ENOXAPARIN 40MG/0.4ML SYRINGE (J1650 PER 10MG) SC SCH (09:48)
[2021-06-21] MEDS ORDERED: FLOM0.4C39 PO (13:36)
[2021-06-21] MEDS ORDERED: TAMSULOSIN 0.4 MG CAP PO ONE (13:40)
[2021-06-21 14:00] VITALS: BP 121/69
== END 2021-06-21 17:45 | disposition home or self-care (01) | DRG 177 ==
LOC: M ED 21:32 → M ED INP 06-06 02:18 → ENRESERV 06-06 12:35 → M MSPAV 06-06 14:04 → M PCU 06-07 10:50 → M MS5PR 06-11 23:40
PROVIDERS: ADMIT Family Medicine; ATTEND Internal Medicine
PROC: 02HV33Z Insertion of Infusion Device into Superior Vena Cava, Percutaneous Approach (ICD-10-PCS; principal; 2021-06-13 16:00)
DX: J69.0 Pneumonitis due to inhalation of food and vomit (principal); G93.41 Metabolic encephalopathy; J96.01 Acute respiratory failure with hypoxia; F72 Severe intellectual disabilities; F03.90 Unspecified dementia, unspecified severity, without behavioral disturbance, psychotic disturbance, mood disturbance, and anxiety; G40.909 Epilepsy, unspecified, not intractable, without status epilepticus; E03.9 Hypothyroidism, unspecified; R13.10 Dysphagia, unspecified; Z86.73 Personal history of transient ischemic attack (TIA), and cerebral infarction without residual deficits; Z79.899 Other long term (current) drug therapy; Z88.0 Allergy status to penicillin; F32.A Depression, unspecified; F41.9 Anxiety disorder, unspecified; E78.5 Hyperlipidemia, unspecified; E87.6 Hypokalemia; K59.00 Constipation, unspecified

== ENCOUNTER → 2021-07-11 | Outpatient (CLI) | payer MEDICARE, MEDICAID ==
[~2021-07-11] MED LIST changes: +CELE10TA PO; +FERR325T3 PO; +FLOM0.4C39 PO; +FURO20TA2 PO; +IBUP200T46 PO; +PANT-23 PO; +SENN-80 PO
[2021-07-11 15:04] LABS: BASO # 0.1 10^3/uL (0.0-0.2); BASO % 1.7 % (0.0-1.0); EOS # 0.1 10^3/uL (0.0-0.5); EOS % 3.3 % (0.0-3.0); HEMATOCRIT 39.6 % (36.0-47.0); HEMOGLOBIN 12.4 g/dl (12.0-15.5); LYMPH # 0.9 10^3/uL (1.5-5.0); LYMPH % 29.7 % (24.0-44.0); MEAN CORPUSCULAR HEMOGLOBIN 31.9 pg (27.0-33.0); MEAN CORPUSCULAR HGB CONC 31.3 g/dl (32.0-36.5); MEAN CORPUSCULAR VOLUME 101.8 fl (80.0-96.0); MONO # 0.5 10^3/uL (0.0-0.8); MONO % 15.7 % (2.0-8.0); NEUTROPHILS # 1.5 10^3/uL (1.5-8.5); NEUTROPHILS % 49.6 % (36.0-66.0); PLATELET COUNT, AUTOMATED 254 10^3/uL (150-450); RED BLOOD COUNT 3.89 10^6/uL (4.00-5.40)
[2021-07-11 15:10] LABS: BLOOD UREA NITROGEN 11 MG/DL (7-18); CALCIUM LEVEL 9.2 MG/DL (8.5-10.1); CARBON DIOXIDE LEVEL 32 MEQ/L (21-32); CHLORIDE LEVEL 104 MEQ/L (98-107); GLOMERULAR FILTRATION RATE > 60.0 (>51); GLUCOSE, FASTING 90 MG/DL (70-100); POTASSIUM SERUM 4.5 MEQ/L (3.5-5.1); SODIUM LEVEL 140 MEQ/L (136-145)
== END ==
LOC: M PLAIMG 11:20
PROVIDERS: ATTEND Family Medicine
DX: R91.8 Other nonspecific abnormal finding of lung field (principal); R05.9 Cough, unspecified

== ENCOUNTER 2021-07-15 13:55 | Emergency (ER) | payer MEDICARE, MEDICAID ==
[~2021-07-15] VITALS: Ht 144.8 cm; Wt 66.6 kg
[2021-07-15 17:25] LABS: BASO % 0.3 % (0.0-1.0); EOS # 0.1 10^3/uL (0.0-0.5); EOS % 1.5 % (0.0-3.0); HEMATOCRIT 34.3 % (36.0-47.0); HEMOGLOBIN 11.1 g/dl (12.0-15.5); LYMPH # 0.9 10^3/uL (1.5-5.0); LYMPH % 15.2 % (24.0-44.0); MEAN CORPUSCULAR HEMOGLOBIN 32.4 pg (27.0-33.0); MEAN CORPUSCULAR HGB CONC 32.4 g/dl (32.0-36.5); MONO # 0.6 10^3/uL (0.0-0.8); NEUTROPHILS # 4.5 10^3/uL (1.5-8.5); NEUTROPHILS % 72.8 % (36.0-66.0); PLATELET COUNT, AUTOMATED 255 10^3/uL (150-450); RED BLOOD COUNT 3.43 10^6/uL (4.00-5.40); WHITE BLOOD COUNT 6.1 10^3/uL (4.0-10.0)
[2021-07-15 17:51] LABS: BLOOD UREA NITROGEN 10 MG/DL (7-18); CALCIUM LEVEL 8.6 MG/DL (8.5-10.1); CARBON DIOXIDE LEVEL 30 MEQ/L (21-32); CHLORIDE LEVEL 105 MEQ/L (98-107); CREATININE FOR GFR 0.72 MG/DL (0.55-1.30); GLOMERULAR FILTRATION RATE > 60.0 (>51); GLUCOSE, FASTING 101 MG/DL (70-100); POTASSIUM SERUM 4.1 MEQ/L (3.5-5.1); SODIUM LEVEL 138 MEQ/L (136-145)
[2021-07-15 18:06] VITALS: BP 110/65
[2021-07-15 18:22] LABS: ERYTHROCYTE SEDIMENTATION RATE 73 mm/hr (0-30)
== END 2021-07-15 18:46 | disposition home or self-care (01) ==
LOC: M ED 13:55
DX: R22.41 Localized swelling, mass and lump, right lower limb (principal); E78.5 Hyperlipidemia, unspecified; Q90.9 Down syndrome, unspecified; Z86.73 Personal history of transient ischemic attack (TIA), and cerebral infarction without residual deficits; Z88.0 Allergy status to penicillin; Z88.1 Allergy status to other antibiotic agents; Z79.899 Other long term (current) drug therapy

== ENCOUNTER → 2021-10-28 | Outpatient (CLI) | payer MEDICARE, MEDICAID ==
[2021-10-28 12:22] LABS: BASO % 1.6 % (0.0-1.0); EOS # 0.1 10^3/uL (0.0-0.5); EOS % 3.2 % (0.0-3.0); HEMATOCRIT 38.9 % (36.0-47.0); HEMOGLOBIN 12.6 g/dl (12.0-15.5); LYMPH # 0.8 10^3/uL (1.5-5.0); LYMPH % 31.1 % (24.0-44.0); MEAN CORPUSCULAR HEMOGLOBIN 33.1 pg (27.0-33.0); MEAN CORPUSCULAR HGB CONC 32.4 g/dl (32.0-36.5); MEAN CORPUSCULAR VOLUME 102.1 fl (80.0-96.0); MONO # 0.4 10^3/uL (0.0-0.8); MONO % 16.3 % (2.0-8.0); NEUTROPHILS # 1.2 10^3/uL (1.5-8.5); NEUTROPHILS % 47.4 % (36.0-66.0); PLATELET COUNT, AUTOMATED 331 10^3/uL (150-450); RED BLOOD COUNT 3.81 10^6/uL (4.00-5.40); WHITE BLOOD COUNT 2.5 10^3/uL (4.0-10.0)
[2021-10-28 12:55] LABS: ALBUMIN 2.9 GM/DL (3.2-5.2); ALT/SGPT 11 U/L (12-78); BILIRUBIN,TOTAL 0.3 MG/DL (0.2-1.0); BLOOD UREA NITROGEN 9 MG/DL (7-18); CALCIUM LEVEL 9.1 MG/DL (8.8-10.2); CARBON DIOXIDE LEVEL 32 MEQ/L (21-32); CHLORIDE LEVEL 105 MEQ/L (98-107); CREATININE FOR GFR 0.82 MG/DL (0.55-1.30); FREE T4 0.92 NG/DL (0.76-1.46); GLOMERULAR FILTRATION RATE > 60.0 (>45); GLUCOSE, FASTING 92 MG/DL (70-100); IRON (FE) 72 UG/DL (50-170); POTASSIUM SERUM 4.6 MEQ/L (3.5-5.1); SODIUM LEVEL 141 MEQ/L (136-145); TOTAL PROTEIN 7.7 GM/DL (6.4-8.2)
== END ==
LOC: M LAB 11:41
PROVIDERS: ATTEND Physician Assistant
DX: E03.9 Hypothyroidism, unspecified (principal); E61.1 Iron deficiency

== ENCOUNTER → 2021-11-09 | Outpatient (CLI) | payer MEDICARE, MEDICAID ==
[2021-11-09 18:17] LABS: BASO % 0.9 % (0.0-1.0); EOS # 0.1 10^3/uL (0.0-0.5); EOS % 2.6 % (0.0-3.0); HEMOGLOBIN 11.8 g/dl (12.0-15.5); LYMPH # 0.7 10^3/uL (1.5-5.0); LYMPH % 20.7 % (24.0-44.0); MEAN CORPUSCULAR HEMOGLOBIN 33.1 pg (27.0-33.0); MEAN CORPUSCULAR HGB CONC 31.9 g/dl (32.0-36.5); MEAN CORPUSCULAR VOLUME 103.6 fl (80.0-96.0); MONO # 0.5 10^3/uL (0.0-0.8); MONO % 15.1 % (2.0-8.0); NEUTROPHILS # 2.1 10^3/uL (1.5-8.5); NEUTROPHILS % 60.1 % (36.0-66.0); PLATELET COUNT, AUTOMATED 270 10^3/uL (150-450); RED BLOOD COUNT 3.57 10^6/uL (4.00-5.40); WHITE BLOOD COUNT 3.5 10^3/uL (4.0-10.0)
[2021-11-09 18:54] LABS: ERYTHROCYTE SEDIMENTATION RATE 107 mm/hr (0-30)
[2021-11-09 19:12] LABS: PERCENT SATURATION 19.8 % (13.2-45.0)
[2021-11-09 19:47] LABS: FOLATE 5.5 NG/ML
== END ==
LOC: M WUC 13:25
PROVIDERS: ATTEND Physician Assistant
DX: D72.819 Decreased white blood cell count, unspecified (principal)

== ENCOUNTER → 2021-11-22 | Outpatient (CLI) | payer MEDICARE, MEDICAID ==
[~2021-11-22] MED LIST changes: +LEVO1TAB40 PO; -LEVO750T13 PO
[2021-11-22 16:01] LABS: BASO % 0.9 % (0.0-1.0); EOS # 0.1 10^3/uL (0.0-0.5); EOS % 3.7 % (0.0-3.0); HEMATOCRIT 41.3 % (36.0-47.0); HEMOGLOBIN 13.2 g/dl (12.0-15.5); LYMPH # 0.7 10^3/uL (1.5-5.0); LYMPH % 21.1 % (24.0-44.0); MEAN CORPUSCULAR HEMOGLOBIN 33.3 pg (27.0-33.0); MEAN CORPUSCULAR VOLUME 104.3 fl (80.0-96.0); MONO # 0.5 10^3/uL (0.0-0.8); MONO % 14.1 % (2.0-8.0); NEUTROPHILS % 59.9 % (36.0-66.0); PLATELET COUNT, AUTOMATED 242 10^3/uL (150-450); RED BLOOD COUNT 3.96 10^6/uL (4.00-5.40); WHITE BLOOD COUNT 3.3 10^3/uL (4.0-10.0)
[2021-11-22 18:47] LABS: ERYTHROCYTE SEDIMENTATION RATE 60 mm/hr (0-30)
== END ==
LOC: M LAB 14:47
PROVIDERS: ATTEND Physician Assistant
DX: R70.0 Elevated erythrocyte sedimentation rate (principal)

== ENCOUNTER 2022-03-31 05:07 | Inpatient (IN) | payer MEDICARE, MEDICAID ==
[~2022-03-31] VITALS: Ht 144.8 cm; Wt 75.6 kg
[~2022-03-31 05:07] MED LIST changes: +ASCO500C3 PO; -PURE500C5 PO
[2022-03-31 06:45] LABS: HEMATOCRIT 35.9 % (36.0-47.0); HEMOGLOBIN 11.6 g/dl (12.0-15.5); MEAN CORPUSCULAR HGB CONC 32.3 g/dl (32.0-36.5); MEAN CORPUSCULAR VOLUME 102.3 fl (80.0-96.0); PLATELET COUNT, AUTOMATED 183 10^3/uL (150-450); RED BLOOD COUNT 3.51 10^6/uL (4.00-5.40); WHITE BLOOD COUNT 7.1 10^3/uL (4.0-10.0)
[2022-03-31] MEDS ORDERED: NS 1,000 ML IV ONE (06:45)
[2022-03-31] MEDS ORDERED: ACETAMINOPHEN 1000MG 100ML IV BAG IV ONE (06:45)
[2022-03-31 07:04] LABS: BILIRUBIN,DIRECT < 0.1 MG/DL (<0.4); CPK CREATINE PHOSPHOKINASE 42 U/L (34-145)
[2022-03-31 07:07] LABS: ALBUMIN 2.7 G/DL (3.2-5.2); ALKALINE PHOSPHATASE 78 U/L (46-116); ALT/SGPT < 9 U/L (7.0-40); AST/SGOT 20 U/L (<34); BILIRUBIN,TOTAL 0.2 MG/DL (0.3-1.2); BLOOD UREA NITROGEN 14 MG/DL (9-23); CALCIUM LEVEL 7.6 MG/DL (8.3-10.6); CARBON DIOXIDE LEVEL 29 MMOL/L (20-31); CHLORIDE LEVEL 101 MMOL/L (98-107); CK-MB VALUE MASS < 1.0 NG/ML (<3.6); CREATININE FOR GFR 0.91 MG/DL (0.55-1.30); GLOMERULAR FILTRATION RATE > 60.0 (>45); GLUCOSE, FASTING 104 MG/DL (74-106); MB/CK RELATIVE INDEX 2.38 (< OR =4); POTASSIUM SERUM 3.8 MMOL/L (3.5-5.1); SODIUM LEVEL 137 MMOL/L (136-145); THYROID STIMULATING HORMONE 2.142 uIU/ML (0.55-4.78); TOTAL PROTEIN 6.9 G/DL (5.7-8.2)
[2022-03-31 07:26] LABS: LYMPHOCYTES 7 % (16-44); MONOCYTES 4 % (0-5); NEUTROPHILS 80 % (28-66); PLATELET ESTIMATE NORMAL (NORMAL)
[2022-03-31 07:27] LABS: ANISOCYTOSIS 1+
[2022-03-31] MEDS ORDERED: ISOVUE-370 76% 100ML VIAL As Ordered ONE (08:30)
[2022-03-31] MEDS ORDERED: UNRESOLVED CLARIFICATION ENTRY XX SCH (09:00)
[2022-03-31] MEDS ORDERED: OSELTAMIVIR 6 MG/ML SUSP PO ONE (09:00)
[2022-03-31] MEDS: cefTRIAXone SOD 2 GM in D5W MINI-BAG PLUS 50 ML IV SCH (09:40)
[2022-03-31 10:06] LABS: CORTISOL BASELINE 20.7 UG/DL (4.3-22.4)
[2022-03-31] MEDS ORDERED: KEPP10002 PO (10:16)
[2022-03-31] MEDS: DOXYCYCLINE HYCLATE 100 MG in D5W MINI-BAG PLUS 100 ML IV SCH ×2 (10:37→21:31)
[2022-03-31] MEDS: MIDODRINE 5 MG TAB PO SCH ×3 (10:37→17:47)
[2022-03-31] MEDS ORDERED: FURO20TA2 PO (10:38)
[2022-03-31] MEDS ORDERED: DOCU5LIQ PO (10:38)
[2022-03-31] MEDS ORDERED: SENN-80 PO (10:38)
[2022-03-31] MEDS ORDERED: FERR1TAB8 PO (10:38)
[2022-03-31] MEDS ORDERED: CETI10CH PO (10:38)
[2022-03-31] MEDS ORDERED: CALM1OIN TP (10:38)
[2022-03-31] MEDS ORDERED: B-12100021 PO (10:38)
[2022-03-31] MEDS ORDERED: IBUP100S65 PO (10:41)
[2022-03-31] MEDS ORDERED: HOME MED LIST COMPLETE! XX SCH (10:45)
[2022-03-31] MEDS ORDERED: IBUPROFEN 100MG 5ML SUSP UDC DYE FREE PO PRN (11:00)
[2022-03-31 11:28] LABS: FOLATE 6.01 NG/ML (>5.4)
[2022-03-31] MEDS: ENOXAPARIN 40MG/0.4ML SYRINGE (J1650 PER 10MG) SC SCH (12:31)
[2022-03-31 18:00] VITALS: BP 103/58
[2022-03-31 20:00] VITALS: BP 111/86
[2022-03-31] MEDS: CETIRIZINE (ZyrTEC) 5 MG/5 ML UDC DYE FREE PO SCH (21:32)
[2022-03-31] MEDS: FERROUS SULFATE 325MG TAB PO SCH (21:33)
[2022-03-31] MEDS: SENNA 8.6 MG TAB (SENOKOT) PO SCH (21:33)
[2022-03-31] MEDS: SIMVASTATIN 20 MG TAB PO SCH (21:33)
[2022-03-31] MEDS: LACTULOSE 20 GM/30 ML SYRUP UD PO SCH (21:35)
[2022-03-31] MEDS: levETIRAcetam 250MG TABLET (KEPPRA) PO SCH (21:35)
[2022-03-31] MEDS: DOCUSATE SOD LIQ 100MG/10ML UDC PO SCH (21:36)
[2022-03-31] MEDS: OSELTAMIVIR 6 MG/ML SUSP PO SCH (21:37)
[2022-03-31] MEDS: QUEtiapine FUMARATE 100 MG TAB PO SCH (21:41)
[2022-04-01] VITALS (7 sets, daily range): BP systolic 90–119; BP diastolic 48–73
[2022-04-01] MEDS ORDERED: NS 1,000 ML IV ONE (02:35)
[2022-04-01] MEDS: LEVOTHYROXINE 112MCG TABLET (0.112MG) PO SCH (05:23)
[2022-04-01 07:04] LABS: HEMATOCRIT 30.5 % (36.0-47.0); HEMOGLOBIN 9.7 g/dl (12.0-15.5); MEAN CORPUSCULAR HEMOGLOBIN 33.1 pg (27.0-33.0); MEAN CORPUSCULAR HGB CONC 31.8 g/dl (32.0-36.5); MEAN CORPUSCULAR VOLUME 104.1 fl (80.0-96.0); PLATELET COUNT, AUTOMATED 157 10^3/uL (150-450); RED BLOOD COUNT 2.93 10^6/uL (4.00-5.40); WHITE BLOOD COUNT 4.6 10^3/uL (4.0-10.0)
[2022-04-01 07:27] LABS: BLOOD UREA NITROGEN 9 MG/DL (9-23); CALCIUM LEVEL 7.3 MG/DL (8.3-10.6); CARBON DIOXIDE LEVEL 24 MMOL/L (20-31); CHLORIDE LEVEL 109 MMOL/L (98-107); CREATININE FOR GFR 0.67 MG/DL (0.55-1.30); GLOMERULAR FILTRATION RATE > 60.0 (>45); GLUCOSE, FASTING 106 MG/DL (74-106); POTASSIUM SERUM 3.7 MMOL/L (3.5-5.1); SODIUM LEVEL 143 MMOL/L (136-145)
[2022-04-01] MEDS: LACTULOSE 20 GM/30 ML SYRUP UD PO SCH ×2 (09:21→20:17)
[2022-04-01] MEDS: DOCUSATE SOD LIQ 100MG/10ML UDC PO SCH ×2 (09:21→20:17)
[2022-04-01] MEDS: CitaloPRAM (CeleXA) 10 MG TABLET PO SCH (09:22)
[2022-04-01] MEDS: QUEtiapine FUMARATE 200 MG TAB PO SCH (09:22)
[2022-04-01] MEDS: PANTOPRAZOLE 40MG TAB (PROTONIX) PO SCH (09:22)
[2022-04-01] MEDS: levETIRAcetam 250MG TABLET (KEPPRA) PO SCH ×2 (09:22→20:14)
[2022-04-01] MEDS: FERROUS SULFATE 325MG TAB PO SCH ×2 (09:22→20:15)
[2022-04-01] MEDS: MIDODRINE 5 MG TAB PO SCH ×3 (09:22→16:27)
[2022-04-01] MEDS: DOXYCYCLINE HYCLATE 100MG TABLET PO SCH ×2 (09:22→20:16)
[2022-04-01] MEDS: cefTRIAXone SOD 2 GM in D5W MINI-BAG PLUS 50 ML IV SCH (09:23)
[2022-04-01] MEDS: ENOXAPARIN 40MG/0.4ML SYRINGE (J1650 PER 10MG) SC SCH (09:23)
[2022-04-01] MEDS: OSELTAMIVIR 6 MG/ML SUSP PO SCH ×2 (09:38→20:17)
[2022-04-01] MEDS ORDERED: IPRATROPIUM 0.5MG/ALBUTEROL 2.5MG INH SOL UD 3ML (DUONEB) NEB PRN (11:15)
[2022-04-01] MEDS: IPRATROPIUM 0.5MG/ALBUTEROL 2.5MG INH SOL UD 3ML (DUONEB) NEB SCH ×2 (15:19→19:51)
[2022-04-01] MEDS: QUEtiapine FUMARATE 100 MG TAB PO SCH (20:15)
[2022-04-01] MEDS: SENNA 8.6 MG TAB (SENOKOT) PO SCH (20:16)
[2022-04-01] MEDS: ACETAMINOPHEN TAB 650MG DOSE (2X325MG) PO PRN (20:16)
[2022-04-01] MEDS: SIMVASTATIN 20 MG TAB PO SCH (20:17)
[2022-04-01] MEDS: CETIRIZINE (ZyrTEC) 5 MG/5 ML UDC DYE FREE PO SCH (20:17)
[2022-04-01] MEDS ORDERED: IBUPROFEN 400MG TAB PO PRN (22:40)
[2022-04-02] VITALS (7 sets, daily range): BP systolic 92–115; BP diastolic 54–77
[2022-04-02] MEDS ORDERED: BENZONATATE 100MG CAPSULE PO PRN (00:20)
[2022-04-02] MEDS ORDERED: DEXTROMETHORPHAN 60MG/10ML SUSP 90ML BTL(DELSYM) PO PRN (00:25)
[2022-04-02] MEDS: IPRATROPIUM 0.5MG/ALBUTEROL 2.5MG INH SOL UD 3ML (DUONEB) NEB SCH ×4 (01:18→20:23)
[2022-04-02] MEDS ORDERED: guaiFENesin 200 MG TAB PO ONE (02:00)
[2022-04-02] MEDS: LEVOTHYROXINE 112MCG TABLET (0.112MG) PO SCH (05:33)
[2022-04-02] MEDS: FERROUS SULFATE 325MG TAB PO SCH (07:55)
[2022-04-02] MEDS: PANTOPRAZOLE 40MG TAB (PROTONIX) PO SCH (07:56)
[2022-04-02] MEDS ORDERED: OMEPRAZOLE 20MG CAP PO ONE (08:15)
[2022-04-02 08:21] LABS: BASO % 0.3 % (0.0-1.0); EOS % 0.9 % (0.0-3.0); HEMATOCRIT 33.8 % (36.0-47.0); HEMOGLOBIN 10.5 g/dl (12.0-15.5); LYMPH # 0.8 10^3/uL (1.5-5.0); LYMPH % 23.1 % (24.0-44.0); MEAN CORPUSCULAR HEMOGLOBIN 32.6 pg (27.0-33.0); MEAN CORPUSCULAR HGB CONC 31.1 g/dl (32.0-36.5); MONO # 0.5 10^3/uL (0.0-0.8); MONO % 14.3 % (2.0-8.0); NEUTROPHILS % 60.5 % (36.0-66.0); PLATELET COUNT, AUTOMATED 151 10^3/uL (150-450); RED BLOOD COUNT 3.22 10^6/uL (4.00-5.40); WHITE BLOOD COUNT 3.3 10^3/uL (4.0-10.0)
[2022-04-02 08:42] LABS: MAGNESIUM LEVEL 2.2 MG/DL (1.8-2.4)
[2022-04-02 08:43] LABS: BLOOD UREA NITROGEN 9 MG/DL (9-23); CALCIUM LEVEL 7.6 MG/DL (8.3-10.6); CARBON DIOXIDE LEVEL 25 MMOL/L (20-31); CHLORIDE LEVEL 109 MMOL/L (98-107); CREATININE FOR GFR 0.71 MG/DL (0.55-1.30); GLOMERULAR FILTRATION RATE > 60.0 (>45); GLUCOSE, FASTING 112 MG/DL (74-106); POTASSIUM SERUM 3.8 MMOL/L (3.5-5.1); SODIUM LEVEL 143 MMOL/L (136-145)
[2022-04-02] MEDS: DOCUSATE SOD LIQ 100MG/10ML UDC PO SCH ×2 (09:00→20:14)
[2022-04-02] MEDS: cefTRIAXone SOD 2 GM in D5W MINI-BAG PLUS 50 ML IV SCH (09:14)
[2022-04-02] MEDS: ENOXAPARIN 40MG/0.4ML SYRINGE (J1650 PER 10MG) SC SCH (09:17)
[2022-04-02] MEDS: CitaloPRAM (CeleXA) 10 MG TABLET PO SCH (09:17)
[2022-04-02] MEDS: guaiFENesin 200 MG TAB PO SCH ×2 (09:18→20:15)
[2022-04-02] MEDS: QUEtiapine FUMARATE 200 MG TAB PO SCH (09:18)
[2022-04-02] MEDS: LACTULOSE 20 GM/30 ML SYRUP UD PO SCH ×2 (09:18→20:11)
[2022-04-02] MEDS: levETIRAcetam 250MG TABLET (KEPPRA) PO SCH ×2 (09:18→20:15)
[2022-04-02] MEDS: DOXYCYCLINE HYCLATE 100MG TABLET PO SCH ×2 (09:18→20:14)
[2022-04-02] MEDS: MIDODRINE 5 MG TAB PO SCH ×3 (09:18→15:15)
[2022-04-02] MEDS: OSELTAMIVIR 6 MG/ML SUSP PO SCH ×2 (10:52→20:12)
[2022-04-02] MEDS: CETIRIZINE (ZyrTEC) 5 MG/5 ML UDC DYE FREE PO SCH (20:12)
[2022-04-02] MEDS: SIMVASTATIN 20 MG TAB PO SCH (20:14)
[2022-04-02] MEDS: SENNA 8.6 MG TAB (SENOKOT) PO SCH (20:14)
[2022-04-02] MEDS: QUEtiapine FUMARATE 100 MG TAB PO SCH (20:21)
[2022-04-03] MEDS: ACETAMINOPHEN TAB 650MG DOSE (2X325MG) PO PRN ×3 (00:05→20:31)
[2022-04-03 00:39] VITALS: BP 114/64
[2022-04-03] MEDS: IPRATROPIUM 0.5MG/ALBUTEROL 2.5MG INH SOL UD 3ML (DUONEB) NEB SCH ×3 (02:45→20:44)
[2022-04-03 05:34] VITALS: BP 119/76
[2022-04-03] MEDS: LEVOTHYROXINE 112MCG TABLET (0.112MG) PO SCH (05:38)
[2022-04-03 06:33] LABS: HEMATOCRIT 31.2 % (36.0-47.0); MEAN CORPUSCULAR HEMOGLOBIN 33.1 pg (27.0-33.0); MEAN CORPUSCULAR HGB CONC 32.1 g/dl (32.0-36.5); MEAN CORPUSCULAR VOLUME 103.3 fl (80.0-96.0); PLATELET COUNT, AUTOMATED 169 10^3/uL (150-450); RED BLOOD COUNT 3.02 10^6/uL (4.00-5.40); WHITE BLOOD COUNT 2.2 10^3/uL (4.0-10.0)
[2022-04-03] MEDS: LevoFLOXacin 750 MG TABLET PO SCH (08:35)
[2022-04-03] MEDS: OSELTAMIVIR 6 MG/ML SUSP PO SCH ×2 (08:36→20:33)
[2022-04-03] MEDS: guaiFENesin 200 MG TAB PO SCH ×2 (08:36→20:31)
[2022-04-03] MEDS: LACTULOSE 20 GM/30 ML SYRUP UD PO SCH ×2 (08:36→20:33)
[2022-04-03] MEDS: DOCUSATE SOD LIQ 100MG/10ML UDC PO SCH ×2 (08:36→20:33)
[2022-04-03] MEDS: levETIRAcetam 250MG TABLET (KEPPRA) PO SCH ×2 (08:36→20:32)
[2022-04-03] MEDS: QUEtiapine FUMARATE 200 MG TAB PO SCH (08:36)
[2022-04-03] MEDS: CitaloPRAM (CeleXA) 10 MG TABLET PO SCH (08:36)
[2022-04-03] MEDS: MIDODRINE 5 MG TAB PO SCH ×3 (08:36→15:37)
[2022-04-03] MEDS: ENOXAPARIN 40MG/0.4ML SYRINGE (J1650 PER 10MG) SC SCH (08:37)
[2022-04-03 10:00] VITALS: BP 122/69
[2022-04-03 14:00] VITALS: BP 105/63
[2022-04-03 20:03] VITALS: BP 111/64
[2022-04-03] MEDS: CETIRIZINE (ZyrTEC) 5 MG/5 ML UDC DYE FREE PO SCH (20:29)
[2022-04-03] MEDS: SENNA 8.6 MG TAB (SENOKOT) PO SCH (20:30)
[2022-04-03] MEDS: SIMVASTATIN 20 MG TAB PO SCH (20:30)
[2022-04-03] MEDS: QUEtiapine FUMARATE 100 MG TAB PO SCH (20:34)
[2022-04-04 02:00] VITALS: BP 117/66
[2022-04-04] MEDS: IPRATROPIUM 0.5MG/ALBUTEROL 2.5MG INH SOL UD 3ML (DUONEB) NEB SCH ×4 (02:00→19:44)
[2022-04-04] MEDS: LevoFLOXacin 750 MG TABLET PO SCH (05:28)
[2022-04-04] MEDS: LEVOTHYROXINE 112MCG TABLET (0.112MG) PO SCH (05:28)
[2022-04-04 06:00] VITALS: BP 119/64
[2022-04-04 06:45] LABS: HEMATOCRIT 30.8 % (36.0-47.0); HEMOGLOBIN 9.8 g/dl (12.0-15.5); MEAN CORPUSCULAR HEMOGLOBIN 33.2 pg (27.0-33.0); MEAN CORPUSCULAR HGB CONC 31.8 g/dl (32.0-36.5); MEAN CORPUSCULAR VOLUME 104.4 fl (80.0-96.0); PLATELET COUNT, AUTOMATED 173 10^3/uL (150-450); RED BLOOD COUNT 2.95 10^6/uL (4.00-5.40); WHITE BLOOD COUNT 1.9 10^3/uL (4.0-10.0)
[2022-04-04 07:13] LABS: BLOOD UREA NITROGEN 7 MG/DL (9-23); CALCIUM LEVEL 7.4 MG/DL (8.3-10.6); CARBON DIOXIDE LEVEL 30 MMOL/L (20-31); CHLORIDE LEVEL 107 MMOL/L (98-107); CREATININE FOR GFR 0.67 MG/DL (0.55-1.30); GLOMERULAR FILTRATION RATE > 60.0 (>45); GLUCOSE, FASTING 85 MG/DL (74-106); POTASSIUM SERUM 4.2 MMOL/L (3.5-5.1); SODIUM LEVEL 142 MMOL/L (136-145)
[2022-04-04 07:59] LABS: ATYPICAL LYMPH 2 % (0-5); EOSINOPHILS 7 % (0-3); LYMPHOCYTES 39 % (16-44); MONOCYTES 9 % (0-5); NEUTROPHILS 43 % (28-66)
[2022-04-04 08:02] LABS: ANISOCYTOSIS 1+
[2022-04-04 08:03] LABS: PLATELET ESTIMATE NORMAL (NORMAL)
[2022-04-04] MEDS: ENOXAPARIN 40MG/0.4ML SYRINGE (J1650 PER 10MG) SC SCH (08:27)
[2022-04-04] MEDS: DOCUSATE SOD LIQ 100MG/10ML UDC PO SCH ×2 (08:27→21:09)
[2022-04-04] MEDS: levETIRAcetam 250MG TABLET (KEPPRA) PO SCH ×2 (08:27→21:09)
[2022-04-04] MEDS: LACTULOSE 20 GM/30 ML SYRUP UD PO SCH ×2 (08:27→21:09)
[2022-04-04] MEDS: OSELTAMIVIR 6 MG/ML SUSP PO SCH ×2 (08:27→21:09)
[2022-04-04] MEDS: guaiFENesin 200 MG TAB PO SCH ×2 (08:28→21:10)
[2022-04-04] MEDS: CitaloPRAM (CeleXA) 10 MG TABLET PO SCH (08:28)
[2022-04-04] MEDS: MIDODRINE 5 MG TAB PO SCH ×3 (08:28→16:13)
[2022-04-04] MEDS: QUEtiapine FUMARATE 200 MG TAB PO SCH (08:28)
[2022-04-04 10:00] VITALS: BP_SYST 100; BP_SYST 99; BP_DIAS 56
[2022-04-04 14:00] VITALS: BP 106/54
[2022-04-04 16:08] LABS: BODY FLUID CULTURE Not indicated. (.); LEGIONELLA ANTIGEN URINE Negative (Negative); ORGANISM ID Not indicated. (.); SPECIMEN SOURCE Urine (.); URINE STREP PNEUMONIAE ANTIGEN Negative (Negative)
[2022-04-04 18:00] VITALS: BP 106/58
[2022-04-04] MEDS: QUEtiapine FUMARATE 100 MG TAB PO SCH (21:09)
[2022-04-04] MEDS: SENNA 8.6 MG TAB (SENOKOT) PO SCH (21:10)
[2022-04-04] MEDS: SIMVASTATIN 20 MG TAB PO SCH (21:10)
[2022-04-04] MEDS: CETIRIZINE (ZyrTEC) 5 MG/5 ML UDC DYE FREE PO SCH (21:10)
[2022-04-05 02:00] VITALS: BP 100/60
[2022-04-05] MEDS: IPRATROPIUM 0.5MG/ALBUTEROL 2.5MG INH SOL UD 3ML (DUONEB) NEB SCH ×2 (02:00→08:46)
[2022-04-05 05:25] VITALS: BP 118/74
[2022-04-05] MEDS: LEVOTHYROXINE 112MCG TABLET (0.112MG) PO SCH (06:00)
[2022-04-05] MEDS: LevoFLOXacin 750 MG TABLET PO SCH (06:00)
[2022-04-05 06:15] LABS: HEMATOCRIT 32.4 % (36.0-47.0); HEMOGLOBIN 10.4 g/dl (12.0-15.5); MEAN CORPUSCULAR HEMOGLOBIN 32.7 pg (27.0-33.0); MEAN CORPUSCULAR HGB CONC 32.1 g/dl (32.0-36.5); MEAN CORPUSCULAR VOLUME 101.9 fl (80.0-96.0); PLATELET COUNT, AUTOMATED 205 10^3/uL (150-450); RED BLOOD COUNT 3.18 10^6/uL (4.00-5.40); WHITE BLOOD COUNT 2.2 10^3/uL (4.0-10.0)
[2022-04-05 06:55] LABS: ATYPICAL LYMPH 3 % (0-5); EOSINOPHILS 7 % (0-3); LYMPHOCYTES 46 % (16-44); MONOCYTES 12 % (0-5); NEUTROPHILS 32 % (28-66)
[2022-04-05 06:59] LABS: ANISOCYTOSIS 1+; PLATELET ESTIMATE NORMAL (NORMAL)
[2022-04-05] MEDS: levETIRAcetam 250MG TABLET (KEPPRA) PO SCH (07:54)
[2022-04-05] MEDS: guaiFENesin 200 MG TAB PO SCH (07:54)
[2022-04-05] MEDS: MIDODRINE 5 MG TAB PO SCH ×2 (07:54→11:40)
[2022-04-05] MEDS: QUEtiapine FUMARATE 200 MG TAB PO SCH (07:55)
[2022-04-05] MEDS: DOCUSATE SOD LIQ 100MG/10ML UDC PO SCH ×2 (07:55→08:03)
[2022-04-05] MEDS: CitaloPRAM (CeleXA) 10 MG TABLET PO SCH (07:55)
[2022-04-05] MEDS: ENOXAPARIN 40MG/0.4ML SYRINGE (J1650 PER 10MG) SC SCH (07:55)
[2022-04-05] MEDS: OSELTAMIVIR 6 MG/ML SUSP PO SCH (07:56)
[2022-04-05] MEDS: LACTULOSE 20 GM/30 ML SYRUP UD PO SCH (08:03)
[2022-04-05] MEDS ORDERED: LEVO1TAB40 PO (09:53)
[2022-04-05] MEDS ORDERED: MIDO5TA PO (09:53)
== END 2022-04-05 14:55 | disposition home or self-care (01) | DRG 871 ==
LOC: M ED 05:07 → M ED INP 08:31 → ENRESERV 16:07 → M MSPAV 16:54
PROVIDERS: ADMIT Internal Medicine; ATTEND Internal Medicine
DX: A41.9 Sepsis, unspecified organism (principal); J69.0 Pneumonitis due to inhalation of food and vomit; J96.01 Acute respiratory failure with hypoxia; F72 Severe intellectual disabilities; Q90.9 Down syndrome, unspecified; G30.9 Alzheimer's disease, unspecified; F02.80 Dementia in other diseases classified elsewhere, unspecified severity, without behavioral disturbance, psychotic disturbance, mood disturbance, and anxiety; R13.10 Dysphagia, unspecified; E03.9 Hypothyroidism, unspecified; G40.909 Epilepsy, unspecified, not intractable, without status epilepticus; E78.5 Hyperlipidemia, unspecified; J09.X2 Influenza due to identified novel influenza A virus with other respiratory manifestations; K21.9 Gastro-esophageal reflux disease without esophagitis; I95.9 Hypotension, unspecified; F32.A Depression, unspecified; F41.9 Anxiety disorder, unspecified; D50.9 Iron deficiency anemia, unspecified; K59.09 Other constipation; Z88.0 Allergy status to penicillin; Z88.1 Allergy status to other antibiotic agents; Z79.890 Hormone replacement therapy; Z79.899 Other long term (current) drug therapy; G47.33 Obstructive sleep apnea (adult) (pediatric); I10 Essential (primary) hypertension

== ENCOUNTER → 2022-04-10 | Outpatient (CLI) | payer MEDICARE, MEDICAID ==
[~2022-04-10] MED LIST changes: +B-12100021 PO; +CALM1OIN TP; +CETI10CH PO; +DOCU5LIQ PO; +FERR1TAB8 PO; +IBUP100S65 PO; +KEPP10002 PO
[2022-04-10 15:11] LABS: BASO % 0.6 % (0.0-1.0); EOS % 0.7 % (0.0-3.0); HEMATOCRIT 36.7 % (36.0-47.0); HEMOGLOBIN 11.6 g/dl (12.0-15.5); LYMPH # 0.6 10^3/uL (1.5-5.0); LYMPH % 11.5 % (24.0-44.0); MEAN CORPUSCULAR HEMOGLOBIN 32.6 pg (27.0-33.0); MEAN CORPUSCULAR HGB CONC 31.6 g/dl (32.0-36.5); MEAN CORPUSCULAR VOLUME 103.1 fl (80.0-96.0); MONO # 0.6 10^3/uL (0.0-0.8); MONO % 10.2 % (2.0-8.0); NEUTROPHILS # 4.1 10^3/uL (1.5-8.5); NEUTROPHILS % 76.4 % (36.0-66.0); PLATELET COUNT, AUTOMATED 277 10^3/uL (150-450); RED BLOOD COUNT 3.56 10^6/uL (4.00-5.40); WHITE BLOOD COUNT 5.4 10^3/uL (4.0-10.0)
[2022-04-10 15:42] LABS: ALBUMIN 2.6 G/DL (3.2-5.2); ALKALINE PHOSPHATASE 96 U/L (46-116); ALT/SGPT < 9 U/L (7.0-40); AST/SGOT 17 U/L (<34); BILIRUBIN,TOTAL 0.2 MG/DL (0.3-1.2); BLOOD UREA NITROGEN 8 MG/DL (9-23); CALCIUM LEVEL 8.6 MG/DL (8.3-10.6); CARBON DIOXIDE LEVEL 30 MMOL/L (20-31); CHLORIDE LEVEL 101 MMOL/L (98-107); CREATININE FOR GFR 0.77 MG/DL (0.55-1.30); GLOMERULAR FILTRATION RATE > 60.0 (>45); GLUCOSE, FASTING 99 MG/DL (74-106); POTASSIUM SERUM 4.5 MMOL/L (3.5-5.1); SODIUM LEVEL 138 MMOL/L (136-145); TOTAL PROTEIN 7.2 G/DL (5.7-8.2)
== END ==
LOC: M LAB 14:33
PROVIDERS: ATTEND Physician Assistant
DX: D72.89 Other specified disorders of white blood cells (principal)

== ENCOUNTER → 2022-04-12 | Outpatient (CLI) | payer MEDICARE, MEDICAID ==
[2022-04-12 13:49] LABS: BASO % 0.4 % (0.0-1.0); EOS # 0.1 10^3/uL (0.0-0.5); EOS % 0.7 % (0.0-3.0); HEMATOCRIT 38.1 % (36.0-47.0); LYMPH # 0.7 10^3/uL (1.5-5.0); LYMPH % 9.7 % (24.0-44.0); MEAN CORPUSCULAR HEMOGLOBIN 32.8 pg (27.0-33.0); MEAN CORPUSCULAR HGB CONC 31.5 g/dl (32.0-36.5); MEAN CORPUSCULAR VOLUME 104.1 fl (80.0-96.0); MONO # 0.5 10^3/uL (0.0-0.8); MONO % 7.2 % (2.0-8.0); NEUTROPHILS # 5.6 10^3/uL (1.5-8.5); NEUTROPHILS % 81.7 % (36.0-66.0); PLATELET COUNT, AUTOMATED 291 10^3/uL (150-450); RED BLOOD COUNT 3.66 10^6/uL (4.00-5.40); WHITE BLOOD COUNT 6.8 10^3/uL (4.0-10.0)
[2022-04-12 14:16] LABS: IRON (FE) 19 UG/DL (50-170); PERCENT SATURATION 8.5 % (13.2-45.0); TOTAL IRON BINDING CAPACITY 224 UG/DL (250-425)
[2022-04-12 14:33] LABS: ALBUMIN 2.9 G/DL (3.2-5.2); ALKALINE PHOSPHATASE 100 U/L (46-116); ALT/SGPT < 9 U/L (7.0-40); AST/SGOT 17 U/L (<34); BILIRUBIN,TOTAL 0.3 MG/DL (0.3-1.2); BLOOD UREA NITROGEN 8 MG/DL (9-23); CALCIUM LEVEL 8.9 MG/DL (8.3-10.6); CARBON DIOXIDE LEVEL 30 MMOL/L (20-31); CHLORIDE LEVEL 101 MMOL/L (98-107); CREATININE FOR GFR 0.67 MG/DL (0.55-1.30); GLOMERULAR FILTRATION RATE > 60.0 (>45); GLUCOSE, FASTING 105 MG/DL (74-106); POTASSIUM SERUM 4.2 MMOL/L (3.5-5.1); SODIUM LEVEL 138 MMOL/L (136-145); THYROID STIMULATING HORMONE 3.019 uIU/ML (0.55-4.78); TOTAL PROTEIN 7.6 G/DL (5.7-8.2)
== END ==
LOC: M PLALAB 11:18
PROVIDERS: ATTEND Physician Assistant
DX: G25.3 Myoclonus (principal); E03.9 Hypothyroidism, unspecified; D50.9 Iron deficiency anemia, unspecified

== ENCOUNTER 2022-04-23 10:09 | Inpatient (IN) | payer MEDICARE, MEDICAID ==
[~2022-04-23] VITALS: Ht 144.8 cm; Wt 73.6 kg
[2022-04-23 11:14] LABS: BASO % 0.6 % (0.0-1.0); EOS # 0.2 10^3/uL (0.0-0.5); EOS % 4.1 % (0.0-3.0); HEMATOCRIT 32.6 % (36.0-47.0); HEMOGLOBIN 10.3 g/dl (12.0-15.5); LYMPH # 0.7 10^3/uL (1.5-5.0); LYMPH % 14.3 % (24.0-44.0); MEAN CORPUSCULAR HEMOGLOBIN 32.8 pg (27.0-33.0); MEAN CORPUSCULAR HGB CONC 31.6 g/dl (32.0-36.5); MEAN CORPUSCULAR VOLUME 103.8 fl (80.0-96.0); MONO # 0.5 10^3/uL (0.0-0.8); MONO % 11.2 % (2.0-8.0); NEUTROPHILS # 3.3 10^3/uL (1.5-8.5); NEUTROPHILS % 68.6 % (36.0-66.0); PLATELET COUNT, AUTOMATED 324 10^3/uL (150-450); RED BLOOD COUNT 3.14 10^6/uL (4.00-5.40); WHITE BLOOD COUNT 4.8 10^3/uL (4.0-10.0)
[2022-04-23 11:42] LABS: ALBUMIN 2.2 G/DL (3.2-5.2); ALKALINE PHOSPHATASE 78 U/L (46-116); ALT/SGPT < 9 U/L (7.0-40); AST/SGOT 19 U/L (<34); BILIRUBIN,TOTAL 0.3 MG/DL (0.3-1.2); BLOOD UREA NITROGEN 10 MG/DL (9-23); CALCIUM LEVEL 8.1 MG/DL (8.3-10.6); CARBON DIOXIDE LEVEL 26 MMOL/L (20-31); CHLORIDE LEVEL 104 MMOL/L (98-107); CREATININE FOR GFR 0.68 MG/DL (0.55-1.30); GLOMERULAR FILTRATION RATE > 60.0 (>45); GLUCOSE, FASTING 101 MG/DL (74-106); POTASSIUM SERUM 4.6 MMOL/L (3.5-5.1); SODIUM LEVEL 140 MMOL/L (136-145); TOTAL PROTEIN 6.6 G/DL (5.7-8.2)
[2022-04-23 11:43] LABS: BILIRUBIN,DIRECT < 0.1 MG/DL (<0.4)
[2022-04-23 11:45] LABS: THYROID STIMULATING HORMONE 1.697 uIU/ML (0.55-4.78)
[2022-04-23] MEDS ORDERED: ISOVUE-370 76% 100ML VIAL As Ordered ONE (12:15)
[2022-04-23] MEDS ORDERED: PIPERACILLIN/TAZOBACTAM SOD 4.5 GM in D5W MINI-BAG PLUS 50 ML IV ONE (13:05)
[2022-04-23] MEDS ORDERED: LevoFLOXacin IV 750 MG in IV 1 EA IV ONE (13:05)
[2022-04-23] MEDS ORDERED: cefTRIAXone SOD 2 GM in D5W MINI-BAG PLUS 50 ML IV ONE (13:10)
[2022-04-23] MEDS ORDERED: MUCI600T31 PO (15:26)
[2022-04-23] MEDS ORDERED: FURO20TA2 PO (15:26)
[2022-04-23] MEDS ORDERED: POLY17PO18 PO (15:26)
[2022-04-23] MEDS ORDERED: HOME MED LIST COMPLETE! XX SCH (15:30)
[2022-04-23] MEDS ORDERED: ACETAMINOPHEN TAB 650MG DOSE (2X325MG) PO PRN (15:45)
[2022-04-23] MEDS ORDERED: SENNA 8.6 MG TAB (SENOKOT) PO PRN (15:45)
[2022-04-23 16:00] VITALS: BP 120/63
[2022-04-23] MEDS ORDERED: metroNIDAZOLE 500 MG in IV 1 EA IV SCH (16:00)
[2022-04-23] MEDS: RIVAROXABAN 10MG TAB (XARELTO) PO SCH (17:08)
[2022-04-23] MEDS: metroNIDAZOLE (FLAGYL) 500MG TABLET PO SCH ×2 (17:08→21:36)
[2022-04-23 20:00] VITALS: BP 118/64
[2022-04-23] MEDS ORDERED: VANCOMYCIN HCL 1,000 MG, VIAL MATE ADAPTER 1 EACH in D5W 250 ML IV SCH (20:00)
[2022-04-23] MEDS ORDERED: VANCOMYCIN HCL 500 MG in D5W MINI-BAG PLUS 100 ML IV ONE (21:00)
[2022-04-23] MEDS: guaiFENesin ER 600 MG TAB PO SCH (21:33)
[2022-04-23] MEDS: levETIRAcetam 250MG TABLET (KEPPRA) PO SCH (21:34)
[2022-04-23] MEDS: FERROUS SULFATE 325MG TAB PO SCH (21:34)
[2022-04-23] MEDS: LevoFLOXacin 750 MG TABLET PO SCH (21:34)
[2022-04-23] MEDS: QUEtiapine FUMARATE 200 MG TAB PO SCH (21:34)
[2022-04-23] MEDS: LACTOBACILLUS ACIDOPHILUS CAP (BACID) PO SCH (21:34)
[2022-04-23] MEDS: NYSTATIN CREAM 15GM TOP SCH (21:35)
[2022-04-23] MEDS: LACTULOSE 20GM/30ML SYRUP UDC PO SCH (21:35)
[2022-04-23] MEDS: DOCUSATE SOD LIQ 100MG/10ML UDC PO SCH (21:35)
[2022-04-23] MEDS: CETIRIZINE (ZyrTEC) 5 MG/5 ML UDC DYE FREE PO SCH (21:36)
[2022-04-23] MEDS: SIMVASTATIN 20 MG TAB PO SCH (21:36)
[2022-04-23] MEDS: MIRALAX *UNIT DOSE* 17GM PACKET PO SCH (21:36)
[2022-04-23] MEDS: QUEtiapine FUMARATE 100 MG TAB PO SCH (21:37)
[2022-04-24] MEDS: LEVOTHYROXINE 112MCG TABLET (0.112MG) PO SCH (05:56)
[2022-04-24 06:00] VITALS: BP 118/63
[2022-04-24] MEDS ORDERED: LevoFLOXacin 500 MG TABLET PO SCH (06:00)
[2022-04-24 07:23] LABS: HEMATOCRIT 32.4 % (36.0-47.0); HEMOGLOBIN 10.1 g/dl (12.0-15.5); MEAN CORPUSCULAR HEMOGLOBIN 32.4 pg (27.0-33.0); MEAN CORPUSCULAR HGB CONC 31.2 g/dl (32.0-36.5); MEAN CORPUSCULAR VOLUME 103.8 fl (80.0-96.0); PLATELET COUNT, AUTOMATED 328 10^3/uL (150-450); RED BLOOD COUNT 3.12 10^6/uL (4.00-5.40)
[2022-04-24 07:53] LABS: VANCOMYCIN LEVEL TROUGH 17.2 UG/ML (10.0-20.0)
[2022-04-24 07:54] LABS: BLOOD UREA NITROGEN 11 MG/DL (9-23); CALCIUM LEVEL 8.1 MG/DL (8.3-10.6); CARBON DIOXIDE LEVEL 27 MMOL/L (20-31); CHLORIDE LEVEL 102 MMOL/L (98-107); GLOMERULAR FILTRATION RATE > 60.0 (>45); GLUCOSE, FASTING 93 MG/DL (74-106); POTASSIUM SERUM 4.5 MMOL/L (3.5-5.1); SODIUM LEVEL 139 MMOL/L (136-145)
[2022-04-24] MEDS ORDERED: cefTRIAXone SOD 2 GM in D5W MINI-BAG PLUS 50 ML IV SCH (09:00)
[2022-04-24] MEDS: MULTIVITAMINS/MINERALS THERAP 1 TAB PO SCH (09:54)
[2022-04-24] MEDS: QUEtiapine FUMARATE 200 MG TAB PO SCH ×2 (09:54→21:06)
[2022-04-24] MEDS: levETIRAcetam 250MG TABLET (KEPPRA) PO SCH ×2 (09:54→21:06)
[2022-04-24] MEDS: CitaloPRAM (CeleXA) 10 MG TABLET PO SCH (09:54)
[2022-04-24] MEDS: MIRALAX *UNIT DOSE* 17GM PACKET PO SCH ×2 (09:54→21:06)
[2022-04-24] MEDS: FUROSEMIDE 20 MG TAB PO SCH (09:54)
[2022-04-24] MEDS: PANTOPRAZOLE 40MG TAB (PROTONIX) PO SCH (09:54)
[2022-04-24] MEDS: guaiFENesin ER 600 MG TAB PO SCH ×2 (09:54→21:06)
[2022-04-24] MEDS: LACTOBACILLUS ACIDOPHILUS CAP (BACID) PO SCH ×2 (09:54→21:05)
[2022-04-24] MEDS: FERROUS SULFATE 325MG TAB PO SCH ×2 (09:54→21:06)
[2022-04-24] MEDS: metroNIDAZOLE (FLAGYL) 500MG TABLET PO SCH ×3 (09:54→21:06)
[2022-04-24] MEDS: NYSTATIN CREAM 15GM TOP SCH ×2 (09:55→21:07)
[2022-04-24] MEDS: VANCOMYCIN HCL 750 MG, VIAL MATE ADAPTER 1 EACH in D5W 250 ML IV SCH ×2 (09:55→21:05)
[2022-04-24] MEDS: LACTULOSE 20GM/30ML SYRUP UDC PO SCH ×2 (09:55→21:06)
[2022-04-24] MEDS: DOCUSATE SOD LIQ 100MG/10ML UDC PO SCH ×2 (09:57→21:07)
[2022-04-24 14:00] VITALS: BP 114/62
[2022-04-24] MEDS: RIVAROXABAN 10MG TAB (XARELTO) PO SCH (17:01)
[2022-04-24 20:40] VITALS: BP 109/62
[2022-04-24] MEDS: CETIRIZINE (ZyrTEC) 5 MG/5 ML UDC DYE FREE PO SCH (21:05)
[2022-04-24] MEDS: LevoFLOXacin 750 MG TABLET PO SCH (21:06)
[2022-04-24] MEDS: SIMVASTATIN 20 MG TAB PO SCH (21:06)
[2022-04-24] MEDS: QUEtiapine FUMARATE 100 MG TAB PO SCH (21:07)
[2022-04-25] MEDS ORDERED: LORazepam 2 MG/ML VIAL IV ONE (05:15)
[2022-04-25 05:22] LABS: VENOUS HCO3 27.8 MEQ/L (23.0-27.0); VENOUS O2 SATURATION 99.3 % (60.0-80.0); VENOUS PARTIAL PRESSURE CO2 43.9 mmHg (38.0-50.0); VENOUS PARTIAL PRESSURE O2 156.1 mmHg (30.0-50.0); VENOUS STANDARD HCO3 27.1 MEQ/L; VENOUS TOTAL CO2 29.2 MEQ/L (24.0-28.0)
[2022-04-25 05:27] LABS: BASO % 1.2 % (0.0-1.0); EOS # 0.2 10^3/uL (0.0-0.5); EOS % 7.2 % (0.0-3.0); HEMATOCRIT 32.1 % (36.0-47.0); HEMOGLOBIN 10.1 g/dl (12.0-15.5); LYMPH # 0.7 10^3/uL (1.5-5.0); LYMPH % 19.7 % (24.0-44.0); MEAN CORPUSCULAR HEMOGLOBIN 32.6 pg (27.0-33.0); MEAN CORPUSCULAR HGB CONC 31.5 g/dl (32.0-36.5); MEAN CORPUSCULAR VOLUME 103.5 fl (80.0-96.0); MONO # 0.5 10^3/uL (0.0-0.8); MONO % 14.6 % (2.0-8.0); NEUTROPHILS # 1.9 10^3/uL (1.5-8.5); NEUTROPHILS % 56.7 % (36.0-66.0); PLATELET COUNT, AUTOMATED 323 10^3/uL (150-450); WHITE BLOOD COUNT 3.4 10^3/uL (4.0-10.0)
[2022-04-25] MEDS: LEVOTHYROXINE 112MCG TABLET (0.112MG) PO SCH ×2 (05:35→05:42)
[2022-04-25 05:53] LABS: MAGNESIUM LEVEL 2.2 MG/DL (1.8-2.4)
[2022-04-25 05:55] LABS: BLOOD UREA NITROGEN 12 MG/DL (9-23); CARBON DIOXIDE LEVEL 26 MMOL/L (20-31); CHLORIDE LEVEL 103 MMOL/L (98-107); CREATININE FOR GFR 0.76 MG/DL (0.55-1.30); GLOMERULAR FILTRATION RATE > 60.0 (>45); GLUCOSE, FASTING 96 MG/DL (74-106); POTASSIUM SERUM 4.5 MMOL/L (3.5-5.1); SODIUM LEVEL 140 MMOL/L (136-145)
[2022-04-25 06:00] VITALS: BP 106/62
[2022-04-25] MEDS: levETIRAcetam 250MG TABLET (KEPPRA) PO SCH ×2 (09:26→21:11)
[2022-04-25] MEDS: LACTULOSE 20GM/30ML SYRUP UDC PO SCH ×2 (09:26→20:53)
[2022-04-25] MEDS: DOCUSATE SOD LIQ 100MG/10ML UDC PO SCH ×2 (09:26→20:53)
[2022-04-25] MEDS: MIRALAX *UNIT DOSE* 17GM PACKET PO SCH ×2 (09:26→20:54)
[2022-04-25] MEDS: LACTOBACILLUS ACIDOPHILUS CAP (BACID) PO SCH ×2 (09:27→21:11)
[2022-04-25] MEDS: BETHANECHOL 10 MG TAB PO SCH (09:27)
[2022-04-25] MEDS: FERROUS SULFATE 325MG TAB PO SCH ×2 (09:27→21:12)
[2022-04-25] MEDS: MULTIVITAMINS/MINERALS THERAP 1 TAB PO SCH (09:27)
[2022-04-25] MEDS: PANTOPRAZOLE 40MG TAB (PROTONIX) PO SCH (09:27)
[2022-04-25] MEDS: metroNIDAZOLE (FLAGYL) 500MG TABLET PO SCH ×3 (09:27→21:12)
[2022-04-25] MEDS: QUEtiapine FUMARATE 200 MG TAB PO SCH ×2 (09:27→21:11)
[2022-04-25] MEDS: FUROSEMIDE 20 MG TAB PO SCH (09:27)
[2022-04-25] MEDS: CitaloPRAM (CeleXA) 10 MG TABLET PO SCH (09:27)
[2022-04-25] MEDS: NYSTATIN CREAM 15GM TOP SCH ×2 (09:28→21:11)
[2022-04-25] MEDS: VANCOMYCIN HCL 750 MG, VIAL MATE ADAPTER 1 EACH in D5W 250 ML IV SCH ×2 (09:49→21:10)
[2022-04-25] MEDS: guaiFENesin SYRUP 200MG 10ML UDC PO SCH ×2 (11:19→21:12)
[2022-04-25 16:00] VITALS: BP 110/80
[2022-04-25] MEDS: RIVAROXABAN 10MG TAB (XARELTO) PO SCH (17:06)
[2022-04-25] MEDS: SIMVASTATIN 20 MG TAB PO SCH (21:11)
[2022-04-25] MEDS: CETIRIZINE (ZyrTEC) 5 MG/5 ML UDC DYE FREE PO SCH (21:12)
[2022-04-25] MEDS: LevoFLOXacin 750 MG TABLET PO SCH (21:12)
[2022-04-25] MEDS: QUEtiapine FUMARATE 100 MG TAB PO SCH (21:12)
[2022-04-25 22:00] VITALS: BP 124/82
[2022-04-26 05:25] VITALS: BP 104/56
[2022-04-26] MEDS: LEVOTHYROXINE 112MCG TABLET (0.112MG) PO SCH (05:34)
[2022-04-26] MEDS: MIRALAX *UNIT DOSE* 17GM PACKET PO SCH (09:00)
[2022-04-26 09:33] LABS: VANCOMYCIN LEVEL TROUGH 18.2 UG/ML (10.0-20.0)
[2022-04-26 09:34] LABS: BLOOD UREA NITROGEN 12 MG/DL (9-23); CARBON DIOXIDE LEVEL 27 MMOL/L (20-31); CHLORIDE LEVEL 101 MMOL/L (98-107); CREATININE FOR GFR 0.89 MG/DL (0.55-1.30); GLOMERULAR FILTRATION RATE > 60.0 (>45); GLUCOSE, FASTING 126 MG/DL (74-106); POTASSIUM SERUM 4.2 MMOL/L (3.5-5.1); SODIUM LEVEL 139 MMOL/L (136-145)
[2022-04-26] MEDS: FERROUS SULFATE 325MG TAB PO SCH (09:54)
[2022-04-26] MEDS: DOCUSATE SOD LIQ 100MG/10ML UDC PO SCH (09:54)
[2022-04-26] MEDS: BETHANECHOL 10 MG TAB PO SCH (09:54)
[2022-04-26] MEDS: LACTULOSE 20GM/30ML SYRUP UDC PO SCH (09:54)
[2022-04-26] MEDS: levETIRAcetam 250MG TABLET (KEPPRA) PO SCH (09:54)
[2022-04-26] MEDS: guaiFENesin SYRUP 200MG 10ML UDC PO SCH (09:54)
[2022-04-26] MEDS: PANTOPRAZOLE 40MG TAB (PROTONIX) PO SCH (09:54)
[2022-04-26] MEDS: metroNIDAZOLE (FLAGYL) 500MG TABLET PO SCH (09:54)
[2022-04-26] MEDS: FUROSEMIDE 20 MG TAB PO SCH (09:54)
[2022-04-26] MEDS: MULTIVITAMINS/MINERALS THERAP 1 TAB PO SCH (09:54)
[2022-04-26] MEDS: CitaloPRAM (CeleXA) 10 MG TABLET PO SCH (09:54)
[2022-04-26] MEDS: LACTOBACILLUS ACIDOPHILUS CAP (BACID) PO SCH (09:54)
[2022-04-26] MEDS: QUEtiapine FUMARATE 200 MG TAB PO SCH (09:54)
[2022-04-26] MEDS: NYSTATIN CREAM 15GM TOP SCH (09:55)
[2022-04-26] MEDS ORDERED: VANCOMYCIN HCL 750 MG, VIAL MATE ADAPTER 1 EACH in D5W 250 ML IV SCH (10:00)
[2022-04-26] MEDS ORDERED: METR-265 PO (10:26)
[2022-04-26] MEDS ORDERED: PROB1CAP10 PO (10:26)
[2022-04-26] MEDS ORDERED: BETH10TA3 PO (10:26)
[2022-04-26] MEDS ORDERED: MINO100C4 PO (10:26)
[2022-04-26] MEDS ORDERED: NYSTOI TOP (10:47)
[2022-04-26] MEDS ORDERED: VANCOMYCIN HCL 500 MG in D5W MINI-BAG PLUS 100 ML IV SCH (11:00)
[2022-04-27 16:08] LABS: BODY FLUID CULTURE Not indicated. (.); LEGIONELLA ANTIGEN URINE Negative (Negative); ORGANISM ID Not indicated. (.); SPECIMEN SOURCE Urine (.); URINE STREP PNEUMONIAE ANTIGEN Negative (Negative)
[2022-04-28] MEDS ORDERED: CARBAMIDE PEROXIDE 6.5% OTIC SOLN 15ML AU SCH (21:00)
== END 2022-04-26 14:15 | DRG 178 ==
LOC: EDBD 10:09 → M ED 10:09 → EDSEX 10:09 → M ED INP 13:27 → M MSPAV 15:58
PROVIDERS: ADMIT Internal Medicine; ATTEND Internal Medicine
DX: J69.0 Pneumonitis due to inhalation of food and vomit (principal); F72 Severe intellectual disabilities; J96.11 Chronic respiratory failure with hypoxia; G30.9 Alzheimer's disease, unspecified; I10 Essential (primary) hypertension; G40.909 Epilepsy, unspecified, not intractable, without status epilepticus; E03.9 Hypothyroidism, unspecified; E78.5 Hyperlipidemia, unspecified; K21.9 Gastro-esophageal reflux disease without esophagitis; Q90.9 Down syndrome, unspecified; R33.9 Retention of urine, unspecified; K59.09 Other constipation; G47.30 Sleep apnea, unspecified; J15.212 Pneumonia due to Methicillin resistant Staphylococcus aureus; Z79.899 Other long term (current) drug therapy; Z88.0 Allergy status to penicillin; F32.A Depression, unspecified; F41.9 Anxiety disorder, unspecified; D50.9 Iron deficiency anemia, unspecified; R21 Rash and other nonspecific skin eruption

== ENCOUNTER → 2022-05-12 | Outpatient (CLI) | payer MEDICARE, MEDICAID ==
[~2022-05-12] MED LIST changes: +BETH10TA3 PO; +MINO100C4 PO; +MUCI600T31 PO; +NYSTOI TOP; +POLY17PO18 PO; +PROB1CAP10 PO
[2022-05-12 08:51] LABS: BASO % 1.4 % (0.0-1.0); EOS # 0.2 10^3/uL (0.0-0.5); EOS % 6.5 % (0.0-3.0); HEMATOCRIT 37.7 % (36.0-47.0); LYMPH # 0.6 10^3/uL (1.5-5.0); LYMPH % 21.2 % (24.0-44.0); MEAN CORPUSCULAR HGB CONC 31.8 g/dl (32.0-36.5); MEAN CORPUSCULAR VOLUME 103.6 fl (80.0-96.0); MONO # 0.4 10^3/uL (0.0-0.8); NEUTROPHILS # 1.7 10^3/uL (1.5-8.5); NEUTROPHILS % 56.6 % (36.0-66.0); PLATELET COUNT, AUTOMATED 304 10^3/uL (150-450); RED BLOOD COUNT 3.64 10^6/uL (4.00-5.40); WHITE BLOOD COUNT 2.9 10^3/uL (4.0-10.0)
== END ==
LOC: M LAB 08:16
PROVIDERS: ATTEND Physician Assistant
DX: J69.0 Pneumonitis due to inhalation of food and vomit (principal); G25.3 Myoclonus; D50.9 Iron deficiency anemia, unspecified; J96.11 Chronic respiratory failure with hypoxia; D72.819 Decreased white blood cell count, unspecified

== ENCOUNTER → 2022-05-25 | Outpatient (CLI) | payer MEDICARE, MEDICAID ==
[~2022-05-25] MED LIST changes: +DIVA1TAB48 PO; +PERI12LIQ MT; +PROBCAP14 PO; +ZYVO1TAB PO
== END ==
LOC: M PLAIMG 11:59
PROVIDERS: ATTEND Internal Medicine Pulmonary Disease
DX: R91.8 Other nonspecific abnormal finding of lung field (principal)

== ENCOUNTER → 2022-05-31 | Outpatient (CLI) | payer MEDICARE, MEDICAID ==
[~2022-05-31] MED LIST changes: +BARIUM SULFATE 700 MG TABLET (E-Z-DISK) As Ordered ONE; -DIVA1TAB48 PO; +E-Z-PAQUE 96% w/w SUSP 176GM BTL As Ordered ONE; -PERI12LIQ MT; -PROBCAP14 PO; +VARIBAR NECTAR 40% w/v 240ML SUSP BTL As Ordered ONE; +VARIBAR PUDDING 40% w/v 230ML TUBE As Ordered ONE; -ZYVO1TAB PO
== END ==
LOC: M RAD 11:10
PROVIDERS: ATTEND Physician Assistant
DX: J69.0 Pneumonitis due to inhalation of food and vomit (principal)

== ENCOUNTER 2022-06-10 08:32 | Inpatient (IN) | payer MEDICARE, MEDICAID ==
[~2022-06-10] VITALS: Ht 157.5 cm; Wt 66.8 kg
[2022-06-10] VITALS (14 sets, daily range): BP systolic 115; BP diastolic 56–58; O2SAT 89–96
[~2022-06-10 08:32] MED LIST changes: -BARIUM SULFATE 700 MG TABLET (E-Z-DISK) As Ordered ONE; -E-Z-PAQUE 96% w/w SUSP 176GM BTL As Ordered ONE; +PROBCAP14 PO; -VARIBAR NECTAR 40% w/v 240ML SUSP BTL As Ordered ONE; -VARIBAR PUDDING 40% w/v 230ML TUBE As Ordered ONE
[2022-06-10] MEDS ORDERED: ALBUTEROL SULFATE 2.5MG/0.5ML INH NEB SOLN INH ONE (08:40)
[2022-06-10] MEDS ORDERED: IPRATROPIUM 0.5MG/ALBUTEROL 2.5MG INH SOL UD 3ML (DUONEB) NEB ONE (08:40)
[2022-06-10] MEDS ORDERED: methylPREDNISolone 125MG 2ML VIAL IV ONE (08:40)
[2022-06-10] MEDS ORDERED: NS 500 ML IV ONE (09:10)
[2022-06-10 09:19] LABS: ABG BASE EXCESS 3.8 (-2.0-2.0); ABG HCO3 28.2 MEQ/L (22.0-26.0); ABG O2 SATURATION 87.4 % (95.0-99.0); ABG PARTIAL PRESSURE CO2 41.7 mmHg (35.0-45.0); ABG PARTIAL PRESSURE O2 50.2 mmHg (75.0-100.0); ABG STANDARD HCO3 27.7 MEQ/L (22.0-26.0); ABG TOTAL CO2 29.5 MEQ/L (23.0-31.0); ABG pH (ARTERIAL) 7.448 UNITS (7.350-7.450)
[2022-06-10 09:31] LABS: BASO % 0.3 % (0.0-1.0); EOS % 0.3 % (0.0-3.0); HEMATOCRIT 35.9 % (36.0-47.0); HEMOGLOBIN 11.5 g/dl (12.0-15.5); LYMPH # 0.7 10^3/uL (1.5-5.0); LYMPH % 4.9 % (24.0-44.0); MEAN CORPUSCULAR HEMOGLOBIN 33.7 pg (27.0-33.0); MEAN CORPUSCULAR VOLUME 105.3 fl (80.0-96.0); MONO # 0.7 10^3/uL (0.0-0.8); NEUTROPHILS # 12.7 10^3/uL (1.5-8.5); NEUTROPHILS % 88.9 % (36.0-66.0); PLATELET COUNT, AUTOMATED 224 10^3/uL (150-450); RED BLOOD COUNT 3.41 10^6/uL (4.00-5.40); WHITE BLOOD COUNT 14.3 10^3/uL (4.0-10.0)
[2022-06-10 09:56] LABS: ALBUMIN 2.5 G/DL (3.2-5.2); ALKALINE PHOSPHATASE 79 U/L (46-116); ALT/SGPT 10 U/L (7.0-40); AST/SGOT 59 U/L (<34); BILIRUBIN,DIRECT < 0.1 MG/DL (<0.4); BILIRUBIN,TOTAL 0.5 MG/DL (0.3-1.2); BLOOD UREA NITROGEN 13 MG/DL (9-23); CALCIUM LEVEL 8.4 MG/DL (8.3-10.6); CARBON DIOXIDE LEVEL 30 MMOL/L (20-31); CHLORIDE LEVEL 101 MMOL/L (98-107); CK-MB VALUE MASS 2.3 NG/ML (<3.6); CPK CREATINE PHOSPHOKINASE 120 U/L (34-145); CREATININE FOR GFR 0.81 MG/DL (0.55-1.30); GLOMERULAR FILTRATION RATE > 60.0 (>45); GLUCOSE, FASTING 109 MG/DL (74-106); MB/CK RELATIVE INDEX 1.91 (< OR =4); POTASSIUM SERUM 5.9 MMOL/L (3.5-5.1); SODIUM LEVEL 136 MMOL/L (136-145); THYROID STIMULATING HORMONE 2.774 uIU/ML (0.55-4.78); THYROXINE (T4) 5.1 UG/DL (4.5-10.9); TOTAL PROTEIN 7.3 G/DL (5.7-8.2)
[2022-06-10] MEDS ORDERED: LevoFLOXacin IV 750 MG in IV 1 EA IV ONE (10:05)
[2022-06-10] MEDS ORDERED: ISOVUE-370 76% 100ML VIAL As Ordered ONE (10:12)
[2022-06-10 10:29] LABS: CK-MB VALUE MASS 1.8 NG/ML (<3.6); MB/CK RELATIVE INDEX 1.51 (< OR =4)
[2022-06-10] MEDS ORDERED: DIVA1TAB48 PO (11:12)
[2022-06-10] MEDS ORDERED: CALM1OIN TOP (11:12)
[2022-06-10] MEDS ORDERED: HOME MED LIST COMPLETE! XX SCH (11:25)
[2022-06-10] MEDS ORDERED: ACETAMINOPHEN TAB 650MG DOSE (2X325MG) PO PRN (11:55)
[2022-06-10] MEDS ORDERED: SENNA 8.6 MG TAB (SENOKOT) PO PRN (11:55)
[2022-06-10] MEDS ORDERED: VANCOMYCIN HCL 1,000 MG, VIAL MATE ADAPTER 1 EACH in NS 250 ML IV ONE (12:00)
[2022-06-10] MEDS ORDERED: IPRATROPIUM 0.5MG/ALBUTEROL 2.5MG INH SOL UD 3ML (DUONEB) NEB PRN (12:10)
[2022-06-10 12:14] LABS: BLOOD UREA NITROGEN 13 MG/DL (9-23); CALCIUM LEVEL 8.3 MG/DL (8.3-10.6); CARBON DIOXIDE LEVEL 29 MMOL/L (20-31); CHLORIDE LEVEL 100 MMOL/L (98-107); GLOMERULAR FILTRATION RATE > 60.0 (>45); GLUCOSE, FASTING 111 MG/DL (74-106); POTASSIUM SERUM 4.5 MMOL/L (3.5-5.1); SODIUM LEVEL 136 MMOL/L (136-145)
[2022-06-10] MEDS: FUROSEMIDE 20 MG TAB PO SCH (13:21)
[2022-06-10] MEDS: CitaloPRAM (CeleXA) 10 MG TABLET PO SCH (13:21)
[2022-06-10] MEDS: metroNIDAZOLE 500 MG in IV 1 EA IV SCH ×2 (14:05→23:01)
[2022-06-10] MEDS: RIVAROXABAN 10MG TAB (XARELTO) PO SCH (17:32)
[2022-06-10] MEDS: CHLORHEXIDINE GLUCONATE 0.12 % 15ML UDC (PERIDEX ORAL RINSE) MT SCH (21:39)
[2022-06-10] MEDS: levETIRAcetam 250MG TABLET (KEPPRA) PO SCH (21:39)
[2022-06-10] MEDS: FERROUS SULFATE 325MG TAB PO SCH (21:39)
[2022-06-10] MEDS: DOCUSATE SOD LIQ 100MG/10ML UDC PO SCH (21:39)
[2022-06-10] MEDS: SIMVASTATIN 20 MG TAB PO SCH (21:39)
[2022-06-10] MEDS: LACTULOSE 20GM/30ML SYRUP UDC PO SCH (21:39)
[2022-06-10] MEDS: DIVALPROEX 125 MG TAB PO SCH (21:40)
[2022-06-10] MEDS: VANCOMYCIN HCL 750 MG, VIAL MATE ADAPTER 1 EACH in D5W 250 ML IV SCH (21:40)
[2022-06-10] MEDS: MIRALAX *UNIT DOSE* 17GM PACKET PO SCH (21:40)
[2022-06-10] MEDS: QUEtiapine FUMARATE 200 MG TAB PO SCH (21:40)
[2022-06-10] MEDS: CETIRIZINE (ZyrTEC) 10 MG TAB PO SCH (21:40)
[2022-06-10] MEDS: QUEtiapine FUMARATE 100 MG TAB PO SCH (21:50)
[2022-06-11] VITALS (28 sets, daily range): BP systolic 94–108; BP diastolic 56–62; O2SAT 86–98
[2022-06-11 04:20] LABS: HEMOGLOBIN 10.2 g/dl (12.0-15.5); MEAN CORPUSCULAR HEMOGLOBIN 33.1 pg (27.0-33.0); MEAN CORPUSCULAR HGB CONC 31.9 g/dl (32.0-36.5); MEAN CORPUSCULAR VOLUME 103.9 fl (80.0-96.0); PLATELET COUNT, AUTOMATED 200 10^3/uL (150-450); RED BLOOD COUNT 3.08 10^6/uL (4.00-5.40); WHITE BLOOD COUNT 10.3 10^3/uL (4.0-10.0)
[2022-06-11] MEDS: metroNIDAZOLE 500 MG in IV 1 EA IV SCH ×3 (05:07→23:20)
[2022-06-11] MEDS: LEVOTHYROXINE 112MCG TABLET (0.112MG) PO SCH (05:08)
[2022-06-11 07:21] LABS: ALBUMIN 2.1 G/DL (3.2-5.2); ALKALINE PHOSPHATASE 73 U/L (46-116); ALT/SGPT < 9 U/L (7.0-40); AST/SGOT 18 U/L (<34); BILIRUBIN,DIRECT 0.1 MG/DL (<0.4); BILIRUBIN,TOTAL 0.4 MG/DL (0.3-1.2); BLOOD UREA NITROGEN 13 MG/DL (9-23); CALCIUM LEVEL 8.1 MG/DL (8.3-10.6); CARBON DIOXIDE LEVEL 30 MMOL/L (20-31); CHLORIDE LEVEL 105 MMOL/L (98-107); GLOMERULAR FILTRATION RATE > 60.0 (>45); GLUCOSE, FASTING 131 MG/DL (74-106); MAGNESIUM LEVEL 2.1 MG/DL (1.8-2.4); POTASSIUM SERUM 4.2 MMOL/L (3.5-5.1); SODIUM LEVEL 139 MMOL/L (136-145); TOTAL PROTEIN 6.3 G/DL (5.7-8.2)
[2022-06-11] MEDS: VANCOMYCIN HCL 750 MG, VIAL MATE ADAPTER 1 EACH in D5W 250 ML IV SCH ×2 (08:09→21:57)
[2022-06-11] MEDS: CHLORHEXIDINE GLUCONATE 0.12 % 15ML UDC (PERIDEX ORAL RINSE) MT SCH ×2 (08:10→21:57)
[2022-06-11] MEDS: DOCUSATE SOD LIQ 100MG/10ML UDC PO SCH ×2 (08:10→21:57)
[2022-06-11] MEDS: CitaloPRAM (CeleXA) 10 MG TABLET PO SCH (08:10)
[2022-06-11] MEDS: QUEtiapine FUMARATE 200 MG TAB PO SCH ×2 (08:10→22:37)
[2022-06-11] MEDS: LACTULOSE 20GM/30ML SYRUP UDC PO SCH ×2 (08:10→21:57)
[2022-06-11] MEDS: MIRALAX *UNIT DOSE* 17GM PACKET PO SCH ×2 (08:11→21:59)
[2022-06-11] MEDS: levETIRAcetam 250MG TABLET (KEPPRA) PO SCH ×2 (08:11→21:59)
[2022-06-11] MEDS: MULTIVITAMINS/MINERALS THERAP 1 TAB PO SCH (08:11)
[2022-06-11] MEDS: FUROSEMIDE 20 MG TAB PO SCH (08:11)
[2022-06-11] MEDS: FERROUS SULFATE 325MG TAB PO SCH ×2 (08:11→21:59)
[2022-06-11] MEDS ORDERED: PANTOPRAZOLE 40MG TAB (PROTONIX) PO SCH (09:00)
[2022-06-11] MEDS ORDERED: LevoFLOXacin IV 500 MG in IV 1 EA IV SCH (11:00)
[2022-06-11] MEDS ORDERED: LevoFLOXacin IV 250 MG in IV 1 EA IV SCH (11:00)
[2022-06-11] MEDS: RIVAROXABAN 10MG TAB (XARELTO) PO SCH (17:33)
[2022-06-11] MEDS: CETIRIZINE (ZyrTEC) 10 MG TAB PO SCH (21:58)
[2022-06-11] MEDS: DIVALPROEX 125 MG TAB PO SCH (21:59)
[2022-06-11] MEDS: SIMVASTATIN 20 MG TAB PO SCH (21:59)
[2022-06-11] MEDS: QUEtiapine FUMARATE 100 MG TAB PO SCH (22:37)
[2022-06-12] VITALS (24 sets, daily range): BP systolic 93–129; BP diastolic 56–84; O2SAT 90–98
[2022-06-12 05:38] LABS: HEMATOCRIT 31.8 % (36.0-47.0); HEMOGLOBIN 10.1 g/dl (12.0-15.5); MEAN CORPUSCULAR HEMOGLOBIN 33.2 pg (27.0-33.0); MEAN CORPUSCULAR HGB CONC 31.8 g/dl (32.0-36.5); MEAN CORPUSCULAR VOLUME 104.6 fl (80.0-96.0); PLATELET COUNT, AUTOMATED 221 10^3/uL (150-450); RED BLOOD COUNT 3.04 10^6/uL (4.00-5.40)
[2022-06-12] MEDS: metroNIDAZOLE 500 MG in IV 1 EA IV SCH (05:50)
[2022-06-12] MEDS: LEVOTHYROXINE 112MCG TABLET (0.112MG) PO SCH (05:51)
[2022-06-12 06:06] LABS: BLOOD UREA NITROGEN 9 MG/DL (9-23); CALCIUM LEVEL 8.2 MG/DL (8.3-10.6); CARBON DIOXIDE LEVEL 31 MMOL/L (20-31); CHLORIDE LEVEL 106 MMOL/L (98-107); CREATININE FOR GFR 0.85 MG/DL (0.55-1.30); GLOMERULAR FILTRATION RATE > 60.0 (>45); GLUCOSE, FASTING 83 MG/DL (74-106); POTASSIUM SERUM 3.7 MMOL/L (3.5-5.1); SODIUM LEVEL 143 MMOL/L (136-145)
[2022-06-12] MEDS: MIRALAX *UNIT DOSE* 17GM PACKET PO SCH ×2 (08:33→20:33)
[2022-06-12] MEDS: LACTULOSE 20GM/30ML SYRUP UDC PO SCH ×2 (08:33→20:32)
[2022-06-12] MEDS: CHLORHEXIDINE GLUCONATE 0.12 % 15ML UDC (PERIDEX ORAL RINSE) MT SCH ×2 (08:33→20:32)
[2022-06-12] MEDS: FUROSEMIDE 20 MG TAB PO SCH (08:34)
[2022-06-12] MEDS: CitaloPRAM (CeleXA) 10 MG TABLET PO SCH (08:34)
[2022-06-12] MEDS: MULTIVITAMINS/MINERALS THERAP 1 TAB PO SCH (08:34)
[2022-06-12] MEDS: DOCUSATE SOD LIQ 100MG/10ML UDC PO SCH ×2 (08:34→20:32)
[2022-06-12] MEDS: levETIRAcetam 250MG TABLET (KEPPRA) PO SCH ×2 (08:34→20:34)
[2022-06-12] MEDS: VANCOMYCIN HCL 750 MG, VIAL MATE ADAPTER 1 EACH in D5W 250 ML IV SCH ×3 (08:54→23:39)
[2022-06-12] MEDS: QUEtiapine FUMARATE 200 MG TAB PO SCH ×2 (10:41→20:33)
[2022-06-12] MEDS: LevoFLOXacin 750 MG TABLET PO SCH (11:03)
[2022-06-12] MEDS: metroNIDAZOLE (FLAGYL) 500MG TABLET PO SCH ×2 (14:17→20:38)
[2022-06-12] MEDS: FERROUS SULFATE 300MG/5ML UDC LIQUID PO SCH ×2 (14:17→20:33)
[2022-06-12] MEDS: RIVAROXABAN 10MG TAB (XARELTO) PO SCH (18:03)
[2022-06-12] MEDS: CETIRIZINE (ZyrTEC) 10 MG TAB PO SCH (20:33)
[2022-06-12] MEDS: SIMVASTATIN 20 MG TAB PO SCH (20:33)
[2022-06-12] MEDS: QUEtiapine FUMARATE 100 MG TAB PO SCH (20:33)
[2022-06-12] MEDS: DIVALPROEX 125 MG TAB PO SCH (20:33)
[2022-06-13] VITALS (9 sets, daily range): BP systolic 96–103; BP diastolic 54–63; O2SAT 95–99
[2022-06-13] MEDS: metroNIDAZOLE (FLAGYL) 500MG TABLET PO SCH (06:16)
[2022-06-13] MEDS: LevoFLOXacin 750 MG TABLET PO SCH (06:16)
[2022-06-13] MEDS: LEVOTHYROXINE 112MCG TABLET (0.112MG) PO SCH (06:16)
[2022-06-13] MEDS: QUEtiapine FUMARATE 200 MG TAB PO SCH (08:54)
[2022-06-13] MEDS: DOCUSATE SOD LIQ 100MG/10ML UDC PO SCH (08:54)
[2022-06-13] MEDS: CHLORHEXIDINE GLUCONATE 0.12 % 15ML UDC (PERIDEX ORAL RINSE) MT SCH (08:54)
[2022-06-13] MEDS: FERROUS SULFATE 300MG/5ML UDC LIQUID PO SCH (08:54)
[2022-06-13] MEDS: MULTIVITAMINS/MINERALS THERAP 1 TAB PO SCH (08:54)
[2022-06-13] MEDS: levETIRAcetam 250MG TABLET (KEPPRA) PO SCH (08:55)
[2022-06-13] MEDS: MIRALAX *UNIT DOSE* 17GM PACKET PO SCH (08:56)
[2022-06-13] MEDS: LACTULOSE 20GM/30ML SYRUP UDC PO SCH (08:56)
[2022-06-13] MEDS: FUROSEMIDE 20 MG TAB PO SCH (08:56)
[2022-06-13] MEDS: CitaloPRAM (CeleXA) 10 MG TABLET PO SCH (08:56)
[2022-06-13] MEDS ORDERED: ZYVO1TAB PO (10:13)
[2022-06-13] MEDS ORDERED: METR-265 PO (10:22)
[2022-06-13] MEDS ORDERED: LEVO1TAB40 PO (10:22)
[2022-06-13] MEDS ORDERED: PERI12LIQ MT (10:22)
[2022-06-13] MEDS: VANCOMYCIN HCL 750 MG, VIAL MATE ADAPTER 1 EACH in D5W 250 ML IV SCH (11:20)
[2022-06-13 16:08] LABS: MYCOPLASMA PNEUMONIAE IgG 305 U/mL (0-99); MYCOPLASMA PNEUMONIAE IgM <770 U/mL (0-769)
[2022-06-14 15:09] LABS: BODY FLUID CULTURE Not indicated. (.); LEGIONELLA ANTIGEN URINE Negative (Negative); ORGANISM ID Not indicated. (.); SPECIMEN SOURCE Urine (.); URINE STREP PNEUMONIAE ANTIGEN Negative (Negative)
[2022-06-23] MEDS ORDERED: CARBAMIDE PEROXIDE 6.5% OTIC SOLN 15ML AU PRN (11:55)
== END 2022-06-13 15:02 | disposition home or self-care (01) | DRG 177 ==
LOC: EDBD 08:32 → M ED 08:37 → M ED INP 10:56 → ENRESERV 13:26 → M PCU 14:39
PROVIDERS: ADMIT Internal Medicine; ATTEND Internal Medicine
DX: J69.0 Pneumonitis due to inhalation of food and vomit (principal); J96.21 Acute and chronic respiratory failure with hypoxia; F72 Severe intellectual disabilities; E03.9 Hypothyroidism, unspecified; I10 Essential (primary) hypertension; G30.9 Alzheimer's disease, unspecified; G40.909 Epilepsy, unspecified, not intractable, without status epilepticus; F32.A Depression, unspecified; D53.9 Nutritional anemia, unspecified; E78.5 Hyperlipidemia, unspecified; K21.9 Gastro-esophageal reflux disease without esophagitis; Q90.9 Down syndrome, unspecified; K59.09 Other constipation; R13.10 Dysphagia, unspecified; F41.9 Anxiety disorder, unspecified; R33.9 Retention of urine, unspecified; Z88.0 Allergy status to penicillin; Z79.899 Other long term (current) drug therapy; E87.5 Hyperkalemia

== ENCOUNTER → 2022-07-07 | Outpatient (CLI) | payer MEDICARE, MEDICAID ==
[~2022-07-07] MED LIST changes: +DIVA1TAB48 PO; +PERI12LIQ MT; +ZYVO1TAB PO
== END ==
LOC: M WHC 12:49
PROVIDERS: ATTEND Physician Assistant
DX: Z12.31 Encounter for screening mammogram for malignant neoplasm of breast (principal)

== ENCOUNTER 2022-07-15 11:39 | Inpatient (IN) | payer MEDICARE, MEDICAID ==
[~2022-07-15] VITALS: Ht 142.2 cm; Wt 74.8 kg
[2022-07-15 13:20] LABS: BASO % 0.2 % (0.0-1.0); HEMATOCRIT 36.5 % (36.0-47.0); LYMPH # 0.6 10^3/uL (1.5-5.0); LYMPH % 4.1 % (24.0-44.0); MEAN CORPUSCULAR HEMOGLOBIN 33.8 pg (27.0-33.0); MEAN CORPUSCULAR HGB CONC 32.9 g/dl (32.0-36.5); MEAN CORPUSCULAR VOLUME 102.8 fl (80.0-96.0); MONO # 0.9 10^3/uL (0.0-0.8); MONO % 6.2 % (2.0-8.0); NEUTROPHILS # 12.5 10^3/uL (1.5-8.5); NEUTROPHILS % 88.9 % (36.0-66.0); PLATELET COUNT, AUTOMATED 232 10^3/uL (150-450); RED BLOOD COUNT 3.55 10^6/uL (4.00-5.40)
[2022-07-15 13:40] LABS: ETHYL ALCOHOL (ETHANOL) < 0.003 % (0.000-0.010)
[2022-07-15 13:41] LABS: VALPROIC ACID (DEPAKOTE) 9.4 UG/ML (50.0-100.0)
[2022-07-15 13:42] LABS: ALBUMIN 2.7 G/DL (3.2-5.2); ALKALINE PHOSPHATASE 88 U/L (46-116); ALT/SGPT 9 U/L (7.0-40); AST/SGOT 20 U/L (<34); BILIRUBIN,DIRECT 0.1 MG/DL (<0.4); BILIRUBIN,TOTAL 0.3 MG/DL (0.3-1.2); BLOOD UREA NITROGEN 8 MG/DL (9-23); CALCIUM LEVEL 8.4 MG/DL (8.3-10.6); CARBON DIOXIDE LEVEL 31 MMOL/L (20-31); CHLORIDE LEVEL 102 MMOL/L (98-107); CREATININE FOR GFR 0.75 MG/DL (0.55-1.30); GLOMERULAR FILTRATION RATE > 60.0 (>45); GLUCOSE, FASTING 90 MG/DL (74-106); POTASSIUM SERUM 4.5 MMOL/L (3.5-5.1); SODIUM LEVEL 138 MMOL/L (136-145)
[2022-07-15 13:45] LABS: THYROID STIMULATING HORMONE 3.153 uIU/ML (0.55-4.78)
[2022-07-15] MEDS ORDERED: ACETAMINOPHEN 325MG/10.15ML UDC PO ONE (16:10)
[2022-07-15] MEDS ORDERED: LevoFLOXacin IV 750 MG in IV 1 EA IV ONE (16:15)
[2022-07-15] MEDS ORDERED: ISOVUE-370 76% 100ML VIAL As Ordered ONE (16:45)
[2022-07-15] MEDS ORDERED: NS 500 ML IV ONE (17:15)
[2022-07-15] MEDS ORDERED: VANCOMYCIN HCL 750 MG, VIAL MATE ADAPTER 1 EACH in D5W 250 ML IV ONE ×2 (18:00→19:00)
[2022-07-15] MEDS ORDERED: CVS1CRE56 TOP (18:38)
[2022-07-15] MEDS ORDERED: PERI12LIQ PO (18:38)
[2022-07-15] MEDS ORDERED: HOME MED LIST COMPLETE! XX SCH (18:40)
[2022-07-15] MEDS: NS 1,000 ML IV SCH (18:45)
[2022-07-15] MEDS ORDERED: CARBAMIDE PEROXIDE 6.5% OTIC SOLN 15ML AU SCH (19:05)
[2022-07-15] MEDS ORDERED: SENNA 8.6 MG TAB (SENOKOT) PO PRN (19:05)
[2022-07-15] MEDS: metroNIDAZOLE 500 MG in IV 1 EA IV SCH (19:52)
[2022-07-15] MEDS: LACTULOSE 20GM/30ML SYRUP UDC PO SCH (21:00)
[2022-07-15] MEDS ORDERED: ACETAMINOPHEN TAB 650MG DOSE (2X325MG) PO PRN (21:00)
[2022-07-15] MEDS: CHLORHEXIDINE GLUCONATE 0.12 % 15ML UDC (PERIDEX ORAL RINSE) SSP SCH (21:00)
[2022-07-15] MEDS: CETIRIZINE (ZyrTEC) 5 MG/5 ML UDC DYE FREE PO SCH (21:00)
[2022-07-15] MEDS: DOCUSATE SOD LIQ 100MG/10ML UDC PO SCH (21:04)
[2022-07-15] MEDS: DIVALPROEX 125 MG TAB PO SCH (21:23)
[2022-07-15] MEDS: QUEtiapine FUMARATE 100 MG TAB PO SCH (21:23)
[2022-07-15] MEDS: QUEtiapine FUMARATE 200 MG TAB PO SCH (21:23)
[2022-07-15] MEDS: levETIRAcetam 250MG TABLET (KEPPRA) PO SCH (21:23)
[2022-07-15] MEDS: SIMVASTATIN 20 MG TAB PO SCH (21:24)
[2022-07-15] MEDS: MIRALAX *UNIT DOSE* 17GM PACKET PO SCH (21:31)
[2022-07-15 23:20] VITALS: BP 113/59
[2022-07-16] MEDS: UNRESOLVED PATIENT OWN MED ORDER XX SCH ×2 (00:01→21:21)
[2022-07-16 03:43] VITALS: BP 94/60
[2022-07-16] MEDS: metroNIDAZOLE 500 MG in IV 1 EA IV SCH ×3 (03:59→21:20)
[2022-07-16] MEDS: LEVOTHYROXINE 112MCG TABLET (0.112MG) PO SCH (05:25)
[2022-07-16] MEDS: NS 1,000 ML IV SCH ×2 (05:50→21:13)
[2022-07-16] MEDS ORDERED: VANCOMYCIN HCL 750 MG, VIAL MATE ADAPTER 1 EACH in D5W 250 ML IV SCH (06:00)
[2022-07-16 07:16] VITALS: BP 98/50
[2022-07-16 07:30] LABS: HEMATOCRIT 32.9 % (36.0-47.0); HEMOGLOBIN 10.5 g/dl (12.0-15.5); MEAN CORPUSCULAR HEMOGLOBIN 33.4 pg (27.0-33.0); MEAN CORPUSCULAR HGB CONC 31.9 g/dl (32.0-36.5); MEAN CORPUSCULAR VOLUME 104.8 fl (80.0-96.0); PLATELET COUNT, AUTOMATED 208 10^3/uL (150-450); RED BLOOD COUNT 3.14 10^6/uL (4.00-5.40); WHITE BLOOD COUNT 9.5 10^3/uL (4.0-10.0)
[2022-07-16 07:55] LABS: BLOOD UREA NITROGEN 9 MG/DL (9-23); CALCIUM LEVEL 7.7 MG/DL (8.3-10.6); CARBON DIOXIDE LEVEL 29 MMOL/L (20-31); CHLORIDE LEVEL 105 MMOL/L (98-107); CREATININE FOR GFR 0.68 MG/DL (0.55-1.30); GLOMERULAR FILTRATION RATE > 60.0 (>45); GLUCOSE, FASTING 91 MG/DL (74-106); MAGNESIUM LEVEL 1.9 MG/DL (1.8-2.4); PHOSPHORUS LEVEL 3.5 MG/DL (2.4-5.1); POTASSIUM SERUM 3.9 MMOL/L (3.5-5.1); SODIUM LEVEL 140 MMOL/L (136-145)
[2022-07-16] MEDS: MIRALAX *UNIT DOSE* 17GM PACKET PO SCH ×2 (09:00→21:13)
[2022-07-16] MEDS: DOCUSATE SOD LIQ 100MG/10ML UDC PO SCH ×2 (09:00→21:13)
[2022-07-16] MEDS ORDERED: ENTER DRUG NAME HERE (PATIENT'S OWN MED) PO SCH (09:00)
[2022-07-16] MEDS: CHLORHEXIDINE GLUCONATE 0.12 % 15ML UDC (PERIDEX ORAL RINSE) SSP SCH ×2 (09:43→21:13)
[2022-07-16] MEDS: LACTULOSE 20GM/30ML SYRUP UDC PO SCH ×2 (09:43→21:13)
[2022-07-16] MEDS: CitaloPRAM (CeleXA) 10 MG TABLET PO SCH (09:44)
[2022-07-16] MEDS: CLOTRIMAZOLE 1% VAG CR 45 GM TOP SCH ×2 (09:44→21:15)
[2022-07-16] MEDS: QUEtiapine FUMARATE 200 MG TAB PO SCH ×2 (09:44→21:14)
[2022-07-16] MEDS: ENOXAPARIN 40MG/0.4ML SYRINGE (J1650 PER 10MG) SC SCH (09:44)
[2022-07-16] MEDS: levETIRAcetam 250MG TABLET (KEPPRA) PO SCH ×2 (09:44→21:14)
[2022-07-16] MEDS: PANTOPRAZOLE 40MG TAB (PROTONIX) PO SCH (09:44)
[2022-07-16 12:00] VITALS: BP 98/52
[2022-07-16 15:59] VITALS: BP 102/64
[2022-07-16] MEDS ORDERED: LevoFLOXacin IV 750 MG in IV 1 EA IV SCH (17:00)
[2022-07-16] MEDS: VANCOMYCIN HCL 1,000 MG, VIAL MATE ADAPTER 1 EACH in D5W 250 ML IV SCH (18:47)
[2022-07-16 20:27] VITALS: BP 124/58
[2022-07-16] MEDS: CETIRIZINE (ZyrTEC) 5 MG/5 ML UDC DYE FREE PO SCH (21:13)
[2022-07-16] MEDS: DIVALPROEX 125 MG TAB PO SCH (21:14)
[2022-07-16] MEDS: QUEtiapine FUMARATE 100 MG TAB PO SCH (21:14)
[2022-07-16] MEDS: SIMVASTATIN 20 MG TAB PO SCH (21:14)
[2022-07-17] VITALS (23 sets, daily range): BP systolic 100–126; BP diastolic 56–78; O2SAT 89–99
[2022-07-17] MEDS: metroNIDAZOLE 500 MG in IV 1 EA IV SCH (04:14)
[2022-07-17] MEDS: LEVOTHYROXINE 112MCG TABLET (0.112MG) PO SCH (05:20)
[2022-07-17] MEDS: VANCOMYCIN HCL 1,000 MG, VIAL MATE ADAPTER 1 EACH in D5W 250 ML IV SCH ×2 (05:20→18:09)
[2022-07-17 06:04] LABS: HEMATOCRIT 29.9 % (36.0-47.0); HEMOGLOBIN 9.5 g/dl (12.0-15.5); MEAN CORPUSCULAR HEMOGLOBIN 33.3 pg (27.0-33.0); MEAN CORPUSCULAR HGB CONC 31.8 g/dl (32.0-36.5); MEAN CORPUSCULAR VOLUME 104.9 fl (80.0-96.0); PLATELET COUNT, AUTOMATED 177 10^3/uL (150-450); RED BLOOD COUNT 2.85 10^6/uL (4.00-5.40); WHITE BLOOD COUNT 6.6 10^3/uL (4.0-10.0)
[2022-07-17 06:31] LABS: BLOOD UREA NITROGEN 8 MG/DL (9-23); CALCIUM LEVEL 7.2 MG/DL (8.3-10.6); CARBON DIOXIDE LEVEL 28 MMOL/L (20-31); CHLORIDE LEVEL 109 MMOL/L (98-107); CREATININE FOR GFR 0.67 MG/DL (0.55-1.30); GLOMERULAR FILTRATION RATE > 60.0 (>45); GLUCOSE, FASTING 97 MG/DL (74-106); POTASSIUM SERUM 3.8 MMOL/L (3.5-5.1); SODIUM LEVEL 143 MMOL/L (136-145)
[2022-07-17] MEDS: DOCUSATE SOD LIQ 100MG/10ML UDC PO SCH ×2 (09:00→21:00)
[2022-07-17] MEDS: MIRALAX *UNIT DOSE* 17GM PACKET PO SCH ×2 (09:00→21:00)
[2022-07-17] MEDS: LACTULOSE 20GM/30ML SYRUP UDC PO SCH ×2 (09:00→21:00)
[2022-07-17] MEDS: levETIRAcetam 250MG TABLET (KEPPRA) PO SCH ×2 (09:08→21:41)
[2022-07-17] MEDS: CHLORHEXIDINE GLUCONATE 0.12 % 15ML UDC (PERIDEX ORAL RINSE) SSP SCH ×2 (09:08→21:42)
[2022-07-17] MEDS: QUEtiapine FUMARATE 200 MG TAB PO SCH ×2 (09:09→22:01)
[2022-07-17] MEDS: CitaloPRAM (CeleXA) 10 MG TABLET PO SCH (09:09)
[2022-07-17] MEDS: PANTOPRAZOLE 40MG TAB (PROTONIX) PO SCH (09:09)
[2022-07-17] MEDS: ENOXAPARIN 40MG/0.4ML SYRINGE (J1650 PER 10MG) SC SCH (09:09)
[2022-07-17] MEDS: CLOTRIMAZOLE 1% VAG CR 45 GM TOP SCH ×2 (09:10→21:42)
[2022-07-17] MEDS: NS 1,000 ML IV SCH ×2 (09:15→18:35)
[2022-07-17] MEDS: metroNIDAZOLE (FLAGYL) 500MG TABLET PO SCH ×2 (13:45→21:42)
[2022-07-17] MEDS ORDERED: LevoFLOXacin 750 MG TABLET PO SCH (17:00)
[2022-07-17] MEDS: QUEtiapine FUMARATE 100 MG TAB PO SCH (21:41)
[2022-07-17] MEDS: CETIRIZINE (ZyrTEC) 5 MG/5 ML UDC DYE FREE PO SCH (21:41)
[2022-07-17] MEDS: SIMVASTATIN 20 MG TAB PO SCH (21:41)
[2022-07-17] MEDS: DIVALPROEX 125 MG TAB PO SCH (21:41)
[2022-07-18] VITALS (19 sets, daily range): BP systolic 103–122; BP diastolic 52–84; O2SAT 87–99
[2022-07-18] MEDS: UNRESOLVED PATIENT OWN MED ORDER XX SCH (00:01)
[2022-07-18 05:40] LABS: HEMATOCRIT 29.2 % (36.0-47.0); HEMOGLOBIN 9.4 g/dl (12.0-15.5); MEAN CORPUSCULAR HEMOGLOBIN 33.5 pg (27.0-33.0); MEAN CORPUSCULAR HGB CONC 32.2 g/dl (32.0-36.5); MEAN CORPUSCULAR VOLUME 103.9 fl (80.0-96.0); PLATELET COUNT, AUTOMATED 204 10^3/uL (150-450); RED BLOOD COUNT 2.81 10^6/uL (4.00-5.40); WHITE BLOOD COUNT 4.5 10^3/uL (4.0-10.0)
[2022-07-18 06:01] LABS: BLOOD UREA NITROGEN 6 MG/DL (9-23); CALCIUM LEVEL 7.3 MG/DL (8.3-10.6); CARBON DIOXIDE LEVEL 27 MMOL/L (20-31); CHLORIDE LEVEL 109 MMOL/L (98-107); CREATININE FOR GFR 0.65 MG/DL (0.55-1.30); GLOMERULAR FILTRATION RATE > 60.0 (>45); GLUCOSE, FASTING 94 MG/DL (74-106); MAGNESIUM LEVEL 1.9 MG/DL (1.8-2.4); PHOSPHORUS LEVEL 2.9 MG/DL (2.4-5.1); POTASSIUM SERUM 3.7 MMOL/L (3.5-5.1); SODIUM LEVEL 141 MMOL/L (136-145)
[2022-07-18] MEDS: LEVOTHYROXINE 112MCG TABLET (0.112MG) PO SCH (06:04)
[2022-07-18] MEDS: VANCOMYCIN HCL 1,000 MG, VIAL MATE ADAPTER 1 EACH in D5W 250 ML IV SCH (06:04)
[2022-07-18] MEDS: metroNIDAZOLE (FLAGYL) 500MG TABLET PO SCH (06:04)
[2022-07-18] MEDS: NS 1,000 ML IV SCH (06:05)
[2022-07-18] MEDS: CHLORHEXIDINE GLUCONATE 0.12 % 15ML UDC (PERIDEX ORAL RINSE) SSP SCH (08:46)
[2022-07-18] MEDS: DOCUSATE SOD LIQ 100MG/10ML UDC PO SCH (08:47)
[2022-07-18] MEDS: LACTULOSE 20GM/30ML SYRUP UDC PO SCH (08:47)
[2022-07-18] MEDS: PANTOPRAZOLE 40MG TAB (PROTONIX) PO SCH (08:47)
[2022-07-18] MEDS: QUEtiapine FUMARATE 200 MG TAB PO SCH (08:47)
[2022-07-18] MEDS: CitaloPRAM (CeleXA) 10 MG TABLET PO SCH (08:47)
[2022-07-18] MEDS: levETIRAcetam 250MG TABLET (KEPPRA) PO SCH (08:47)
[2022-07-18] MEDS: CLOTRIMAZOLE 1% VAG CR 45 GM TOP SCH (08:48)
[2022-07-18] MEDS: ENOXAPARIN 40MG/0.4ML SYRINGE (J1650 PER 10MG) SC SCH (08:48)
[2022-07-18] MEDS: MIRALAX *UNIT DOSE* 17GM PACKET PO SCH (08:48)
[2022-07-18] MEDS ORDERED: LEVO1TAB40 PO (10:40)
[2022-07-18] MEDS ORDERED: CVS1CAP5 PO (10:40)
[2022-07-18] MEDS ORDERED: METR-265 PO (10:40)
== END 2022-07-18 15:55 | DRG 871 ==
LOC: EDBD 11:39 → M ED 11:39 → M ED INP 16:31 → ENRESERV 22:39 → M PCU 22:58
PROVIDERS: ADMIT Internal Medicine; ATTEND Internal Medicine
DX: A41.9 Sepsis, unspecified organism (principal); J15.6 Pneumonia due to other Gram-negative bacteria; F72 Severe intellectual disabilities; J91.8 Pleural effusion in other conditions classified elsewhere; G30.9 Alzheimer's disease, unspecified; G40.909 Epilepsy, unspecified, not intractable, without status epilepticus; F39 Unspecified mood [affective] disorder; E03.9 Hypothyroidism, unspecified; I10 Essential (primary) hypertension; D50.9 Iron deficiency anemia, unspecified; E78.5 Hyperlipidemia, unspecified; R33.9 Retention of urine, unspecified; Q90.9 Down syndrome, unspecified; R13.10 Dysphagia, unspecified; F02.80 Dementia in other diseases classified elsewhere, unspecified severity, without behavioral disturbance, psychotic disturbance, mood disturbance, and anxiety; Z88.0 Allergy status to penicillin; Z79.899 Other long term (current) drug therapy

== ENCOUNTER → 2022-07-24 | Outpatient (CLI) | payer MEDICARE, MEDICAID ==
[~2022-07-24] MED LIST changes: +CVS1CAP5 PO; +CVS1CRE56 TOP; +PERI12LIQ PO; +SENN-186 PO; -SENN-80 PO
== END ==
LOC: M RAD 12:07
PROVIDERS: ATTEND Internal Medicine Pulmonary Disease
DX: R91.8 Other nonspecific abnormal finding of lung field (principal)

== ENCOUNTER 2022-08-31 08:07 | Emergency (ER) | payer MEDICARE, MEDICAID ==
[~2022-08-31 08:07] MED LIST changes: +NYST100085 TOP; -NYSTOI TOP
[2022-08-31] MEDS: COMBIVENT RESPIMAT 100-20MCG INHALER 4GM INH SCH ×3 (08:45→09:25)
[2022-08-31] MEDS ORDERED: IPRATROPIUM 0.5MG/ALBUTEROL 2.5MG INH SOL UD 3ML (DUONEB) NEB ONE (09:50)
[2022-08-31 11:27] LABS: BASO % 0.5 % (0.0-1.0); EOS # 0.1 10^3/uL (0.0-0.5); HEMATOCRIT 38.9 % (36.0-47.0); HEMOGLOBIN 12.5 g/dl (12.0-15.5); LYMPH # 0.9 10^3/uL (1.5-5.0); LYMPH % 15.8 % (24.0-44.0); MEAN CORPUSCULAR HEMOGLOBIN 33.9 pg (27.0-33.0); MEAN CORPUSCULAR HGB CONC 32.1 g/dl (32.0-36.5); MEAN CORPUSCULAR VOLUME 105.4 fl (80.0-96.0); MONO # 0.6 10^3/uL (0.0-0.8); NEUTROPHILS # 4.2 10^3/uL (1.5-8.5); NEUTROPHILS % 71.4 % (36.0-66.0); PLATELET COUNT, AUTOMATED 227 10^3/uL (150-450); RED BLOOD COUNT 3.69 10^6/uL (4.00-5.40); WHITE BLOOD COUNT 5.9 10^3/uL (4.0-10.0)
[2022-08-31 12:01] LABS: BLOOD UREA NITROGEN 9 MG/DL (9-23); CALCIUM LEVEL 8.4 MG/DL (8.3-10.6); CARBON DIOXIDE LEVEL 36 MMOL/L (20-31); CHLORIDE LEVEL 102 MMOL/L (98-107); CREATININE FOR GFR 0.75 MG/DL (0.55-1.30); GLOMERULAR FILTRATION RATE > 60.0 (>45); GLUCOSE, FASTING 96 MG/DL (74-106); POTASSIUM SERUM 4.4 MMOL/L (3.5-5.1); SODIUM LEVEL 140 MMOL/L (136-145)
[2022-08-31] MEDS ORDERED: FUROSEMIDE 20MG/2ML VIAL IV ONE (12:30)
[2022-08-31] MEDS ORDERED: LEVO1TAB40 PO (17:30)
[2022-08-31] MEDS ORDERED: METR-265 PO (17:30)
[2022-08-31 17:56] VITALS: BP 118/77
== END 2022-08-31 17:57 | disposition home or self-care (01) ==
LOC: M ED 08:07
DX: J69.0 Pneumonitis due to inhalation of food and vomit (principal); J44.9 Chronic obstructive pulmonary disease, unspecified; I51.7 Cardiomegaly; Q90.9 Down syndrome, unspecified; F03.90 Unspecified dementia, unspecified severity, without behavioral disturbance, psychotic disturbance, mood disturbance, and anxiety; F79 Unspecified intellectual disabilities; Z88.0 Allergy status to penicillin; Z88.1 Allergy status to other antibiotic agents; Z79.1 Long term (current) use of non-steroidal anti-inflammatories (NSAID); Z79.810 Long term (current) use of selective estrogen receptor modulators (SERMs); Z79.899 Other long term (current) drug therapy
CPT/HCPCS: 71046; 71250; 80048; 83880; 85025; 87486; 87581; 87633; 87798; 93005; 94640; 94760; 96374; 99284; J1940

== ENCOUNTER 2022-09-05 08:06 | Inpatient (IN) | payer MEDICARE, MEDICAID ==
[~2022-09-05] VITALS: Ht 142.2 cm; Wt 74.0 kg
[2022-09-05] VITALS (7 sets, daily range): BP systolic 107–113; BP diastolic 58; O2SAT 92–96
[2022-09-05 08:46] LABS: VENOUS BASE EXCESS 2.1 (-2.0-2.0); VENOUS HCO3 27.5 MMOL/L (23.0-27.0); VENOUS O2 SATURATION 90.1 % (60.0-80.0); VENOUS PARTIAL PRESSURE CO2 45.9 mmHg (38.0-50.0); VENOUS PARTIAL PRESSURE O2 59.2 mmHg (30.0-50.0); VENOUS PH 7.395 UNITS (7.330-7.430); VENOUS STANDARD HCO3 26.1 MMOL/L; VENOUS TOTAL CO2 28.9 MMOL/L (24.0-28.0)
[2022-09-05 08:53] LABS: BASO % 0.3 % (0.0-1.0); EOS % 0.4 % (0.0-3.0); HEMATOCRIT 38.4 % (36.0-47.0); HEMOGLOBIN 12.5 g/dl (12.0-15.5); LYMPH # 0.4 10^3/uL (1.5-5.0); LYMPH % 4.5 % (24.0-44.0); MEAN CORPUSCULAR HEMOGLOBIN 33.5 pg (27.0-33.0); MEAN CORPUSCULAR HGB CONC 32.6 g/dl (32.0-36.5); MEAN CORPUSCULAR VOLUME 102.9 fl (80.0-96.0); MONO # 0.6 10^3/uL (0.0-0.8); MONO % 6.1 % (2.0-8.0); NEUTROPHILS % 88.3 % (36.0-66.0); PLATELET COUNT, AUTOMATED 235 10^3/uL (150-450); RED BLOOD COUNT 3.73 10^6/uL (4.00-5.40); WHITE BLOOD COUNT 9.1 10^3/uL (4.0-10.0)
[2022-09-05 09:14] LABS: ALBUMIN 2.7 G/DL (3.2-5.2); ALKALINE PHOSPHATASE 73 U/L (46-116); ALT/SGPT < 9 U/L (7.0-40); AST/SGOT 13 U/L (<34); BILIRUBIN,DIRECT < 0.1 MG/DL (<0.4); BILIRUBIN,TOTAL 0.2 MG/DL (0.3-1.2); BLOOD UREA NITROGEN 10 MG/DL (9-23); CALCIUM LEVEL 8.2 MG/DL (8.3-10.6); CARBON DIOXIDE LEVEL 29 MMOL/L (20-31); CHLORIDE LEVEL 103 MMOL/L (98-107); CREATININE FOR GFR 0.78 MG/DL (0.55-1.30); GLOMERULAR FILTRATION RATE > 60.0 (>45); GLUCOSE, FASTING 105 MG/DL (74-106); POTASSIUM SERUM 4.3 MMOL/L (3.5-5.1); SODIUM LEVEL 139 MMOL/L (136-145); TOTAL PROTEIN 7.1 G/DL (5.7-8.2)
[2022-09-05] MEDS: IPRATROPIUM 0.5MG/ALBUTEROL 2.5MG INH SOL UD 3ML (DUONEB) NEB PRN ×2 (09:24→09:34)
[2022-09-05] MEDS ORDERED: ISOVUE-370 76% 100ML VIAL As Ordered ONE (09:24)
[2022-09-05 10:58] LABS: VALPROIC ACID (DEPAKOTE) 12.1 UG/ML (50.0-100.0)
[2022-09-05] MEDS ORDERED: IBUP100S65 PO (14:56)
[2022-09-05] MEDS ORDERED: ALBU1.25 INH (14:56)
[2022-09-05] MEDS ORDERED: CETI-24 PO (14:56)
[2022-09-05] MEDS ORDERED: LEVO1TAB40 PO (14:56)
[2022-09-05] MEDS ORDERED: METR-265 PO (14:56)
[2022-09-05] MEDS ORDERED: HOME MED LIST COMPLETE! XX SCH (15:00)
[2022-09-05] MEDS ORDERED: NS 1,000 ML IV SCH (15:55)
[2022-09-05] MEDS ORDERED: ACETAMINOPHEN TAB 650MG DOSE (2X325MG) PO PRN (16:05)
[2022-09-05] MEDS ORDERED: SENNA 8.6 MG TAB (SENOKOT) PO PRN (16:05)
[2022-09-05] MEDS ORDERED: ALBUTEROL SULFATE 2.5MG/0.5ML INH NEB SOLN INH PRN (16:05)
[2022-09-05] MEDS: MEROPENEM INJ 1 GM in IV 1 EA IV SCH (19:18)
[2022-09-05] MEDS: DOCUSATE SOD LIQ 100MG/10ML UDC PO SCH (21:00)
[2022-09-05] MEDS ORDERED: guaiFENesin ER 600 MG TAB PO SCH (21:00)
[2022-09-05] MEDS: MIRALAX *UNIT DOSE* 17GM PACKET PO SCH (21:00)
[2022-09-05] MEDS: LACTULOSE 20GM/30ML SYRUP UDC PO SCH (21:00)
[2022-09-05] MEDS: DIVALPROEX 125 MG TAB PO SCH (21:46)
[2022-09-05] MEDS: levETIRAcetam 250MG TABLET (KEPPRA) PO SCH (21:46)
[2022-09-05] MEDS: QUEtiapine FUMARATE 100 MG TAB PO SCH (21:47)
[2022-09-05] MEDS: PANTOPRAZOLE 40MG TAB (PROTONIX) PO SCH (21:47)
[2022-09-05] MEDS: CETIRIZINE (ZyrTEC) 10 MG TAB PO SCH (21:47)
[2022-09-05] MEDS: SIMVASTATIN 20 MG TAB PO SCH (21:47)
[2022-09-05] MEDS: FERROUS SULFATE 325MG TAB PO SCH (21:47)
[2022-09-05] MEDS: QUEtiapine FUMARATE 200 MG TAB PO SCH (21:47)
[2022-09-06] VITALS (28 sets, daily range): BP systolic 108–144; BP diastolic 55–72; O2SAT 88–98
[2022-09-06] MEDS: MEROPENEM INJ 1 GM in IV 1 EA IV SCH ×2 (01:37→08:24)
[2022-09-06] MEDS: LEVOTHYROXINE 112MCG TABLET (0.112MG) PO SCH (05:47)
[2022-09-06 06:11] LABS: BASO % 0.6 % (0.0-1.0); EOS # 0.1 10^3/uL (0.0-0.5); EOS % 1.6 % (0.0-3.0); HEMATOCRIT 32.3 % (36.0-47.0); HEMOGLOBIN 10.7 g/dl (12.0-15.5); LYMPH # 0.5 10^3/uL (1.5-5.0); LYMPH % 10.6 % (24.0-44.0); MEAN CORPUSCULAR HEMOGLOBIN 34.1 pg (27.0-33.0); MEAN CORPUSCULAR HGB CONC 33.1 g/dl (32.0-36.5); MEAN CORPUSCULAR VOLUME 102.9 fl (80.0-96.0); MONO # 0.8 10^3/uL (0.0-0.8); MONO % 15.1 % (2.0-8.0); NEUTROPHILS # 3.6 10^3/uL (1.5-8.5); NEUTROPHILS % 71.5 % (36.0-66.0); PLATELET COUNT, AUTOMATED 216 10^3/uL (150-450); RED BLOOD COUNT 3.14 10^6/uL (4.00-5.40)
[2022-09-06 06:40] LABS: BLOOD UREA NITROGEN 7 MG/DL (9-23); CALCIUM LEVEL 7.9 MG/DL (8.3-10.6); CARBON DIOXIDE LEVEL 30 MMOL/L (20-31); CHLORIDE LEVEL 105 MMOL/L (98-107); CREATININE FOR GFR 0.76 MG/DL (0.55-1.30); GLOMERULAR FILTRATION RATE > 60.0 (>45); GLUCOSE, FASTING 109 MG/DL (74-106); MAGNESIUM LEVEL 2.1 MG/DL (1.8-2.4); POTASSIUM SERUM 3.8 MMOL/L (3.5-5.1); SODIUM LEVEL 140 MMOL/L (136-145)
[2022-09-06] MEDS: LACTOBACILLUS ACIDOPHILUS CAP (BACID) PO SCH (08:24)
[2022-09-06] MEDS: ENOXAPARIN 40MG/0.4ML SYRINGE (J1650 PER 10MG) SC SCH (08:25)
[2022-09-06] MEDS: levETIRAcetam 250MG TABLET (KEPPRA) PO SCH ×2 (08:25→22:25)
[2022-09-06] MEDS: QUEtiapine FUMARATE 200 MG TAB PO SCH ×2 (08:25→22:26)
[2022-09-06] MEDS: CitaloPRAM (CeleXA) 10 MG TABLET PO SCH (08:25)
[2022-09-06] MEDS: FERROUS SULFATE 325MG TAB PO SCH ×2 (08:25→22:26)
[2022-09-06] MEDS: LACTULOSE 20GM/30ML SYRUP UDC PO SCH ×2 (08:26→22:27)
[2022-09-06] MEDS: DOCUSATE SOD LIQ 100MG/10ML UDC PO SCH ×2 (08:26→22:26)
[2022-09-06] MEDS: MIRALAX *UNIT DOSE* 17GM PACKET PO SCH ×2 (08:26→22:27)
[2022-09-06] MEDS: guaiFENesin 200 MG TAB PO SCH ×2 (11:15→22:25)
[2022-09-06] MEDS: DIVALPROEX 125 MG TAB PO SCH (22:25)
[2022-09-06] MEDS: QUEtiapine FUMARATE 100 MG TAB PO SCH (22:26)
[2022-09-06] MEDS: SIMVASTATIN 20 MG TAB PO SCH (22:26)
[2022-09-06] MEDS: PANTOPRAZOLE 40MG TAB (PROTONIX) PO SCH (22:26)
[2022-09-06] MEDS: CETIRIZINE (ZyrTEC) 10 MG TAB PO SCH (22:26)
[2022-09-07] VITALS (13 sets, daily range): BP systolic 107–110; BP diastolic 57–58; O2SAT 89–99
[2022-09-07] MEDS: LEVOTHYROXINE 112MCG TABLET (0.112MG) PO SCH (06:06)
[2022-09-07 07:18] LABS: BASO % 0.8 % (0.0-1.0); EOS # 0.1 10^3/uL (0.0-0.5); EOS % 5.8 % (0.0-3.0); HEMATOCRIT 35.3 % (36.0-47.0); HEMOGLOBIN 11.4 g/dl (12.0-15.5); LYMPH # 0.6 10^3/uL (1.5-5.0); LYMPH % 26.3 % (24.0-44.0); MEAN CORPUSCULAR HEMOGLOBIN 33.5 pg (27.0-33.0); MEAN CORPUSCULAR HGB CONC 32.3 g/dl (32.0-36.5); MEAN CORPUSCULAR VOLUME 103.8 fl (80.0-96.0); MONO # 0.3 10^3/uL (0.0-0.8); MONO % 14.2 % (2.0-8.0); NEUTROPHILS # 1.2 10^3/uL (1.5-8.5); NEUTROPHILS % 50.4 % (36.0-66.0); PLATELET COUNT, AUTOMATED 232 10^3/uL (150-450); WHITE BLOOD COUNT 2.4 10^3/uL (4.0-10.0)
[2022-09-07 07:41] LABS: BLOOD UREA NITROGEN 6 MG/DL (9-23); CALCIUM LEVEL 8.3 MG/DL (8.3-10.6); CARBON DIOXIDE LEVEL 30 MMOL/L (20-31); CHLORIDE LEVEL 107 MMOL/L (98-107); CREATININE FOR GFR 0.68 MG/DL (0.55-1.30); GLOMERULAR FILTRATION RATE > 60.0 (>45); GLUCOSE, FASTING 100 MG/DL (74-106); MAGNESIUM LEVEL 2.1 MG/DL (1.8-2.4); POTASSIUM SERUM 3.9 MMOL/L (3.5-5.1); SODIUM LEVEL 141 MMOL/L (136-145)
[2022-09-07] MEDS: guaiFENesin 200 MG TAB PO SCH (08:23)
[2022-09-07] MEDS: LACTULOSE 20GM/30ML SYRUP UDC PO SCH (08:23)
[2022-09-07] MEDS: DOCUSATE SOD LIQ 100MG/10ML UDC PO SCH (08:23)
[2022-09-07] MEDS: ENOXAPARIN 40MG/0.4ML SYRINGE (J1650 PER 10MG) SC SCH (08:24)
[2022-09-07] MEDS: FERROUS SULFATE 325MG TAB PO SCH (08:24)
[2022-09-07] MEDS: levETIRAcetam 250MG TABLET (KEPPRA) PO SCH (08:24)
[2022-09-07] MEDS: QUEtiapine FUMARATE 200 MG TAB PO SCH (08:24)
[2022-09-07] MEDS: LACTOBACILLUS ACIDOPHILUS CAP (BACID) PO SCH (08:24)
[2022-09-07] MEDS: CitaloPRAM (CeleXA) 10 MG TABLET PO SCH (08:25)
[2022-09-07] MEDS: MIRALAX *UNIT DOSE* 17GM PACKET PO SCH (08:25)
[2022-09-08 15:08] LABS: BODY FLUID CULTURE Not indicated. (.); LEGIONELLA ANTIGEN URINE Negative (Negative); ORGANISM ID Not indicated. (.); SPECIMEN SOURCE Urine (.); URINE STREP PNEUMONIAE ANTIGEN Negative (Negative)
== END 2022-09-07 15:30 | disposition home or self-care (01) | DRG 178 ==
LOC: M ED 08:06 → EDBD 08:06 → M ED INP 14:13 → EEVIPCON 14:13 → M PCU 15:58
PROVIDERS: ADMIT Internal Medicine; ATTEND Internal Medicine
DX: J69.0 Pneumonitis due to inhalation of food and vomit (principal); F72 Severe intellectual disabilities; R09.02 Hypoxemia; G30.9 Alzheimer's disease, unspecified; R56.9 Unspecified convulsions; E03.9 Hypothyroidism, unspecified; E78.5 Hyperlipidemia, unspecified; R13.10 Dysphagia, unspecified; Q90.9 Down syndrome, unspecified; F41.9 Anxiety disorder, unspecified; F32.A Depression, unspecified; F63.81 Intermittent explosive disorder; R31.9 Hematuria, unspecified; Z88.0 Allergy status to penicillin; Z79.899 Other long term (current) drug therapy

== ENCOUNTER → 2022-09-12 | Outpatient (CLI) | payer MEDICARE, MEDICAID ==
[~2022-09-12] MED LIST changes: +ALBU1.25 INH; +CETI-24 PO
[2022-09-12 14:57] LABS: BASO % 0.7 % (0.0-1.0); EOS # 0.1 10^3/uL (0.0-0.5); EOS % 2.4 % (0.0-3.0); HEMATOCRIT 38.3 % (36.0-47.0); HEMOGLOBIN 12.6 g/dl (12.0-15.5); LYMPH # 0.8 10^3/uL (1.5-5.0); MEAN CORPUSCULAR HEMOGLOBIN 34.4 pg (27.0-33.0); MEAN CORPUSCULAR HGB CONC 32.9 g/dl (32.0-36.5); MEAN CORPUSCULAR VOLUME 104.6 fl (80.0-96.0); MONO # 0.4 10^3/uL (0.0-0.8); MONO % 7.6 % (2.0-8.0); NEUTROPHILS # 4.4 10^3/uL (1.5-8.5); PLATELET COUNT, AUTOMATED 362 10^3/uL (150-450); RED BLOOD COUNT 3.66 10^6/uL (4.00-5.40); WHITE BLOOD COUNT 5.8 10^3/uL (4.0-10.0)
[2022-09-12 15:06] LABS: ALKALINE PHOSPHATASE 83 U/L (46-116); ALT/SGPT < 9 U/L (7.0-40); AST/SGOT 18 U/L (<34); BILIRUBIN,TOTAL 0.2 MG/DL (0.3-1.2); BLOOD UREA NITROGEN 7 MG/DL (9-23); CALCIUM LEVEL 8.8 MG/DL (8.3-10.6); CARBON DIOXIDE LEVEL 32 MMOL/L (20-31); CHLORIDE LEVEL 103 MMOL/L (98-107); CREATININE FOR GFR 0.67 MG/DL (0.55-1.30); GLOMERULAR FILTRATION RATE > 60.0 (>45); GLUCOSE, FASTING 93 MG/DL (74-106); POTASSIUM SERUM 4.8 MMOL/L (3.5-5.1); SODIUM LEVEL 140 MMOL/L (136-145); TOTAL PROTEIN 7.8 G/DL (5.7-8.2)
[2022-09-12 16:09] LABS: IMMUNOGLOBULIN A 428.9 MG/DL (40-350); IMMUNOGLOBULIN G 2415 MG/DL (650-1600); IMMUNOGLOBULIN M 218.6 MG/DL (50-300)
== END ==
LOC: M PLALAB 11:22
PROVIDERS: ATTEND Internal Medicine Infectious Disease
DX: R76.8 Other specified abnormal immunological findings in serum (principal); J18.9 Pneumonia, unspecified organism

== ENCOUNTER → 2022-09-16 | Outpatient (REF) | payer MEDICARE, MEDICAID | LOC: M LAB REF 13:24 | PROVIDERS: ATTEND Internal Medicine Infectious Disease | DX: R76.8 Other specified abnormal immunological findings in serum (principal) ==

== ENCOUNTER → 2022-10-08 | Outpatient (REF) | payer MEDICARE, MEDICAID ==
[~2022-10-08] MED LIST changes: +CVS1CRE56 EXT
[2022-10-08 14:16] LABS: APPEARANCE, URINE HAZY (CLEAR); BACTERIA, URINE AUTO 1+ (NEGATIVE); BILIRUBIN, URINE AUTO NEGATIVE (NEGATIVE); BLOOD, URINE BLOOD NEGATIVE (NEGATIVE); COLOR, URINE YELLOW (YELLOW); GLUCOSE, URINE (UA) AUTO NEGATIVE (NEGATIVE); KETONE, URINE AUTO NEGATIVE (NEGATIVE); LEUKOCYTE ESTERASE, URINE AUTO NEGATIVE (NEGATIVE); NITRITE, URINE AUTO NEGATIVE (NEGATIVE); PROTEIN, URINE AUTO NEGATIVE (NEGATIVE); RBC, URINE AUTO 0 /HPF (0-3); SQUAMOUS EPITHELIAL CELL UR AU 0 /HPF (0-6); UROBILINOGEN, URINE AUTO 0.2 mg/dL (0.0-2.0); WBC, URINE AUTO 1 /HPF (0-3)
== END ==
LOC: M SFHCPLAZ 13:50
PROVIDERS: ATTEND Family Medicine
DX: R32 Unspecified urinary incontinence (principal)

== ENCOUNTER 2022-10-11 11:31 | Inpatient (IN) | payer MEDICARE, MEDICAID ==
[~2022-10-11] VITALS: Ht 142.2 cm; Wt 69.1 kg
[~2022-10-11 11:31] MED LIST changes: -CVS1CRE56 EXT
[2022-10-11] MEDS ORDERED: FUROSEMIDE 40MG/4ML VIAL IV ONE (15:05)
[2022-10-11 15:23] LABS: VENOUS BASE EXCESS 2.4 (-2.0-2.0); VENOUS HCO3 26.8 MMOL/L (23.0-27.0); VENOUS O2 SATURATION 97.5 % (60.0-80.0); VENOUS PARTIAL PRESSURE CO2 40.9 mmHg (38.0-50.0); VENOUS PARTIAL PRESSURE O2 95.1 mmHg (30.0-50.0); VENOUS PH 7.434 UNITS (7.330-7.430); VENOUS STANDARD HCO3 26.6 MMOL/L
[2022-10-11 15:31] LABS: BASO % 0.3 % (0.0-1.0); HEMATOCRIT 36.7 % (36.0-47.0); HEMOGLOBIN 12.6 g/dl (12.0-15.5); LYMPH # 0.7 10^3/uL (1.5-5.0); LYMPH % 5.9 % (24.0-44.0); MEAN CORPUSCULAR HEMOGLOBIN 34.7 pg (27.0-33.0); MEAN CORPUSCULAR HGB CONC 34.3 g/dl (32.0-36.5); MEAN CORPUSCULAR VOLUME 101.1 fl (80.0-96.0); MONO # 0.8 10^3/uL (0.0-0.8); MONO % 6.8 % (2.0-8.0); NEUTROPHILS # 9.9 10^3/uL (1.5-8.5); NEUTROPHILS % 86.6 % (36.0-66.0); PLATELET COUNT, AUTOMATED 249 10^3/uL (150-450); RED BLOOD COUNT 3.63 10^6/uL (4.00-5.40); WHITE BLOOD COUNT 11.4 10^3/uL (4.0-10.0)
[2022-10-11 15:58] LABS: FREE T4 1.04 NG/DL (0.89-1.76); THYROID STIMULATING HORMONE 1.391 uIU/ML (0.55-4.78)
[2022-10-11 16:52] LABS: ALBUMIN 2.9 G/DL (3.2-5.2); ALKALINE PHOSPHATASE 82 U/L (46-116); ALT/SGPT < 9 U/L (7.0-40); AST/SGOT 14 U/L (<34); BILIRUBIN,DIRECT 0.1 MG/DL (<0.4); BILIRUBIN,TOTAL 0.4 MG/DL (0.3-1.2); BLOOD UREA NITROGEN 10 MG/DL (9-23); CALCIUM LEVEL 8.4 MG/DL (8.3-10.6); CARBON DIOXIDE LEVEL 27 MMOL/L (20-31); CHLORIDE LEVEL 103 MMOL/L (98-107); CREATININE FOR GFR 0.69 MG/DL (0.55-1.30); GLOMERULAR FILTRATION RATE > 60.0 (>45); GLUCOSE, FASTING 96 MG/DL (74-106); POTASSIUM SERUM 4.3 MMOL/L (3.5-5.1); SODIUM LEVEL 137 MMOL/L (136-145); TOTAL PROTEIN 7.3 G/DL (5.7-8.2)
[2022-10-11] MEDS ORDERED: guaiFENesin SYRUP 200MG 10ML UDC PO PRN (18:50)
[2022-10-11] MEDS ORDERED: ACETAMINOPHEN TAB 650MG DOSE (2X325MG) PO PRN (18:50)
[2022-10-11] MEDS ORDERED: LevoFLOXacin IV 750 MG in IV 1 EA IV SCH (20:00)
[2022-10-11 20:01] LABS: APPEARANCE, URINE CLEAR (CLEAR); BACTERIA, URINE AUTO NEGATIVE (NEGATIVE); BILIRUBIN, URINE AUTO NEGATIVE (NEGATIVE); BLOOD, URINE BLOOD NEGATIVE (NEGATIVE); COLOR, URINE YELLOW (YELLOW); GLUCOSE, URINE (UA) AUTO NEGATIVE (NEGATIVE); KETONE, URINE AUTO NEGATIVE (NEGATIVE); LEUKOCYTE ESTERASE, URINE AUTO NEGATIVE (NEGATIVE); NITRITE, URINE AUTO NEGATIVE (NEGATIVE); PROTEIN, URINE AUTO NEGATIVE (NEGATIVE); RBC, URINE AUTO 0 /HPF (0-3); SPECIFIC GRAVITY URINE AUTO 1.009 (1.002-1.035); SQUAMOUS EPITHELIAL CELL UR AU 0 /HPF (0-6); UROBILINOGEN, URINE AUTO 0.2 mg/dL (0.0-2.0); WBC, URINE AUTO 1 /HPF (0-3)
[2022-10-11] MEDS ORDERED: IPRATROPIUM 0.5MG/ALBUTEROL 2.5MG INH SOL UD 3ML (DUONEB) NEB PRN (21:00)
[2022-10-11 23:05] VITALS: TEMP 97.7; O2SAT 90
[2022-10-11] MEDS: NS 1,000 ML IV SCH (23:16)
[2022-10-12] MEDS ORDERED: HOME MED LIST COMPLETE! XX SCH (01:20)
[2022-10-12] MEDS ORDERED: CVS1CRE56 EXT (01:20)
[2022-10-12] MEDS: NS 1,000 ML IV SCH (05:24)
[2022-10-12] MEDS: LEVOTHYROXINE 112MCG TABLET (0.112MG) PO SCH (05:24)
[2022-10-12 06:00] VITALS: BP 103/55; TEMP 97.9; O2SAT 94
[2022-10-12 06:09] LABS: HEMATOCRIT 32.8 % (36.0-47.0); HEMOGLOBIN 10.7 g/dl (12.0-15.5); MEAN CORPUSCULAR HGB CONC 32.6 g/dl (32.0-36.5); MEAN CORPUSCULAR VOLUME 104.1 fl (80.0-96.0); PLATELET COUNT, AUTOMATED 191 10^3/uL (150-450); RED BLOOD COUNT 3.15 10^6/uL (4.00-5.40); WHITE BLOOD COUNT 5.9 10^3/uL (4.0-10.0)
[2022-10-12 06:40] LABS: PROCALCITONIN 0.17 ng/ml
[2022-10-12 07:14] LABS: ALBUMIN 2.5 G/DL (3.2-5.2); ALKALINE PHOSPHATASE 72 U/L (46-116); ALT/SGPT < 9 U/L (7.0-40); AST/SGOT 16 U/L (<34); BILIRUBIN,TOTAL 0.5 MG/DL (0.3-1.2); BLOOD UREA NITROGEN 10 MG/DL (9-23); CALCIUM LEVEL 7.6 MG/DL (8.3-10.6); CARBON DIOXIDE LEVEL 29 MMOL/L (20-31); CHLORIDE LEVEL 103 MMOL/L (98-107); CREATININE FOR GFR 0.76 MG/DL (0.55-1.30); GLOMERULAR FILTRATION RATE > 60.0 (>45); GLUCOSE, FASTING 102 MG/DL (74-106); MAGNESIUM LEVEL 1.8 MG/DL (1.8-2.4); POTASSIUM SERUM 3.8 MMOL/L (3.5-5.1); SODIUM LEVEL 137 MMOL/L (136-145); TOTAL PROTEIN 6.4 G/DL (5.7-8.2)
[2022-10-12] MEDS ORDERED: ISOVUE-370 76% 100ML VIAL As Ordered ONE (08:59)
[2022-10-12] MEDS ORDERED: FUROSEMIDE 20 MG TAB PO SCH (09:00)
[2022-10-12] MEDS: CitaloPRAM (CeleXA) 10 MG TABLET PO SCH (09:12)
[2022-10-12] MEDS: FERROUS SULFATE 325MG TAB PO SCH ×2 (09:12→20:51)
[2022-10-12] MEDS: ENOXAPARIN 40MG/0.4ML SYRINGE (J1650 PER 10MG) SC SCH (09:13)
[2022-10-12] MEDS: QUEtiapine FUMARATE 100 MG TAB PO SCH (09:13)
[2022-10-12] MEDS: LACTULOSE 20GM/30ML SYRUP UDC PO SCH ×2 (09:13→20:51)
[2022-10-12] MEDS: levETIRAcetam 250MG TABLET (KEPPRA) PO SCH ×2 (09:13→20:51)
[2022-10-12] MEDS: MIRALAX *UNIT DOSE* 17GM PACKET PO SCH (10:50)
[2022-10-12] MEDS ORDERED: BISACODYL 10MG SUPP PR ONE (11:00)
[2022-10-12 14:00] VITALS: BP 104/56; TEMP 97.7; O2SAT 96
[2022-10-12] MEDS ORDERED: LevoFLOXacin 750 MG TABLET PO SCH (20:00)
[2022-10-12 20:08] VITALS: BP 107/63; TEMP 97.9; O2SAT 93
[2022-10-12] MEDS ORDERED: DIVALPROEX 125 MG TAB PO SCH (21:00)
[2022-10-12] MEDS ORDERED: PANTOPRAZOLE 40MG TAB (PROTONIX) PO SCH (21:00)
[2022-10-12] MEDS ORDERED: SIMVASTATIN 20 MG TAB PO SCH (21:00)
[2022-10-12] MEDS ORDERED: QUEtiapine FUMARATE 100 MG TAB PO SCH (21:00)
[2022-10-12] MEDS ORDERED: CETIRIZINE (ZyrTEC) 10 MG TAB PO SCH (21:00)
[2022-10-13 05:25] LABS: HEMATOCRIT 31.8 % (36.0-47.0); HEMOGLOBIN 10.4 g/dl (12.0-15.5); MEAN CORPUSCULAR HEMOGLOBIN 34.2 pg (27.0-33.0); MEAN CORPUSCULAR HGB CONC 32.7 g/dl (32.0-36.5); MEAN CORPUSCULAR VOLUME 104.6 fl (80.0-96.0); PLATELET COUNT, AUTOMATED 189 10^3/uL (150-450); RED BLOOD COUNT 3.04 10^6/uL (4.00-5.40); WHITE BLOOD COUNT 5.8 10^3/uL (4.0-10.0)
[2022-10-13 05:44] LABS: BLOOD UREA NITROGEN 6 MG/DL (9-23); CALCIUM LEVEL 7.8 MG/DL (8.3-10.6); CARBON DIOXIDE LEVEL 29 MMOL/L (20-31); CHLORIDE LEVEL 105 MMOL/L (98-107); CREATININE FOR GFR 0.83 MG/DL (0.55-1.30); GLOMERULAR FILTRATION RATE > 60.0 (>45); GLUCOSE, FASTING 123 MG/DL (74-106); PHOSPHORUS LEVEL 3.7 MG/DL (2.4-5.1); POTASSIUM SERUM 3.7 MMOL/L (3.5-5.1); SODIUM LEVEL 140 MMOL/L (136-145)
[2022-10-13] MEDS: LEVOTHYROXINE 112MCG TABLET (0.112MG) PO SCH (06:38)
[2022-10-13] MEDS: FERROUS SULFATE 325MG TAB PO SCH (09:00)
[2022-10-13] MEDS: LACTULOSE 20GM/30ML SYRUP UDC PO SCH (09:00)
[2022-10-13] MEDS: ENOXAPARIN 40MG/0.4ML SYRINGE (J1650 PER 10MG) SC SCH (09:00)
[2022-10-13] MEDS: levETIRAcetam 250MG TABLET (KEPPRA) PO SCH (09:00)
[2022-10-13] MEDS: MIRALAX *UNIT DOSE* 17GM PACKET PO SCH (09:00)
[2022-10-13] MEDS: CitaloPRAM (CeleXA) 10 MG TABLET PO SCH (09:01)
[2022-10-13] MEDS: QUEtiapine FUMARATE 100 MG TAB PO SCH (09:01)
[2022-10-13] MEDS ORDERED: MIRA1POW3 PO (12:16)
[2022-10-13] MEDS ORDERED: LEVO1TAB40 PO (12:16)
[2022-10-13 17:07] LABS: MYCOPLASMA PNEUMONIAE IgG 366 U/mL (0-99); MYCOPLASMA PNEUMONIAE IgM <770 U/mL (0-769)
== END 2022-10-13 14:57 | disposition home or self-care (01) | DRG 177 ==
LOC: M ED 11:31 → EDBD 11:31 → M ED INP 18:50 → ENRESERV 22:14 → M MSPAV 22:57
PROVIDERS: ADMIT Internal Medicine; ATTEND Internal Medicine
DX: J69.0 Pneumonitis due to inhalation of food and vomit (principal); J96.21 Acute and chronic respiratory failure with hypoxia; N13.30 Unspecified hydronephrosis; F72 Severe intellectual disabilities; R32 Unspecified urinary incontinence; G30.9 Alzheimer's disease, unspecified; D50.9 Iron deficiency anemia, unspecified; Q90.9 Down syndrome, unspecified; E78.5 Hyperlipidemia, unspecified; K21.9 Gastro-esophageal reflux disease without esophagitis; F32.A Depression, unspecified; E03.9 Hypothyroidism, unspecified; R13.10 Dysphagia, unspecified; G40.909 Epilepsy, unspecified, not intractable, without status epilepticus; K59.00 Constipation, unspecified; Z79.899 Other long term (current) drug therapy; Z88.0 Allergy status to penicillin

== ENCOUNTER 2022-11-16 10:47 | Inpatient (IN) | payer MEDICARE, MEDICAID ==
[~2022-11-16] VITALS: Ht 132.1 cm; Wt 76.3 kg
[~2022-11-16 10:47] MED LIST changes: +CVS1CRE56 EXT; +MIRA1POW3 PO
[2022-11-16] MEDS ORDERED: IPRATROPIUM 0.5MG/ALBUTEROL 2.5MG INH SOL UD 3ML (DUONEB) NEB ONE (10:55)
[2022-11-16] MEDS ORDERED: ALBUTEROL SULFATE 2.5MG/0.5ML INH NEB SOLN INH ONE (10:55)
[2022-11-16] MEDS ORDERED: methylPREDNISolone 125MG 2ML VIAL IV ONE (10:55)
[2022-11-16 11:32] LABS: VENOUS BASE EXCESS 2.5 (-2.0-2.0); VENOUS HCO3 29.6 MMOL/L (23.0-27.0); VENOUS O2 SATURATION 86.6 % (60.0-80.0); VENOUS PARTIAL PRESSURE CO2 56.5 mmHg (38.0-50.0); VENOUS PARTIAL PRESSURE O2 56.2 mmHg (30.0-50.0); VENOUS PH 7.337 UNITS (7.330-7.430); VENOUS STANDARD HCO3 26.4 MMOL/L; VENOUS TOTAL CO2 31.3 MMOL/L (24.0-28.0)
[2022-11-16 11:47] LABS: BASO % 0.2 % (0.0-1.0); EOS % 0.1 % (0.0-3.0); HEMATOCRIT 33.3 % (36.0-47.0); LYMPH # 0.5 10^3/uL (1.5-5.0); LYMPH % 3.4 % (24.0-44.0); MEAN CORPUSCULAR VOLUME 102.8 fl (80.0-96.0); MONO # 0.7 10^3/uL (0.0-0.8); MONO % 5.1 % (2.0-8.0); NEUTROPHILS # 12.1 10^3/uL (1.5-8.5); NEUTROPHILS % 90.7 % (36.0-66.0); PLATELET COUNT, AUTOMATED 227 10^3/uL (150-450); RED BLOOD COUNT 3.24 10^6/uL (4.00-5.40); WHITE BLOOD COUNT 13.4 10^3/uL (4.0-10.0)
[2022-11-16 12:03] LABS: ALBUMIN 2.7 G/DL (3.2-5.2); ALKALINE PHOSPHATASE 85 U/L (46-116); ALT/SGPT 11 U/L (7.0-40); AST/SGOT 32 U/L (<34); BILIRUBIN,DIRECT < 0.1 MG/DL (<0.4); BILIRUBIN,TOTAL 0.4 MG/DL (0.3-1.2); BLOOD UREA NITROGEN 9 MG/DL (9-23); CALCIUM LEVEL 8.5 MG/DL (8.3-10.6); CARBON DIOXIDE LEVEL 29 MMOL/L (20-31); CHLORIDE LEVEL 99 MMOL/L (98-107); CK-MB VALUE MASS < 1.0 NG/ML (<3.6); CREATININE FOR GFR 0.65 MG/DL (0.55-1.30); GLOMERULAR FILTRATION RATE > 60.0 (>45); GLUCOSE, FASTING 118 MG/DL (74-106); POTASSIUM SERUM 4.9 MMOL/L (3.5-5.1); SODIUM LEVEL 137 MMOL/L (136-145); TOTAL PROTEIN 7.1 G/DL (5.7-8.2)
[2022-11-16 12:06] LABS: THYROXINE (T4) 4.6 UG/DL (4.5-10.9)
[2022-11-16 12:15] LABS: PROCALCITONIN 0.36 ng/ml
[2022-11-16 12:18] LABS: CPK CREATINE PHOSPHOKINASE 40 U/L (34-145)
[2022-11-16 13:17] LABS: CK-MB VALUE MASS < 1.0 NG/ML (<3.6)
[2022-11-16 13:19] LABS: CPK CREATINE PHOSPHOKINASE 38 U/L (34-145); MB/CK RELATIVE INDEX 2.63 (< OR =4)
[2022-11-16] MEDS ORDERED: NS 1,000 ML IV ONE (14:05)
[2022-11-16] MEDS: LevoFLOXacin 750 MG TABLET PO ONE ×2 (14:13→14:37)
[2022-11-16] MEDS ORDERED: MED REC IN PROGRESS XX SCH (14:40)
[2022-11-16] MEDS ORDERED: GLUCAGON INJ 1MG VIAL SC PRN (15:00)
[2022-11-16] MEDS ORDERED: ACETAMINOPHEN TAB 650MG DOSE (2X325MG) PO PRN (15:00)
[2022-11-16] MEDS ORDERED: GLUCOSE 4GM CHEW TABLET PO PRN (15:00)
[2022-11-16] MEDS ORDERED: DEXTROSE 50% 50ML SYRINGE IV PRN (15:00)
[2022-11-16] MEDS ORDERED: ISOVUE-370 76% 100ML VIAL As Ordered ONE (15:22)
[2022-11-16] MEDS ORDERED: TRIA1CR80 TOP (16:46)
[2022-11-16] MEDS ORDERED: IBUPROFEN 400MG TAB PO PRN (17:00)
[2022-11-16] MEDS ORDERED: SENNA 8.6 MG TAB (SENOKOT) PO PRN (17:00)
[2022-11-16] MEDS ORDERED: VANCOMYCIN HCL 750 MG, VIAL MATE ADAPTER 1 EACH in D5W 250 ML IV ONE ×6 (17:00)
[2022-11-16] MEDS: LR 1,000 ML IV SCH (17:28)
[2022-11-16] MEDS: cefTRIAXone SOD 1 GM in D5W MINI-BAG PLUS 50 ML IV SCH (17:31)
[2022-11-16] MEDS ORDERED: HOME MED LIST COMPLETE! XX SCH (17:45)
[2022-11-16 19:02] VITALS: O2SAT 98
[2022-11-16] MEDS: SODIUM CHLORIDE HYPERTONIC 3% 4ML NEB SOL INH SCH (19:02)
[2022-11-16] MEDS: ALBUTEROL SULFATE 2.5MG/0.5ML INH NEB SOLN INH SCH (19:02)
[2022-11-16] MEDS: CLOTRIMAZOLE 1% TOPICAL CREAM 30GM EXT SCH (21:00)
[2022-11-16] MEDS: SIMVASTATIN 20 MG TAB PO SCH (21:00)
[2022-11-16] MEDS: CALCIUM/VITAMIN D 500 MG TAB PO SCH (21:00)
[2022-11-16] MEDS: FERROUS SULFATE 325MG TAB PO SCH (21:00)
[2022-11-16] MEDS: CETIRIZINE (ZyrTEC) 10 MG TAB PO SCH (21:00)
[2022-11-16] MEDS: levETIRAcetam 250MG TABLET (KEPPRA) PO SCH (21:00)
[2022-11-16] MEDS: TRIAMCINOLONE ACET 0.1% CREAM 80GM TOP SCH (21:00)
[2022-11-16] MEDS: DIVALPROEX 125 MG TAB PO SCH (21:00)
[2022-11-16] MEDS: DOCUSATE SOD LIQ 100MG/10ML UDC PO SCH (21:00)
[2022-11-16] MEDS: LACTULOSE 20GM/30ML SYRUP UDC PO SCH (21:00)
[2022-11-16] MEDS: QUEtiapine FUMARATE 200 MG TAB PO SCH (21:00)
[2022-11-16] MEDS: QUEtiapine FUMARATE 100 MG TAB PO SCH (21:00)
[2022-11-16 21:35] VITALS: BP 137/82; TEMP 97.2; O2SAT 92
[2022-11-16] MEDS: metroNIDAZOLE 500 MG in IV 1 EA IV SCH (22:55)
[2022-11-17] VITALS (23 sets, daily range): BP systolic 104–143; BP diastolic 55–80; TEMP 96.1–98; O2SAT 81–98
[2022-11-17] MEDS ORDERED: levETIRAcetam INJection 1,000 MG in D5W 100 ML IV ONE ×2
[2022-11-17] MEDS ORDERED: VALPROATE SOD INJ 125 MG in D5W 50 ML IV ONE ×2
[2022-11-17] MEDS: SODIUM CHLORIDE HYPERTONIC 3% 4ML NEB SOL INH SCH ×2 (01:57→08:24)
[2022-11-17] MEDS: ALBUTEROL SULFATE 2.5MG/0.5ML INH NEB SOLN INH SCH ×4 (01:57→20:27)
[2022-11-17] MEDS ORDERED: VANCOMYCIN HCL 750 MG, VIAL MATE ADAPTER 1 EACH in D5W 250 ML IV SCH (03:00)
[2022-11-17] MEDS: metroNIDAZOLE 500 MG in IV 1 EA IV SCH ×3 (05:37→21:45)
[2022-11-17 06:36] LABS: BASO % 0.1 % (0.0-1.0); HEMATOCRIT 33.6 % (36.0-47.0); HEMOGLOBIN 11.1 g/dl (12.0-15.5); LYMPH # 0.5 10^3/uL (1.5-5.0); LYMPH % 4.5 % (24.0-44.0); MEAN CORPUSCULAR HEMOGLOBIN 34.4 pg (27.0-33.0); MONO # 0.2 10^3/uL (0.0-0.8); MONO % 1.4 % (2.0-8.0); NEUTROPHILS # 10.7 10^3/uL (1.5-8.5); NEUTROPHILS % 93.4 % (36.0-66.0); PLATELET COUNT, AUTOMATED 239 10^3/uL (150-450); RED BLOOD COUNT 3.23 10^6/uL (4.00-5.40); WHITE BLOOD COUNT 11.5 10^3/uL (4.0-10.0)
[2022-11-17] MEDS: LEVOTHYROXINE 112MCG TABLET (0.112MG) PO SCH (06:49)
[2022-11-17 07:08] LABS: BLOOD UREA NITROGEN 9 MG/DL (9-23); CALCIUM LEVEL 8.5 MG/DL (8.3-10.6); CARBON DIOXIDE LEVEL 25 MMOL/L (20-31); CHLORIDE LEVEL 103 MMOL/L (98-107); CREATININE FOR GFR 0.46 MG/DL (0.55-1.30); GLOMERULAR FILTRATION RATE > 60.0 (>45); GLUCOSE, FASTING 122 MG/DL (74-106); POTASSIUM SERUM 4.5 MMOL/L (3.5-5.1); SODIUM LEVEL 141 MMOL/L (136-145)
[2022-11-17] MEDS ORDERED: LR 1,000 ML IV ONE (07:15)
[2022-11-17] MEDS: LR 1,000 ML IV SCH ×2 (07:46→21:46)
[2022-11-17] MEDS: levETIRAcetam 250MG TABLET (KEPPRA) PO SCH ×3 (09:23→21:44)
[2022-11-17] MEDS: CALCIUM/VITAMIN D 500 MG TAB PO SCH ×2 (09:23→21:44)
[2022-11-17] MEDS: FERROUS SULFATE 325MG TAB PO SCH ×2 (09:24→21:44)
[2022-11-17] MEDS: ENOXAPARIN 40MG/0.4ML SYRINGE (J1650 PER 10MG) SC SCH (09:24)
[2022-11-17] MEDS: PANTOPRAZOLE 40MG VIAL IV SCH (09:24)
[2022-11-17] MEDS: LACTULOSE 20GM/30ML SYRUP UDC PO SCH ×2 (09:24→21:46)
[2022-11-17] MEDS: MULTIVITAMINS/MINERALS THERAP 1 TAB PO SCH (09:24)
[2022-11-17] MEDS: QUEtiapine FUMARATE 200 MG TAB PO SCH ×2 (09:33→21:45)
[2022-11-17] MEDS: DOCUSATE SOD LIQ 100MG/10ML UDC PO SCH ×2 (09:33→22:02)
[2022-11-17] MEDS: CLOTRIMAZOLE 1% TOPICAL CREAM 30GM EXT SCH ×2 (12:06→21:45)
[2022-11-17] MEDS: CitaloPRAM (CeleXA) 10 MG TABLET PO SCH (12:06)
[2022-11-17] MEDS: TRIAMCINOLONE ACET 0.1% CREAM 80GM TOP SCH ×2 (12:07→21:45)
[2022-11-17] MEDS: SODIUM CHLORIDE HYPERTONIC 3% 15ML NEB SOL INH SCH ×2 (13:50→20:27)
[2022-11-17] MEDS: VANCOMYCIN HCL 1,000 MG, VIAL MATE ADAPTER 1 EACH in D5W 250 ML IV SCH (15:16)
[2022-11-17] MEDS: cefTRIAXone SOD 1 GM in D5W MINI-BAG PLUS 50 ML IV SCH (17:09)
[2022-11-17] MEDS: QUEtiapine FUMARATE 100 MG TAB PO SCH (21:44)
[2022-11-17] MEDS: DIVALPROEX 125 MG TAB PO SCH (21:44)
[2022-11-17] MEDS: CETIRIZINE (ZyrTEC) 10 MG TAB PO SCH (21:45)
[2022-11-17] MEDS: SIMVASTATIN 20 MG TAB PO SCH (21:45)
[2022-11-18] VITALS (12 sets, daily range): BP systolic 98–157; BP diastolic 54–72; TEMP 97.2–97.5; O2SAT 93–100
[2022-11-18] MEDS: ALBUTEROL SULFATE 2.5MG/0.5ML INH NEB SOLN INH SCH ×2 (02:17→08:41)
[2022-11-18] MEDS: metroNIDAZOLE 500 MG in IV 1 EA IV SCH ×2 (03:34→12:01)
[2022-11-18] MEDS: VANCOMYCIN HCL 1,000 MG, VIAL MATE ADAPTER 1 EACH in D5W 250 ML IV SCH (03:35)
[2022-11-18] MEDS: LEVOTHYROXINE 112MCG TABLET (0.112MG) PO SCH (05:46)
[2022-11-18 07:56] LABS: BLOOD UREA NITROGEN 6 MG/DL (9-23); CALCIUM LEVEL 7.9 MG/DL (8.3-10.6); CARBON DIOXIDE LEVEL 31 MMOL/L (20-31); CHLORIDE LEVEL 105 MMOL/L (98-107); CREATININE FOR GFR 0.52 MG/DL (0.55-1.30); GLOMERULAR FILTRATION RATE > 60.0 (>45); GLUCOSE, FASTING 84 MG/DL (74-106); MAGNESIUM LEVEL 1.8 MG/DL (1.8-2.4); POTASSIUM SERUM 4.3 MMOL/L (3.5-5.1); SODIUM LEVEL 141 MMOL/L (136-145)
[2022-11-18] MEDS: SODIUM CHLORIDE HYPERTONIC 3% 15ML NEB SOL INH SCH (08:42)
[2022-11-18 08:43] LABS: BASO % 0.3 % (0.0-1.0); EOS % 0.7 % (0.0-3.0); HEMATOCRIT 30.6 % (36.0-47.0); HEMOGLOBIN 9.9 g/dl (12.0-15.5); LYMPH # 0.4 10^3/uL (1.5-5.0); LYMPH % 6.8 % (24.0-44.0); MEAN CORPUSCULAR HEMOGLOBIN 33.9 pg (27.0-33.0); MEAN CORPUSCULAR HGB CONC 32.4 g/dl (32.0-36.5); MEAN CORPUSCULAR VOLUME 104.8 fl (80.0-96.0); MONO # 0.5 10^3/uL (0.0-0.8); NEUTROPHILS % 82.7 % (36.0-66.0); PLATELET COUNT, AUTOMATED 223 10^3/uL (150-450); RED BLOOD COUNT 2.92 10^6/uL (4.00-5.40)
[2022-11-18] MEDS: DOCUSATE SOD LIQ 100MG/10ML UDC PO SCH ×2 (09:00→13:44)
[2022-11-18] MEDS: LR 1,000 ML IV SCH (09:00)
[2022-11-18] MEDS: LACTULOSE 20GM/30ML SYRUP UDC PO SCH (09:52)
[2022-11-18] MEDS: CitaloPRAM (CeleXA) 10 MG TABLET PO SCH (09:53)
[2022-11-18] MEDS: CALCIUM/VITAMIN D 500 MG TAB PO SCH (09:53)
[2022-11-18] MEDS: levETIRAcetam 250MG TABLET (KEPPRA) PO SCH (09:53)
[2022-11-18] MEDS: MULTIVITAMINS/MINERALS THERAP 1 TAB PO SCH (09:53)
[2022-11-18] MEDS: QUEtiapine FUMARATE 200 MG TAB PO SCH (09:53)
[2022-11-18] MEDS: FERROUS SULFATE 325MG TAB PO SCH (09:54)
[2022-11-18] MEDS: TRIAMCINOLONE ACET 0.1% CREAM 80GM TOP SCH (09:55)
[2022-11-18] MEDS: CLOTRIMAZOLE 1% TOPICAL CREAM 30GM EXT SCH (09:55)
[2022-11-18] MEDS: PANTOPRAZOLE 40MG VIAL IV SCH (09:55)
[2022-11-18] MEDS: ENOXAPARIN 40MG/0.4ML SYRINGE (J1650 PER 10MG) SC SCH (09:56)
[2022-11-18] MEDS ORDERED: DOXY-444 PO (13:15)
[2022-11-18] MEDS ORDERED: CEFD300C41 PO (13:15)
[2022-11-18] MEDS ORDERED: METR-265 PO (13:15)
[2022-11-21] MEDS ORDERED: CARBAMIDE PEROXIDE 6.5% OTIC SOLN 15ML AU SCH (21:00)
== END 2022-11-18 15:46 | disposition home or self-care (01) | DRG 177 ==
LOC: EDBD 10:47 → M ED 10:47 → M ED INP 14:59 → M PCU 20:59
PROVIDERS: ADMIT Internal Medicine; ATTEND Internal Medicine
DX: J69.0 Pneumonitis due to inhalation of food and vomit (principal); J96.21 Acute and chronic respiratory failure with hypoxia; J45.909 Unspecified asthma, uncomplicated; E03.9 Hypothyroidism, unspecified; F60.3 Borderline personality disorder; D64.9 Anemia, unspecified; G40.909 Epilepsy, unspecified, not intractable, without status epilepticus; F79 Unspecified intellectual disabilities; F41.8 Other specified anxiety disorders; Q90.9 Down syndrome, unspecified; K59.09 Other constipation; E78.5 Hyperlipidemia, unspecified; K21.9 Gastro-esophageal reflux disease without esophagitis; Z99.81 Dependence on supplemental oxygen; F32.A Depression, unspecified; Z88.0 Allergy status to penicillin; Z88.8 Allergy status to other drugs, medicaments and biological substances; Z79.899 Other long term (current) drug therapy

== ENCOUNTER 2022-11-18 23:42 | Emergency (ER) | payer MEDICARE, MEDICAID ==
[~2022-11-18] VITALS: Ht 154.9 cm; Wt 88.0 kg
[~2022-11-18 23:42] MED LIST changes: +DOXY-444 PO; +TRIA1CR80 TOP
[2022-11-19] MEDS ORDERED: NS 1,000 ML IV ONE
[2022-11-19 00:46] LABS: BASO % 0.6 % (0.0-1.0); EOS # 0.1 10^3/uL (0.0-0.5); EOS % 2.1 % (0.0-3.0); HEMATOCRIT 29.8 % (36.0-47.0); HEMOGLOBIN 9.9 g/dl (12.0-15.5); LYMPH # 0.6 10^3/uL (1.5-5.0); LYMPH % 10.7 % (24.0-44.0); MEAN CORPUSCULAR HEMOGLOBIN 34.5 pg (27.0-33.0); MEAN CORPUSCULAR HGB CONC 33.2 g/dl (32.0-36.5); MEAN CORPUSCULAR VOLUME 103.8 fl (80.0-96.0); MONO # 0.6 10^3/uL (0.0-0.8); MONO % 11.6 % (2.0-8.0); NEUTROPHILS % 74.8 % (36.0-66.0); PLATELET COUNT, AUTOMATED 238 10^3/uL (150-450); RED BLOOD COUNT 2.87 10^6/uL (4.00-5.40); WHITE BLOOD COUNT 5.3 10^3/uL (4.0-10.0)
[2022-11-19 01:10] LABS: BLOOD UREA NITROGEN 8 MG/DL (9-23); CALCIUM LEVEL 7.9 MG/DL (8.3-10.6); CARBON DIOXIDE LEVEL 31 MMOL/L (20-31); CHLORIDE LEVEL 106 MMOL/L (98-107); CREATININE FOR GFR 0.57 MG/DL (0.55-1.30); GLOMERULAR FILTRATION RATE > 60.0 (>45); GLUCOSE, FASTING 100 MG/DL (74-106); POTASSIUM SERUM 4.4 MMOL/L (3.5-5.1); SODIUM LEVEL 143 MMOL/L (136-145)
[2022-11-19 08:11] VITALS: BP 162/91; TEMP 97.4; O2SAT 98
[2022-11-20] MEDS ORDERED: ALBU1.25 INH (09:53)
[2022-11-20] MEDS ORDERED: TRIA1CR80 TOP (09:53)
[2022-11-20] MEDS ORDERED: METR-265 PO (09:53)
[2022-11-20] MEDS ORDERED: CEFD300C41 PO (09:53)
== END 2022-11-19 08:47 | disposition home or self-care (01) ==
LOC: EDBD 23:42 → M ED 23:42
DX: J18.9 Pneumonia, unspecified organism (principal); L23.9 Allergic contact dermatitis, unspecified cause; Z88.0 Allergy status to penicillin; Z88.1 Allergy status to other antibiotic agents; Z88.8 Allergy status to other drugs, medicaments and biological substances; Z79.52 Long term (current) use of systemic steroids; Z79.810 Long term (current) use of selective estrogen receptor modulators (SERMs); Z79.899 Other long term (current) drug therapy

== ENCOUNTER 2022-11-20 06:16 | Inpatient (IN) | payer MEDICARE, MEDICAID ==
[~2022-11-20] VITALS: Ht 147.3 cm; Wt 76.9 kg
[2022-11-20] MEDS ORDERED: IPRATROPIUM 0.5MG/ALBUTEROL 2.5MG INH SOL UD 3ML (DUONEB) NEB ONE (06:30)
[2022-11-20 06:52] LABS: BASO % 0.3 % (0.0-1.0); EOS # 0.2 10^3/uL (0.0-0.5); EOS % 2.1 % (0.0-3.0); HEMATOCRIT 32.4 % (36.0-47.0); HEMOGLOBIN 10.4 g/dl (12.0-15.5); LYMPH # 0.3 10^3/uL (1.5-5.0); LYMPH % 4.1 % (24.0-44.0); MEAN CORPUSCULAR HEMOGLOBIN 33.5 pg (27.0-33.0); MEAN CORPUSCULAR HGB CONC 32.1 g/dl (32.0-36.5); MEAN CORPUSCULAR VOLUME 104.5 fl (80.0-96.0); MONO # 0.5 10^3/uL (0.0-0.8); MONO % 5.9 % (2.0-8.0); NEUTROPHILS % 87.3 % (36.0-66.0); PLATELET COUNT, AUTOMATED 236 10^3/uL (150-450)
[2022-11-20 07:28] LABS: ALBUMIN 2.5 G/DL (3.2-5.2); ALKALINE PHOSPHATASE 62 U/L (46-116); ALT/SGPT < 9 U/L (7.0-40); AST/SGOT 37 U/L (<34); BILIRUBIN,DIRECT < 0.1 MG/DL (<0.4); BILIRUBIN,TOTAL 0.4 MG/DL (0.3-1.2); BLOOD UREA NITROGEN < 5 MG/DL (9-23); CARBON DIOXIDE LEVEL 30 MMOL/L (20-31); CHLORIDE LEVEL 101 MMOL/L (98-107); CK-MB VALUE MASS < 1.0 NG/ML (<3.6); CPK CREATINE PHOSPHOKINASE 53 U/L (34-145); CREATININE FOR GFR 0.55 MG/DL (0.55-1.30); GLOMERULAR FILTRATION RATE > 60.0 (>45); GLUCOSE, FASTING 102 MG/DL (74-106); MB/CK RELATIVE INDEX 1.88 (< OR =4); POTASSIUM SERUM 5.1 MMOL/L (3.5-5.1); SODIUM LEVEL 139 MMOL/L (136-145); TOTAL PROTEIN 6.4 G/DL (5.7-8.2)
[2022-11-20 07:28] LABS: VENOUS BASE EXCESS 6.9 (-2.0-2.0); VENOUS HCO3 30.9 MMOL/L (23.0-27.0); VENOUS O2 SATURATION 99.3 % (60.0-80.0); VENOUS PARTIAL PRESSURE CO2 41.6 mmHg (38.0-50.0); VENOUS PARTIAL PRESSURE O2 244.9 mmHg (30.0-50.0); VENOUS PH 7.489 UNITS (7.330-7.430); VENOUS STANDARD HCO3 30.8 MMOL/L; VENOUS TOTAL CO2 32.2 MMOL/L (24.0-28.0)
[2022-11-20 08:01] LABS: CK-MB VALUE MASS < 1.0 NG/ML (<3.6)
[2022-11-20 08:05] LABS: CPK CREATINE PHOSPHOKINASE 41 U/L (34-145); MB/CK RELATIVE INDEX 2.43 (< OR =4)
[2022-11-20] MEDS ORDERED: MED REC IN PROGRESS XX SCH (09:20)
[2022-11-20] MEDS ORDERED: ACETAMINOPHEN 500 MG TAB PO ONE (09:40)
[2022-11-20] MEDS ORDERED: ALBU1.25 INH (09:53)
[2022-11-20] MEDS ORDERED: TRIA1CR80 TOP (09:53)
[2022-11-20] MEDS ORDERED: CEFD300C41 PO (09:53)
[2022-11-20] MEDS ORDERED: METR-265 PO (09:53)
[2022-11-20] MEDS ORDERED: cefTRIAXone SOD 2 GM in D5W MINI-BAG PLUS 50 ML IV ONE (09:55)
[2022-11-20] MEDS ORDERED: HOME MED LIST COMPLETE! XX SCH (09:55)
[2022-11-20] MEDS ORDERED: CLOTRIMAZOLE 1% TOPICAL CREAM 30GM EXT PRN (10:50)
[2022-11-20] MEDS ORDERED: SENNA 8.6 MG TAB (SENOKOT) PO PRN (10:50)
[2022-11-20] MEDS ORDERED: TRIAMCINOLONE ACET 0.1% CREAM 80GM TOP PRN (10:50)
[2022-11-20] MEDS ORDERED: ALBUTEROL SULFATE 2.5MG/0.5ML INH NEB SOLN INH PRN (10:50)
[2022-11-20] MEDS ORDERED: IBUPROFEN 100MG 5ML ORAL SUSP UDC PO PRN (10:50)
[2022-11-20 11:17] LABS: PROCALCITONIN 0.14 ng/ml
[2022-11-20] MEDS: LACTULOSE 20GM/30ML SYRUP UDC PO SCH ×2 (11:18→20:16)
[2022-11-20] MEDS: DOCUSATE SOD LIQ 100MG/10ML UDC PO SCH ×2 (11:19→20:16)
[2022-11-20] MEDS: MIRALAX *UNIT DOSE* 17GM PACKET PO SCH ×2 (11:19→20:17)
[2022-11-20] MEDS: QUEtiapine FUMARATE 200 MG TAB PO SCH ×2 (11:27→20:17)
[2022-11-20] MEDS: levETIRAcetam 250MG TABLET (KEPPRA) PO SCH ×2 (11:28→20:17)
[2022-11-20] MEDS: MULTIVITAMINS/MINERALS THERAP 1 TAB PO SCH (11:28)
[2022-11-20] MEDS: FERROUS SULFATE 325MG TAB PO SCH ×2 (11:28→20:17)
[2022-11-20] MEDS: CitaloPRAM (CeleXA) 10 MG TABLET PO SCH (11:28)
[2022-11-20] MEDS: HEPARIN SOD (PORCINE) 5000UNITS/ML 1ML VIAL/SYRINGE SC SCH ×2 (11:29→20:16)
[2022-11-20] MEDS: FUROSEMIDE 20 MG TAB PO SCH (11:29)
[2022-11-20] MEDS: ALBUTEROL SULFATE 2.5MG/0.5ML INH NEB SOLN INH SCH ×2 (11:38→19:08)
[2022-11-20 11:42] VITALS: O2SAT 95
[2022-11-20] MEDS: metroNIDAZOLE 500 MG in IV 1 EA IV SCH ×2 (11:53→20:16)
[2022-11-20 12:00] VITALS: BP 113/64; TEMP 98.2; O2SAT 96
[2022-11-20 14:00] VITALS: BP 104/60; TEMP 97.7; O2SAT 97
[2022-11-20] MEDS ORDERED: ACETAMINOPHEN TAB 650MG DOSE (2X325MG) PO PRN (14:00)
[2022-11-20] MEDS: QUEtiapine FUMARATE 100 MG TAB PO SCH (20:16)
[2022-11-20] MEDS: CETIRIZINE (ZyrTEC) 10 MG TAB PO SCH (20:16)
[2022-11-20] MEDS: PANTOPRAZOLE 40MG TAB (PROTONIX) PO SCH (20:17)
[2022-11-20] MEDS: SIMVASTATIN 20 MG TAB PO SCH (20:17)
[2022-11-20] MEDS: DIVALPROEX 125 MG TAB PO SCH (20:17)
[2022-11-20 22:00] VITALS: BP 108/58; TEMP 98.2; O2SAT 91; O2SAT 94
[2022-11-21] MEDS ORDERED: NYSTATIN 100,000 UNITS/GM TOPICAL PWD 15GM TOP PRN (03:50)
[2022-11-21] MEDS: metroNIDAZOLE 500 MG in IV 1 EA IV SCH ×3 (04:23→19:49)
[2022-11-21] MEDS: LEVOTHYROXINE 112MCG TABLET (0.112MG) PO SCH (05:58)
[2022-11-21 06:00] LABS: HEMATOCRIT 30.4 % (36.0-47.0); HEMOGLOBIN 9.8 g/dl (12.0-15.5); MEAN CORPUSCULAR HEMOGLOBIN 34.3 pg (27.0-33.0); MEAN CORPUSCULAR HGB CONC 32.2 g/dl (32.0-36.5); MEAN CORPUSCULAR VOLUME 106.3 fl (80.0-96.0); PLATELET COUNT, AUTOMATED 218 10^3/uL (150-450); RED BLOOD COUNT 2.86 10^6/uL (4.00-5.40); WHITE BLOOD COUNT 5.3 10^3/uL (4.0-10.0)
[2022-11-21 06:20] VITALS: BP 102/70; TEMP 97.7; O2SAT 95
[2022-11-21 06:35] LABS: BLOOD UREA NITROGEN < 5 MG/DL (9-23); CALCIUM LEVEL 7.6 MG/DL (8.3-10.6); CARBON DIOXIDE LEVEL 34 MMOL/L (20-31); CHLORIDE LEVEL 105 MMOL/L (98-107); CREATININE FOR GFR 0.64 MG/DL (0.55-1.30); GLOMERULAR FILTRATION RATE > 60.0 (>45); GLUCOSE, FASTING 110 MG/DL (74-106); POTASSIUM SERUM 4.1 MMOL/L (3.5-5.1); SODIUM LEVEL 145 MMOL/L (136-145)
[2022-11-21] MEDS: ALBUTEROL SULFATE 2.5MG/0.5ML INH NEB SOLN INH SCH ×2 (07:23→20:36)
[2022-11-21] MEDS ORDERED: SODIUM CHLORIDE HYPERTONIC 3% 4ML NEB SOL INH SCH (08:00)
[2022-11-21] MEDS: LACTULOSE 20GM/30ML SYRUP UDC PO SCH ×2 (08:56→19:58)
[2022-11-21] MEDS: levETIRAcetam 250MG TABLET (KEPPRA) PO SCH ×2 (08:56→19:54)
[2022-11-21] MEDS: FUROSEMIDE 20 MG TAB PO SCH (08:56)
[2022-11-21] MEDS: MULTIVITAMINS/MINERALS THERAP 1 TAB PO SCH (08:56)
[2022-11-21] MEDS: DOCUSATE SOD LIQ 100MG/10ML UDC PO SCH ×2 (08:56→19:58)
[2022-11-21] MEDS: HEPARIN SOD (PORCINE) 5000UNITS/ML 1ML VIAL/SYRINGE SC SCH ×2 (08:56→19:54)
[2022-11-21] MEDS: QUEtiapine FUMARATE 200 MG TAB PO SCH ×2 (08:56→19:57)
[2022-11-21] MEDS: FERROUS SULFATE 325MG TAB PO SCH ×2 (08:56→19:55)
[2022-11-21] MEDS: CitaloPRAM (CeleXA) 10 MG TABLET PO SCH (08:56)
[2022-11-21] MEDS: MIRALAX *UNIT DOSE* 17GM PACKET PO SCH ×2 (08:57→19:52)
[2022-11-21] MEDS: cefTRIAXone SOD 1 GM in D5W MINI-BAG PLUS 50 ML IV SCH (09:46)
[2022-11-21] MEDS: ALBUTEROL SULFATE 2.5MG/0.5ML INH NEB SOLN INH PRN ×2 (11:14→15:15)
[2022-11-21] MEDS: SODIUM CHLORIDE HYPERTONIC 3% 15ML NEB SOL INH SCH ×3 (11:14→20:35)
[2022-11-21 14:00] VITALS: BP 100/62; TEMP 98.1; O2SAT 87
[2022-11-21] MEDS: DIVALPROEX 125 MG TAB PO SCH (19:54)
[2022-11-21] MEDS: CETIRIZINE (ZyrTEC) 10 MG TAB PO SCH (19:55)
[2022-11-21] MEDS: QUEtiapine FUMARATE 100 MG TAB PO SCH (19:57)
[2022-11-21] MEDS: SIMVASTATIN 20 MG TAB PO SCH (19:57)
[2022-11-21] MEDS: PANTOPRAZOLE 40MG TAB (PROTONIX) PO SCH (19:58)
[2022-11-21 20:00] VITALS: BP 111/62; TEMP 98.8; O2SAT 91
[2022-11-21] MEDS ORDERED: CARBAMIDE PEROXIDE 6.5% OTIC SOLN 15ML AU SCH (21:00)
[2022-11-22] MEDS: SODIUM CHLORIDE HYPERTONIC 3% 15ML NEB SOL INH SCH ×4 (00:12→11:25)
[2022-11-22] MEDS: ALBUTEROL SULFATE 2.5MG/0.5ML INH NEB SOLN INH PRN ×3 (00:13→11:25)
[2022-11-22] MEDS: metroNIDAZOLE 500 MG in IV 1 EA IV SCH (04:57)
[2022-11-22] MEDS: LEVOTHYROXINE 112MCG TABLET (0.112MG) PO SCH (05:39)
[2022-11-22 06:00] VITALS: BP 105/55; TEMP 98.1; O2SAT 95
[2022-11-22] MEDS: ALBUTEROL SULFATE 2.5MG/0.5ML INH NEB SOLN INH SCH (07:25)
[2022-11-22] MEDS: DOCUSATE SOD LIQ 100MG/10ML UDC PO SCH (09:00)
[2022-11-22] MEDS: LACTULOSE 20GM/30ML SYRUP UDC PO SCH (09:00)
[2022-11-22] MEDS: MIRALAX *UNIT DOSE* 17GM PACKET PO SCH (09:00)
[2022-11-22] MEDS: CitaloPRAM (CeleXA) 10 MG TABLET PO SCH (09:33)
[2022-11-22] MEDS: FERROUS SULFATE 325MG TAB PO SCH (09:33)
[2022-11-22] MEDS: HEPARIN SOD (PORCINE) 5000UNITS/ML 1ML VIAL/SYRINGE SC SCH (09:33)
[2022-11-22] MEDS: QUEtiapine FUMARATE 200 MG TAB PO SCH (09:33)
[2022-11-22] MEDS: MULTIVITAMINS/MINERALS THERAP 1 TAB PO SCH (09:33)
[2022-11-22] MEDS: levETIRAcetam 250MG TABLET (KEPPRA) PO SCH (09:33)
[2022-11-22] MEDS: FUROSEMIDE 20 MG TAB PO SCH (09:34)
[2022-11-22] MEDS ORDERED: DOXY100C82 PO (09:39)
[2022-11-22] MEDS ORDERED: METR-265 PO (09:39)
[2022-11-22] MEDS: cefTRIAXone SOD 1 GM in D5W MINI-BAG PLUS 50 ML IV SCH (09:50)
== END 2022-11-22 12:00 | disposition home or self-care (01) | DRG 178 ==
LOC: M ED 06:16 → M ED INP 10:44 → ENRESERV 11:46 → M MSPAV 12:18
PROVIDERS: ADMIT Internal Medicine; ATTEND Internal Medicine
DX: J69.0 Pneumonitis due to inhalation of food and vomit (principal); J96.11 Chronic respiratory failure with hypoxia; Q90.9 Down syndrome, unspecified; E03.9 Hypothyroidism, unspecified; E78.5 Hyperlipidemia, unspecified; J45.909 Unspecified asthma, uncomplicated; G40.909 Epilepsy, unspecified, not intractable, without status epilepticus; F41.9 Anxiety disorder, unspecified; F32.A Depression, unspecified; K21.9 Gastro-esophageal reflux disease without esophagitis; F63.81 Intermittent explosive disorder; D64.9 Anemia, unspecified; K59.09 Other constipation; Z79.890 Hormone replacement therapy; Z79.899 Other long term (current) drug therapy; Z88.0 Allergy status to penicillin; Z88.1 Allergy status to other antibiotic agents; Z20.822 Contact with and (suspected) exposure to COVID-19; Z99.81 Dependence on supplemental oxygen

== ENCOUNTER → 2023-01-23 | Outpatient (CLI) | payer MEDICARE, MEDICAID ==
[~2023-01-23] MED LIST changes: +ALBU2.5V10 INH; +DOXY100C82 PO; +DOXY100T PO; +FAMO40TA3 PO; +KETO2CR TOP; +PRED20TA PO
== END ==
LOC: M PLAIMG 11:01 → M PLALAB 11:01
PROVIDERS: ATTEND Internal Medicine Pulmonary Disease
DX: R91.8 Other nonspecific abnormal finding of lung field (principal); Z53.9 Procedure and treatment not carried out, unspecified reason

== ENCOUNTER → 2023-02-16 | Outpatient (CLI) | payer MEDICARE, MEDICAID ==
[~2023-02-16] MED LIST changes: -CEFD300C41 PO; +CEFD300C42 PO
[2023-02-16 17:05] LABS: VALPROIC ACID (DEPAKOTE) 26.8 UG/ML (50.0-100.0)
[2023-02-16 17:07] LABS: ALBUMIN 3.1 G/DL (3.2-5.2); ALKALINE PHOSPHATASE 81 U/L (46-116); ALT/SGPT 15 U/L (7.0-40); AST/SGOT 10 U/L (<34); BILIRUBIN,TOTAL 0.5 MG/DL (0.3-1.2); BLOOD UREA NITROGEN 11 MG/DL (9-23); CALCIUM LEVEL 8.3 MG/DL (8.3-10.6); CARBON DIOXIDE LEVEL 28 MMOL/L (20-31); CHLORIDE LEVEL 101 MMOL/L (98-107); GLOMERULAR FILTRATION RATE > 60.0 (>45); GLUCOSE, FASTING 175 MG/DL (74-106); POTASSIUM SERUM 4.5 MMOL/L (3.5-5.1); SODIUM LEVEL 141 MMOL/L (136-145); TOTAL PROTEIN 7.1 G/DL (5.7-8.2)
[2023-02-16 17:11] LABS: BASO % 0.1 % (0.0-1.0); HEMATOCRIT 42.7 % (36.0-47.0); HEMOGLOBIN 13.7 g/dl (12.0-15.5); LYMPH # 0.2 10^3/uL (1.5-5.0); LYMPH % 1.6 % (24.0-44.0); MEAN CORPUSCULAR HEMOGLOBIN 33.7 pg (27.0-33.0); MEAN CORPUSCULAR HGB CONC 32.1 g/dl (32.0-36.5); MEAN CORPUSCULAR VOLUME 105.2 fl (80.0-96.0); MONO # 0.2 10^3/uL (0.0-0.8); MONO % 1.2 % (2.0-8.0); NEUTROPHILS # 12.7 10^3/uL (1.5-8.5); NEUTROPHILS % 96.6 % (36.0-66.0); PLATELET COUNT, AUTOMATED 265 10^3/uL (150-450); RED BLOOD COUNT 4.06 10^6/uL (4.00-5.40); WHITE BLOOD COUNT 13.1 10^3/uL (4.0-10.0)
== END ==
LOC: M PLALAB 14:13
PROVIDERS: ATTEND Family Medicine
DX: J18.9 Pneumonia, unspecified organism (principal); G25.3 Myoclonus

== ENCOUNTER → 2023-04-24 | Outpatient (CLI) | payer MEDICARE, MEDICAID ==
[~2023-04-24] MED LIST changes: +BACTDSTA PO; +CEFD1CAP9 PO; -CEFD300C42 PO; +FURO20TA2; +GLYC1TAB18
== END ==
LOC: M PLAIMG 13:37
PROVIDERS: ATTEND Internal Medicine Pulmonary Disease
DX: R91.8 Other nonspecific abnormal finding of lung field (principal); Z53.9 Procedure and treatment not carried out, unspecified reason

== ENCOUNTER → 2023-04-27 | Outpatient (CLI) | payer MEDICARE, MEDICAID ==
[2023-04-27 14:46] LABS: EOS % 0.1 % (0.0-3.0); HEMATOCRIT 39.6 % (36.0-47.0); LYMPH # 0.2 10^3/uL (1.5-5.0); LYMPH % 2.2 % (24.0-44.0); MEAN CORPUSCULAR HEMOGLOBIN 35.5 pg (27.0-33.0); MEAN CORPUSCULAR HGB CONC 32.8 g/dl (32.0-36.5); MEAN CORPUSCULAR VOLUME 108.2 fl (80.0-96.0); MONO # 0.4 10^3/uL (0.0-0.8); MONO % 4.5 % (2.0-8.0); NEUTROPHILS # 7.9 10^3/uL (1.5-8.5); PLATELET COUNT, AUTOMATED 206 10^3/uL (150-450); RED BLOOD COUNT 3.66 10^6/uL (4.00-5.40); WHITE BLOOD COUNT 8.5 10^3/uL (4.0-10.0)
[2023-04-27 15:03] LABS: ALBUMIN 2.8 G/DL (3.2-5.2); ALKALINE PHOSPHATASE 63 U/L (46-116); ALT/SGPT < 9 U/L (7.0-40); AST/SGOT 11 U/L (<34); BILIRUBIN,TOTAL 0.4 MG/DL (0.3-1.2); BLOOD UREA NITROGEN 8 MG/DL (9-23); CALCIUM LEVEL 8.7 MG/DL (8.3-10.6); CARBON DIOXIDE LEVEL 30 MMOL/L (20-31); CHLORIDE LEVEL 105 MMOL/L (98-107); CREATININE FOR GFR 0.64 MG/DL (0.55-1.30); GLOMERULAR FILTRATION RATE > 60.0 (>45); GLUCOSE, FASTING 119 MG/DL (74-106); POTASSIUM SERUM 4.6 MMOL/L (3.5-5.1); SODIUM LEVEL 141 MMOL/L (136-145); TOTAL PROTEIN 6.3 G/DL (5.7-8.2)
== END ==
LOC: M PLALAB 11:17
PROVIDERS: ATTEND Family Medicine
DX: R05.1 Acute cough (principal); R53.83 Other fatigue

== ENCOUNTER → 2023-05-18 | Outpatient (CLI) | payer MEDICARE, MEDICAID | LOC: M RAD 12:52 | PROVIDERS: ATTEND Internal Medicine Pulmonary Disease | DX: R91.8 Other nonspecific abnormal finding of lung field (principal) ==

== ENCOUNTER → 2023-07-03 | Outpatient (CLI) | payer MEDICARE, MEDICAID ==
[~2023-07-03] MED LIST changes: -MIRA1POW3 PO; +MIRA33506 PO
[2023-07-03 13:52] LABS: BASO % 0.4 % (0.0-1.0); EOS % 0.1 % (0.0-3.0); HEMATOCRIT 41.4 % (36.0-47.0); HEMOGLOBIN 13.6 g/dl (12.0-15.5); LYMPH # 0.5 10^3/uL (1.5-5.0); LYMPH % 6.1 % (24.0-44.0); MEAN CORPUSCULAR HEMOGLOBIN 35.3 pg (27.0-33.0); MEAN CORPUSCULAR HGB CONC 32.9 g/dl (32.0-36.5); MEAN CORPUSCULAR VOLUME 107.5 fl (80.0-96.0); MONO # 0.4 10^3/uL (0.0-0.8); MONO % 5.1 % (2.0-8.0); NEUTROPHILS # 7.2 10^3/uL (1.5-8.5); NEUTROPHILS % 87.8 % (36.0-66.0); PLATELET COUNT, AUTOMATED 292 10^3/uL (150-450); RED BLOOD COUNT 3.85 10^6/uL (4.00-5.40); WHITE BLOOD COUNT 8.2 10^3/uL (4.0-10.0)
[2023-07-03 14:01] LABS: VALPROIC ACID (DEPAKOTE) 32.2 UG/ML (50.0-100.0)
[2023-07-03 14:03] LABS: ALKALINE PHOSPHATASE 77 U/L (46-116); ALT/SGPT 9 U/L (7.0-40); AST/SGOT 11 U/L (<34); BILIRUBIN,TOTAL 0.3 MG/DL (0.3-1.2); BLOOD UREA NITROGEN 9 MG/DL (9-23); CALCIUM LEVEL 8.3 MG/DL (8.3-10.6); CARBON DIOXIDE LEVEL 35 MMOL/L (20-31); CHLORIDE LEVEL 101 MMOL/L (98-107); CREATININE FOR GFR 0.79 MG/DL (0.55-1.30); GLOMERULAR FILTRATION RATE > 60.0 (>45); GLUCOSE, FASTING 106 MG/DL (74-106); MAGNESIUM LEVEL 2.3 MG/DL (1.8-2.4); POTASSIUM SERUM 4.5 MMOL/L (3.5-5.1); SODIUM LEVEL 139 MMOL/L (136-145); THYROID STIMULATING HORMONE 0.843 uIU/ML (0.55-4.78); TOTAL PROTEIN 6.6 G/DL (5.7-8.2)
[2023-07-03 14:04] LABS: FERRITIN 313.5 NG/ML (7.3-270.7)
[2023-07-03 14:05] LABS: VITAMIN B12 LEVEL 1179 PG/ML (211-911)
== END ==
LOC: M PLALAB 11:09
PROVIDERS: ATTEND Family Medicine
DX: R91.8 Other nonspecific abnormal finding of lung field (principal); J84.89 Other specified interstitial pulmonary diseases; R53.83 Other fatigue; G25.3 Myoclonus; Z86.39 Personal history of other endocrine, nutritional and metabolic disease

== ENCOUNTER 2023-07-08 06:40 | Inpatient (IN) | payer MEDICARE, MEDICAID ==
[~2023-07-08] VITALS: Ht 147.3 cm; Wt 80.0 kg
[~2023-07-08 06:40] MED LIST changes: -FURO20TA2
[2023-07-08 07:54] LABS: BASO % 0.2 % (0.0-1.0); EOS % 0.2 % (0.0-3.0); HEMOGLOBIN 14.3 g/dl (12.0-15.5); LYMPH # 0.6 10^3/uL (1.5-5.0); LYMPH % 6.5 % (24.0-44.0); MEAN CORPUSCULAR HEMOGLOBIN 35.6 pg (27.0-33.0); MEAN CORPUSCULAR HGB CONC 33.3 g/dl (32.0-36.5); MONO # 0.3 10^3/uL (0.0-0.8); MONO % 2.8 % (2.0-8.0); NEUTROPHILS # 8.7 10^3/uL (1.5-8.5); NEUTROPHILS % 89.9 % (36.0-66.0); PLATELET COUNT, AUTOMATED 277 10^3/uL (150-450); RED BLOOD COUNT 4.02 10^6/uL (4.00-5.40); WHITE BLOOD COUNT 9.7 10^3/uL (4.0-10.0)
[2023-07-08] MEDS: IPRATROPIUM 0.5MG/ALBUTEROL 2.5MG INH SOL UD 3ML (DUONEB) NEB SCH ×2 (08:20→14:42)
[2023-07-08 08:22] LABS: ABG BASE EXCESS 6.3 (-2.0-2.0); ABG HCO3 30.9 MMOL/L (22.0-26.0); ABG O2 SATURATION 86.8 % (95.0-99.0); ABG PARTIAL PRESSURE CO2 43.8 mmHg (35.0-45.0); ABG STANDARD HCO3 29.9 MMOL/L. (22.0-26.0); ABG TOTAL CO2 32.2 MMOL/L (23.0-31.0); ABG pH (ARTERIAL) 7.466 UNITS (7.350-7.450)
[2023-07-08 08:45] LABS: ALBUMIN 2.9 G/DL (3.2-5.2); ALKALINE PHOSPHATASE 65 U/L (46-116); ALT/SGPT < 9 U/L (7.0-40); AST/SGOT 63 U/L (<34); BILIRUBIN,DIRECT 0.2 MG/DL (<0.4); BILIRUBIN,TOTAL 0.7 MG/DL (0.3-1.2); BLOOD UREA NITROGEN 17 MG/DL (9-23); CALCIUM LEVEL 8.9 MG/DL (8.3-10.6); CARBON DIOXIDE LEVEL 33 MMOL/L (20-31); CHLORIDE LEVEL 99 MMOL/L (98-107); CREATININE FOR GFR 0.97 MG/DL (0.55-1.30); GLOMERULAR FILTRATION RATE > 60.0 (>45); GLUCOSE, FASTING 94 MG/DL (74-106); POTASSIUM SERUM 5.5 MMOL/L (3.5-5.1); SODIUM LEVEL 139 MMOL/L (136-145); THYROID STIMULATING HORMONE 5.126 uIU/ML (0.55-4.78); TOTAL PROTEIN 6.8 G/DL (5.7-8.2)
[2023-07-08] MEDS ORDERED: CitaloPRAM (CeleXA) 10 MG TABLET PO SCH (09:00)
[2023-07-08] MEDS ORDERED: predniSONE 1 MG TAB PO SCH (09:00)
[2023-07-08] MEDS ORDERED: predniSONE 10MG TAB PO SCH (09:00)
[2023-07-08] MEDS: cefTRIAXone SOD 2 GM in D5W MINI-BAG PLUS 50 ML IV ONE (09:06)
[2023-07-08] MEDS ORDERED: NS 2,400 ML in IV 1 EA IV ONE (09:35)
[2023-07-08] MEDS: DOXYCYCLINE HYCLATE 100 MG in D5W MINI-BAG PLUS 100 ML IV ONE (09:47)
[2023-07-08] MEDS ORDERED: IPRATROPIUM 0.5MG/ALBUTEROL 2.5MG INH SOL UD 3ML (DUONEB) NEB PRN (11:15)
[2023-07-08] MEDS ORDERED: QUET100T2 PO (11:37)
[2023-07-08] MEDS ORDERED: MULT-40 PO (11:37)
[2023-07-08] MEDS ORDERED: ALBU2.5V10 INH (11:37)
[2023-07-08] MEDS ORDERED: PRED1TABL PO (11:37)
[2023-07-08] MEDS ORDERED: ALB2.5NEB INH (11:37)
[2023-07-08] MEDS ORDERED: DIVA1TAB48 PO (11:37)
[2023-07-08] MEDS ORDERED: PRED10TA2 PO (11:37)
[2023-07-08] MEDS ORDERED: HOME MED LIST COMPLETE! XX SCH (11:40)
[2023-07-08] MEDS ORDERED: ISOVUE-370 76% 100ML VIAL As Ordered ONE (12:13)
[2023-07-08 12:34] LABS: THYROID STIMULATING HORMONE 2.264 uIU/ML (0.55-4.78)
[2023-07-08 12:35] VITALS: BP 80/52; TEMP 98.6; O2SAT 91
[2023-07-08 12:39] LABS: PROCALCITONIN 1.22 ng/ml
[2023-07-08 12:46] LABS: CALCIUM LEVEL 8.2 MG/DL (8.3-10.6); CREATININE FOR GFR 1.06 MG/DL (0.55-1.30); GLOMERULAR FILTRATION RATE 56.1 (>45); POTASSIUM SERUM 3.8 MMOL/L (3.5-5.1)
[2023-07-08] MEDS ORDERED: LevoFLOXacin IV 750 MG in IV 1 EA IV SCH (14:55)
[2023-07-08] MEDS ORDERED: MIRALAX *UNIT DOSE* 17GM PACKET PO PRN (15:00)
[2023-07-08] MEDS ORDERED: ACETAMINOPHEN TAB 650MG DOSE (2X325MG) PO PRN (15:00)
[2023-07-08 15:02] VITALS: O2SAT 92
[2023-07-08 15:18] VITALS: BP 96/50; TEMP 97.9; O2SAT 93
[2023-07-08] MEDS: methylPREDNISolone 40MG 1ML VIAL IV SCH (16:58)
[2023-07-08] MEDS: HYDROCORTISONE 100MG/2ML VIAL IV ONE (18:26)
[2023-07-08] MEDS: levETIRAcetam INJection 1,000 MG in D5W 100 ML IV SCH (20:10)
[2023-07-08] MEDS: VALPROATE SOD INJ 125 MG in D5W 50 ML IV SCH (20:11)
[2023-07-08] MEDS: ENOXAPARIN 40MG/0.4ML SYRINGE (J1650 PER 10MG) SC SCH (20:11)
[2023-07-08 21:00] VITALS: BP 96/60; TEMP 97.4; O2SAT 91
[2023-07-08] MEDS ORDERED: DIVALPROEX 125 MG TAB PO SCH (21:00)
[2023-07-08] MEDS ORDERED: PANTOPRAZOLE 40MG TAB (PROTONIX) PO SCH (21:00)
[2023-07-08] MEDS ORDERED: FAMOTIDINE 20 MG TAB PO SCH (21:00)
[2023-07-08] MEDS ORDERED: DOCUSATE SOD LIQ 100MG/10ML UDC PO SCH (21:00)
[2023-07-08] MEDS ORDERED: CETIRIZINE (ZyrTEC) 10 MG TAB PO SCH (21:00)
[2023-07-08] MEDS ORDERED: levETIRAcetam 250MG TABLET (KEPPRA) PO SCH (21:00)
[2023-07-08] MEDS ORDERED: SIMVASTATIN 20 MG TAB PO SCH (21:00)
[2023-07-08] MEDS: DOXYCYCLINE HYCLATE 100 MG in D5W MINI-BAG PLUS 100 ML IV SCH (23:26)
[2023-07-09] MEDS ORDERED: KETOROLAC 30 MG/ML 1ML VIAL IV PRN (02:50)
[2023-07-09] MEDS: KETOROLAC 30 MG/ML 1ML VIAL IV PRN (03:06)
[2023-07-09 05:37] VITALS: BP 96/59; TEMP 97.3; O2SAT 97
[2023-07-09] MEDS ORDERED: LEVOTHYROXINE 112MCG TABLET (0.112MG) PO SCH (06:00)
[2023-07-09 06:12] LABS: MEAN CORPUSCULAR HEMOGLOBIN 35.6 pg (27.0-33.0); MEAN CORPUSCULAR HGB CONC 33.6 g/dl (32.0-36.5); MEAN CORPUSCULAR VOLUME 105.8 fl (80.0-96.0); PLATELET COUNT, AUTOMATED 228 10^3/uL (150-450); RED BLOOD COUNT 3.29 10^6/uL (4.00-5.40); WHITE BLOOD COUNT 13.3 10^3/uL (4.0-10.0)
[2023-07-09 06:26] LABS: HEMATOCRIT 34.8 % (36.0-47.0); HEMOGLOBIN 11.7 g/dl (12.0-15.5)
[2023-07-09 06:51] LABS: PROCALCITONIN 1.49 ng/ml
[2023-07-09 06:52] LABS: ALBUMIN 2.6 G/DL (3.2-5.2); ALKALINE PHOSPHATASE 68 U/L (46-116); ALT/SGPT < 9 U/L (7.0-40); AST/SGOT 20 U/L (<34); BILIRUBIN,TOTAL 0.5 MG/DL (0.3-1.2); BLOOD UREA NITROGEN 26 MG/DL (9-23); CALCIUM LEVEL 8.7 MG/DL (8.3-10.6); CARBON DIOXIDE LEVEL 33 MMOL/L (20-31); CHLORIDE LEVEL 105 MMOL/L (98-107); CREATININE FOR GFR 0.97 MG/DL (0.55-1.30); GLOMERULAR FILTRATION RATE > 60.0 (>45); GLUCOSE, FASTING 115 MG/DL (74-106); MAGNESIUM LEVEL 2.5 MG/DL (1.8-2.4); POTASSIUM SERUM 3.8 MMOL/L (3.5-5.1); SODIUM LEVEL 143 MMOL/L (136-145); TOTAL PROTEIN 5.6 G/DL (5.7-8.2)
[2023-07-09] MEDS: cefTRIAXone SOD 2 GM in D5W MINI-BAG PLUS 50 ML IV SCH (10:23)
[2023-07-09 14:00] VITALS: BP 98/62; TEMP 97.6; O2SAT 98
[2023-07-09 14:05] VITALS: O2SAT 98
[2023-07-09] MEDS ORDERED: HYOSCYAMINE SULFATE 0.125 MG SUBL TABLET PO PRN (18:30)
[2023-07-09] MEDS ORDERED: BISACODYL 10MG SUPP PR PRN (18:30)
[2023-07-09] MEDS ORDERED: LORazepam 1 MG TAB PO PRN (18:30)
[2023-07-09] MEDS ORDERED: FLEET ENEMA PR PRN (18:30)
[2023-07-09] MEDS ORDERED: ACETAMINOPHEN TAB 650MG DOSE (2X325MG) PO PRN (18:30)
[2023-07-09] MEDS ORDERED: ONDANSETRON 4MG ORAL DISINTEGRATING TAB PO PRN (18:30)
[2023-07-09] MEDS ORDERED: ONDANSETRON 4MG 2ML VIAL IV PRN (18:30)
[2023-07-09] MEDS ORDERED: ACETAMINOPHEN 650MG SUPP PR PRN (18:30)
[2023-07-09] MEDS: LORazepam 2 MG/ML 1ML VIAL IV PRN (18:43)
[2023-07-09] MEDS: ATROPINE SULFATE 1% OPHTH SOLN 2ML BTL SL PRN (18:52)
[2023-07-10] MEDS: MORPHINE 2 MG/ML 1ML VIAL IV PRN (10:18)
[2023-07-10] MEDS: SCOPOLAMINE 1MG TRANSDERMAL PATCH TOP ONE (11:16)
[2023-07-11] MEDS: MORPHINE 10MG/0.5ML ORAL CONCENTRATE SOLUTION U/D SL PRN ×2 (07:35→08:52)
[2023-07-23] MEDS ORDERED: CARBAMIDE PEROXIDE 6.5% OTIC SOLN 15ML AU SCH (15:00)
== END 2023-07-11 14:22 | disposition expired | DRG 871 ==
LOC: M ED 06:40 → M ED INP 11:16 → M MSPAV 12:31
PROVIDERS: ADMIT Internal Medicine; ATTEND Internal Medicine
DX: A41.9 Sepsis, unspecified organism (principal); J96.01 Acute respiratory failure with hypoxia; G93.41 Metabolic encephalopathy; J15.69 Pneumonia due to other Gram-negative bacteria; J69.0 Pneumonitis due to inhalation of food and vomit; E03.9 Hypothyroidism, unspecified; G30.9 Alzheimer's disease, unspecified; Q90.9 Down syndrome, unspecified; G40.909 Epilepsy, unspecified, not intractable, without status epilepticus; K21.9 Gastro-esophageal reflux disease without esophagitis; Z51.5 Encounter for palliative care; Z79.52 Long term (current) use of systemic steroids; K59.00 Constipation, unspecified; E78.5 Hyperlipidemia, unspecified; F79 Unspecified intellectual disabilities; Z88.0 Allergy status to penicillin; Z88.8 Allergy status to other drugs, medicaments and biological substances; Z79.899 Other long term (current) drug therapy; Z66 Do not resuscitate